=== PATIENT | male | born 1990 | race Two or more races ===

== ENCOUNTER 2021-09-28 12:27 | Inpatient (IN) | payer MEDICARE, SELFPAY ==
--- NOTE | 2021-09-28 | ECG_ITS ---
Test Reason : cp Blood Pressure : / mmHG Vent. Rate : 057 BPM Atrial Rate : 057 BPM P-R Int : 166 ms QRS Dur : 104 ms QT Int : 408 ms P-R-T Axes : 051 071 014 degrees QTc Int : 397 ms Sinus bradycardia Incomplete right bundle branch block Borderline ECG No previous ECGs available Referred By: Symone Barnes Electronically Signed By:SUMAYA MERCADO
--- NOTE | ~2021-09-28 | XR_ITS ---
EXAMINATION: XR TIBIA AND FIBULA, RIGHT CLINICAL INFORMATION: Pain with ambulation. History of trauma. COMPARISON: None TECHNIQUE: AP and lateral views of the right tibia and fibula were obtained. FINDINGS: The bones and soft tissues are normal. No fracture. No osseous lesions. XR/XR tibia fibula RT 2V IMPRESSION: Normal right tibia and fibula.
--- NOTE | ~2021-09-28 | XR_ITS ---
EXAMINATION: XR LUMBOSACRAL SPINE CLINICAL INFORMATION: Chronic low back pain COMPARISON: None TECHNIQUE: Three views of the lumbosacral spine. FINDINGS: Bone alignment is normal. No fracture or dislocation is seen. Disc spaces are normal. Paraspinal soft tissues are normal. XR/XR lumbar spine 2-3V IMPRESSION: Unremarkable examination.
--- NOTE | ~2021-09-28 | XR_ITS ---
EXAMINATION: XR HAND, RIGHT CLINICAL INFORMATION: Painful nodule; history of trauma. COMPARISON: None TECHNIQUE: PA, lateral, and oblique views of the right hand. FINDINGS: The bones and soft tissues are normal. No fracture. Alignment is anatomic. Joint spaces are maintained. No erosions or soft tissue calcifications. XR/XR hand RT min 3V IMPRESSION: Normal right hand.
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
--- NOTE | 2021-09-28 12:48 | MHC.CARE ---
CARE Team receives a call from [facility] crisis. Pt was assessed in the community and is a bedsearch.
[2021-09-28 13:39] LABS: COVID-19 Test Negative (Negative)
[2021-09-28 13:43] LABS: Amphetamine Screen Urine Not Detected (Not Detect); Barbiturates, Urine Not Detected (Not Detect); Benzodiazepines Screen Urine Not Detected (Not Detect); Cannabinoid Screen Urine POSITIVE (Not Detect); Cocaine Screen Urine Not Detected (Not Detect); Fentanyl, urine Not Detected (Not Detect); Opiate Screen Urine Not Detected (Not Detect); Phencyclidine Screen Urine Not Detected (Not Detect)
[2021-09-28 13:48] LABS: MANUAL DIFF FLAG NO
[2021-09-28 13:51] LABS: Basophils Percent Auto 0.3 % (0-2); Eosinophils Absolute Auto 0.1 X10*3/uL (0.0-0.4); Eosinophils Percent Auto 0.8 % (0-4); Hematocrit 39.7 % (42.0-52.0); Hemoglobin 13.2 g/dl (14.0-18.0); Imm Gran Abs Auto 0.02 X10*3/uL (0.00-0.03); Imm Gran Pct Auto 0.3 % (0.0-0.4); Lymphocytes Absolute Auto 1.7 X10*3/uL (1.2-4.9); Lymphocytes Percent Auto 26.4 % (20-40); Mean Corpuscular HGB Conc 33.2 g/dl (31.0-36.0); Mean Corpuscular Hemoglobin 29.7 pg (27.0-33.0); Mean Corpuscular Volume 89.2 fL (80.0-98.0); Mean Platelet Volume 10.2 fL (9.4-12.4); Monocytes Absolute Auto 0.6 X10*3/uL (0.1-1.2); Monocytes Percent Auto 9.4 % (2-11); Neutrophils Absolute Auto 4.1 x10*3/uL (2.0-8.3); Neutrophils Percent Auto 62.8 % (45-73); Platelet Count 195 X10*3/uL (160-400); Red Blood Count 4.45 X10*6/uL (4.60-5.80); Red Cell Distribution Width 12.4 % (11.0-16.0); White Blood Count 6.6 X10*3/uL (4.8-10.8)
[2021-09-28 13:59] LABS: Lithium < 0.04 mmol/L (0.60-1.20)
[2021-09-28 14:00] VITALS: BP 123/53; PULSE 83; RESP 18; TEMP 36.6; O2SAT 98; BMI 22.8
[2021-09-28 14:07] LABS: Alanine Aminotransferase 11 U/L (0-40); Albumin Level 4.2 g/dL (3.5-5.0); Alkaline Phosphatase 60 U/L (39-117); Anion Gap 14 (12-20); Aspartate Amino Transferase 23 U/L (5-37); Bilirubin Direct 0.2 mg/dL (0.0-0.5); Bilirubin Total 0.5 mg/dL (0.0-1.0); Blood Urea Nitrogen 12 mg/dL (9-16); Calcium 9.4 mg/dL (8.4-10.2); Carbon Dioxide 29 mmol/L (22-29); Chloride 103 mmol/L (96-108); Estimated Glomerular Filt Rate > 60; Ethanol < 10 mg/dL; Glucose Random 92 mg/dL (60-115); Potassium 3.7 mmol/L (3.3-5.1); Sodium 142 mmol/L (135-145); Total Protein 7.3 g/dL (6.5-8.0)
[2021-09-28] MEDS: OLANZapine 5 MG TABLET PO (16:41)
[2021-09-28 18:55] VITALS: BP 123/84; PULSE 53; RESP 16; TEMP 36.5; O2SAT 100
[2021-09-28 19:56] LABS: Valproate 12.1 mcg/mL (50.0-100.0)
[2021-09-28] MEDS: OLANZapine 10 MG TABLET 20 MG PO (20:53)
[2021-09-28] MEDS: Gabapentin 100 MG CAPSULE 200 MG PO (20:55)
[2021-09-28] MEDS: Divalproex Sodium ER 500 MG TAB.ER.24H 2500 MG PO (20:56)
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
[2021-09-29 07:00] VITALS: BMI 19.5
[2021-09-29 08:55] LABS: Estimated Average Glucose 91 mg/dL; Hemoglobin A1c % 4.8 %
[2021-09-29 08:56] LABS: Cholesterol 126 mg/dL; HDL Cholesterol 43 mg/dL; LDL Cholesterol Calculated 69 mg/dl; Magnesium 2.1 mg/dL (1.6-2.6); Triglycerides 74 mg/dL
[2021-09-29 09:18] LABS: Free T4 (Free Thyroxine) 0.98 ng/dL (0.71-1.85); Thyroid Stimulating Hormone 0.55 uIU/mL (0.32-4.0)
[2021-09-29] MEDS: Thiamine HCL 100 MG TABLET PO (09:29)
[2021-09-29] MEDS: Gabapentin 100 MG CAPSULE 200 MG PO ×3 (09:29→22:14)
[2021-09-29] MEDS: Sertraline HCL 50 MG TABLET PO (09:29)
[2021-09-29] MEDS: Acetaminophen 325 MG TABLET 650 MG PO (09:30)
[2021-09-29 09:52] LABS: Folate 16.1 ng/mL (> or = 4.0); Vitamin B12 1003 pg/mL (200-900)
[2021-09-29 10:16] VITALS: BP 131/98; PULSE 72; RESP 18; TEMP 36.4; O2SAT 98
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
[2021-09-29 20:15] VITALS: BP 117/63; PULSE 64; RESP 16; TEMP 36.6; O2SAT 98
[2021-09-29] MEDS: OLANZapine 10 MG TABLET 20 MG PO (22:14)
[2021-09-29] MEDS: Divalproex Sodium ER 500 MG TAB.ER.24H 2500 MG PO (22:14)
[2021-09-30 09:10] VITALS: BP 118/62; PULSE 97; RESP 18; TEMP 36.4; O2SAT 98
[2021-09-30] MEDS: Sertraline HCL 50 MG TABLET PO (10:14)
[2021-09-30] MEDS: Gabapentin 100 MG CAPSULE 200 MG PO ×3 (10:14→22:20)
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
[2021-09-30] MEDS: OLANZapine 10 MG TABLET 20 MG PO (22:21)
[2021-09-30] MEDS: Divalproex Sodium ER 500 MG TAB.ER.24H 2500 MG PO (22:21)
[2021-09-30 22:26] VITALS: BP 132/62; PULSE 88; TEMP 36.6; O2SAT 96
--- NOTE | 2021-10-01 09:19 | P.PNPSI_ITS ---
Subjective Subjective Date of Service: 10/01/21 Reason For Visit: Manic,agitated Subjective Notes: Conditional Voluntary Guardianship: Yes (Mother) Interim History: Patient was seen and discussed in rounds today. Records and plans were revi ewed. He is doing a little better and has been brighter and more relaxed. Eating and sleeping adequately. He is mostly isolative. He states that he wants to put a 3 day notice and. He has been reported to be paranoid and somewhat delusional. No complaints or side effects. No changes were made today Medication Compliance: Yes Side effects from medications: No Attending Groups: Intermittent Review of Systems Review of Systems Yes all other systems are reviewed and are negative Mental Status Exam Mental Status Exam Narrative: In today's visit he is alert, oriented and cooperative and pleasant. Soft- spoken speech. Minimal eye contact. Affect is constricted. He denies any auditory or visual hallucinations. Paranoid ideations and delusions present. No SI. Cognitively intact on gross observation. Judgment is marginal. Diagnostics Vital Signs (24Hr): Vital Signs - 24 hr 09/30/21 22:26 Temperature 97.8 F Pulse Rate 88 Blood Pressure 132/62 Pulse Oximetry 96 Oxygen Delivery Method Room Air BMI result Body Mass Index 19.5 Labs Results: 09/28/21 13:43 09/28/21 13:43 Labs: Laboratory Results - last 48 hr 09/29/21 08:23 Vitamin B12 1003 H Folate 16.1 Imaging Radiology Impressions: ITS Impressions Lumbar Spine X-Ray 09/29/21 16:11 IMPRESSION: Unremarkable examination. Tibia/Fibula X-Ray 09/29/21 16:11 IMPRESSION: Normal right tibia and fibula. Medications Medications Current Medications Acetaminophen (Acetaminophen 325 Mg Tablet) 650 mg PO Q6H PRN PRN Reason: Headache/Pain Mild Scale (1-3) Last Admin: 09/29/21 09:30 Dose: 650 mg Al Hydroxide/Mg Hydroxide (Magnesium Hydrox/Alum Hydrox 30 Ml Oral.Susp) 30 ml PO Q6H PRN PRN Reason: Heartburn/Nausea Albuterol Sulfate (Albuterol Sulfate 90 Mcg 8 Gm Inhaler) 1 puff INHALE QID PRN PRN Reason: wheezing Divalproex Sodium (Divalproex Sodium Er 500 Mg Tab.Er.24h) 2,500 mg PO BEDTIME [facility] Last Admin: 09/30/21 22:21 Dose: 2,500 mg Gabapentin (Gabapentin 100 Mg Capsule) 200 mg PO TID [facility] Last Admin: 09/30/21 22:20 Dose: 200 mg Hydroxyzine HCl (Hydroxyzine Hcl 25 Mg Tablet) 25 mg PO Q6H PRN PRN Reason: Anxiety Magnesium Hydroxide (Milk Of Magnesia 30 Ml Oral.Susp) 30 ml PO DAILY PRN PRN Reason: Constipation Nicotine Polacrilex (Nicotine Polacrilex 2 Mg Gum) 2 mg BUCCAL Q2H PRN PRN Reason: nicotine cravings Olanzapine (Olanzapine 10 Mg Tablet) 20 mg PO BEDTIME [facility] Last Admin: 09/30/21 22:21 Dose: 20 mg Sertraline HCl (Sertraline Hcl 50 Mg Tablet) 50 mg PO DAILY [facility] Last Admin: 09/30/21 10:14 Dose: 50 mg Thiamine HCl (Thiamine Hcl 100 Mg Tablet) 100 mg PO DAILY [facility] Last Admin: 09/30/21 10:15 Dose: Not Given Trazodone HCl (Trazodone Hcl 50 Mg Tablet) 50 mg PO BEDTIME PRN PRN Reason: Insomnia Allergies Allergies Allergy/AdvReac Type Severity Reaction Status Date / Time No Known Allergies Allergy Verified 09/28/21 12:49 Assessment & Plan Assessment & Plan (1) Schizoaffective disorder: Status: Acute Code(s): F25.9 - Schizoaffective disorder, unspecified Plan restart outpt meds. pt claims to be taking meds as prescribed, but Rxed 2500 mg VPA and his level at admission was only 12. observe for resolution of manic/psychotic Sx. 09/30 continue current medications. 10/01: Continue current regimen and plans I spent minutes with the patient and/or on the patient floor today, greater than?50% of which was spent counseling/coordinating care. Reason for contiued inpatient stay Substantial Risk for: med/psych decompensation
[2021-10-01 10:50] VITALS: BP 130/86; PULSE 77; RESP 18; TEMP 36.5; O2SAT 100
[2021-10-01] MEDS: Gabapentin 100 MG CAPSULE 200 MG PO ×3 (10:54→22:43)
[2021-10-01] MEDS: Sertraline HCL 50 MG TABLET PO (10:54)
[2021-10-01] MEDS: Thiamine HCL 100 MG TABLET PO (10:55)
[2021-10-01] MEDS: Milk of Magnesia 30 ML ORAL.SUSP PO (10:58)
--- NOTE | 2021-10-01 16:19 | PC.NURSE ---
Patient submitted 3 day notice.
[2021-10-01 21:00] VITALS: BP 130/74; PULSE 82; TEMP 36.8; O2SAT 96
[2021-10-01] MEDS: Divalproex Sodium ER 500 MG TAB.ER.24H 2500 MG PO (22:42)
[2021-10-01] MEDS: OLANZapine 10 MG TABLET 20 MG PO (22:42)
--- NOTE | 2021-10-02 08:51 | P.PNPSI_ITS ---
Subjective Subjective Date of Service: 10/02/21 Reason For Visit: Manic,agitated Subjective Notes: Conditional Voluntary and 3 Day Healthcare Proxy: No Guardianship: No Medical Problems Affecting Mental Status: No Interim History: Patient was seen and discussed in rounds today. Records and plans were reviewed. He is is doing better and has no anxiety or depression. He is continue to have some poor boundaries. He is pleasant and interactive. He put in a 3 day notice in yesterday but could not say why exactly. He had some questions about it which we discussed. He denies any side effects. No SI. Eating and sleeping adequately. No changes were made today Medication Compliance: Yes Side effects from medications: No Attending Groups: Intermittent Review of Systems Review of Systems Yes all other systems are reviewed and are negative Mental Status Exam Mental Status Exam Narrative: In today's visit he is alert, oriented and cooperative and pleasant. Soft- spoken speech. Minimal eye contact. Affect is constricted. He denies any auditory or visual hallucinations. Paranoid ideations and delusions present. No SI. Cognitively intact on gross observation. Judgment is marginal. Diagnostics Vital Signs (24Hr): Vital Signs - 24 hr 10/01/21 10:50 10/01/21 21:00 Temperature 97.7 F 98.2 F Pulse Rate 77 82 Respiratory Rate 18 Blood Pressure 130/86 130/74 Pulse Oximetry 100 96 Oxygen Delivery Method Room Air Room Air BMI result Body Mass Index 19.5 Labs Results: 09/28/21 13:43 09/28/21 13:43 Imaging Radiology Impressions: ITS Impressions Lumbar Spine X-Ray 09/29/21 16:11 IMPRESSION: Unremarkable examination. Tibia/Fibula X-Ray 09/29/21 16:11 IMPRESSION: Normal right tibia and fibula. Medications Medications Current Medications Acetaminophen (Acetaminophen 325 Mg Tablet) 650 mg PO Q6H PRN PRN Reason: Headache/Pain Mild Scale (1-3) Last Admin: 09/29/21 09:30 Dose: 650 mg Al Hydroxide/Mg Hydroxide (Magnesium Hydrox/Alum Hydrox 30 Ml Oral.Susp) 30 ml PO Q6H PRN PRN Reason: Heartburn/Nausea Albuterol Sulfate (Albuterol Sulfate 90 Mcg 8 Gm Inhaler) 1 puff INHALE QID PRN PRN Reason: wheezing Divalproex Sodium (Divalproex Sodium Er 500 Mg Tab.Er.24h) 2,500 mg PO BEDTIME [facility] Last Admin: 10/01/21 22:42 Dose: 2,500 mg Gabapentin (Gabapentin 100 Mg Capsule) 200 mg PO TID [facility] Last Admin: 10/01/21 22:43 Dose: 200 mg Hydroxyzine HCl (Hydroxyzine Hcl 25 Mg Tablet) 25 mg PO Q6H PRN PRN Reason: Anxiety Magnesium Hydroxide (Milk Of Magnesia 30 Ml Oral.Susp) 30 ml PO DAILY PRN PRN Reason: Constipation Last Admin: 10/01/21 10:58 Dose: 30 ml Nicotine Polacrilex (Nicotine Polacrilex 2 Mg Gum) 2 mg BUCCAL Q2H PRN PRN Reason: nicotine cravings Olanzapine (Olanzapine 10 Mg Tablet) 20 mg PO BEDTIME [facility] Last Admin: 10/01/21 22:42 Dose: 20 mg Sertraline HCl (Sertraline Hcl 50 Mg Tablet) 50 mg PO DAILY [facility] Last Admin: 10/01/21 10:54 Dose: 50 mg Thiamine HCl (Thiamine Hcl 100 Mg Tablet) 100 mg PO DAILY [facility] Last Admin: 10/01/21 10:55 Dose: 100 mg Trazodone HCl (Trazodone Hcl 50 Mg Tablet) 50 mg PO BEDTIME PRN PRN Reason: Insomnia Allergies Allergies Allergy/AdvReac Type Severity Reaction Status Date / Time No Known Allergies Allergy Verified 09/28/21 12:49 Assessment & Plan Assessment & Plan (1) Schizoaffective disorder: Status: Acute Code(s): F25.9 - Schizoaffective disorder, unspecified Plan restart outpt meds. pt claims to be taking meds as prescribed, but Rxed 2500 mg VPA and his level at admission was only 12. observe for resolution of manic/psychotic Sx. 09/30 continue current medications. 10/01: Continue current regimen and plans 10/02: Continue current plans and regimen. He has a 3 day notice in which will be up on 10/05 I spent minutes with the patient and/or on the patient floor today, greater than?50% of which was spent counseling/coordinating care. Reason for contiued inpatient stay Substantial Risk for: med/psych decompensation
[2021-10-02 09:00] VITALS: BP 156/83; PULSE 58; RESP 16; TEMP 36.3; O2SAT 100
[2021-10-02] MEDS: Acetaminophen 325 MG TABLET 650 MG PO (09:08)
[2021-10-02] MEDS: Thiamine HCL 100 MG TABLET PO (09:09)
[2021-10-02] MEDS: Sertraline HCL 50 MG TABLET PO (09:09)
[2021-10-02] MEDS: Gabapentin 100 MG CAPSULE 200 MG PO ×3 (09:09→20:36)
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
[2021-10-02 20:15] VITALS: BP 141/97; PULSE 77; RESP 18; TEMP 36.9; O2SAT 99
[2021-10-02] MEDS: Divalproex Sodium ER 500 MG TAB.ER.24H 2500 MG PO (20:36)
[2021-10-02] MEDS: OLANZapine 10 MG TABLET 20 MG PO (20:36)
--- NOTE | 2021-10-02 22:34 | PC.NURSE ---
During 2100 med pass, pt was observed opening his gabapentin capsules and snorting the powder. Pt made no attempts to hide this action, was verbally redirected by RN to stop which he did. Pt appeared to inhale nasally about 50% of the powder from 1 capsule, swallowed the rest once redirected. Pt stated that's what I do . Pt reminded he can not take the gabapentin this way in the hospital and it is not recommended at all, even at home. Pt made no further attempts to discuss the issue, no aggressive or inappropriate behavior noted. Plan to pass information along to tx team.
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
[2021-10-03 10:15] VITALS: BP 122/58; PULSE 80; RESP 18; TEMP 36.7; O2SAT 100
[2021-10-03] MEDS: Thiamine HCL 100 MG TABLET PO (10:42)
[2021-10-03] MEDS: OLANZapine ODT 10 MG TAB.RAPDIS TRANSLINGU (10:42)
[2021-10-03] MEDS: Gabapentin 100 MG CAPSULE 200 MG PO ×3 (10:42→21:38)
[2021-10-03] MEDS: QUEtiapine Fumarate 50 MG TABLET PO (15:26)
[2021-10-03] MEDS: Acetaminophen 325 MG TABLET 650 MG PO (15:27)
[2021-10-03 21:30] VITALS: BP 128/85; PULSE 74; RESP 16; TEMP 36.6; O2SAT 98
[2021-10-03] MEDS: Divalproex Sodium ER 500 MG TAB.ER.24H 2500 MG PO (21:38)
[2021-10-03] MEDS: OLANZapine ODT 10 MG TAB.RAPDIS 20 MG TRANSLINGU (21:38)
[2021-10-04] MEDS: OLANZapine ODT 10 MG TAB.RAPDIS TRANSLINGU (10:32)
[2021-10-04] MEDS: Thiamine HCL 100 MG TABLET PO (10:32)
[2021-10-04] MEDS: Acetaminophen 325 MG TABLET 650 MG PO (10:34)
[2021-10-04 10:48] VITALS: BP 153/93; PULSE 92; RESP 16; TEMP 36.3; O2SAT 98
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
--- NOTE | 2021-10-04 18:03 | PC.NURSE ---
Patient over heard on the phone stating I do not give a fuck if I am off the ankle bracelet. I will will fucking kill you. I will murder you . Patient proceeded to slam phone on wall. Walked down the [address] way threw waterbottle at wall and slammed door to room. Told staff to leave me the fuck alone when attempting to check in on the patient.
[2021-10-04 21:00] VITALS: BP 133/89; PULSE 70; RESP 18; TEMP 36.8; O2SAT 98
[2021-10-05 06:00] VITALS: BP 130/63; PULSE 72; RESP 16; TEMP 36.6; O2SAT 95
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
[2021-10-05] MEDS: Thiamine HCL 100 MG TABLET PO (09:53)
[2021-10-05] MEDS: OLANZapine ODT 10 MG TAB.RAPDIS 20 MG TRANSLINGU ×2 (09:53→19:52)
[2021-10-05] MEDS: QUEtiapine Fumarate 100 MG TABLET PO (10:30)
[2021-10-05] MEDS: Divalproex Sodium ER 500 MG TAB.ER.24H 2500 MG PO (19:51)
[2021-10-05 19:54] VITALS: BP 130/72; PULSE 88; TEMP 36.8; O2SAT 97
[2021-10-05] MEDS: Acetaminophen 325 MG TABLET 650 MG PO (23:41)
[2021-10-05] MEDS: traZODone HCL 50 MG TABLET PO (23:42)
[2021-10-06 07:00] VITALS: BMI 20.7
--- NOTE | 2021-10-06 09:41 | P.PNPSI_ITS ---
Subjective Subjective Date of Service: 10/06/21 Reason For Visit: Manic,agitated Subjective Notes: Section 7 Interim History: Pt calmer, today. He reports his food tampered, on and off. He reports he is trying to stay in room and out of trouble. He is taking medications as prescribed. He reports back pain s/s to severe scoliosis. He agrees to not snort gabapetin and acknowledge doing so. He denies SI. Suspicious towards peers, paranoia towards mother. Medication Compliance: Yes Side effects from medications: No Review of Systems Review of Systems Yes all other systems are reviewed and are negative Mental Status Exam Mental Status Exam Narrative: adequately dressed and groomed. face and neck tattoos. very suspicious, threatening to harm staff and peers as he thinks he is being posioned. no PMA/PMR. speech incr in rate, amount, loudness. decr latency. nml prosody. thoughts paranoid, delusional, restricted in content to paranoid delusions, larg corey. affect paranoid, guarded, agitated. mood anxious. denies SI/HI/AVH. Diagnostics Vital Signs (24Hr): Vital Signs - 24 hr 10/06/21 10:47 10/06/21 21:29 Temperature 97.8 F 97.8 F Pulse Rate 93 88 Blood Pressure 124/82 130/83 Pulse Oximetry 99 98 Oxygen Delivery Method Room Air Room Air BMI result Body Mass Index 20.7 Labs Results: 09/28/21 13:43 09/28/21 13:43 Imaging Radiology Impressions: ITS Impressions Lumbar Spine X-Ray 09/29/21 16:11 IMPRESSION: Unremarkable examination. Tibia/Fibula X-Ray 09/29/21 16:11 IMPRESSION: Normal right tibia and fibula. Medications Medications Current Medications Acetaminophen (Acetaminophen 325 Mg Tablet) 650 mg PO Q6H PRN PRN Reason: Headache/Pain Mild Scale (1-3) Last Admin: 10/06/21 21:17 Dose: 650 mg Al Hydroxide/Mg Hydroxide (Magnesium Hydrox/Alum Hydrox 30 Ml Oral.Susp) 30 ml PO Q6H PRN PRN Reason: Heartburn/Nausea Albuterol Sulfate (Albuterol Sulfate 90 Mcg 8 Gm Inhaler) 1 puff INHALE QID PRN PRN Reason: wheezing Divalproex Sodium (Divalproex Sodium Er 500 Mg Tab.Er.24h) 2,500 mg PO BEDTIME [facility] Last Admin: 10/06/21 21:12 Dose: 2,500 mg Hydroxyzine HCl (Hydroxyzine Hcl 25 Mg Tablet) 25 mg PO Q6H PRN PRN Reason: Anxiety Magnesium Hydroxide (Milk Of Magnesia 30 Ml Oral.Susp) 30 ml PO DAILY PRN PRN Reason: Constipation Last Admin: 10/01/21 10:58 Dose: 30 ml Nicotine Polacrilex (Nicotine Polacrilex 2 Mg Gum) 2 mg BUCCAL Q2H PRN PRN Reason: nicotine cravings Olanzapine (Olanzapine Odt 10 Mg Tab.Rapdis) 20 mg TRANSLINGU BID [facility] Last Admin: 10/06/21 21:12 Dose: 20 mg Quetiapine Fumarate (Quetiapine Fumarate 100 Mg Tablet) 100 mg PO Q6H PRN PRN Reason: Anxiety Last Admin: 10/05/21 10:30 Dose: 100 mg Thiamine HCl (Thiamine Hcl 100 Mg Tablet) 100 mg PO DAILY [facility] Last Admin: 10/06/21 10:46 Dose: 100 mg Trazodone HCl (Trazodone Hcl 50 Mg Tablet) 50 mg PO BEDTIME PRN PRN Reason: Insomnia Last Admin: 10/05/21 23:42 Dose: 50 mg Allergies Allergies Allergy/AdvReac Type Severity Reaction Status Date / Time No Known Allergies Allergy Verified 09/28/21 12:49 Assessment & Plan Assessment & Plan (1) Schizoaffective disorder: Status: Acute Code(s): F25.9 - Schizoaffective disorder, unspecified Plan restart outpt meds. pt claims to be taking meds as prescribed, but Rxed 2500 mg VPA and his level at admission was only 12. observe for resolution of manic/psychotic Sx. 09/30 continue current medications. 10/01: Continue current regimen and plans 10/02: Continue current plans and regimen. He has a 3 day notice in which will be up on 10/05 10/03 increase olanzapine 10mg po daily and 20mg po qhs. d/c gabapentin as pt trying to snort it. d/c sertraline as it may worsened psychosis. 10/04 increase olanzapine to 20mg po BID. 10/05 continue current medications. 10/06 continue current medications. I spent minutes with the patient and/or on the patient floor today, greater than?50% of which was spent counseling/coordinating care. Reason for contiued inpatient stay Substantial Risk for: harm to others and inability to function
[2021-10-06] MEDS: OLANZapine ODT 10 MG TAB.RAPDIS 20 MG TRANSLINGU ×2 (10:45→21:12)
[2021-10-06] MEDS: Thiamine HCL 100 MG TABLET PO (10:46)
[2021-10-06 10:47] VITALS: BP 124/82; PULSE 93; TEMP 36.6; O2SAT 99
[2021-10-06] MEDS: Divalproex Sodium ER 500 MG TAB.ER.24H 2500 MG PO (21:12)
[2021-10-06] MEDS: Acetaminophen 325 MG TABLET 650 MG PO (21:17)
[2021-10-06 21:29] VITALS: BP 130/83; PULSE 88; TEMP 36.6; O2SAT 98
--- NOTE | 2021-10-07 09:01 | HO.PSYCHPN ---
Subjective Subjective Date of Service: 10/07/21 Reason For Visit: Manic,agitated Subjective Notes: Section 7 Interim History: Pt with brighter less suspicious affect. Pt greets pt and shows all food he is eating, Look I'm so hungry! Pt appears less paranoia towards food. He reports sleeping and eating well. He denies SI/HI. He reports he is willing to work with OP providers to find better housing arrangements. No behavioral concerns in past 24 hrs. Not threatening peers or staff. Taking meds as prescribed. Medication Compliance: Yes Side effects from medications: No Attending Groups: Yes Review of Systems Review of Systems Yes all other systems are reviewed and are negative Mental Status Exam Mental Status Exam Narrative: adequately dressed and groomed. face and neck tattoos. very suspicious, threatening to harm staff and peers as he thinks he is being posioned. no PMA/PMR. speech incr in rate, amount, loudness. decr latency. nml prosody. thoughts paranoid, delusional, restricted in content to paranoid delusions, largely. affect paranoid, guarded, agitated. mood anxious. denies SI/HI/AVH. Diagnostics Vital Signs (24Hr): Vital Signs - 24 hr 10/07/21 10:00 Temperature 98.7 F Pulse Rate 80 Respiratory Rate 18 Blood Pressure 117/80 Pulse Oximetry 96 Oxygen Delivery Method Room Air BMI result Body Mass Index 20.7 Labs Results: 09/28/21 13:43 09/28/21 13:43 Imaging Radiology Impressions: ITS Impressions Lumbar Spine X-Ray 09/29/21 16:11 IMPRESSION: Unremarkable examination. Tibia/Fibula X-Ray 09/29/21 16:11 IMPRESSION: Normal right tibia and fibula. Medications Medications Current Medications Acetaminophen (Acetaminophen 325 Mg Tablet) 650 mg PO Q6H PRN PRN Reason: Headache/Pain Mild Scale (1-3) Last Admin: 10/07/21 22:56 Dose: 650 mg Al Hydroxide/Mg Hydroxide (Magnesium Hydrox/Alum Hydrox 30 Ml Oral.Susp) 30 ml PO Q6H PRN PRN Reason: Heartburn/Nausea Albuterol Sulfate (Albuterol Sulfate 90 Mcg 8 Gm Inhaler) 1 puff INHALE QID PRN PRN Reason: wheezing Last Admin: 10/07/21 10:04 Dose: 1 puff Divalproex Sodium (Divalproex Sodium Er 500 Mg Tab.Er.24h) 2,500 mg PO BEDTIME [facility] Last Admin: 10/07/21 22:56 Dose: 2,500 mg Hydroxyzine HCl (Hydroxyzine Hcl 25 Mg Tablet) 25 mg PO Q6H PRN PRN Reason: Anxiety Magnesium Hydroxide (Milk Of Magnesia 30 Ml Oral.Susp) 30 ml PO DAILY PRN PRN Reason: Constipation Last Admin: 10/01/21 10:58 Dose: 30 ml Nicotine Polacrilex (Nicotine Polacrilex 2 Mg Gum) 2 mg BUCCAL Q2H PRN PRN Reason: nicotine cravings Olanzapine (Olanzapine Odt 10 Mg Tab.Rapdis) 20 mg TRANSLINGU BID [facility] Last Admin: 10/07/21 22:56 Dose: 20 mg Quetiapine Fumarate (Quetiapine Fumarate 100 Mg Tablet) 100 mg PO Q6H PRN PRN Reason: Anxiety Last Admin: 10/07/21 22:56 Dose: 100 mg Thiamine HCl (Thiamine Hcl 100 Mg Tablet) 100 mg PO DAILY [facility] Last Admin: 10/07/21 10:04 Dose: 100 mg Trazodone HCl (Trazodone Hcl 50 Mg Tablet) 50 mg PO BEDTIME PRN PRN Reason: Insomnia Last Admin: 10/05/21 23:42 Dose: 50 mg Allergies Allergies Allergy/AdvReac Type Severity Reaction Status Date / Time No Known Allergies Allergy Verified 09/28/21 12:49 Assessment & Plan Assessment & Plan (1) Schizoaffective disorder: Status: Acute Code(s): F25.9 - Schizoaffective disorder, unspecified Plan restart outpt meds. pt claims to be taking meds as prescribed, but Rxed 2500 mg VPA and his level at admission was only 12. observe for resolution of manic/psychotic Sx. 09/30 continue current medications. 10/01: Continue current regimen and plans 10/02: Continue current plans and regimen. He has a 3 day notice in which will be up on 10/05 10/03 increase olanzapine 10mg po daily and 20mg po qhs. d/c gabapentin as pt trying to snort it. d/c sertraline as it may worsened psychosis. 10/04 increase olanzapine to 20mg po BID. 10/05 continue current medications. 10/06 continue current medications. 10/07 continue meds, agrees to take gabapentin without trying to snoring it- he takes it for back pain s/s to scoliosis. I spent minutes with the patient and/or on the patient floor today, greater than?50% of which was spent counseling/coordinating care. Reason for contiued inpatient stay Substantial Risk for: harm to others and inability to function
[2021-10-07 10:00] VITALS: BP 117/80; PULSE 80; RESP 18; TEMP 37.1; O2SAT 96
[2021-10-07] MEDS: Thiamine HCL 100 MG TABLET PO (10:04)
[2021-10-07] MEDS: Albuterol Sulfate 90 MCG 8 GM INHALER 1 PUFF INHALE (10:04)
[2021-10-07] MEDS: OLANZapine ODT 10 MG TAB.RAPDIS 20 MG TRANSLINGU ×2 (10:04→22:56)
[2021-10-07] MEDS: Divalproex Sodium ER 500 MG TAB.ER.24H 2500 MG PO (22:56)
[2021-10-07] MEDS: Acetaminophen 325 MG TABLET 650 MG PO (22:56)
[2021-10-07] MEDS: QUEtiapine Fumarate 100 MG TABLET PO (22:56)
--- NOTE | 2021-10-08 09:25 | P.PNPSI_ITS ---
Subjective Subjective Date of Service: 10/08/21 Reason For Visit: Manic,agitated Subjective Notes: [place] Warning and Section 7 Healthcare Proxy: No Guardianship: No Medical Problems Affecting Mental Status: No Interim History: I spoke with pt this morning and upon interview he reports I dont want to be here longer, I dont feel accepted or welcome here, I'd rather be released early. Says he is not concerned with housing instability, will stay at a hotel if I have to or go back to my mom's house. Denies SI/SIB/HI. Pt refers to being a violent person but pt makes these statements at baseline, may be characterological, no specific threats of harm towards any person, denies homicial or assaultive ideation, plan, or intent at this time. Says he does not want to eat hospital food as he has found hairs in his food. Says he has no patience and feels burnt out being at the hospital, prefers to be quiet and left alone, mind my own business, says he is a good dude but he does not feel safe at the hospital. He is mistrustful, but this appears his baseline rather than acutely paranoid. He is med adherent. Medication Compliance: Yes Side effects from medications: No Attending Groups: No Review of Systems Acute medical concerns: No Medical Review of Systems: unchanged Mental Status Exam Mental Status Exam Narrative: adequately dressed and groomed.? face and neck tattoos.? Pt is suspicious and mistrustful, makes vague passive threats of violence but when asked if he has plans or intent to harm anyone he denies this. no PMA/PMR.? speech wnl.? no latency.? nml prosody.? thoughts are paranoid, appears to be his baseline.? affect guarded, agitated.? mood anxious. ? denies SI/HI/AVH. Diagnostics Vital Signs (24Hr): Vital Signs - 24 hr 10/07/21 10:00 Temperature 98.7 F Pulse Rate 80 Respiratory Rate 18 Blood Pressure 117/80 Pulse Oximetry 96 Oxygen Delivery Method Room Air BMI result Body Mass Index 20.7 Labs Results: 09/28/21 13:43 09/28/21 13:43 Imaging Radiology Impressions: ITS Impressions Lumbar Spine X-Ray 09/29/21 16:11 IMPRESSION: Unremarkable examination. Tibia/Fibula X-Ray 09/29/21 16:11 IMPRESSION: Normal right tibia and fibula. Medications Medications Current Medications Acetaminophen (Acetaminophen 325 Mg Tablet) 650 mg PO Q6H PRN PRN Reason: Headache/Pain Mild Scale (1-3) Last Admin: 10/07/21 22:56 Dose: 650 mg Al Hydroxide/Mg Hydroxide (Magnesium Hydrox/Alum Hydrox 30 Ml Oral.Susp) 30 ml PO Q6H PRN PRN Reason: Heartburn/Nausea Albuterol Sulfate (Albuterol Sulfate 90 Mcg 8 Gm Inhaler) 1 puff INHALE QID PRN PRN Reason: wheezing Last Admin: 10/07/21 10:04 Dose: 1 puff Divalproex Sodium (Divalproex Sodium Er 500 Mg Tab.Er.24h) 2,500 mg PO BEDTIME [facility] Last Admin: 10/07/21 22:56 Dose: 2,500 mg Hydroxyzine HCl (Hydroxyzine Hcl 25 Mg Tablet) 25 mg PO Q6H PRN PRN Reason: Anxiety Magnesium Hydroxide (Milk Of Magnesia 30 Ml Oral.Susp) 30 ml PO DAILY PRN PRN Reason: Constipation Last Admin: 10/01/21 10:58 Dose: 30 ml Nicotine Polacrilex (Nicotine Polacrilex 2 Mg Gum) 2 mg BUCCAL Q2H PRN PRN Reason: nicotine cravings Olanzapine (Olanzapine Odt 10 Mg Tab.Rapdis) 20 mg TRANSLINGU BID [facility] Last Admin: 10/07/21 22:56 Dose: 20 mg Quetiapine Fumarate (Quetiapine Fumarate 100 Mg Tablet) 100 mg PO Q6H PRN PRN Reason: Anxiety Last Admin: 10/07/21 22:56 Dose: 100 mg Thiamine HCl (Thiamine Hcl 100 Mg Tablet) 100 mg PO DAILY [facility] Last Admin: 10/07/21 10:04 Dose: 100 mg Trazodone HCl (Trazodone Hcl 50 Mg Tablet) 50 mg PO BEDTIME PRN PRN Reason: Insomnia Last Admin: 10/05/21 23:42 Dose: 50 mg Allergies Allergies Allergy/AdvReac Type Severity Reaction Status Date / Time No Known Allergies Allergy Verified 09/28/21 12:49 Assessment & Plan Assessment & Plan (1) Schizoaffective disorder: Status: Acute Code(s): F25.9 - Schizoaffective disorder, unspecified Plan restart outpt meds. pt claims to be taking meds as prescribed, but Rxed 2500 mg VPA and his level at admission was only 12. observe for resolution of manic/psychotic Sx. 09/30 continue current medications. 10/01: Continue current regimen and plans 10/02: Continue current plans and regimen. He has a 3 day notice in which will be up on 10/05 10/03 increase olanzapine 10mg po daily and 20mg po qhs. d/c gabapentin as pt trying to snort it. d/c sertraline as it may worsened psychosis. 10/04 increase olanzapine to 20mg po BID. 10/05 continue current medications. 10/06 continue current medications. 10/07 continue meds, agrees to take gabapentin without trying to snort it- he takes it for back pain s/s to scoliosis. 10/08 no med changes, pt requests to take smaller tabs of depakote, will accommodate I spent minutes with the patient and/or on the patient floor today, greater than?50% of which was spent counseling/coordinating care. Patient educated on: medication risk/benefits and therapeutic strategies Reason for contiued inpatient stay Substantial Risk for: rapid decompensation and med/psych decompensation
[2021-10-08 10:30] VITALS: BP 125/92; PULSE 108; RESP 18; TEMP 36.8; O2SAT 98
[2021-10-08] MEDS: Thiamine HCL 100 MG TABLET PO (10:36)
[2021-10-08] MEDS: OLANZapine ODT 10 MG TAB.RAPDIS 20 MG TRANSLINGU ×2 (10:36→23:28)
[2021-10-08] MEDS: Nicotine Polacrilex 2 MG GUM BUCCAL (13:38)
--- NOTE | 2021-10-08 15:19 | HE.PHANOTE ---
MAGALI Gomez called to have Divalproex ER 500 mg tablets switch to 250 mg tablet. Patient having difficulty swalling the large tablets and would prefer to take 10 tablets instead. Marilu Camacho, JessicaD
--- NOTE | 2021-10-08 16:12 | PC.NURSE ---
At 3:30pm, after speaking with Patricia Mcmanus NP, pt presented as angry and agitated. He states he was not told earlier that he is on a section 7 or why. He denies having threatened to kill anyone over the phone earlier in the week. He requested to use his phone to get a number and was given his phone for this purpose. He then proceeded to text and responded to limit setting by making veiled threats about where the murderers are and crips. Patient gave back his phone and then began writing on the wall in marker. He has broken a wooden piece of art and a broken marker in his room at present and is in his room.
--- NOTE | 2021-10-08 16:49 | PC.NURSE ---
I approached patient, requested broken marker and broken wooden art piece back which he ignored. I offered prn medication which he refused stating, You are messing with the wrong mother kory. I informed Patricia Mcmanus CHIEF JUVENILE PROBATION OFFICER, Kierra Pacheco Nursing Pull Out Operator, [facility], and Yenifer Parker Clinical Coordinator. Per Yenifer Parker RN unless patient makes verbal or physical threats of harm to self or others he will be allowed to possess the broken marker and the broken wooden art piece and no intervention to retrieve said items is necessary at present.
[2021-10-08] MEDS: QUEtiapine Fumarate 100 MG TABLET PO (23:28)
[2021-10-08] MEDS: Divalproex Sodium ER 250 MG TAB.ER.24H 2500 MG PO (23:28)
--- NOTE | 2021-10-09 10:14 | PC.NURSE ---
After previous note Yenifer Parker Clincial Coordinator contacted this nurse and requested that we retrieve marker and broken wooden art item from patient. Wooden art item was located on the unit. On 10/08/21 at 7:15pm [facility] met with patient and attempted to retrieve broken items from him. Pt reported he had dropped the marker in the complaint box. Complaint box was opened and no marker inside. 7:30 pm room search was completed with assist of security. Marker was located wedged behind pt's bedside table. During room search pt was largely cooperative. I noted numerous missing bolts from the bed and bedside table. Security was informed and retrieved loose nuts from the bed. No other contraband was located in the room.
--- NOTE | 2021-10-09 10:56 | P.PNPSI_ITS ---
Subjective Subjective Date of Service: 10/09/21 Reason For Visit: Manic,agitated Subjective Notes: [place] Warning and Section 7 Interim History: I spoke with pt today. Says he is trying to stay positive. He is calmer today, had been disruptive yesterday due to being told he cannot discharge. Still wants to discharge. Denies SI/SIB/HI. Says he ate the food today. Acknowledges that when he saw hair in his food and a plastic utensil wrapper in his food he felt people were doing it intentionally and I felt like it was a threat towards me, however now says he is just going to check out my food more often and able to reality test. Has insight, says he has been treated wrong my whole life, I dont trust nothing, how can you live like that? Feels nervous going to sleep. Says when he feels triggered or threatened it can take hours to calm myself down, will lose his focus, and he has to put himself to sleep. Pt falls asleep late but then sleeps in, energy is good. Medication Compliance: Yes Side effects from medications: No Attending Groups: No Review of Systems Acute medical concerns: No Medical Review of Systems: unchanged Mental Status Exam Mental Status Exam Narrative: adequately dressed and groomed.? face and neck tattoos.? Pt is suspicious and mistrustful, makes vague passive threats of violence but when asked if he has plans or intent to harm anyone he denies this. no PMA/PMR.? speech wnl.? no latency.? nml prosody.? thoughts are paranoid, appears to be his baseline.? affect guarded, agitated.? mood better. ? denies SI/HI/AVH. Diagnostics Vital Signs (24Hr): BMI result Body Mass Index 20.7 Labs Results: 09/28/21 13:43 09/28/21 13:43 Imaging Radiology Impressions: ITS Impressions Lumbar Spine X-Ray 09/29/21 16:11 IMPRESSION: Unremarkable examination. Tibia/Fibula X-Ray 09/29/21 16:11 IMPRESSION: Normal right tibia and fibula. Medications Medications Current Medications Acetaminophen (Acetaminophen 325 Mg Tablet) 650 mg PO Q6H PRN PRN Reason: Headache/Pain Mild Scale (1-3) Last Admin: 10/07/21 22:56 Dose: 650 mg Al Hydroxide/Mg Hydroxide (Magnesium Hydrox/Alum Hydrox 30 Ml Oral.Susp) 30 ml PO Q6H PRN PRN Reason: Heartburn/Nausea Albuterol Sulfate (Albuterol Sulfate 90 Mcg 8 Gm Inhaler) 1 puff INHALE QID PRN PRN Reason: wheezing Last Admin: 10/07/21 10:04 Dose: 1 puff Divalproex Sodium (Divalproex Sodium Er 250 Mg Tab.Er.24h) 2,500 mg PO BEDTIME [facility] Last Admin: 10/08/21 23:28 Dose: 2,500 mg Hydroxyzine HCl (Hydroxyzine Hcl 25 Mg Tablet) 25 mg PO Q6H PRN PRN Reason: Anxiety Magnesium Hydroxide (Milk Of Magnesia 30 Ml Oral.Susp) 30 ml PO DAILY PRN PRN Reason: Constipation Last Admin: 10/01/21 10:58 Dose: 30 ml Nicotine Polacrilex (Nicotine Polacrilex 2 Mg Gum) 2 mg BUCCAL Q2H PRN PRN Reason: nicotine cravings Last Admin: 10/08/21 13:38 Dose: 2 mg Olanzapine (Olanzapine Odt 10 Mg Tab.Rapdis) 20 mg TRANSLINGU BID [facility] Last Admin: 10/08/21 23:28 Dose: 20 mg Quetiapine Fumarate (Quetiapine Fumarate 100 Mg Tablet) 100 mg PO Q6H PRN PRN Reason: Anxiety Last Admin: 10/08/21 23:28 Dose: 100 mg Thiamine HCl (Thiamine Hcl 100 Mg Tablet) 100 mg PO DAILY [facility] Last Admin: 10/08/21 10:36 Dose: 100 mg Trazodone HCl (Trazodone Hcl 50 Mg Tablet) 50 mg PO BEDTIME PRN PRN Reason: Insomnia Last Admin: 10/05/21 23:42 Dose: 50 mg Allergies Allergies Allergy/AdvReac Type Severity Reaction Status Date / Time No Known Allergies Allergy Verified 09/28/21 12:49 Assessment & Plan Assessment & Plan (1) Schizoaffective disorder: Status: Acute Code(s): F25.9 - Schizoaffective disorder, unspecified Plan restart outpt meds. pt claims to be taking meds as prescribed, but Rxed 2500 mg VPA and his level at admission was only 12. observe for resolution of manic/psychotic Sx. 09/30 continue current medications. 10/01: Continue current regimen and plans 10/02: Continue current plans and regimen. He has a 3 day notice in which will be up on 10/05 10/03 increase olanzapine 10mg po daily and 20mg po qhs. d/c gabapentin as pt trying to snort it. d/c sertraline as it may worsened psychosis. 10/04 increase olanzapine to 20mg po BID. 10/05 continue current medications. 10/06 continue current medications. 10/07 continue meds, agrees to take gabapentin without trying to snort it- he takes it for back pain s/s to scoliosis. 10/08 no med changes, pt requests to take smaller tabs of depakote, will accommodate 10/09 no med changes I spent minutes with the patient and/or on the patient floor today, greater than?50% of which was spent counseling/coordinating care. Patient educated on: medication risk/benefits and therapeutic strategies Reason for contiued inpatient stay Substantial Risk for: rapid decompensation and med/psych decompensation
[2021-10-09] MEDS: Thiamine HCL 100 MG TABLET PO (11:24)
[2021-10-09] MEDS: OLANZapine ODT 10 MG TAB.RAPDIS 20 MG TRANSLINGU ×2 (11:24→21:38)
[2021-10-09 11:25] VITALS: BP 132/94; PULSE 80; RESP 16; TEMP 36.1; O2SAT 99
[2021-10-09 16:56] LABS: Valproate 110.8 mcg/mL (50.0-100.0)
--- NOTE | 2021-10-09 17:02 | PC.NURSE ---
Critical Value VPA level 110.75 received from Sylvia in lab at 1653 and relayed to Patricia Mcmanus NP at 1654. Depakote on hold tonight per Patricia Mcmanus NP
[2021-10-09 20:00] VITALS: BP 138/84; PULSE 88; RESP 18; TEMP 36.7; O2SAT 100
[2021-10-09] MEDS: Acetaminophen 325 MG TABLET 650 MG PO (21:38)
[2021-10-10 10:40] VITALS: BP 126/78; PULSE 83; RESP 18; TEMP 36.6; O2SAT 100
[2021-10-10] MEDS: OLANZapine ODT 10 MG TAB.RAPDIS 20 MG TRANSLINGU ×2 (10:44→21:56)
[2021-10-10] MEDS: Thiamine HCL 100 MG TABLET PO (10:44)
[2021-10-10] MEDS: Albuterol Sulfate 90 MCG 8 GM INHALER 1 PUFF INHALE (10:44)
--- NOTE | 2021-10-10 12:08 | HO.PSYCHPN ---
Subjective Subjective Date of Service: 10/10/21 Reason For Visit: Manic,agitated Subjective Notes: [place] Warning and Section 7 Interim History: I spoke with pt, denies physical health concerns. Will resume depakote today at 2000 mg HS, VPA level 110 yesterday. says he is fine, making conversation about clothing brands, meditating, exercising. He is smiling during interview, has remained in behavioral control. Medication Compliance: Yes Side effects from medications: No Attending Groups: No Review of Systems Acute medical concerns: No Medical Review of Systems: unchanged Mental Status Exam Mental Status Exam Narrative: adequately dressed and groomed.? face and neck tattoos.? Pt is suspicious and mistrustful, makes vague passive threats of violence but when asked if he has plans or intent to harm anyone he denies this. no PMA/PMR.? speech wnl.? no latency.? nml prosody.? thoughts are paranoid, appears to be his baseline.? affect guarded, agitated.? mood better. ? denies SI/HI/AVH. Diagnostics Vital Signs (24Hr): Vital Signs - 24 hr 10/09/21 20:00 Temperature 98.1 F Pulse Rate 88 Respiratory Rate 18 Blood Pressure 138/84 Pulse Oximetry 100 Oxygen Delivery Method Room Air BMI result Body Mass Index 20.7 Labs Results: 09/28/21 13:43 09/28/21 13:43 Labs: Laboratory Results - last 48 hr 10/09/21 16:05 Valproic Acid 110.8 H* Imaging Radiology Impressions: ITS Impressions Lumbar Spine X-Ray 09/29/21 16:11 IMPRESSION: Unremarkable examination. Tibia/Fibula X-Ray 09/29/21 16:11 IMPRESSION: Normal right tibia and fibula. Medications Medications Current Medications Acetaminophen (Acetaminophen 325 Mg Tablet) 650 mg PO Q6H PRN PRN Reason: Headache/Pain Mild Scale (1-3) Last Admin: 10/09/21 21:38 Dose: 650 mg Al Hydroxide/Mg Hydroxide (Magnesium Hydrox/Alum Hydrox 30 Ml Oral.Susp) 30 ml PO Q6H PRN PRN Reason: Heartburn/Nausea Albuterol Sulfate (Albuterol Sulfate 90 Mcg 8 Gm Inhaler) 1 puff INHALE QID PRN PRN Reason: wheezing Last Admin: 10/10/21 10:44 Dose: 1 puff Divalproex Sodium (Divalproex Sodium Er 250 Mg Tab.Er.24h) 2,500 mg PO BEDTIME [facility] Last Admin: 10/08/21 23:28 Dose: 2,500 mg Hydroxyzine HCl (Hydroxyzine Hcl 25 Mg Tablet) 25 mg PO Q6H PRN PRN Reason: Anxiety Magnesium Hydroxide (Milk Of Magnesia 30 Ml Oral.Susp) 30 ml PO DAILY PRN PRN Reason: Constipation Last Admin: 10/01/21 10:58 Dose: 30 ml Nicotine Polacrilex (Nicotine Polacrilex 2 Mg Gum) 2 mg BUCCAL Q2H PRN PRN Reason: nicotine cravings Last Admin: 10/08/21 13:38 Dose: 2 mg Olanzapine (Olanzapine Odt 10 Mg Tab.Rapdis) 20 mg TRANSLINGU BID [facility] Last Admin: 10/10/21 10:44 Dose: 20 mg Quetiapine Fumarate (Quetiapine Fumarate 100 Mg Tablet) 100 mg PO Q6H PRN PRN Reason: Anxiety Last Admin: 10/08/21 23:28 Dose: 100 mg Thiamine HCl (Thiamine Hcl 100 Mg Tablet) 100 mg PO DAILY [facility] Last Admin: 10/10/21 10:44 Dose: 100 mg Trazodone HCl (Trazodone Hcl 50 Mg Tablet) 50 mg PO BEDTIME PRN PRN Reason: Insomnia Last Admin: 10/05/21 23:42 Dose: 50 mg Allergies Allergies Allergy/AdvReac Type Severity Reaction Status Date / Time No Known Allergies Allergy Verified 09/28/21 12:49 Assessment & Plan Assessment & Plan (1) Schizoaffective disorder: Status: Acute Code(s): F25.9 - Schizoaffective disorder, unspecified Plan restart outpt meds. pt claims to be taking meds as prescribed, but Rxed 2500 mg VPA and his level at admission was only 12. observe for resolution of manic/psychotic Sx. 09/30 continue current medications. 10/01: Continue current regimen and plans 10/02: Continue current plans and regimen. He has a 3 day notice in which will be up on 10/05 10/03 increase olanzapine 10mg po daily and 20mg po qhs. d/c gabapentin as pt trying to snort it. d/c sertraline as it may worsened psychosis. 10/04 increase olanzapine to 20mg po BID. 10/05 continue current medications. 10/06 continue current medications. 10/07 continue meds, agrees to take gabapentin without trying to snort it- he takes it for back pain s/s to scoliosis. 10/08 no med changes, pt requests to take smaller tabs of depakote, will accommodate 10/09 Pt's VPA level 110, will hold for night and resume at smaller dose 10/10 continue depakote at 2000 mg HS I spent minutes with the patient and/or on the patient floor today, greater than?50% of which was spent counseling/coordinating care. Patient educated on: medication risk/benefits and therapeutic strategies Reason for contiued inpatient stay Substantial Risk for: med/psych decompensation
[2021-10-10] MEDS: hydrOXYzine HCL 25 MG TABLET PO (16:13)
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
[2021-10-10] MEDS: LORazepam 1 MG TABLET 2 MG PO (17:06)
[2021-10-10] MEDS: Divalproex Sodium ER 250 MG TAB.ER.24H 2000 MG PO (21:56)
[2021-10-11] MEDS: OLANZapine ODT 10 MG TAB.RAPDIS 20 MG TRANSLINGU ×2 (08:26→20:00)
[2021-10-11] MEDS: Thiamine HCL 100 MG TABLET PO (08:26)
[2021-10-11 08:46] VITALS: BP 121/86; PULSE 90; RESP 16; TEMP 36.6; O2SAT 99
--- NOTE | 2021-10-11 11:28 | P.PNPSI_ITS ---
Subjective Subjective Date of Service: 10/11/21 Reason For Visit: Manic,agitated Subjective Notes: Section 7 Interim History: Pt states he was told over the weekend that he will be discharged today and that there was no need for court or anything. He is demanding to leave and also threatening to become more violent. This marketing copywriter reinforced plan of last week which was get him more stable and work with his OP providers to provide more support in the community. Pt was seen pacing, calling someone and threatening. Pt redirected to use appropriate language. Medication Compliance: Yes Side effects from medications: No Review of Systems Review of Systems Yes all other systems are reviewed and are negative Mental Status Exam Mental Status Exam Narrative: adequately dressed and groomed.? face and neck tattoos.? Pt is suspicious and mistrustful, makes vague passive threats of violence but when asked if he has plans or intent to harm anyone he denies this. no PMA/PMR.? speech wnl.? no latency.? nml prosody.? thoughts are paranoid, appears to be his baseline.? a ffect guarded, agitated.? mood better. ? denies SI/HI/AVH. Diagnostics Vital Signs (24Hr): Vital Signs - 24 hr 10/11/21 08:46 Temperature 97.9 F Pulse Rate 90 Respiratory Rate 16 Blood Pressure 121/86 Pulse Oximetry 99 Oxygen Delivery Method Room Air BMI result Body Mass Index 20.7 Labs Results: 09/28/21 13:43 09/28/21 13:43 Labs: Laboratory Results - last 48 hr 10/09/21 16:05 Valproic Acid 110.8 H* Imaging Radiology Impressions: ITS Impressions Lumbar Spine X-Ray 09/29/21 16:11 IMPRESSION: Unremarkable examination. Tibia/Fibula X-Ray 09/29/21 16:11 IMPRESSION: Normal right tibia and fibula. Medications Medications Current Medications Acetaminophen (Acetaminophen 325 Mg Tablet) 650 mg PO Q6H PRN PRN Reason: Headache/Pain Mild Scale (1-3) Last Admin: 10/09/21 21:38 Dose: 650 mg Al Hydroxide/Mg Hydroxide (Magnesium Hydrox/Alum Hydrox 30 Ml Oral.Susp) 30 ml PO Q6H PRN PRN Reason: Heartburn/Nausea Albuterol Sulfate (Albuterol Sulfate 90 Mcg 8 Gm Inhaler) 1 puff INHALE QID PRN PRN Reason: wheezing Last Admin: 10/10/21 10:44 Dose: 1 puff Divalproex Sodium (Divalproex Sodium Er 250 Mg Tab.Er.24h) 2,000 mg PO BEDTIME [facility] Last Admin: 10/10/21 21:56 Dose: 2,000 mg Hydroxyzine HCl (Hydroxyzine Hcl 25 Mg Tablet) 25 mg PO Q6H PRN PRN Reason: Anxiety Last Admin: 10/10/21 16:13 Dose: 25 mg Magnesium Hydroxide (Milk Of Magnesia 30 Ml Oral.Susp) 30 ml PO DAILY PRN PRN Reason: Constipation Last Admin: 10/01/21 10:58 Dose: 30 ml Nicotine Polacrilex (Nicotine Polacrilex 2 Mg Gum) 2 mg BUCCAL Q2H PRN PRN Reason: nicotine cravings Last Admin: 10/08/21 13:38 Dose: 2 mg Olanzapine (Olanzapine Odt 10 Mg Tab.Rapdis) 20 mg TRANSLINGU BID [facility] Last Admin: 10/11/21 08:26 Dose: 20 mg Quetiapine Fumarate (Quetiapine Fumarate 100 Mg Tablet) 100 mg PO Q6H PRN PRN Reason: Anxiety Last Admin: 10/08/21 23:28 Dose: 100 mg Thiamine HCl (Thiamine Hcl 100 Mg Tablet) 100 mg PO DAILY [facility] Last Admin: 10/11/21 08:26 Dose: 100 mg Trazodone HCl (Trazodone Hcl 50 Mg Tablet) 50 mg PO BEDTIME PRN PRN Reason: Insomnia Last Admin: 10/05/21 23:42 Dose: 50 mg Allergies Allergies Allergy/AdvReac Type Severity Reaction Status Date / Time No Known Allergies Allergy Verified 09/28/21 12:49 Assessment & Plan Assessment & Plan (1) Schizoaffective disorder: Status: Acute Code(s): F25.9 - Schizoaffective disorder, unspecified Plan restart outpt meds. pt claims to be taking meds as prescribed, but Rxed 2500 mg VPA and his level at admission was only 12. observe for resolution of manic/psychotic Sx. 09/30 continue current medications. 10/01: Continue current regimen and plans 10/02: Continue current plans and regimen. He has a 3 day notice in which will be up on 10/05 10/03 increase olanzapine 10mg po daily and 20mg po qhs. d/c gabapentin as pt trying to snort it. d/c sertraline as it may worsened psychosis. 10/04 increase olanzapine to 20mg po BID. 10/05 continue current medications. 10/06 continue current medications. 10/07 continue meds, agrees to take gabapentin without trying to snort it- he takes it for back pain s/s to scoliosis. 10/08 no med changes, pt requests to take smaller tabs of depakote, will accommodate 10/09 Pt's VPA level 110, will hold for night and resume at smaller dose 10/10 continue depakote at 2000 mg HS 10/11 continue current medications. I spent minutes with the patient and/or on the patient floor today, greater than?50% of which was spent counseling/coordinating care. Reason for contiued inpatient stay Substantial Risk for: harm to others and inability to function
[2021-10-11] MEDS: Divalproex Sodium ER 250 MG TAB.ER.24H 2000 MG PO (20:01)
[2021-10-11 20:09] VITALS: BP 123/78; PULSE 93; TEMP 36.7; O2SAT 98
[2021-10-11] MEDS: Ibuprofen 600 MG TABLET PO (20:48)
[2021-10-12] MEDS: Acetaminophen 325 MG TABLET 650 MG PO (00:31)
[2021-10-12] MEDS: traZODone HCL 50 MG TABLET PO (00:32)
[2021-10-12] MEDS: QUEtiapine Fumarate 100 MG TABLET PO (00:32)
[2021-10-12 06:00] VITALS: BP 127/78; PULSE 92; RESP 16; TEMP 36.7; O2SAT 99
[2021-10-12] MEDS: OLANZapine ODT 10 MG TAB.RAPDIS 20 MG TRANSLINGU (10:22)
[2021-10-12] MEDS: Thiamine HCL 100 MG TABLET PO (10:23)
[2021-10-12] MEDS: Ibuprofen 600 MG TABLET PO (13:22)
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
[2021-10-12 18:00] VITALS: RESP 14
[2021-10-13 09:00] VITALS: RESP 16
[2021-10-13] MEDS: OLANZapine ODT 10 MG TAB.RAPDIS 20 MG TRANSLINGU ×2 (14:27→21:47)
[2021-10-13] MEDS: QUEtiapine Fumarate 100 MG TABLET PO (14:27)
--- NOTE | 2021-10-13 14:27 | PC.NURSE ---
Patient increasingly disruptive, yelling on the telephone, slamming doors, throwing clothes on floor. Provider, security called, patient spoken to by provider and with mother on telephone. Patient accepted PO Olanzapine and Seroquel. Patient currently calmer, in room.
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
--- NOTE | 2021-10-13 16:40 | PC.NURSE ---
Patient currently in room, awake but appears calmer, spoke w/ social work as he had requested this morning.
[2021-10-13 20:40] VITALS: BP 135/88; PULSE 99; RESP 18; TEMP 36.6; O2SAT 99
[2021-10-13] MEDS: Divalproex Sodium ER 250 MG TAB.ER.24H 2000 MG PO (21:48)
[2021-10-13] MEDS: fluPHENAZine HCl 5 MG TABLET PO (21:48)
[2021-10-14 09:02] VITALS: BP 119/74; PULSE 70; RESP 16; TEMP 36.9; O2SAT 100
[2021-10-14] MEDS: OLANZapine ODT 10 MG TAB.RAPDIS 20 MG TRANSLINGU ×2 (09:15→23:08)
[2021-10-14] MEDS: Thiamine HCL 100 MG TABLET PO (09:15)
[2021-10-14] MEDS: fluPHENAZine HCl 5 MG TABLET PO ×2 (09:15→23:08)
--- NOTE | 2021-10-14 11:06 | P.PNPSI_ITS ---
Subjective Subjective Date of Service: 10/14/21 Reason For Visit: Manic,agitated Subjective Notes: Section 7 Interim History: Pt calmer this morning, continues with paranoia related to food being tampered. He continues to report he has no mental issues, I don't need to be here. He denies SI/HI. Later pt briefly agitated after lunch as he again thought his food is being tampered. He did agree to take PRN, and later met with his civil rights attorney. Medication Compliance: Intermittent Side effects from medications: No Attending Groups: No Review of Systems Review of Systems Yes all other systems are reviewed and are negative Mental Status Exam Mental Status Exam Narrative: adequately dressed and groomed.? face and neck tattoos.? Pt is suspicious and mistrustful, making threats of violence to staff and peers. no PMA/PMR.? speech wnl.? no latency.? nml prosody. Delusions: paranoid delusions towards peers, mother, wanting to leave because he doesn't feel safe as people are going after him. affect guarded, agitated.? mood not your problem. ? denies SI/HI/AVH. Diagnostics Vital Signs (24Hr): Vital Signs - 24 hr 10/14/21 09:02 Temperature 98.5 F Pulse Rate 70 Respiratory Rate 16 Blood Pressure 119/74 Pulse Oximetry 100 Oxygen Delivery Method Room Air BMI result Body Mass Index 20.7 Labs Results: 09/28/21 13:43 09/28/21 13:43 Imaging Radiology Impressions: ITS Impressions Lumbar Spine X-Ray 09/29/21 16:11 IMPRESSION: Unremarkable examination. Tibia/Fibula X-Ray 09/29/21 16:11 IMPRESSION: Normal right tibia and fibula. Medications Medications Current Medications Acetaminophen (Acetaminophen 325 Mg Tablet) 650 mg PO Q6H PRN PRN Reason: Headache/Pain Mild Scale (1-3) Last Admin: 10/12/21 00:31 Dose: 650 mg Al Hydroxide/Mg Hydroxide (Magnesium Hydrox/Alum Hydrox 30 Ml Oral.Susp) 30 ml PO Q6H PRN PRN Reason: Heartburn/Nausea Albuterol Sulfate (Albuterol Sulfate 90 Mcg 8 Gm Inhaler) 1 puff INHALE QID PRN PRN Reason: wheezing Last Admin: 10/10/21 10:44 Dose: 1 puff Divalproex Sodium (Divalproex Sodium Er 250 Mg Tab.Er.24h) 2,000 mg PO BEDTIME [facility] Last Admin: 10/13/21 21:48 Dose: 2,000 mg Fluphenazine HCl (Fluphenazine Hcl 5 Mg Tablet) 5 mg PO BID [facility] Last Admin: 10/14/21 09:15 Dose: 5 mg Hydroxyzine HCl (Hydroxyzine Hcl 25 Mg Tablet) 25 mg PO Q6H PRN PRN Reason: Anxiety Last Admin: 10/14/21 13:47 Dose: 25 mg Ibuprofen (Ibuprofen 600 Mg Tablet) 600 mg PO Q8H PRN PRN Reason: Pain, Mild (Pain Scale 1-3) Last Admin: 10/14/21 19:17 Dose: 600 mg Magnesium Hydroxide (Milk Of Magnesia 30 Ml Oral.Susp) 30 ml PO DAILY PRN PRN Reason: Constipation Last Admin: 10/01/21 10:58 Dose: 30 ml Nicotine Polacrilex (Nicotine Polacrilex 2 Mg Gum) 2 mg BUCCAL Q2H PRN PRN Reason: nicotine cravings Last Admin: 10/08/21 13:38 Dose: 2 mg Olanzapine (Olanzapine Odt 10 Mg Tab.Rapdis) 20 mg TRANSLINGU BID [facility] Last Admin: 10/14/21 09:15 Dose: 20 mg Quetiapine Fumarate (Quetiapine Fumarate 100 Mg Tablet) 100 mg PO Q6H PRN PRN Reason: Anxiety Last Admin: 10/14/21 13:47 Dose: 100 mg Thiamine HCl (Thiamine Hcl 100 Mg Tablet) 100 mg PO DAILY [facility] Last Admin: 10/14/21 09:15 Dose: 100 mg Trazodone HCl (Trazodone Hcl 50 Mg Tablet) 50 mg PO BEDTIME PRN PRN Reason: Insomnia Last Admin: 10/12/21 00:32 Dose: 50 mg Allergies Allergies Allergy/AdvReac Type Severity Reaction Status Date / Time No Known Allergies Allergy Verified 09/28/21 12:49 Assessment & Plan Assessment & Plan (1) Schizoaffective disorder: Status: Acute Code(s): F25.9 - Schizoaffective disorder, unspecified Plan restart outpt meds. pt claims to be taking meds as prescribed, but Rxed 2500 mg VPA and his level at admission was only 12. observe for resolution of manic/psychotic Sx. 09/30 continue current medications. 10/01: Continue current regimen and plans 10/02: Continue current plans and regimen. He has a 3 day notice in which will be up on 10/05 10/03 increase olanzapine 10mg po daily and 20mg po qhs. d/c gabapentin as pt trying to snort it. d/c sertraline as it may worsened psychosis. 10/04 increase olanzapine to 20mg po BID. 10/05 continue current medications. 10/06 continue current medications. 10/07 continue meds, agrees to take gabapentin without trying to snort it- he takes it for back pain s/s to scoliosis. 10/08 no med changes, pt requests to take smaller tabs of depakote, will accommodate 10/09 Pt's VPA level 110, will hold for night and resume at smaller dose 10/10 continue depakote at 2000 mg HS 10/11 continue current medications. 10/12 continue current medications. 10/13 cross titration: start prolixin 5mg po BID, continue Olanzapine 20mg po BID, continue depakote. 10/14 continue current medications. I spent minutes with the patient and/or on the patient floor today, greater than?50% of which was spent counseling/coordinating care. Reason for contiued inpatient stay Substantial Risk for: harm to others and inability to function
[2021-10-14] MEDS: hydrOXYzine HCL 25 MG TABLET PO (13:47)
[2021-10-14] MEDS: QUEtiapine Fumarate 100 MG TABLET PO (13:47)
[2021-10-14] MEDS: Ibuprofen 600 MG TABLET PO (19:17)
[2021-10-14 20:20] VITALS: BP 132/85; PULSE 118; RESP 18; TEMP 36.6; O2SAT 96
[2021-10-14] MEDS: Divalproex Sodium ER 250 MG TAB.ER.24H 2000 MG PO (23:09)
[2021-10-15 10:35] VITALS: BP 121/71; PULSE 86; RESP 18; TEMP 36.6; O2SAT 100
[2021-10-15] MEDS: fluPHENAZine HCl 5 MG TABLET PO ×2 (10:37→22:37)
[2021-10-15] MEDS: OLANZapine ODT 10 MG TAB.RAPDIS 20 MG TRANSLINGU ×2 (10:37→22:38)
[2021-10-15] MEDS: Thiamine HCL 100 MG TABLET PO (10:37)
[2021-10-15] MEDS: Divalproex Sodium ER 250 MG TAB.ER.24H 2000 MG PO (22:38)
--- NOTE | 2021-10-15 23:17 | HO.PSYCHPN ---
Subjective Subjective Date of Service: 10/15/21 Reason For Visit: Manic,agitated Subjective Notes: Section 7 Interim History: Patient seems calmer accepting medication remains floridly delusional paranoid talking about killing people and past killing people with other patients needs redirection limited insight Mental Status Exam Mental Status Exam Narrative: Patient casually dressed multiple tattoos periods of irritability and anger but was not physically combative. Feels that people are conspiring against him on the unit that he needs to protect himself Talking about being able to to put hits on people insight judgment impaired denies need for medication Diagnostics Vital Signs (24Hr): Vital Signs - 24 hr 10/15/21 10:35 Temperature 97.8 F Pulse Rate 86 Respiratory Rate 18 Blood Pressure 121/71 Pulse Oximetry 100 Oxygen Delivery Method Room Air BMI result Body Mass Index 20.7 Labs Results: 09/28/21 13:43 09/28/21 13:43 Imaging Radiology Impressions: ITS Impressions Lumbar Spine X-Ray 09/29/21 16:11 IMPRESSION: Unremarkable examination. Tibia/Fibula X-Ray 09/29/21 16:11 IMPRESSION: Normal right tibia and fibula. Medications Medications Current Medications Acetaminophen (Acetaminophen 325 Mg Tablet) 650 mg PO Q6H PRN PRN Reason: Headache/Pain Mild Scale (1-3) Last Admin: 10/12/21 00:31 Dose: 650 mg Al Hydroxide/Mg Hydroxide (Magnesium Hydrox/Alum Hydrox 30 Ml Oral.Susp) 30 ml PO Q6H PRN PRN Reason: Heartburn/Nausea Albuterol Sulfate (Albuterol Sulfate 90 Mcg 8 Gm Inhaler) 1 puff INHALE QID PRN PRN Reason: wheezing Last Admin: 10/10/21 10:44 Dose: 1 puff Divalproex Sodium (Divalproex Sodium Er 250 Mg Tab.Er.24h) 2,000 mg PO BEDTIME [facility] Last Admin: 10/15/21 22:38 Dose: 2,000 mg Fluphenazine HCl (Fluphenazine Hcl 5 Mg Tablet) 5 mg PO BID [facility] Last Admin: 10/15/21 22:37 Dose: 5 mg Hydroxyzine HCl (Hydroxyzine Hcl 25 Mg Tablet) 25 mg PO Q6H PRN PRN Reason: Anxiety Last Admin: 10/14/21 13:47 Dose: 25 mg Ibuprofen (Ibuprofen 600 Mg Tablet) 600 mg PO Q8H PRN PRN Reason: Pain, Mild (Pain Scale 1-3) Last Admin: 10/14/21 19:17 Dose: 600 mg Magnesium Hydroxide (Milk Of Magnesia 30 Ml Oral.Susp) 30 ml PO DAILY PRN PRN Reason: Constipation Last Admin: 10/01/21 10:58 Dose: 30 ml Nicotine Polacrilex (Nicotine Polacrilex 2 Mg Gum) 2 mg BUCCAL Q2H PRN PRN Reason: nicotine cravings Last Admin: 10/08/21 13:38 Dose: 2 mg Olanzapine (Olanzapine Odt 10 Mg Tab.Rapdis) 20 mg TRANSLINGU BID [facility] Last Admin: 10/15/21 22:38 Dose: 20 mg Quetiapine Fumarate (Quetiapine Fumarate 100 Mg Tablet) 100 mg PO Q6H PRN PRN Reason: Anxiety Last Admin: 10/14/21 13:47 Dose: 100 mg Thiamine HCl (Thiamine Hcl 100 Mg Tablet) 100 mg PO DAILY [facility] Last Admin: 10/15/21 10:37 Dose: 100 mg Trazodone HCl (Trazodone Hcl 50 Mg Tablet) 50 mg PO BEDTIME PRN PRN Reason: Insomnia Last Admin: 10/12/21 00:32 Dose: 50 mg Allergies Allergies Allergy/AdvReac Type Severity Reaction Status Date / Time No Known Allergies Allergy Verified 09/28/21 12:49 Assessment & Plan Assessment & Plan (1) Schizoaffective disorder: Status: Acute Code(s): F25.9 - Schizoaffective disorder, unspecified Plan restart outpt meds. pt claims to be taking meds as prescribed, but Rxed 2500 mg VPA and his level at admission was only 12. observe for resolution of manic/psychotic Sx. 09/30 continue current medications. 10/01: Continue current regimen and plans 10/02: Continue current plans and regimen. He has a 3 day notice in which will be up on 10/05 10/03 increase olanzapine 10mg po daily and 20mg po qhs. d/c gabapentin as pt trying to snort it. d/c sertraline as it may worsened psychosis. 10/04 increase olanzapine to 20mg po BID. 10/05 continue current medications. 10/06 continue current medications. 10/07 continue meds, agrees to take gabapentin without trying to snort it- he takes it for back pain s/s to scoliosis. 10/08 no med changes, pt requests to take smaller tabs of depakote, will accommodate 10/09 Pt's VPA level 110, will hold for night and resume at smaller dose 10/10 continue depakote at 2000 mg HS 10/11 continue current medications. 10/12 continue current medications. 10/13 cross titration: start prolixin 5mg po BID, continue Olanzapine 20mg po BID, continue depakote. 10/14 continue current medications. 10/15/2021 Continue current treatment plan monitor for safety of patient and others needs frequent redirection I spent minutes with the patient and/or on the patient floor today, greater than?50% of which was spent counseling/coordinating care. Reason for contiued inpatient stay Substantial Risk for: harm to others and rapid decompensation
[2021-10-16 09:45] VITALS: BP 135/81; PULSE 101; RESP 18; TEMP 36.7; O2SAT 100
[2021-10-16] MEDS: OLANZapine ODT 10 MG TAB.RAPDIS 20 MG TRANSLINGU ×2 (10:29→22:09)
[2021-10-16] MEDS: fluPHENAZine HCl 5 MG TABLET PO ×2 (10:29→22:08)
[2021-10-16] MEDS: Thiamine HCL 100 MG TABLET PO (10:29)
[2021-10-16 18:50] VITALS: BP 117/69; PULSE 94; RESP 16; TEMP 36.6; O2SAT 98
[2021-10-16] MEDS: Divalproex Sodium ER 250 MG TAB.ER.24H 2000 MG PO (22:09)
--- NOTE | 2021-10-16 22:18 | PC.NURSE ---
Pt A&O, INAD, appearing suspicious but cooperative with assessment. Sts he feels unsafe, Y'all should know that, and when asked what makes him feel unsafe, he responded I can't talk about that. Denies pain, SI/HI/AH/VH. Poor eye contact. Complained he did not get what was ordered for supper but ate from his tray and supplemented with food from the kitchenette, accepted being told the kitchen was closed and additional food and dessert could not be ordered. Pt observed in milieu interacting with peers, remained in the shower for more than an hour. Medication adherent.
--- NOTE | 2021-10-16 23:44 | P.PNPSI_ITS ---
Subjective Subjective Date of Service: 10/16/21 Reason For Visit: Manic,agitated Subjective Notes: [place] Warning and Section 7 Interim History: The patient is not grossly physically aggressive. Remains quite delusional E preoccupied feeling he constantly hears people talking about him conspiring against him. He is making statements in the milieu At times about harming others that can be 5 quite frightening. In general the patient is calmer more isolative preoccupied remains grossly paranoid delusional all quite upset when talking about this denies he has any kind of psychiatric illness Medication Compliance: Yes Mental Status Exam Mental Status Exam Narrative: angry looking multiple tattoos Patient Appearance: Appropriate Level of Consciousness: Awake Patient Behavior: Guarded and Suspicious Mood Description: Suspicious, Constricted and Angry Affect Description: Suspicious, Anxious and Apprehensive Delusions: Paranoid Ideation Thought Content: positive for Preoccupation, negative for Suicidal Ideation or positive for Homicidal Ideation Abnormal Motor Activity Signs and Symptoms: Aggression Judgement: Poor Diagnostics Vital Signs (24Hr): Vital Signs - 24 hr 10/16/21 09:45 10/16/21 18:50 Temperature 98.0 F 97.9 F Pulse Rate 101 H 94 Respiratory Rate 18 16 Blood Pressure 135/81 117/69 Pulse Oximetry 100 98 Oxygen Delivery Method Room Air Room Air BMI result Body Mass Index 20.7 Labs Results: 09/28/21 13:43 09/28/21 13:43 Imaging Radiology Impressions: ITS Impressions Lumbar Spine X-Ray 09/29/21 16:11 IMPRESSION: Unremarkable examination. Tibia/Fibula X-Ray 09/29/21 16:11 IMPRESSION: Normal right tibia and fibula. Medications Medications Current Medications Acetaminophen (Acetaminophen 325 Mg Tablet) 650 mg PO Q6H PRN PRN Reason: Headache/Pain Mild Scale (1-3) Last Admin: 10/12/21 00:31 Dose: 650 mg Al Hydroxide/Mg Hydroxide (Magnesium Hydrox/Alum Hydrox 30 Ml Oral.Susp) 30 ml PO Q6H PRN PRN Reason: Heartburn/Nausea Albuterol Sulfate (Albuterol Sulfate 90 Mcg 8 Gm Inhaler) 1 puff INHALE QID PRN PRN Reason: wheezing Last Admin: 10/10/21 10:44 Dose: 1 puff Divalproex Sodium (Divalproex Sodium Er 250 Mg Tab.Er.24h) 2,000 mg PO BEDTIME [facility] Last Admin: 10/16/21 22:09 Dose: 2,000 mg Fluphenazine HCl (Fluphenazine Hcl 5 Mg Tablet) 5 mg PO BID [facility] Last Admin: 10/16/21 22:08 Dose: 5 mg Hydroxyzine HCl (Hydroxyzine Hcl 25 Mg Tablet) 25 mg PO Q6H PRN PRN Reason: Anxiety Last Admin: 10/14/21 13:47 Dose: 25 mg Ibuprofen (Ibuprofen 600 Mg Tablet) 600 mg PO Q8H PRN PRN Reason: Pain, Mild (Pain Scale 1-3) Last Admin: 10/14/21 19:17 Dose: 600 mg Magnesium Hydroxide (Milk Of Magnesia 30 Ml Oral.Susp) 30 ml PO DAILY PRN PRN Reason: Constipation Last Admin: 10/01/21 10:58 Dose: 30 ml Nicotine Polacrilex (Nicotine Polacrilex 2 Mg Gum) 2 mg BUCCAL Q2H PRN PRN Reason: nicotine cravings Last Admin: 10/08/21 13:38 Dose: 2 mg Olanzapine (Olanzapine Odt 10 Mg Tab.Rapdis) 20 mg TRANSLINGU BID [facility] Last Admin: 10/16/21 22:09 Dose: 20 mg Quetiapine Fumarate (Quetiapine Fumarate 100 Mg Tablet) 100 mg PO Q6H PRN PRN Reason: Anxiety Last Admin: 10/14/21 13:47 Dose: 100 mg Thiamine HCl (Thiamine Hcl 100 Mg Tablet) 100 mg PO DAILY [facility] Last Admin: 10/16/21 10:29 Dose: 100 mg Trazodone HCl (Trazodone Hcl 50 Mg Tablet) 50 mg PO BEDTIME PRN PRN Reason: Insomnia Last Admin: 10/12/21 00:32 Dose: 50 mg Allergies Allergies Allergy/AdvReac Type Severity Reaction Status Date / Time No Known Allergies Allergy Verified 09/28/21 12:49 Assessment & Plan Assessment & Plan (1) Schizoaffective disorder: Status: Acute Code(s): F25.9 - Schizoaffective disorder, unspecified Plan restart outpt meds. pt claims to be taking meds as prescribed, but Rxed 2500 mg VPA and his level at admission was only 12. observe for resolution of manic/psychotic Sx. 09/30 continue current medications. 10/01: Continue current regimen and plans 10/02: Continue current plans and regimen. He has a 3 day notice in which will be up on 10/05 10/03 increase olanzapine 10mg po daily and 20mg po qhs. d/c gabapentin as pt trying to snort it. d/c sertraline as it may worsened psychosis. 10/04 increase olanzapine to 20mg po BID. 10/05 continue current medications. 10/06 continue current medications. 10/07 continue meds, agrees to take gabapentin without trying to snort it- he takes it for back pain s/s to scoliosis. 10/08 no med changes, pt requests to take smaller tabs of depakote, will accommodate 10/09 Pt's VPA level 110, will hold for night and resume at smaller dose 10/10 continue depakote at 2000 mg HS 10/11 continue current medications. 10/12 continue current medications. 10/13 cross titration: start prolixin 5mg po BID, continue Olanzapine 20mg po BID, continue depakote. 10/14 continue current medications. 10/15/2021 Continue current treatment plan monitor for safety of patient and others needs frequent redirection 10/16/2021 Who patient less grossly outwardly threatening and agitated somewhat more withdrawn remains quite preoccupied paranoid that people are doing things to him on the unit ?calling him a faggot? putting hair in his food and doing other things. Patient stated when he makes threats to harm others it is not a joke he has access to people and things. He was less manically agitated does not feel he needs medication. Pending court hearing I spent minutes with the patient and/or on the patient floor today, greater than?50% of which was spent counseling/coordinating care. Reason for contiued inpatient stay Substantial Risk for: harm to others and rapid decompensation
[2021-10-17] MEDS: fluPHENAZine HCl 5 MG TABLET PO ×2 (10:09→21:16)
[2021-10-17] MEDS: OLANZapine ODT 10 MG TAB.RAPDIS 20 MG TRANSLINGU ×2 (10:09→21:16)
[2021-10-17] MEDS: Thiamine HCL 100 MG TABLET PO (10:10)
--- NOTE | 2021-10-17 13:51 | HO.PSYCHPN ---
Subjective Subjective Date of Service: 10/17/21 Reason For Visit: Manic,agitated Subjective Notes: Section 7 Interim History: Pt appears calmer, but continues to report that he can't trust anyone here on the unit. He reports he has not noticed people messing with his food over the weekend. He reports he is trying to stay in his room to avoid problems. Pt reminded of court tomorrow to which pt states good, my privileges will be restored. He has been taking medications as prescribed. No significant behavioral concerns today. He reports sleeping well. Medication Compliance: Yes Side effects from medications: No Attending Groups: No Review of Systems Review of Systems Yes all other systems are reviewed and are negative Mental Status Exam Mental Status Exam Narrative: Appearance: adequately dressed and groomed.? face and neck tattoos.? Behavior: calmer, more cooperative Psychomotor: no overt agitation or retardation noted Speech: clear, normal rate/rhythm, volume, spontaneous. Thought process: more linear Thought content: suspicious food is being tamper, paranoid towards, wanting to be discharged soon Mood: frustrated, can't lie Affect:congruent, less labile, less hypervigilant and agitated AH/VH: none Delusions: paranoid Insight/judgment: poor x 2. denies SI/HI/AVH. Alert, oriented x 3. Diagnostics Vital Signs (24Hr): Vital Signs - 24 hr 10/16/21 18:50 Temperature 97.9 F Pulse Rate 94 Respiratory Rate 16 Blood Pressure 117/69 Pulse Oximetry 98 Oxygen Delivery Method Room Air BMI result Body Mass Index 20.7 Labs Results: 09/28/21 13:43 09/28/21 13:43 Imaging Radiology Impressions: ITS Impressions Lumbar Spine X-Ray 09/29/21 16:11 IMPRESSION: Unremarkable examination. Tibia/Fibula X-Ray 09/29/21 16:11 IMPRESSION: Normal right tibia and fibula. Medications Medications Current Medications Acetaminophen (Acetaminophen 325 Mg Tablet) 650 mg PO Q6H PRN PRN Reason: Headache/Pain Mild Scale (1-3) Last Admin: 10/12/21 00:31 Dose: 650 mg Al Hydroxide/Mg Hydroxide (Magnesium Hydrox/Alum Hydrox 30 Ml Oral.Susp) 30 ml PO Q6H PRN PRN Reason: Heartburn/Nausea Albuterol Sulfate (Albuterol Sulfate 90 Mcg 8 Gm Inhaler) 1 puff INHALE QID PRN PRN Reason: wheezing Last Admin: 10/10/21 10:44 Dose: 1 puff Divalproex Sodium (Divalproex Sodium Er 250 Mg Tab.Er.24h) 2,000 mg PO BEDTIME [facility] Last Admin: 10/16/21 22:09 Dose: 2,000 mg Fluphenazine HCl (Fluphenazine Hcl 5 Mg Tablet) 5 mg PO BID [facility] Last Admin: 10/17/21 10:09 Dose: 5 mg Hydroxyzine HCl (Hydroxyzine Hcl 25 Mg Tablet) 25 mg PO Q6H PRN PRN Reason: Anxiety Last Admin: 10/14/21 13:47 Dose: 25 mg Ibuprofen (Ibuprofen 600 Mg Tablet) 600 mg PO Q8H PRN PRN Reason: Pain, Mild (Pain Scale 1-3) Last Admin: 10/14/21 19:17 Dose: 600 mg Magnesium Hydroxide (Milk Of Magnesia 30 Ml Oral.Susp) 30 ml PO DAILY PRN PRN Reason: Constipation Last Admin: 10/01/21 10:58 Dose: 30 ml Nicotine Polacrilex (Nicotine Polacrilex 2 Mg Gum) 2 mg BUCCAL Q2H PRN PRN Reason: nicotine cravings Last Admin: 10/08/21 13:38 Dose: 2 mg Olanzapine (Olanzapine Odt 10 Mg Tab.Rapdis) 20 mg TRANSLINGU BID [facility] Last Admin: 10/17/21 10:09 Dose: 20 mg Quetiapine Fumarate (Quetiapine Fumarate 100 Mg Tablet) 100 mg PO Q6H PRN PRN Reason: Anxiety Last Admin: 10/14/21 13:47 Dose: 100 mg Thiamine HCl (Thiamine Hcl 100 Mg Tablet) 100 mg PO DAILY [facility] Last Admin: 10/17/21 10:10 Dose: 100 mg Trazodone HCl (Trazodone Hcl 50 Mg Tablet) 50 mg PO BEDTIME PRN PRN Reason: Insomnia Last Admin: 10/12/21 00:32 Dose: 50 mg Allergies Allergies Allergy/AdvReac Type Severity Reaction Status Date / Time No Known Allergies Allergy Verified 09/28/21 12:49 Assessment & Plan Assessment & Plan (1) Schizoaffective disorder: Status: Acute Code(s): F25.9 - Schizoaffective disorder, unspecified Plan restart outpt meds. pt claims to be taking meds as prescribed, but Rxed 2500 mg VPA and his level at admission was only 12. observe for resolution of manic/psychotic Sx. 09/30 continue current medications. 10/01: Continue current regimen and plans 10/02: Continue current plans and regimen. He has a 3 day notice in which will be up on 10/05 10/03 increase olanzapine 10mg po daily and 20mg po qhs. d/c gabapentin as pt trying to snort it. d/c sertraline as it may worsened psychosis. 10/04 increase olanzapine to 20mg po BID. 10/05 continue current medications. 10/06 continue current medications. 10/07 continue meds, agrees to take gabapentin without trying to snort it- he takes it for back pain s/s to scoliosis. 10/08 no med changes, pt requests to take smaller tabs of depakote, will accommodate 10/09 Pt's VPA level 110, will hold for night and resume at smaller dose 10/10 continue depakote at 2000 mg HS 10/11 continue current medications. 10/12 continue current medications. 10/13 cross titration: start prolixin 5mg po BID, continue Olanzapine 20mg po BID, continue depakote. 10/14 continue current medications. 10/15/2021 Continue current treatment plan monitor for safety of patient and others needs frequent redirection 10/16/2021 Who patient less grossly outwardly threatening and agitated somewhat more withdrawn remains quite preoccupied paranoid that people are doing things to him on the unit ?calling him a faggot? putting hair in his food and doing other things. Patient stated when he makes threats to harm others it is not a joke he has access to people and things. He was less manically agitated does not feel he needs medication. Pending court hearing 10/17 continue current medications. I spent minutes with the patient and/or on the patient floor today, greater than?50% of which was spent counseling/coordinating care. Reason for contiued inpatient stay Substantial Risk for: harm to others and inability to function
[2021-10-17] MEDS: Divalproex Sodium ER 250 MG TAB.ER.24H 2000 MG PO (21:16)
[2021-10-17 21:19] VITALS: BP 144/88; PULSE 94; RESP 18; TEMP 36.1; O2SAT 98
[2021-10-18 06:00] VITALS: BP 131/86; PULSE 84; RESP 17; TEMP 36.2; O2SAT 99
[2021-10-18] MEDS: fluPHENAZine HCl 5 MG TABLET PO ×2 (09:33→21:15)
[2021-10-18] MEDS: OLANZapine ODT 10 MG TAB.RAPDIS 20 MG TRANSLINGU (09:33)
[2021-10-18] MEDS: Thiamine HCL 100 MG TABLET PO (09:33)
--- NOTE | 2021-10-18 16:22 | P.PNPSI_ITS ---
Subjective Subjective Date of Service: 10/18/21 Reason For Visit: Manic,agitated Subjective Notes: Section 8 Interim History: Pt appears calmer, still asking to be discharged today. Court hearing held today- petition granted. Pt continues to present with less paranoid but states can't trust anyone here on the unit. He is sleeping and eating well. He has agreed to take medications. He denies SI/HI. Medication Compliance: Yes Side effects from medications: No Review of Systems Review of Systems Yes all other systems are reviewed and are negative Mental Status Exam Mental Status Exam Narrative: Appearance: adequately dressed and groomed.? face and neck tattoos.? Behavior: calmer, more cooperative Psychomotor: no overt agitation or retardation noted Speech: clear, normal rate/rhythm, volume, spontaneous. Thought process: more linear Thought content: suspicious food is being tamper, paranoid towards, wanting to be discharged soon Mood: frustrated, can't lie Affect:congruent, less labile, less hypervigilant and agitated AH/VH: none Delusions: paranoid Insight/judgment: poor x 2. denies SI/HI/AVH. Alert, oriented x 3. Diagnostics Vital Signs (24Hr): Vital Signs - 24 hr 10/17/21 21:19 10/18/21 06:00 Temperature 97.0 F 97.2 F Pulse Rate 94 84 Respiratory Rate 18 17 Blood Pressure 144/88 H 131/86 Pulse Oximetry 98 99 Oxygen Delivery Method Room Air Room Air BMI result Body Mass Index 20.7 Labs Results: 09/28/21 13:43 09/28/21 13:43 Imaging Radiology Impressions: ITS Impressions Lumbar Spine X-Ray 09/29/21 16:11 IMPRESSION: Unremarkable examination. Tibia/Fibula X-Ray 09/29/21 16:11 IMPRESSION: Normal right tibia and fibula. Medications Medications Current Medications Acetaminophen (Acetaminophen 325 Mg Tablet) 650 mg PO Q6H PRN PRN Reason: Headache/Pain Mild Scale (1-3) Last Admin: 10/12/21 00:31 Dose: 650 mg Al Hydroxide/Mg Hydroxide (Magnesium Hydrox/Alum Hydrox 30 Ml Oral.Susp) 30 ml PO Q6H PRN PRN Reason: Heartburn/Nausea Albuterol Sulfate (Albuterol Sulfate 90 Mcg 8 Gm Inhaler) 1 puff INHALE QID PRN PRN Reason: wheezing Last Admin: 10/10/21 10:44 Dose: 1 puff Divalproex Sodium (Divalproex Sodium Er 250 Mg Tab.Er.24h) 2,000 mg PO BEDTIME [facility] Last Admin: 10/17/21 21:16 Dose: 2,000 mg Fluphenazine HCl (Fluphenazine Hcl 5 Mg Tablet) 5 mg PO BID [facility] Last Admin: 10/18/21 09:33 Dose: 5 mg Hydroxyzine HCl (Hydroxyzine Hcl 25 Mg Tablet) 25 mg PO Q6H PRN PRN Reason: Anxiety Last Admin: 10/14/21 13:47 Dose: 25 mg Ibuprofen (Ibuprofen 600 Mg Tablet) 600 mg PO Q8H PRN PRN Reason: Pain, Mild (Pain Scale 1-3) Last Admin: 10/14/21 19:17 Dose: 600 mg Magnesium Hydroxide (Milk Of Magnesia 30 Ml Oral.Susp) 30 ml PO DAILY PRN PRN Reason: Constipation Last Admin: 10/01/21 10:58 Dose: 30 ml Nicotine Polacrilex (Nicotine Polacrilex 2 Mg Gum) 2 mg BUCCAL Q2H PRN PRN Reason: nicotine cravings Last Admin: 10/08/21 13:38 Dose: 2 mg Olanzapine (Olanzapine Odt 10 Mg Tab.Rapdis) 10 mg TRANSLINGU BID [facility] Olanzapine (Olanzapine Odt 10 Mg Tab.Rapdis) 10 mg TRANSLINGU Q6H PRN PRN Reason: agitation Thiamine HCl (Thiamine Hcl 100 Mg Tablet) 100 mg PO DAILY [facility] Last Admin: 10/18/21 09:33 Dose: 100 mg Trazodone HCl (Trazodone Hcl 50 Mg Tablet) 50 mg PO BEDTIME PRN PRN Reason: Insomnia Last Admin: 10/12/21 00:32 Dose: 50 mg Allergies Allergies Allergy/AdvReac Type Severity Reaction Status Date / Time No Known Allergies Allergy Verified 09/28/21 12:49 Assessment & Plan Assessment & Plan (1) Schizoaffective disorder: Status: Acute Code(s): F25.9 - Schizoaffective disorder, unspecified Plan restart outpt meds. pt claims to be taking meds as prescribed, but Rxed 2500 mg VPA and his level at admission was only 12. observe for resolution of manic/psychotic Sx. 09/30 continue current medications. 10/01: Continue current regimen and plans 10/02: Continue current plans and regimen. He has a 3 day notice in which will be up on 10/05 10/03 increase olanzapine 10mg po daily and 20mg po qhs. d/c gabapentin as pt trying to snort it. d/c sertraline as it may worsened psychosis. 10/04 increase olanzapine to 20mg po BID. 10/05 continue current medications. 10/06 continue current medications. 10/07 continue meds, agrees to take gabapentin without trying to snort it- he takes it for back pain s/s to scoliosis. 10/08 no med changes, pt requests to take smaller tabs of depakote, will accommodate 10/09 Pt's VPA level 110, will hold for night and resume at smaller dose 10/10 continue depakote at 2000 mg HS 10/11 continue current medications. 10/12 continue current medications. 10/13 cross titration: start prolixin 5mg po BID, continue Olanzapine 20mg po BID, continue depakote. 10/14 continue current medications. 10/15/2021 Continue current treatment plan monitor for safety of patient and others needs frequent redirection 10/16/2021 Who patient less grossly outwardly threatening and agitated somewhat more withdrawn remains quite preoccupied paranoid that people are doing things to him on the unit ?calling him a faggot? putting hair in his food and doing other things. Patient stated when he makes threats to harm others it is not a joke he has access to people and things. He was less manically agitated does not feel he needs medication. Pending court hearing 10/17 continue current medications. 10/18 decrease olanzapine to 10mg po BID, continue prolin 5mg po BID. plan to initiate ABERNATHY once established he can tolerate prolixin without side effect and is effective. I spent minutes with the patient and/or on the patient floor today, greater than?50% of which was spent counseling/coordinating care. Reason for contiued inpatient stay Substantial Risk for: harm to others and inability to function
[2021-10-18 21:10] VITALS: BP 122/78; PULSE 96; RESP 18; TEMP 36.6; O2SAT 98
[2021-10-18] MEDS: Divalproex Sodium ER 250 MG TAB.ER.24H 2000 MG PO (21:11)
[2021-10-18] MEDS: Ibuprofen 600 MG TABLET PO (21:13)
[2021-10-18] MEDS: OLANZapine ODT 10 MG TAB.RAPDIS TRANSLINGU (21:15)
[2021-10-18] MEDS: traZODone HCL 50 MG TABLET PO (21:16)
[2021-10-18] MEDS: QUEtiapine Fumarate 100 MG TABLET PO (21:16)
[2021-10-19 09:15] VITALS: BP 122/78; PULSE 84; RESP 16; TEMP 36.7; O2SAT 98
[2021-10-19] MEDS: OLANZapine ODT 10 MG TAB.RAPDIS TRANSLINGU ×2 (09:27→19:49)
[2021-10-19] MEDS: fluPHENAZine HCl 5 MG TABLET PO ×2 (09:27→19:49)
[2021-10-19] MEDS: Thiamine HCL 100 MG TABLET PO (09:27)
--- NOTE | 2021-10-19 12:30 | P.PNPSI_ITS ---
Subjective Subjective Date of Service: 10/19/21 Reason For Visit: Manic,agitated Subjective Notes: Section 8 Interim History: Pt calmer, after court hearing. He appears less paranoid, still no insight into why mother and others were concern about increase agitation treats and need for hospitalization. Pt states my family just don't care about me! Pt denies SI/HI. He has been mostly in his room. No behavioral concerns. taking meds per court. no side effect. plan to do ABERNATHY. Medication Compliance: Yes Review of Systems Review of Systems Yes all other systems are reviewed and are negative Mental Status Exam Mental Status Exam Narrative: Appearance: adequately dressed and groomed.? face and neck tattoos.? Behavior: calmer, more cooperative Psychomotor: no overt agitation or retardation noted Speech: clear, normal rate/rhythm, volume, spontaneous. Thought process: more linear Thought content: suspicious food is being tamper, paranoid towards, wanting to be discharged soon Mood: frustrated, can't lie Affect:congruent, less labile, less hypervigilant and agitated AH/VH: none Delusions: paranoid Insight/judgment: poor x 2. denies SI/HI/AVH. Alert, oriented x 3. Diagnostics Vital Signs (24Hr): Vital Signs - 24 hr 10/18/21 21:10 10/19/21 09:15 Temperature 97.8 F 98.1 F Pulse Rate 96 84 Respiratory Rate 18 16 Blood Pressure 122/78 122/78 Pulse Oximetry 98 98 Oxygen Delivery Method Room Air Room Air BMI result Body Mass Index 20.7 Labs Results: 09/28/21 13:43 09/28/21 13:43 Imaging Radiology Impressions: ITS Impressions Lumbar Spine X-Ray 09/29/21 16:11 IMPRESSION: Unremarkable examination. Tibia/Fibula X-Ray 09/29/21 16:11 IMPRESSION: Normal right tibia and fibula. Medications Medications Current Medications Acetaminophen (Acetaminophen 325 Mg Tablet) 650 mg PO Q6H PRN PRN Reason: Headache/Pain Mild Scale (1-3) Last Admin: 10/12/21 00:31 Dose: 650 mg Al Hydroxide/Mg Hydroxide (Magnesium Hydrox/Alum Hydrox 30 Ml Oral.Susp) 30 ml PO Q6H PRN PRN Reason: Heartburn/Nausea Albuterol Sulfate (Albuterol Sulfate 90 Mcg 8 Gm Inhaler) 1 puff INHALE QID PRN PRN Reason: wheezing Last Admin: 10/10/21 10:44 Dose: 1 puff Divalproex Sodium (Divalproex Sodium Er 250 Mg Tab.Er.24h) 2,000 mg PO BEDTIME [facility] Last Admin: 10/18/21 21:11 Dose: 2,000 mg Fluphenazine HCl (Fluphenazine Hcl 5 Mg Tablet) 5 mg PO BID [facility] Last Admin: 10/19/21 09:27 Dose: 5 mg Hydroxyzine HCl (Hydroxyzine Hcl 25 Mg Tablet) 25 mg PO Q6H PRN PRN Reason: Anxiety Last Admin: 10/14/21 13:47 Dose: 25 mg Ibuprofen (Ibuprofen 600 Mg Tablet) 600 mg PO Q8H PRN PRN Reason: Pain, Mild (Pain Scale 1-3) Last Admin: 10/18/21 21:13 Dose: 600 mg Magnesium Hydroxide (Milk Of Magnesia 30 Ml Oral.Susp) 30 ml PO DAILY PRN PRN Reason: Constipation Last Admin: 10/01/21 10:58 Dose: 30 ml Nicotine Polacrilex (Nicotine Polacrilex 2 Mg Gum) 2 mg BUCCAL Q2H PRN PRN Reason: nicotine cravings Last Admin: 10/08/21 13:38 Dose: 2 mg Olanzapine (Olanzapine Odt 10 Mg Tab.Rapdis) 10 mg TRANSLINGU Q6H PRN PRN Reason: agitation Olanzapine (Olanzapine 10 Mg Vial) 10 mg IM BID PRN PRN Reason: if declines oral antipsychotic Thiamine HCl (Thiamine Hcl 100 Mg Tablet) 100 mg PO DAILY [facility] Last Admin: 10/19/21 09:27 Dose: 100 mg Trazodone HCl (Trazodone Hcl 50 Mg Tablet) 50 mg PO BEDTIME PRN PRN Reason: Insomnia Last Admin: 10/18/21 21:16 Dose: 50 mg Allergies Allergies Allergy/AdvReac Type Severity Reaction Status Date / Time No Known Allergies Allergy Verified 09/28/21 12:49 Assessment & Plan Assessment & Plan (1) Schizoaffective disorder: Status: Acute Code(s): F25.9 - Schizoaffective disorder, unspecified Plan restart outpt meds. pt claims to be taking meds as prescribed, but Rxed 2500 mg VPA and his level at admission was only 12. observe for resolution of manic/psychotic Sx. 09/30 continue current medications. 10/01: Continue current regimen and plans 10/02: Continue current plans and regimen. He has a 3 day notice in which will be up on 10/05 10/03 increase olanzapine 10mg po daily and 20mg po qhs. d/c gabapentin as pt trying to snort it. d/c sertraline as it may worsened psychosis. 10/04 increase olanzapine to 20mg po BID. 10/05 continue current medications. 10/06 continue current medications. 10/07 continue meds, agrees to take gabapentin without trying to snort it- he takes it for back pain s/s to scoliosis. 10/08 no med changes, pt requests to take smaller tabs of depakote, will accommoda te 10/09 Pt's VPA level 110, will hold for night and resume at smaller dose 10/10 continue depakote at 2000 mg HS 10/11 continue current medications. 10/12 continue current medications. 10/13 cross titration: start prolixin 5mg po BID, continue Olanzapine 20mg po BID, continue depakote. 10/14 continue current medications. 10/15/2021 Continue current treatment plan monitor for safety of patient and others needs frequent redirection 10/16/2021 Who patient less grossly outwardly threatening and agitated somewhat more withdrawn remains quite preoccupied paranoid that people are doing things to him on the unit ?calling him a faggot? putting hair in his food and doing other things. Patient stated when he makes threats to harm others it is not a joke he has access to people and things. He was less manically agitated does not feel he needs medication. Pending court hearing 10/17 continue current medications. 10/18 decrease olanzapine to 10mg po BID, continue prolin 5mg po BID. plan to initiate ABERNATHY once established he can tolerate prolixin without side effect and is effective. 10/19 decrease olanzapine to 10mg po qhs. continue prolixin, plan to start ABERNATHY I spent minutes with the patient and/or on the patient floor today, greater than?50% of which was spent counseling/coordinating care. Reason for contiued inpatient stay Substantial Risk for: harm to others and inability to function
[2021-10-19] MEDS: Divalproex Sodium ER 250 MG TAB.ER.24H 2000 MG PO (19:49)
[2021-10-19 19:51] VITALS: BP 138/83; PULSE 97; TEMP 36.4; O2SAT 99
[2021-10-20 07:00] VITALS: BMI 21.6
[2021-10-20 08:16] VITALS: BP 135/73; PULSE 83; RESP 16; TEMP 36.7; O2SAT 96
[2021-10-20] MEDS: fluPHENAZine HCl 5 MG TABLET PO ×2 (08:42→21:44)
[2021-10-20] MEDS: Thiamine HCL 100 MG TABLET PO (08:42)
--- NOTE | 2021-10-20 10:00 | HO.PSYCHPN ---
Subjective Subjective Date of Service: 10/20/21 Reason For Visit: Manic,agitated Subjective Notes: Section 8 Interim History: Pt much less paranoid, calmer and polite. Pt reports he is doing well. He states meds helping but not able to describe in what way as he continues to report he was doing fine before coming here. He denies SI/HI. Much more receptive to work with OP providers. Pt denies SI/HI. He has been mostly in his room. No behavioral concerns. taking meds per court. no side effect. plan to do ABERNATHY. Review of Systems Review of Systems Yes all other systems are reviewed and are negative Mental Status Exam Mental Status Exam Narrative: Appearance: adequately dressed and groomed.? face and neck tattoos.? Behavior: calmer, more cooperative Psychomotor: no overt agitation or retardation noted Speech: clear, normal rate/rhythm, volume, spontaneous. Thought process: more linear Thought content: suspicious food is being tamper, paranoid towards, wanting to be discharged soon Mood: frustrated, can't lie Affect:congruent, less labile, less hypervigilant and agitated AH/VH: none Delusions: paranoid Insight/judgment: poor x 2. denies SI/HI/AVH. Alert, oriented x 3. Diagnostics Vital Signs (24Hr): Vital Signs - 24 hr 10/20/21 21:41 10/21/21 08:52 Temperature 98.1 F 97.8 F Pulse Rate 96 81 Respiratory Rate 16 Blood Pressure 140/94 H 129/74 Pulse Oximetry 98 100 Oxygen Delivery Method Room Air Room Air BMI result Body Mass Index 21.6 Labs Results: 09/28/21 13:43 09/28/21 13:43 Imaging Radiology Impressions: ITS Impressions Lumbar Spine X-Ray 09/29/21 16:11 IMPRESSION: Unremarkable examination. Tibia/Fibula X-Ray 09/29/21 16:11 IMPRESSION: Normal right tibia and fibula. Medications Medications Current Medications Acetaminophen (Acetaminophen 325 Mg Tablet) 650 mg PO Q6H PRN PRN Reason: Headache/Pain Mild Scale (1-3) Last Admin: 10/12/21 00:31 Dose: 650 mg Al Hydroxide/Mg Hydroxide (Magnesium Hydrox/Alum Hydrox 30 Ml Oral.Susp) 30 ml PO Q6H PRN PRN Reason: Heartburn/Nausea Albuterol Sulfate (Albuterol Sulfate 90 Mcg 8 Gm Inhaler) 1 puff INHALE QID PRN PRN Reason: wheezing Last Admin: 10/10/21 10:44 Dose: 1 puff Divalproex Sodium (Divalproex Sodium Er 250 Mg Tab.Er.24h) 2,000 mg PO BEDTIME [facility] Last Admin: 10/20/21 21:44 Dose: 2,000 mg Fluphenazine HCl (Fluphenazine Hcl 5 Mg Tablet) 5 mg PO BID [facility] Last Admin: 10/21/21 08:38 Dose: 5 mg Hydroxyzine HCl (Hydroxyzine Hcl 25 Mg Tablet) 25 mg PO Q6H PRN PRN Reason: Anxiety Last Admin: 10/14/21 13:47 Dose: 25 mg Ibuprofen (Ibuprofen 600 Mg Tablet) 600 mg PO Q8H PRN PRN Reason: Pain, Mild (Pain Scale 1-3) Last Admin: 10/18/21 21:13 Dose: 600 mg Magnesium Hydroxide (Milk Of Magnesia 30 Ml Oral.Susp) 30 ml PO DAILY PRN PRN Reason: Constipation Last Admin: 10/01/21 10:58 Dose: 30 ml Nicotine Polacrilex (Nicotine Polacrilex 2 Mg Gum) 2 mg BUCCAL Q2H PRN PRN Reason: nicotine cravings Last Admin: 10/08/21 13:38 Dose: 2 mg Olanzapine (Olanzapine Odt 10 Mg Tab.Rapdis) 10 mg TRANSLINGU Q6H PRN PRN Reason: agitation Olanzapine (Olanzapine 10 Mg Vial) 10 mg IM BID PRN PRN Reason: if declines oral antipsychotic Olanzapine (Olanzapine Odt 10 Mg Tab.Rapdis) 10 mg TRANSLINGU BEDTIME [facility] Last Admin: 10/20/21 21:44 Dose: 10 mg Thiamine HCl (Thiamine Hcl 100 Mg Tablet) 100 mg PO DAILY [facility] Last Admin: 10/21/21 08:38 Dose: 100 mg Trazodone HCl (Trazodone Hcl 50 Mg Tablet) 50 mg PO BEDTIME PRN PRN Reason: Insomnia Last Admin: 10/18/21 21:16 Dose: 50 mg Allergies Allergies Allergy/AdvReac Type Severity Reaction Status Date / Time No Known Allergies Allergy Verified 09/28/21 12:49 Assessment & Plan Assessment & Plan (1) Schizoaffective disorder: Status: Acute Code(s): F25.9 - Schizoaffective disorder, unspecified Plan restart outpt meds. pt claims to be taking meds as prescribed, but Rxed 2500 mg VPA and his level at admission was only 12. observe for resolution of manic/psychotic Sx. 09/30 continue current medications. 10/01: Continue current regimen and plans 10/02: Continue current plans and regimen. He has a 3 day notice in which will be up on 10/05 10/03 increase olanzapine 10mg po daily and 20mg po qhs. d/c gabapentin as pt trying to snort it. d/c sertraline as it may worsened psychosis. 10/04 increase olanzapine to 20mg po BID. 10/05 continue current medications. 10/06 continue current medications. 10/07 continue meds, agrees to take gabapentin without trying to snort it- he takes it for back pain s/s to scoliosis. 10/08 no med changes, pt requests to take smaller tabs of depakote, will accommodate 10/09 Pt's VPA level 110, will hold for night and resume at smaller dose 10/10 continue depakote at 2000 mg HS 10/11 continue current medications. 10/12 continue current medications. 10/13 cross titration: start prolixin 5mg po BID, continue Olanzapine 20mg po BID, continue depakote. 10/14 continue current medications. 10/15/2021 Continue current treatment plan monitor for safety of patient and others needs frequent redirection 10/16/2021 Who patient less grossly outwardly threatening and agitated somewhat more withdrawn remains quite preoccupied paranoid that people are doing things to him on the unit ?calling him a faggot? putting hair in his food and doing other things. Patient stated when he makes threats to harm others it is not a joke he has access to people and things. He was less manically agitated does not feel he needs medication. Pending court hearing 10/17 continue current medications. 10/18 decrease olanzapine to 10mg po BID, continue prolin 5mg po BID. plan to initiate ABERNATHY once established he can tolerate prolixin without side effect and is effective. 10/19 decrease olanzapine to 10mg po qhs. continue prolixin, plan to start ABERNATHY 10/20 continue medications. no side effects with proloxin, will do ABERNATHY tomorrow. I spent minutes with the patient and/or on the patient floor today, greater than?50% of which was spent counseling/coordinating care. Reason for contiued inpatient stay Substantial Risk for: harm to others and inability to function
[2021-10-20 21:41] VITALS: BP 140/94; PULSE 96; TEMP 36.7; O2SAT 98
[2021-10-20] MEDS: Divalproex Sodium ER 250 MG TAB.ER.24H 2000 MG PO (21:44)
[2021-10-20] MEDS: OLANZapine ODT 10 MG TAB.RAPDIS TRANSLINGU (21:44)
[2021-10-21] MEDS: fluPHENAZine HCl 5 MG TABLET PO ×2 (08:38→22:54)
[2021-10-21] MEDS: Thiamine HCL 100 MG TABLET PO (08:38)
[2021-10-21 08:52] VITALS: BP 129/74; PULSE 81; RESP 16; TEMP 36.6; O2SAT 100
--- NOTE | 2021-10-21 09:08 | HO.PSYCHPN ---
Subjective Subjective Date of Service: 10/21/21 Reason For Visit: Manic,agitated Subjective Notes: Conditional Voluntary Interim History: Pt with brighter, less suspicious affect. He denies SI/HI. He has been sleeping well. He has been eating better, less paranoid about food and others. Discussed starting ABERNATHY, he insists he will take meds after d/c but hx does not support this as he quickly stops them after discharge. He did get ABERNAHTY today. No behavioral concerns. Medication Compliance: Yes Side effects from medications: No Attending Groups: Yes Review of Systems Review of Systems Yes all other systems are reviewed and are negative Mental Status Exam Mental Status Exam Narrative: Appearance: adequately dressed and groomed.? face and neck tattoos.? Behavior: calmer, more cooperative Psychomotor: no overt agitation or retardation noted Speech: clear, normal rate/rhythm, volume, spontaneous. Thought process: more linear Thought content: suspicious food is being tamper, paranoid towards, wanting to be discharged soon Mood: frustrated, can't lie Affect:congruent, less labile, less hypervigilant and agitated AH/VH: none Delusions: paranoid Insight/judgment: poor x 2. denies SI/HI/AVH. Alert, oriented x 3. Diagnostics Vital Signs (24Hr): BMI result Body Mass Index 21.6 Labs Results: 09/28/21 13:43 09/28/21 13:43 Imaging Radiology Impressions: ITS Impressions Lumbar Spine X-Ray 09/29/21 16:11 IMPRESSION: Unremarkable examination. Tibia/Fibula X-Ray 09/29/21 16:11 IMPRESSION: Normal right tibia and fibula. Medications Medications Current Medications Acetaminophen (Acetaminophen 325 Mg Tablet) 650 mg PO Q6H PRN PRN Reason: Headache/Pain Mild Scale (1-3) Last Admin: 10/12/21 00:31 Dose: 650 mg Al Hydroxide/Mg Hydroxide (Magnesium Hydrox/Alum Hydrox 30 Ml Oral.Susp) 30 ml PO Q6H PRN PRN Reason: Heartburn/Nausea Albuterol Sulfate (Albuterol Sulfate 90 Mcg 8 Gm Inhaler) 1 puff INHALE QID PRN PRN Reason: wheezing Last Admin: 10/10/21 10:44 Dose: 1 puff Divalproex Sodium (Divalproex Sodium Er 250 Mg Tab.Er.24h) 2,000 mg PO BEDTIME [facility] Last Admin: 10/21/21 22:54 Dose: 2,000 mg Fluphenazine Decanoate (Fluphenazine Decanoate 25 Mg/Ml 5 Ml Vial) 25 mg IM Q14D@0900 [facility] Last Admin: 10/21/21 14:42 Dose: 25 mg Fluphenazine HCl (Fluphenazine Hcl 5 Mg Tablet) 5 mg PO BID [facility] Last Admin: 10/21/21 22:54 Dose: 5 mg Hydroxyzine HCl (Hydroxyzine Hcl 25 Mg Tablet) 25 mg PO Q6H PRN PRN Reason: Anxiety Last Admin: 10/14/21 13:47 Dose: 25 mg Ibuprofen (Ibuprofen 600 Mg Tablet) 600 mg PO Q8H PRN PRN Reason: Pain, Mild (Pain Scale 1-3) Last Admin: 10/18/21 21:13 Dose: 600 mg Magnesium Hydroxide (Milk Of Magnesia 30 Ml Oral.Susp) 30 ml PO DAILY PRN PRN Reason: Constipation Last Admin: 10/01/21 10:58 Dose: 30 ml Nicotine Polacrilex (Nicotine Polacrilex 2 Mg Gum) 2 mg BUCCAL Q2H PRN PRN Reason: nicotine cravings Last Admin: 10/08/21 13:38 Dose: 2 mg Olanzapine (Olanzapine Odt 10 Mg Tab.Rapdis) 10 mg TRANSLINGU Q6H PRN PRN Reason: agitation Olanzapine (Olanzapine 10 Mg Vial) 10 mg IM BID PRN PRN Reason: if declines oral antipsychotic Olanzapine (Olanzapine Odt 10 Mg Tab.Rapdis) 10 mg TRANSLINGU BEDTIME [facility] Last Admin: 10/21/21 22:54 Dose: 10 mg Thiamine HCl (Thiamine Hcl 100 Mg Tablet) 100 mg PO DAILY [facility] Last Admin: 10/21/21 08:38 Dose: 100 mg Trazodone HCl (Trazodone Hcl 50 Mg Tablet) 50 mg PO BEDTIME PRN PRN Reason: Insomnia Last Admin: 10/18/21 21:16 Dose: 50 mg Allergies Allergies Allergy/AdvReac Type Severity Reaction Status Date / Time No Known Allergies Allergy Verified 09/28/21 12:49 Assessment & Plan Assessment & Plan (1) Schizoaffective disorder: Status: Acute Code(s): F25.9 - Schizoaffective disorder, unspecified Plan restart outpt meds. pt claims to be taking meds as prescribed, but Rxed 2500 mg VPA and his level at admission was only 12. observe for resolution of manic/psychotic Sx. 09/30 continue current medications. 10/01: Continue current regimen and plans 10/02: Continue current plans and regimen. He has a 3 day notice in which will be up on 10/05 10/03 increase olanzapine 10mg po daily and 20mg po qhs. d/c gabapentin as pt trying to snort it. d/c sertraline as it may worsened psychosis. 10/04 increase olanzapine to 20mg po BID. 10/05 continue current medications. 10/06 continue current medications. 10/07 continue meds, agrees to take gabapentin without trying to snort it- he takes it for back pain s/s to scoliosis. 10/08 no med changes, pt requests to take smaller tabs of depakote, will accommodate 10/09 Pt's VPA level 110, will hold for night and resume at smaller dose 10/10 continue depakote at 2000 mg HS 10/11 continue current medications. 10/12 continue current medications. 10/13 cross titration: start prolixin 5mg po BID, continue Olanzapine 20mg po BID, continue depakote. 10/14 continue current medications. 10/15/2021 Continue current treatment plan monitor for safety of patient and others needs frequent redirection 10/16/2021 Who patient less grossly outwardly threatening and agitated somewhat more withdrawn remains quite preoccupied paranoid that people are doing things to him on the unit ?calling him a faggot? putting hair in his food and doing other things. Patient stated when he makes threats to harm others it is not a joke he has access to people and things. He was less manically agitated does not feel he needs medication. Pending court hearing 10/17 continue current medications. 10/18 decrease olanzapine to 10mg po BID, continue prolin 5mg po BID. plan to initiate ABERNATHY once established he can tolerate prolixin without side effect and is effective. 10/19 decrease olanzapine to 10mg po qhs. continue prolixin, plan to start ABERNATHY 10/20 continue medications. no side effects with prolixin, will do ABERNATHY tomorrow. 10/21 continue current meds. I spent minutes with the patient and/or on the patient floor today, greater than?50% of which was spent counseling/coordinating care. Reason for contiued inpatient stay Substantial Risk for: harm to others and inability to function
[2021-10-21] MEDS: fluPHENAZine decanoate 25 MG/ML 5 ML VIAL IM (14:42)
[2021-10-21] MEDS: Divalproex Sodium ER 250 MG TAB.ER.24H 2000 MG PO (22:54)
[2021-10-21] MEDS: OLANZapine ODT 10 MG TAB.RAPDIS TRANSLINGU (22:54)
--- NOTE | 2021-10-22 09:11 | P.PNPSI_ITS ---
Subjective Subjective Date of Service: 10/22/21 Reason For Visit: Manic,agitated Subjective Notes: Section 8 Interim History: Pt reports sleeping through the night. He is upset about ABERNATHY, does not like needles, but calmer. Some paranoia towards peers and heard over the phone last night but with less intensity. No SI/HI. No behavioral concerns. Medication Compliance: Yes Side effects from medications: No Review of Systems Review of Systems Yes all other systems are reviewed and are negative Mental Status Exam Mental Status Exam Narrative: Appearance: adequately dressed and groomed.? face and neck tattoos.? Behavior: calmer, more cooperative Psychomotor: no overt agitation or retardation noted Speech: clear, normal rate/rhythm, volume, spontaneous. Thought process: more linear Thought content: suspicious food is being tamper, paranoid towards, wanting to be discharged soon Mood: frustrated, can't lie Affect:congruent, less labile, less hypervigilant and agitated AH/VH: none Delusions: paranoid Insight/judgment: poor x 2. denies SI/HI/AVH. Alert, oriented x 3. Diagnostics Vital Signs (24Hr): BMI result Body Mass Index 21.6 Labs Results: 09/28/21 13:43 09/28/21 13:43 Imaging Radiology Impressions: ITS Impressions Lumbar Spine X-Ray 09/29/21 16:11 IMPRESSION: Unremarkable examination. Tibia/Fibula X-Ray 09/29/21 16:11 IMPRESSION: Normal right tibia and fibula. Medications Medications Current Medications Acetaminophen (Acetaminophen 325 Mg Tablet) 650 mg PO Q6H PRN PRN Reason: Headache/Pain Mild Scale (1-3) Last Admin: 10/12/21 00:31 Dose: 650 mg Al Hydroxide/Mg Hydroxide (Magnesium Hydrox/Alum Hydrox 30 Ml Oral.Susp) 30 ml PO Q6H PRN PRN Reason: Heartburn/Nausea Albuterol Sulfate (Albuterol Sulfate 90 Mcg 8 Gm Inhaler) 1 puff INHALE QID PRN PRN Reason: wheezing Last Admin: 10/10/21 10:44 Dose: 1 puff Divalproex Sodium (Divalproex Sodium Er 250 Mg Tab.Er.24h) 2,000 mg PO BEDTIME [facility] Last Admin: 10/21/21 22:54 Dose: 2,000 mg Fluphenazine Decanoate (Fluphenazine Decanoate 25 Mg/Ml 5 Ml Vial) 25 mg IM Q14D@0900 [facility] Last Admin: 10/21/21 14:42 Dose: 25 mg Fluphenazine HCl (Fluphenazine Hcl 5 Mg Tablet) 5 mg PO BID [facility] Last Admin: 10/21/21 22:54 Dose: 5 mg Hydroxyzine HCl (Hydroxyzine Hcl 25 Mg Tablet) 25 mg PO Q6H PRN PRN Reason: Anxiety Last Admin: 10/14/21 13:47 Dose: 25 mg Ibuprofen (Ibuprofen 600 Mg Tablet) 600 mg PO Q8H PRN PRN Reason: Pain, Mild (Pain Scale 1-3) Last Admin: 10/18/21 21:13 Dose: 600 mg Magnesium Hydroxide (Milk Of Magnesia 30 Ml Oral.Susp) 30 ml PO DAILY PRN PRN Reason: Constipation Last Admin: 10/01/21 10:58 Dose: 30 ml Nicotine Polacrilex (Nicotine Polacrilex 2 Mg Gum) 2 mg BUCCAL Q2H PRN PRN Reason: nicotine cravings Last Admin: 10/08/21 13:38 Dose: 2 mg Olanzapine (Olanzapine Odt 10 Mg Tab.Rapdis) 10 mg TRANSLINGU Q6H PRN PRN Reason: agitation Olanzapine (Olanzapine 10 Mg Vial) 10 mg IM BID PRN PRN Reason: if declines oral antipsychotic Olanzapine (Olanzapine Odt 10 Mg Tab.Rapdis) 10 mg TRANSLINGU BEDTIME [facility] Last Admin: 10/21/21 22:54 Dose: 10 mg Thiamine HCl (Thiamine Hcl 100 Mg Tablet) 100 mg PO DAILY [facility] Last Admin: 10/21/21 08:38 Dose: 100 mg Trazodone HCl (Trazodone Hcl 50 Mg Tablet) 50 mg PO BEDTIME PRN PRN Reason: Insomnia Last Admin: 10/18/21 21:16 Dose: 50 mg Allergies Allergies Allergy/AdvReac Type Severity Reaction Status Date / Time No Known Allergies Allergy Verified 09/28/21 12:49 Assessment & Plan Assessment & Plan (1) Schizoaffective disorder: Status: Acute Code(s): F25.9 - Schizoaffective disorder, unspecified Plan restart outpt meds. pt claims to be taking meds as prescribed, but Rxed 2500 mg VPA and his level at admission was only 12. observe for resolution of manic/psychotic Sx. 09/30 continue current medications. 10/01: Continue current regimen and plans 10/02: Continue current plans and regimen. He has a 3 day notice in which will be up on 10/05 10/03 increase olanzapine 10mg po daily and 20mg po qhs. d/c gabapentin as pt trying to snort it. d/c sertraline as it may worsened psychosis. 10/04 increase olanzapine to 20mg po BID. 10/05 continue current medications. 10/06 continue current medications. 10/07 continue meds, agrees to take gabapentin without trying to snort it- he takes it for back pain s/s to scoliosis. 10/08 no med changes, pt requests to take smaller tabs of depakote, will accommodate 10/09 Pt's VPA level 110, will hold for night and resume at smaller dose 10/10 continue depakote at 2000 mg HS 10/11 continue current medications. 10/12 continue current medications. 10/13 cross titration: start prolixin 5mg po BID, continue Olanzapine 20mg po BID, continue depakote. 10/14 continue current medications. 10/15/2021 Continue current treatment plan monitor for safety of patient and others needs frequent redirection 10/16/2021 Who patient less grossly outwardly threatening and agitated somewhat more withdrawn remains quite preoccupied paranoid that people are doing things to him on the unit ?calling him a faggot? putting hair in his food and doing other things. Patient stated when he makes threats to harm others it is not a joke he has access to people and things. He was less manically agitated does not feel he needs medication. Pending court hearing 10/17 continue current medications. 10/18 decrease olanzapine to 10mg po BID, continue prolin 5mg po BID. plan to initiate ABERNATHY once established he can tolerate prolixin without side effect and is effective. 10/19 decrease olanzapine to 10mg po qhs. continue prolixin, plan to start ABERNATHY 10/20 continue medications. no side effects with prolixin, will do ABERNATHY tomorrow. 10/21 continue current meds. 10/22 continue current tx. NEXT Prolixin 25mg IM on 11/03 continue oral until then. I spent minutes with the patient and/or on the patient floor today, greater than?50% of which was spent counseling/coordinating care. Reason for contiued inpatient stay Substantial Risk for: harm to others and inability to function
[2021-10-22 10:52] VITALS: BP 132/92; PULSE 99; RESP 16; TEMP 36.7; O2SAT 98
[2021-10-22] MEDS: Thiamine HCL 100 MG TABLET PO (11:03)
[2021-10-22] MEDS: fluPHENAZine HCl 5 MG TABLET PO (11:03)
[2021-10-22] MEDS: OLANZapine ODT 10 MG TAB.RAPDIS TRANSLINGU ×2 (11:58→21:37)
[2021-10-22] MEDS: Divalproex Sodium ER 250 MG TAB.ER.24H 2000 MG PO (21:37)
[2021-10-22] MEDS: fluPHENAZine HCl 5 MG TABLET 10 MG PO (21:37)
[2021-10-22 21:40] VITALS: BP 127/90; PULSE 92; RESP 18; TEMP 36.1; O2SAT 99
[2021-10-22] MEDS: Nicotine Polacrilex 2 MG GUM 4 MG BUCCAL (22:02)
[2021-10-23 09:45] VITALS: BP 131/87; PULSE 78; RESP 18; TEMP 36.6; O2SAT 99
[2021-10-23] MEDS: fluPHENAZine HCl 5 MG TABLET 10 MG PO ×2 (09:51→21:03)
[2021-10-23] MEDS: Thiamine HCL 100 MG TABLET PO (09:51)
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
[2021-10-23] MEDS: OLANZapine ODT 10 MG TAB.RAPDIS TRANSLINGU (21:03)
[2021-10-23] MEDS: Divalproex Sodium ER 250 MG TAB.ER.24H 2000 MG PO (21:03)
[2021-10-23] MEDS: Magnesium Hydrox/Alum Hydrox 30 ML ORAL.SUSP PO (21:07)
[2021-10-24 06:00] VITALS: BP 138/78; PULSE 82; RESP 16; TEMP 36.7; O2SAT 99
[2021-10-24] MEDS: Thiamine HCL 100 MG TABLET PO (09:58)
[2021-10-24] MEDS: fluPHENAZine HCl 5 MG TABLET 10 MG PO ×2 (09:58→22:37)
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
[2021-10-24 18:00] VITALS: BP 123/70; PULSE 76; RESP 16; TEMP 36.6; O2SAT 99
[2021-10-24] MEDS: Divalproex Sodium ER 250 MG TAB.ER.24H 2000 MG PO (22:37)
[2021-10-24] MEDS: OLANZapine ODT 10 MG TAB.RAPDIS TRANSLINGU (22:37)
[2021-10-24] MEDS: Acetaminophen 325 MG TABLET 650 MG PO (23:01)
[2021-10-25 10:13] VITALS: BP 127/74; PULSE 84; RESP 16; TEMP 36.5; O2SAT 99
[2021-10-25] MEDS: Acetaminophen 325 MG TABLET 650 MG PO ×2 (10:16→22:47)
[2021-10-25] MEDS: fluPHENAZine HCl 5 MG TABLET 10 MG PO ×2 (10:16→22:46)
[2021-10-25] MEDS: Thiamine HCL 100 MG TABLET PO (10:17)
--- NOTE | 2021-10-25 15:42 | P.PNPSI_ITS ---
Subjective Subjective Date of Service: 10/25/21 Reason For Visit: Manic,agitated Interim History: calm, cooperative. very different presentation from yesterday, where he was demanding discharge and perseverative about people poisoning his food. no mention of either topic today. discussion around orthopedic complaints. painful hand nodule, xrays ordered. expressing gratitude and positive in interpersonal interaction. per staff, yesterday focused on poisoned food claims, feeling unsafe. somewhat sexually provocative, asking female peer to sit on his lap. painful nodule on hand. Mental Status Exam Mental Status Exam Narrative: Appearance: adequately dressed and groomed.? face and neck tattoos.? Behavior: calmer, more cooperative Psychomotor: no overt agitation or retardation noted Speech: clear, normal rate/rhythm, volume, spontaneous. Thought process: more linear Thought content: re orthopedic complaints Mood: not assessed Affect:congruent, less labile, less hypervigilant and agitated AH/VH: none Delusions: none evident Insight/judgment: poor x 2. denies SI/HI/AVH. Alert, oriented x 3. Diagnostics Vital Signs (24Hr): Vital Signs - 24 hr 10/24/21 18:00 10/25/21 10:13 Temperature 97.8 F 97.7 F Pulse Rate 76 84 Respiratory Rate 16 16 Blood Pressure 123/70 127/74 Pulse Oximetry 99 99 Oxygen Delivery Method Room Air Room Air BMI result Body Mass Index 21.6 Labs Results: 09/28/21 13:43 09/28/21 13:43 Imaging Radiology Impressions: ITS Impressions Lumbar Spine X-Ray 09/29/21 16:11 IMPRESSION: Unremarkable examination. Tibia/Fibula X-Ray 09/29/21 16:11 IMPRESSION: Normal right tibia and fibula. Medications Medications Current Medications Acetaminophen (Acetaminophen 325 Mg Tablet) 650 mg PO Q6H PRN PRN Reason: Headache/Pain Mild Scale (1-3) Last Admin: 10/25/21 10:16 Dose: 650 mg Al Hydroxide/Mg Hydroxide (Magnesium Hydrox/Alum Hydrox 30 Ml Oral.Susp) 30 ml PO Q6H PRN PRN Reason: Heartburn/Nausea Last Admin: 10/23/21 21:07 Dose: 30 ml Albuterol Sulfate (Albuterol Sulfate 90 Mcg 8 Gm Inhaler) 1 puff INHALE QID PRN PRN Reason: wheezing Last Admin: 10/10/21 10:44 Dose: 1 puff Divalproex Sodium (Divalproex Sodium Er 250 Mg Tab.Er.24h) 2,000 mg PO BEDTIME [facility] Last Admin: 10/24/21 22:37 Dose: 2,000 mg Fluphenazine Decanoate (Fluphenazine Decanoate 25 Mg/Ml 5 Ml Vial) 25 mg IM Q14D@0900 [facility] Last Admin: 10/21/21 14:42 Dose: 25 mg Fluphenazine HCl (Fluphenazine Hcl 5 Mg Tablet) 10 mg PO BID [facility] Last Admin: 10/25/21 10:16 Dose: 10 mg Hydroxyzine HCl (Hydroxyzine Hcl 25 Mg Tablet) 25 mg PO Q6H PRN PRN Reason: Anxiety Last Admin: 10/14/21 13:47 Dose: 25 mg Ibuprofen (Ibuprofen 600 Mg Tablet) 600 mg PO Q8H PRN PRN Reason: Pain, Mild (Pain Scale 1-3) Last Admin: 10/18/21 21:13 Dose: 600 mg Magnesium Hydroxide (Milk Of Magnesia 30 Ml Oral.Susp) 30 ml PO DAILY PRN PRN Reason: Constipation Last Admin: 10/01/21 10:58 Dose: 30 ml Nicotine Polacrilex (Nicotine Polacrilex 2 Mg Gum) 4 mg BUCCAL Q2H PRN PRN Reason: Nicotine Cravings Last Admin: 10/22/21 22:02 Dose: 4 mg Olanzapine (Olanzapine Odt 10 Mg Tab.Rapdis) 10 mg TRANSLINGU Q6H PRN PRN Reason: agitation Last Admin: 10/22/21 11:58 Dose: 10 mg Olanzapine (Olanzapine 10 Mg Vial) 10 mg IM BID PRN PRN Reason: if declines oral antipsychotic Olanzapine (Olanzapine Odt 10 Mg Tab.Rapdis) 10 mg TRANSLINGU BEDTIME [facility] Last Admin: 10/24/21 22:37 Dose: 10 mg Thiamine HCl (Thiamine Hcl 100 Mg Tablet) 100 mg PO DAILY [facility] Last Admin: 10/25/21 10:17 Dose: 100 mg Trazodone HCl (Trazodone Hcl 50 Mg Tablet) 50 mg PO BEDTIME PRN PRN Reason: Insomnia Last Admin: 10/18/21 21:16 Dose: 50 mg Allergies Allergies Allergy/AdvReac Type Severity Reaction Status Date / Time No Known Allergies Allergy Verified 08/24/22 12:49 Assessment & Plan Assessment & Plan (1) Schizoaffective disorder: Status: Acute Code(s): F25.9 - Schizoaffective disorder, unspecified Plan restart outpt meds. pt claims to be taking meds as prescribed, but Rxed 2500 mg VPA and his level at admission was only 12. observe for resolution of manic/psychotic Sx. 09/30 continue current medications. 10/01: Continue current regimen and plans 10/02: Continue current plans and regimen. He has a 3 day notice in which will be up on 10/05 10/03 increase olanzapine 10mg po daily and 20mg po qhs. d/c gabapentin as pt trying to snort it. d/c sertraline as it may worsened psychosis. 10/04 increase olanzapine to 20mg po BID. 10/05 continue current medications. 10/06 continue current medications. 10/07 continue meds, agrees to take gabapentin without trying to snort it- he takes it for back pain s/s to scoliosis. 10/08 no med changes, pt requests to take smaller tabs of depakote, will accommodate 10/09 Pt's VPA level 110, will hold for night and resume at smaller dose 10/10 continue depakote at 2000 mg HS 10/11 continue current medications. 10/12 continue current medications. 10/13 cross titration: start prolixin 5mg po BID, continue Olanzapine 20mg po BID, continue depakote. 10/14 continue current medications. 10/15/2021 Continue current treatment plan monitor for safety of patient and others needs frequent redirection 10/16/2021 Who patient less grossly outwardly threatening and agitated somewhat more withdrawn remains quite preoccupied paranoid that people are doing things to him on the unit ?calling him a faggot? putting hair in his food and doing other things. Patient stated when he makes threats to harm others it is not a joke he has access to people and things. He was less manically agitated does not feel he needs medication. Pending court hearing 10/17 continue current medications. 10/18 decrease olanzapine to 10mg po BID, continue prolin 5mg po BID. plan to initiate ABERNATHY once established he can tolerate prolixin without side effect and is effective. 10/19 decrease olanzapine to 10mg po qhs. continue prolixin, plan to start ABERNATHY 10/20 continue medications. no side effects with prolixin, will do ABERNATHY tomorrow. 10/21 continue current meds. 10/22 continue current tx. NEXT Prolixin 25mg IM on 11/03 continue oral until then. 10/23 continue current tx. 10/24: continue current mgmt. somewhat angry and perseverative today. still with paranoid delusions of food being tampered with. 10/25: continue current mgmt. pleasant today, no mention of paranoid delusions or demands to discharge. I spent ___20___ minutes with the patient and/or on the patient floor today, greater than?50% of which was spent counseling/coordinating care. Reason for contiued inpatient stay Substantial Risk for: inability to function and rapid decompensation
[2021-10-25 18:00] VITALS: BP 136/91; PULSE 80; RESP 18; TEMP 36.6; O2SAT 97
[2021-10-25 22:46] VITALS: BP 125/78; PULSE 108; RESP 19; TEMP 36.7; O2SAT 98
[2021-10-25] MEDS: OLANZapine ODT 10 MG TAB.RAPDIS TRANSLINGU (22:46)
[2021-10-25] MEDS: Divalproex Sodium ER 250 MG TAB.ER.24H 2000 MG PO (22:46)
[2021-10-25] MEDS: Ibuprofen 600 MG TABLET PO (22:54)
[2021-10-25] MEDS: traZODone HCL 50 MG TABLET PO (22:54)
[2021-10-26 10:15] VITALS: BP 124/88; PULSE 81; RESP 18; TEMP 36.4; O2SAT 98
[2021-10-26] MEDS: Thiamine HCL 100 MG TABLET PO (10:35)
[2021-10-26] MEDS: Acetaminophen 325 MG TABLET 650 MG PO ×2 (10:35→19:55)
[2021-10-26] MEDS: fluPHENAZine HCl 5 MG TABLET 10 MG PO ×2 (10:35→19:56)
[2021-10-26] MEDS: Albuterol Sulfate 90 MCG 8 GM INHALER 1 PUFF INHALE (10:35)
--- NOTE | 2021-10-26 13:15 | HO.PSYCHPN ---
Subjective Subjective Date of Service: 10/26/21 Reason For Visit: Manic,agitated Subjective Notes: Section 8 Interim History: Pt calmer, today. he reports he is doing well. he reports sleeping well. No SI/HI. Less ideas of food being poisoned. He has not shown aggression towards self or others. hopes to be discharged soon. No behavioral concerns. Review of Systems Review of Systems Yes all other systems are reviewed and are negative Mental Status Exam Mental Status Exam Narrative: Appearance: adequately dressed and groomed.? face and neck tattoos.? Behavior: calmer, more cooperative Psychomotor: no overt agitation or retardation noted Speech: clear, normal rate/rhythm, volume, spontaneous. Thought process: more linear Thought content: re orthopedic complaints Mood: not assessed Affect:congruent, less labile, less hypervigilant and agitated AH/VH: none Delusions: none evident Insight/judgment: poor x 2. denies SI/HI/AVH. Alert, oriented x 3. Diagnostics Vital Signs (24Hr): Vital Signs - 24 hr 10/26/21 19:10 10/27/21 08:20 Temperature 97.9 F 98.1 F Pulse Rate 92 66 Respiratory Rate 16 18 Blood Pressure 122/79 124/67 Pulse Oximetry 99 100 Oxygen Delivery Method Room Air Room Air BMI result Body Mass Index 22.0 Labs Results: 09/28/21 13:43 09/28/21 13:43 Imaging Radiology Impressions: ITS Impressions Lumbar Spine X-Ray 09/29/21 16:11 IMPRESSION: Unremarkable examination. Tibia/Fibula X-Ray 09/29/21 16:11 IMPRESSION: Normal right tibia and fibula. Hand X-Ray 10/25/21 14:30 IMPRESSION: Normal right hand. Medications Medications Current Medications Acetaminophen (Acetaminophen 325 Mg Tablet) 650 mg PO Q6H PRN PRN Reason: Headache/Pain Mild Scale (1-3) Last Admin: 10/26/21 19:55 Dose: 650 mg Al Hydroxide/Mg Hydroxide (Magnesium Hydrox/Alum Hydrox 30 Ml Oral.Susp) 30 ml PO Q6H PRN PRN Reason: Heartburn/Nausea Last Admin: 10/23/21 21:07 Dose: 30 ml Albuterol Sulfate (Albuterol Sulfate 90 Mcg 8 Gm Inhaler) 1 puff INHALE QID PRN PRN Reason: wheezing Last Admin: 10/26/21 10:35 Dose: 1 puff Capsaicin (Capsaicin 0.025% Cream 60 Gm Tube) 1 appl TOPICAL TID PRN; Protocol PRN Reason: hand pain Last Admin: 10/27/21 13:37 Dose: 1 appl Divalproex Sodium (Divalproex Sodium Er 250 Mg Tab.Er.24h) 2,000 mg PO BEDTIME [facility] Last Admin: 10/26/21 19:56 Dose: 2,000 mg Fluphenazine Decanoate (Fluphenazine Decanoate 25 Mg/Ml 5 Ml Vial) 25 mg IM Q14D@0900 [facility] Last Admin: 10/21/21 14:42 Dose: 25 mg Fluphenazine HCl (Fluphenazine Hcl 5 Mg Tablet) 10 mg PO BID [facility] Last Admin: 10/27/21 09:41 Dose: 10 mg Hydroxyzine HCl (Hydroxyzine Hcl 25 Mg Tablet) 25 mg PO Q6H PRN PRN Reason: Anxiety Last Admin: 10/14/21 13:47 Dose: 25 mg Ibuprofen (Ibuprofen 600 Mg Tablet) 600 mg PO Q8H PRN PRN Reason: Pain, Mild (Pain Scale 1-3) Last Admin: 10/27/21 16:05 Dose: 600 mg Magnesium Hydroxide (Milk Of Magnesia 30 Ml Oral.Susp) 30 ml PO DAILY PRN PRN Reason: Constipation Last Admin: 10/01/21 10:58 Dose: 30 ml Nicotine Polacrilex (Nicotine Polacrilex 2 Mg Gum) 4 mg BUCCAL Q2H PRN PRN Reason: Nicotine Cravings Last Admin: 10/22/21 22:02 Dose: 4 mg Olanzapine (Olanzapine Odt 10 Mg Tab.Rapdis) 10 mg TRANSLINGU Q6H PRN PRN Reason: agitation Last Admin: 10/22/21 11:58 Dose: 10 mg Olanzapine (Olanzapine 10 Mg Vial) 10 mg IM BID PRN PRN Reason: if declines oral antipsychotic Olanzapine (Olanzapine Odt 10 Mg Tab.Rapdis) 10 mg TRANSLINGU BEDTIME [facility] Last Admin: 10/26/21 19:55 Dose: 10 mg Thiamine HCl (Thiamine Hcl 100 Mg Tablet) 100 mg PO DAILY [facility] Last Admin: 10/27/21 09:41 Dose: 100 mg Trazodone HCl (Trazodone Hcl 50 Mg Tablet) 50 mg PO BEDTIME PRN PRN Reason: Insomnia Last Admin: 10/25/21 22:54 Dose: 50 mg Allergies Allergies Allergy/AdvReac Type Severity Reaction Status Date / Time No Known Allergies Allergy Verified 09/28/21 12:49 Assessment & Plan Assessment & Plan (1) Schizoaffective disorder: Status: Acute Code(s): F25.9 - Schizoaffective disorder, unspecified Plan restart outpt meds. pt claims to be taking meds as prescribed, but Rxed 2500 mg VPA and his level at admission was only 12. observe for resolution of manic/psychotic Sx. 09/30 continue current medications. 10/01: Continue current regimen and plans 10/02: Continue current plans and regimen. He has a 3 day notice in which will be up on 10/05 10/03 increase olanzapine 10mg po daily and 20mg po qhs. d/c gabapentin as pt trying to snort it. d/c sertraline as it may worsened psychosis. 10/04 increase olanzapine to 20mg po BID. 10/05 continue current medications. 10/06 continue current medications. 10/07 continue meds, agrees to take gabapentin without trying to snort it- he takes it for back pain s/s to scoliosis. 10/08 no med changes, pt requests to take smaller tabs of depakote, will accommodate 10/09 Pt's VPA level 110, will hold for night and resume at smaller dose 10/10 continue depakote at 2000 mg HS 10/11 continue current medications. 10/12 continue current medications. 10/13 cross titration: start prolixin 5mg po BID, continue Olanzapine 20mg po BID, continue depakote. 10/14 continue current medications. 10/15/2021 Continue current treatment plan monitor for safety of patient and others needs frequent redirection 10/16/2021 Who patient less grossly outwardly threatening and agitated somewhat more withdrawn remains quite preoccupied paranoid that people are doing things to him on the unit ?calling him a faggot? putting hair in his food and doing other things. Patient stated when he makes threats to harm others it is not a joke he has access to people and things. He was less manically agitated does not feel he needs medication. Pending court hearing 10/17 continue current medications. 10/18 decrease olanzapine to 10mg po BID, continue prolin 5mg po BID. plan to initiate ABERNATHY once established he can tolerate prolixin without side effect and is effective. 10/19 decrease olanzapine to 10mg po qhs. continue prolixin, plan to start ABERNATHY 10/20 continue medications. no side effects with prolixin, will do ABERNATHY tomorrow. 10/21 continue current meds. 10/22 continue current tx. NEXT Prolixin 25mg IM on 11/03 continue oral until then. 10/23 continue current tx. 10/24: continue current mgmt. somewhat angry and perseverative today. still with paranoid delusions of food being tampered with. 10/25: continue current mgmt. pleasant today, no mention of paranoid delusions or demands to discharge. 10/26 continue current medications. I spent minutes with the patient and/or on the patient floor today, greater than?50% of which was spent counseling/coordinating care. Reason for contiued inpatient stay Substantial Risk for: inability to function
[2021-10-26 19:10] VITALS: BP 122/79; PULSE 92; RESP 16; TEMP 36.6; O2SAT 99
[2021-10-26] MEDS: OLANZapine ODT 10 MG TAB.RAPDIS TRANSLINGU (19:55)
[2021-10-26] MEDS: Divalproex Sodium ER 250 MG TAB.ER.24H 2000 MG PO (19:56)
--- NOTE | 2021-10-26 20:03 | PC.NURSE ---
Pt perseverates over old injuries to hands. Xray report for recent rt hand xray shows no visible damage. Although pt was read the report, he sts They must be lying to me. Pt was given an ice pack and encouraged to rest his hand to allow it to heal, and not to continue doing pushups, which he sts he has been doing even with the pain. He was not receptive to attempts to guide his self-care.
[2021-10-27 07:00] VITALS: BMI 22.0
[2021-10-27 08:20] VITALS: BP 124/67; PULSE 66; RESP 18; TEMP 36.7; O2SAT 100
[2021-10-27] MEDS: Thiamine HCL 100 MG TABLET PO (09:41)
[2021-10-27] MEDS: fluPHENAZine HCl 5 MG TABLET 10 MG PO ×2 (09:41→20:27)
--- NOTE | 2021-10-27 12:16 | HO.PSYCHPN ---
Subjective Subjective Date of Service: 10/27/21 Reason For Visit: Manic,agitated Interim History: Pt presents as pleasant, well groomed. He reports he is sleeping and eating well. He denies SI/HI. No overt parnaoid towards staff or peers or his food. He hopes to be discharged soon but worried about housing- no place identify for him to step down after inpt by [facility]. taking medications as prescribed. Review of Systems Review of Systems Yes all other systems are reviewed and are negative Mental Status Exam Mental Status Exam Narrative: Appearance: adequately dressed and groomed.? face and neck tattoos.? Behavior: calmer, more cooperative Psychomotor: no overt agitation or retardation noted Speech: clear, normal rate/rhythm, volume, spontaneous. Thought process: more linear Thought content: re orthopedic complaints Mood: not assessed Affect:congruent, less labile, less hypervigilant and agitated AH/VH: none Delusions: none evident Insight/judgment: poor x 2. denies SI/HI/AVH. Alert, oriented x 3. Diagnostics Vital Signs (24Hr): Vital Signs - 24 hr 10/26/21 19:10 10/27/21 08:20 Temperature 97.9 F 98.1 F Pulse Rate 92 66 Respiratory Rate 16 18 Blood Pressure 122/79 124/67 Pulse Oximetry 99 100 Oxygen Delivery Method Room Air Room Air BMI result Body Mass Index 22.0 Labs Results: 09/28/21 13:43 09/28/21 13:43 Imaging Radiology Impressions: ITS Impressions Lumbar Spine X-Ray 09/29/21 16:11 IMPRESSION: Unremarkable examination. Tibia/Fibula X-Ray 09/29/21 16:11 IMPRESSION: Normal right tibia and fibula. Hand X-Ray 10/25/21 14:30 IMPRESSION: Normal right hand. Medications Medications Current Medications Acetaminophen (Acetaminophen 325 Mg Tablet) 650 mg PO Q6H PRN PRN Reason: Headache/Pain Mild Scale (1-3) Last Admin: 10/26/21 19:55 Dose: 650 mg Al Hydroxide/Mg Hydroxide (Magnesium Hydrox/Alum Hydrox 30 Ml Oral.Susp) 30 ml PO Q6H PRN PRN Reason: Heartburn/Nausea Last Admin: 10/23/21 21:07 Dose: 30 ml Albuterol Sulfate (Albuterol Sulfate 90 Mcg 8 Gm Inhaler) 1 puff INHALE QID PRN PRN Reason: wheezing Last Admin: 10/26/21 10:35 Dose: 1 puff Capsaicin (Capsaicin 0.025% Cream 60 Gm Tube) 1 appl TOPICAL TID PRN; Protocol PRN Reason: hand pain Last Admin: 10/27/21 13:37 Dose: 1 appl Divalproex Sodium (Divalproex Sodium Er 250 Mg Tab.Er.24h) 2,000 mg PO BEDTIME [facility] Last Admin: 10/26/21 19:56 Dose: 2,000 mg Fluphenazine Decanoate (Fluphenazine Decanoate 25 Mg/Ml 5 Ml Vial) 25 mg IM Q14D@0900 [facility] Last Admin: 10/21/21 14:42 Dose: 25 mg Fluphenazine HCl (Fluphenazine Hcl 5 Mg Tablet) 10 mg PO BID [facility] Last Admin: 10/27/21 09:41 Dose: 10 mg Hydroxyzine HCl (Hydroxyzine Hcl 25 Mg Tablet) 25 mg PO Q6H PRN PRN Reason: Anxiety Last Admin: 10/14/21 13:47 Dose: 25 mg Ibuprofen (Ibuprofen 600 Mg Tablet) 600 mg PO Q8H PRN PRN Reason: Pain, Mild (Pain Scale 1-3) Last Admin: 10/27/21 16:05 Dose: 600 mg Magnesium Hydroxide (Milk Of Magnesia 30 Ml Oral.Susp) 30 ml PO DAILY PRN PRN Reason: Constipation Last Admin: 10/01/21 10:58 Dose: 30 ml Nicotine Polacrilex (Nicotine Polacrilex 2 Mg Gum) 4 mg BUCCAL Q2H PRN PRN Reason: Nicotine Cravings Last Admin: 10/22/21 22:02 Dose: 4 mg Olanzapine (Olanzapine Odt 10 Mg Tab.Rapdis) 10 mg TRANSLINGU Q6H PRN PRN Reason: agitation Last Admin: 10/22/21 11:58 Dose: 10 mg Olanzapine (Olanzapine 10 Mg Vial) 10 mg IM BID PRN PRN Reason: if declines oral antipsychotic Olanzapine (Olanzapine Odt 10 Mg Tab.Rapdis) 10 mg TRANSLINGU BEDTIME [facility] Last Admin: 10/26/21 19:55 Dose: 10 mg Thiamine HCl (Thiamine Hcl 100 Mg Tablet) 100 mg PO DAILY [facility] Last Admin: 10/27/21 09:41 Dose: 100 mg Trazodone HCl (Trazodone Hcl 50 Mg Tablet) 50 mg PO BEDTIME PRN PRN Reason: Insomnia Last Admin: 10/25/21 22:54 Dose: 50 mg Allergies Allergies Allergy/AdvReac Type Severity Reaction Status Date / Time No Known Allergies Allergy Verified 09/28/21 12:49 Assessment & Plan Assessment & Plan (1) Schizoaffective disorder: Status: Acute Code(s): F25.9 - Schizoaffective disorder, unspecified Plan restart outpt meds. pt claims to be taking meds as prescribed, but Rxed 2500 mg VPA and his level at admission was only 12. observe for resolution of manic/psychotic Sx. 09/30 continue current medications. 10/01: Continue current regimen and plans 10/02: Continue current plans and regimen. He has a 3 day notice in which will be up on 10/05 10/03 increase olanzapine 10mg po daily and 20mg po qhs. d/c gabapentin as pt trying to snort it. d/c sertraline as it may worsened psychosis. 10/04 increase olanzapine to 20mg po BID. 10/05 continue current medications. 10/06 continue current medications. 10/07 continue meds, agrees to take gabapentin without trying to snort it- he takes it for back pain s/s to scoliosis. 10/08 no med changes, pt requests to take smaller tabs of depakote, will accommodate 10/09 Pt's VPA level 110, will hold for night and resume at smaller dose 10/10 continue depakote at 2000 mg HS 10/11 continue current medications. 10/12 continue current medications. 10/13 cross titration: start prolixin 5mg po BID, continue Olanzapine 20mg po BID, continue depakote. 10/14 continue current medications. 10/15/2021 Continue current treatment plan monitor for safety of patient and others needs frequent redirection 10/16/2021 Who patient less grossly outwardly threatening and agitated somewhat more withdrawn remains quite preoccupied paranoid that people are doing things to him on the unit ?calling him a faggot? putting hair in his food and doing other things. Patient stated when he makes threats to harm others it is not a joke he has access to people and things. He was less manically agitated does not feel he needs medication. Pending court hearing 10/17 continue current medications. 10/18 decrease olanzapine to 10mg po BID, continue prolin 5mg po BID. plan to initiate ABERNATHY once established he can tolerate prolixin without side effect and is effective. 10/19 decrease olanzapine to 10mg po qhs. continue prolixin, plan to start ABERNATHY 10/20 continue medications. no side effects with prolixin, will do ABERNATHY tomorrow. 10/21 continue current meds. 10/22 continue current tx. NEXT Prolixin 25mg IM on 11/03 continue oral until then. 10/23 continue current tx. 10/24: continue current mgmt. somewhat angry and perseverative today. still with paranoid delusions of food being tampered with. 10/25: continue current mgmt. pleasant today, no mention of paranoid delusions or demands to discharge. 10/26 continue current medications. 10/27 continue current medications. I spent minutes with the patient and/or on the patient floor today, greater than?50% of which was spent counseling/coordinating care. Reason for contiued inpatient stay Substantial Risk for: inability to function
[2021-10-27] MEDS: Capsaicin 0.025% Cream 60 GM TUBE 1 APPL TOPICAL (13:37)
[2021-10-27] MEDS: Ibuprofen 600 MG TABLET PO (16:05)
[2021-10-27 19:10] VITALS: BP 129/71; PULSE 98; RESP 16; TEMP 36.6; O2SAT 99
[2021-10-27] MEDS: Divalproex Sodium ER 250 MG TAB.ER.24H 2000 MG PO (20:27)
[2021-10-27] MEDS: OLANZapine ODT 10 MG TAB.RAPDIS TRANSLINGU (20:27)
[2021-10-28] MEDS: Ibuprofen 600 MG TABLET PO (00:07)
[2021-10-28 08:15] VITALS: BP 118/75; PULSE 75; RESP 18; TEMP 36.2; O2SAT 100
[2021-10-28] MEDS: Thiamine HCL 100 MG TABLET PO (08:19)
[2021-10-28] MEDS: fluPHENAZine HCl 5 MG TABLET 10 MG PO ×2 (08:19→21:09)
--- NOTE | 2021-10-28 13:25 | HO.PSYCHPN ---
Subjective Subjective Date of Service: 10/28/21 Reason For Visit: Manic,agitated Subjective Notes: Section 8 Interim History: Pt presents as pleasant, well groomed. He reports sleeping well. He reports less pain on right hand. No swelling noted. Less paranoia towards staff or peers. At times continues to report food being tampered with. No SI.HI. No aggression. Medication Compliance: Yes Side effects from medications: No Review of Systems Review of Systems Yes all other systems are reviewed and are negative Mental Status Exam Mental Status Exam Narrative: Appearance: adequately dressed and groomed.? face and neck tattoos.? Behavior: calmer, more cooperative Psychomotor: no overt agitation or retardation noted Speech: clear, normal rate/rhythm, volume, spontaneous. Thought process: more linear Thought content: re orthopedic complaints Mood: not assessed Affect:congruent, less labile, less hypervigilant and agitated AH/VH: none Delusions: none evident Insight/judgment: poor x 2. denies SI/HI/AVH. Alert, oriented x 3. Diagnostics Vital Signs (24Hr): Vital Signs - 24 hr 10/27/21 19:10 10/28/21 08:15 Temperature 97.9 F 97.2 F Pulse Rate 98 75 Respiratory Rate 16 18 Blood Pressure 129/71 118/75 Pulse Oximetry 99 100 Oxygen Delivery Method Room Air Room Air BMI result Body Mass Index 22.0 Labs Results: 09/28/21 13:43 09/28/21 13:43 Imaging Radiology Impressions: ITS Impressions Lumbar Spine X-Ray 09/29/21 16:11 IMPRESSION: Unremarkable examination. Tibia/Fibula X-Ray 09/29/21 16:11 IMPRESSION: Normal right tibia and fibula. Hand X-Ray 10/25/21 14:30 IMPRESSION: Normal right hand. Medications Medications Current Medications Acetaminophen (Acetaminophen 325 Mg Tablet) 650 mg PO Q6H PRN PRN Reason: Headache/Pain Mild Scale (1-3) Last Admin: 10/26/21 19:55 Dose: 650 mg Al Hydroxide/Mg Hydroxide (Magnesium Hydrox/Alum Hydrox 30 Ml Oral.Susp) 30 ml PO Q6H PRN PRN Reason: Heartburn/Nausea Last Admin: 10/23/21 21:07 Dose: 30 ml Albuterol Sulfate (Albuterol Sulfate 90 Mcg 8 Gm Inhaler) 1 puff INHALE QID PRN PRN Reason: wheezing Last Admin: 10/26/21 10:35 Dose: 1 puff Capsaicin (Capsaicin 0.025% Cream 60 Gm Tube) 1 appl TOPICAL TID PRN; Protocol PRN Reason: hand pain Last Admin: 10/27/21 13:37 Dose: 1 appl Divalproex Sodium (Divalproex Sodium Er 250 Mg Tab.Er.24h) 2,000 mg PO BEDTIME [facility] Last Admin: 10/27/21 20:27 Dose: 2,000 mg Fluphenazine Decanoate (Fluphenazine Decanoate 25 Mg/Ml 5 Ml Vial) 25 mg IM Q14D@0900 [facility] Last Admin: 10/21/21 14:42 Dose: 25 mg Fluphenazine HCl (Fluphenazine Hcl 5 Mg Tablet) 10 mg PO BID [facility] Last Admin: 10/28/21 08:19 Dose: 10 mg Hydroxyzine HCl (Hydroxyzine Hcl 25 Mg Tablet) 25 mg PO Q6H PRN PRN Reason: Anxiety Last Admin: 10/14/21 13:47 Dose: 25 mg Ibuprofen (Ibuprofen 600 Mg Tablet) 600 mg PO Q8H PRN PRN Reason: Pain, Mild (Pain Scale 1-3) Last Admin: 10/28/21 00:07 Dose: 600 mg Magnesium Hydroxide (Milk Of Magnesia 30 Ml Oral.Susp) 30 ml PO DAILY PRN PRN Reason: Constipation Last Admin: 10/01/21 10:58 Dose: 30 ml Nicotine Polacrilex (Nicotine Polacrilex 2 Mg Gum) 4 mg BUCCAL Q2H PRN PRN Reason: Nicotine Cravings Last Admin: 10/22/21 22:02 Dose: 4 mg Olanzapine (Olanzapine Odt 10 Mg Tab.Rapdis) 10 mg TRANSLINGU Q6H PRN PRN Reason: agitation Last Admin: 10/22/21 11:58 Dose: 10 mg Olanzapine (Olanzapine 10 Mg Vial) 10 mg IM BID PRN PRN Reason: if declines oral antipsychotic Olanzapine (Olanzapine Odt 10 Mg Tab.Rapdis) 10 mg TRANSLINGU BEDTIME [facility] Last Admin: 10/27/21 20:27 Dose: 10 mg Thiamine HCl (Thiamine Hcl 100 Mg Tablet) 100 mg PO DAILY [facility] Last Admin: 10/28/21 08:19 Dose: 100 mg Trazodone HCl (Trazodone Hcl 50 Mg Tablet) 50 mg PO BEDTIME PRN PRN Reason: Insomnia Last Admin: 10/25/21 22:54 Dose: 50 mg Allergies Allergies Allergy/AdvReac Type Severity Reaction Status Date / Time No Known Allergies Allergy Verified 09/28/21 12:49 Assessment & Plan Assessment & Plan (1) Schizoaffective disorder: Status: Acute Code(s): F25.9 - Schizoaffective disorder, unspecified Plan restart outpt meds. pt claims to be taking meds as prescribed, but Rxed 2500 mg VPA and his level at admission was only 12. observe for resolution of manic/psychotic Sx. 09/30 continue current medications. 10/01: Continue current regimen and plans 10/02: Continue current plans and regimen. He has a 3 day notice in which will be up on 10/05 10/03 increase olanzapine 10mg po daily and 20mg po qhs. d/c gabapentin as pt trying to snort it. d/c sertraline as it may worsened psychosis. 10/04 increase olanzapine to 20mg po BID. 10/05 continue current medications. 10/06 continue current medications. 10/07 continue meds, agrees to take gabapentin without trying to snort it- he takes it for back pain s/s to scoliosis. 10/08 no med changes, pt requests to take smaller tabs of depakote, will accommodate 10/09 Pt's VPA level 110, will hold for night and resume at smaller dose 10/10 continue depakote at 2000 mg HS 10/11 continue current medications. 10/12 continue current medications. 10/13 cross titration: start prolixin 5mg po BID, continue Olanzapine 20mg po BID, continue depakote. 10/14 continue current medications. 10/15/2021 Continue current treatment plan monitor for safety of patient and others needs frequent redirection 10/16/2021 Who patient less grossly outwardly threatening and agitated somewhat more withdrawn remains quite preoccupied paranoid that people are doing things to him on the unit ?calling him a faggot? putting hair in his food and doing other things. Patient stated when he makes threats to harm others it is not a joke he has access to people and things. He was less manically agitated does not feel he needs medication. Pending court hearing 10/17 continue current medications. 10/18 decrease olanzapine to 10mg po BID, continue prolin 5mg po BID. plan to initiate ABERNATHY once established he can tolerate prolixin without side effect and is effective. 10/19 decrease olanzapine to 10mg po qhs. continue prolixin, plan to start ABERNATHY 10/20 continue medications. no side effects with prolixin, will do ABERNATHY tomorrow. 10/21 continue current meds. 10/22 continue current tx. NEXT Prolixin 25mg IM on 11/03 continue oral until then. 10/23 continue current tx. 10/24: continue current mgmt. somewhat angry and perseverative today. still with paranoid delusions of food being tampered with. 10/25: continue current mgmt. pleasant today, no mention of paranoid delusions or demands to discharge. 10/26 continue current medications. 10/27 continue current medications. 10/28 continue tx. I spent minutes with the patient and/or on the patient floor today, greater than?50% of which was spent counseling/coordinating care. Reason for contiued inpatient stay Substantial Risk for: harm to others and inability to function
[2021-10-28 18:00] VITALS: BP 124/72; PULSE 86; TEMP 36.6; O2SAT 99
[2021-10-28] MEDS: Divalproex Sodium ER 250 MG TAB.ER.24H 2000 MG PO (21:08)
[2021-10-28] MEDS: OLANZapine ODT 10 MG TAB.RAPDIS TRANSLINGU (21:09)
--- NOTE | 2021-10-29 07:52 | P.PNPSI_ITS ---
Subjective Subjective Date of Service: 10/29/21 Reason For Visit: Manic,agitated Subjective Notes: Section 8 Healthcare Proxy: No Guardianship: No Medical Problems Affecting Mental Status: No Interim History: Patient was seen and discussed in rounds today. Records and plans were reviewed. He has been doing well with the change of his medication to Prolixin which is being done slowly. Some daytime drowsiness. Eating and sleeping adequately. He has been med compliant. He stated that they were planning to discharge him on 11/03 but he wants to see whether he can leave earlier. He wi ll discuss this with his treatment team on 10/31. No complaints or side effects. No changes were made today Review of Systems Review of Systems Yes all other systems are reviewed and are negative Mental Status Exam Mental Status Exam Patient Appearance: Appropriate Patient Orientation: Person, Place and Time Level of Consciousness: Awake and Drowsy Patient Behavior: Appropriate Mood Description: Calm and Constricted Affect Description: Appropriate Patient Cognition Impaired: No Ability to Follow Directions: Good Speech Pattern: Clear Hallucinations: None Delusions: Paranoid Ideation Thought Content: positive for Intact Judgement: Fair Diagnostics Vital Signs (24Hr): Vital Signs - 24 hr 10/28/21 08:15 10/28/21 18:00 Temperature 97.2 F 97.8 F Pulse Rate 75 86 Respiratory Rate 18 Blood Pressure 118/75 124/72 Pulse Oximetry 100 99 Oxygen Delivery Method Room Air Room Air BMI result Body Mass Index 22.0 Labs Results: 09/28/21 13:43 09/28/21 13:43 Imaging Radiology Impressions: ITS Impressions Lumbar Spine X-Ray 09/29/21 16:11 IMPRESSION: Unremarkable examination. Tibia/Fibula X-Ray 09/29/21 16:11 IMPRESSION: Normal right tibia and fibula. Hand X-Ray 10/25/21 14:30 IMPRESSION: Normal right hand. Medications Medications Current Medications Acetaminophen (Acetaminophen 325 Mg Tablet) 650 mg PO Q6H PRN PRN Reason: Headache/Pain Mild Scale (1-3) Last Admin: 10/26/21 19:55 Dose: 650 mg Al Hydroxide/Mg Hydroxide (Magnesium Hydrox/Alum Hydrox 30 Ml Oral.Susp) 30 ml PO Q6H PRN PRN Reason: Heartburn/Nausea Last Admin: 10/23/21 21:07 Dose: 30 ml Albuterol Sulfate (Albuterol Sulfate 90 Mcg 8 Gm Inhaler) 1 puff INHALE QID PRN PRN Reason: wheezing Last Admin: 10/26/21 10:35 Dose: 1 puff Capsaicin (Capsaicin 0.025% Cream 60 Gm Tube) 1 appl TOPICAL TID PRN; Protocol PRN Reason: hand pain Last Admin: 10/27/21 13:37 Dose: 1 appl Divalproex Sodium (Divalproex Sodium Er 250 Mg Tab.Er.24h) 2,000 mg PO BEDTIME [facility] Last Admin: 10/28/21 21:08 Dose: 2,000 mg Fluphenazine Decanoate (Fluphenazine Decanoate 25 Mg/Ml 5 Ml Vial) 25 mg IM Q14D@0900 [facility] Last Admin: 10/21/21 14:42 Dose: 25 mg Fluphenazine HCl (Fluphenazine Hcl 5 Mg Tablet) 10 mg PO BID [facility] Last Admin: 10/28/21 21:09 Dose: 10 mg Hydroxyzine HCl (Hydroxyzine Hcl 25 Mg Tablet) 25 mg PO Q6H PRN PRN Reason: Anxiety Last Admin: 10/14/21 13:47 Dose: 25 mg Ibuprofen (Ibuprofen 600 Mg Tablet) 600 mg PO Q8H PRN PRN Reason: Pain, Mild (Pain Scale 1-3) Last Admin: 10/28/21 00:07 Dose: 600 mg Magnesium Hydroxide (Milk Of Magnesia 30 Ml Oral.Susp) 30 ml PO DAILY PRN PRN Reason: Constipation Last Admin: 10/01/21 10:58 Dose: 30 ml Nicotine Polacrilex (Nicotine Polacrilex 2 Mg Gum) 4 mg BUCCAL Q2H PRN PRN Reason: Nicotine Cravings Last Admin: 10/22/21 22:02 Dose: 4 mg Olanzapine (Olanzapine Odt 10 Mg Tab.Rapdis) 10 mg TRANSLINGU Q6H PRN PRN Reason: agitation Last Admin: 10/22/21 11:58 Dose: 10 mg Olanzapine (Olanzapine 10 Mg Vial) 10 mg IM BID PRN PRN Reason: if declines oral antipsychotic Olanzapine (Olanzapine Odt 10 Mg Tab.Rapdis) 10 mg TRANSLINGU BEDTIME [facility] Last Admin: 10/28/21 21:09 Dose: 10 mg Thiamine HCl (Thiamine Hcl 100 Mg Tablet) 100 mg PO DAILY [facility] Last Admin: 10/28/21 08:19 Dose: 100 mg Trazodone HCl (Trazodone Hcl 50 Mg Tablet) 50 mg PO BEDTIME PRN PRN Reason: Insomnia Last Admin: 10/25/21 22:54 Dose: 50 mg Allergies Allergies Allergy/AdvReac Type Severity Reaction Status Date / Time No Known Allergies Allergy Verified 09/28/21 12:49 Assessment & Plan Assessment & Plan (1) Schizoaffective disorder: Status: Acute Code(s): F25.9 - Schizoaffective disorder, unspecified Plan restart outpt meds. pt claims to be taking meds as prescribed, but Rxed 2500 mg VPA and his level at admission was only 12. observe for resolution of manic/psychotic Sx. 09/30 continue current medications. 10/01: Continue current regimen and plans 10/02: Continue current plans and regimen. He has a 3 day notice in which will be up on 10/05 10/03 increase olanzapine 10mg po daily and 20mg po qhs. d/c gabapentin as pt trying to snort it. d/c sertraline as it may worsened psychosis. 10/04 increase olanzapine to 20mg po BID. 10/05 continue current medications. 10/06 continue current medications. 10/07 continue meds, agrees to take gabapentin without trying to snort it- he takes it for back pain s/s to scoliosis. 10/08 no med changes, pt requests to take smaller tabs of depakote, will accommodate 10/09 Pt's VPA level 110, will hold for night and resume at smaller dose 10/10 continue depakote at 2000 mg HS 10/11 continue current medications. 10/12 continue current medications. 10/13 cross titration: start prolixin 5mg po BID, continue Olanzapine 20mg po BID, continue depakote. 10/14 continue current medications. 10/15/2021 Continue current treatment plan monitor for safety of patient and others needs frequent redirection 10/16/2021 Who patient less grossly outwardly threatening and agitated somewhat more withdrawn remains quite preoccupied paranoid that people are doing things to him on the unit ?calling him a faggot? putting hair in his food and doing other things. Patient stated when he makes threats to harm others it is not a joke he has access to people and things. He was less manically agitated does not feel he needs medication. Pending court hearing 10/17 continue current medications. 10/18 decrease olanzapine to 10mg po BID, continue prolin 5mg po BID. plan to initiate ABERNATHY once established he can tolerate prolixin without side effect and is effective. 10/19 decrease olanzapine to 10mg po qhs. continue prolixin, plan to start ABERNATHY 10/20 continue medications. no side effects with prolixin, will do ABERNATHY tomorrow. 10/21 continue current meds. 10/22 continue current tx. NEXT Prolixin 25mg IM on 11/03 continue oral until then. 10/23 continue current tx. 10/24: continue current mgmt. somewhat angry and perseverative today. still with paranoid delusions of food being tampered with. 10/25: continue current mgmt. pleasant today, no mention of paranoid delusions or demands to discharge. 10/26 continue current medications. 10/27 continue current medications. 10/28 continue tx. 10/29: Continue current regimen and plans. Continue cross taper to Prolixin. I spent minutes with the patient and/or on the patient floor today, greater than?50% of which was spent counseling/coordinating care. Reason for contiued inpatient stay Substantial Risk for: med/psych decompensation
[2021-10-29 10:10] VITALS: BP 121/77; PULSE 88; RESP 16; TEMP 36.6; O2SAT 99
[2021-10-29] MEDS: fluPHENAZine HCl 5 MG TABLET 10 MG PO ×2 (10:15→21:44)
[2021-10-29] MEDS: Thiamine HCL 100 MG TABLET PO (10:16)
[2021-10-29 20:20] VITALS: BP 125/83; PULSE 79; RESP 16; TEMP 36.6; O2SAT 99
[2021-10-29] MEDS: OLANZapine ODT 10 MG TAB.RAPDIS TRANSLINGU (21:44)
[2021-10-29] MEDS: Divalproex Sodium ER 250 MG TAB.ER.24H 2000 MG PO (21:44)
--- NOTE | 2021-10-30 01:03 | PC.NURSE ---
Pt A&O, INAD, cooperative, avoids eye contact, denies SI/AH/VH. Regarding HI, states The thoughts are there. You [meaning people in general] can't do anything about it, though when feeling that way. Pt observed pt in sensory room with head down in hands. He reported feeling unsafe regarding uncertainty about discharge plans, feeling isolated and lacking support from individuals outside. Mood depressed, dysphoric. Pt was medication adherent, declined PRN medication for anxiety, showered and was observed in the sensory room and in the milieu with limited interaction with peers.
--- NOTE | 2021-10-30 09:22 | P.PNPSI_ITS ---
Subjective Subjective Date of Service: 10/30/21 Reason For Visit: Manic,agitated Subjective Notes: Conditional Voluntary Healthcare Proxy: No Guardianship: No Medical Problems Affecting Mental Status: No Interim History: Patient was seen and discussed in rounds today. Records and plans were reviewed. He has been stable and is doing fairly well and see some improvement with the medication changes. He has been withdrawn and in somewhat angry with his mother. He still has no place to go which is worsened when. Some paranoia persisting. No SI. Some passive suicidal ideations reported at times. He is med compliant. Eating and sleeping adequately. No changes were implemented today Review of Systems Review of Systems Yes all other systems are reviewed and are negative Diagnostics Vital Signs (24Hr): Vital Signs - 24 hr 10/29/21 10:10 10/29/21 20:20 Temperature 97.9 F 97.9 F Pulse Rate 88 79 Respiratory Rate 16 16 Blood Pressure 121/77 125/83 Pulse Oximetry 99 99 Oxygen Delivery Method Room Air Room Air BMI result Body Mass Index 22.0 Labs Results: 09/28/21 13:43 09/28/21 13:43 Imaging Radiology Impressions: ITS Impressions Lumbar Spine X-Ray 09/29/21 16:11 IMPRESSION: Unremarkable examination. Tibia/Fibula X-Ray 09/29/21 16:11 IMPRESSION: Normal right tibia and fibula. Hand X-Ray 10/25/21 14:30 IMPRESSION: Normal right hand. Medications Medications Current Medications Acetaminophen (Acetaminophen 325 Mg Tablet) 650 mg PO Q6H PRN PRN Reason: Headache/Pain Mild Scale (1-3) Last Admin: 10/26/21 19:55 Dose: 650 mg Al Hydroxide/Mg Hydroxide (Magnesium Hydrox/Alum Hydrox 30 Ml Oral.Susp) 30 ml PO Q6H PRN PRN Reason: Heartburn/Nausea Last Admin: 10/23/21 21:07 Dose: 30 ml Albuterol Sulfate (Albuterol Sulfate 90 Mcg 8 Gm Inhaler) 1 puff INHALE QID PRN PRN Reason: wheezing Last Admin: 10/26/21 10:35 Dose: 1 puff Capsaicin (Capsaicin 0.025% Cream 60 Gm Tube) 1 appl TOPICAL TID PRN; Protocol PRN Reason: hand pain Last Admin: 10/27/21 13:37 Dose: 1 appl Divalproex Sodium (Divalproex Sodium Er 250 Mg Tab.Er.24h) 2,000 mg PO BEDTIME [facility] Last Admin: 10/29/21 21:44 Dose: 2,000 mg Fluphenazine Decanoate (Fluphenazine Decanoate 25 Mg/Ml 5 Ml Vial) 25 mg IM Q14D@0900 [facility] Last Admin: 10/21/21 14:42 Dose: 25 mg Fluphenazine HCl (Fluphenazine Hcl 5 Mg Tablet) 10 mg PO BID [facility] Last Admin: 10/29/21 21:44 Dose: 10 mg Hydroxyzine HCl (Hydroxyzine Hcl 25 Mg Tablet) 25 mg PO Q6H PRN PRN Reason: Anxiety Last Admin: 10/14/21 13:47 Dose: 25 mg Ibuprofen (Ibuprofen 600 Mg Tablet) 600 mg PO Q8H PRN PRN Reason: Pain, Mild (Pain Scale 1-3) Last Admin: 10/28/21 00:07 Dose: 600 mg Magnesium Hydroxide (Milk Of Magnesia 30 Ml Oral.Susp) 30 ml PO DAILY PRN PRN Reason: Constipation Last Admin: 10/01/21 10:58 Dose: 30 ml Nicotine Polacrilex (Nicotine Polacrilex 2 Mg Gum) 4 mg BUCCAL Q2H PRN PRN Reason: Nicotine Cravings Last Admin: 10/22/21 22:02 Dose: 4 mg Olanzapine (Olanzapine Odt 10 Mg Tab.Rapdis) 10 mg TRANSLINGU Q6H PRN PRN Reason: agitation Last Admin: 10/22/21 11:58 Dose: 10 mg Olanzapine (Olanzapine 10 Mg Vial) 10 mg IM BID PRN PRN Reason: if declines oral antipsychotic Olanzapine (Olanzapine Odt 10 Mg Tab.Rapdis) 10 mg TRANSLINGU BEDTIME [facility] Last Admin: 10/29/21 21:44 Dose: 10 mg Thiamine HCl (Thiamine Hcl 100 Mg Tablet) 100 mg PO DAILY [facility] Last Admin: 10/29/21 10:16 Dose: 100 mg Trazodone HCl (Trazodone Hcl 50 Mg Tablet) 50 mg PO BEDTIME PRN PRN Reason: Insomnia Last Admin: 10/25/21 22:54 Dose: 50 mg Allergies Allergies Allergy/AdvReac Type Severity Reaction Status Date / Time No Known Allergies Allergy Verified 09/28/21 12:49 Assessment & Plan Assessment & Plan (1) Schizoaffective disorder: Status: Acute Code(s): F25.9 - Schizoaffective disorder, unspecified Plan restart outpt meds. pt claims to be taking meds as prescribed, but Rxed 2500 mg VPA and his level at admission was only 12. observe for resolution of manic/psychotic Sx. 09/30 continue current medications. 10/01: Continue current regimen and plans 10/02: Continue current plans and regimen. He has a 3 day notice in which will be up on 10/05 10/03 increase olanzapine 10mg po daily and 20mg po qhs. d/c gabapentin as pt trying to snort it. d/c sertraline as it may worsened psychosis. 10/04 increase olanzapine to 20mg po BID. 10/05 continue current medications. 10/06 continue current medications. 10/07 continue meds, agrees to take gabapentin without trying to snort it- he takes it for back pain s/s to scoliosis. 10/08 no med changes, pt requests to take smaller tabs of depakote, will accommodate 10/09 Pt's VPA level 110, will hold for night and resume at smaller dose 10/10 continue depakote at 2000 mg HS 10/11 continue current medications. 10/12 continue current medications. 10/13 cross titration: start prolixin 5mg po BID, continue Olanzapine 20mg po BID, continue depakote. 10/14 continue current medications. 10/15/2021 Continue current treatment plan monitor for safety of patient and others needs frequent redirection 10/16/2021 Who patient less grossly outwardly threatening and agitated somewhat more withdrawn remains quite preoccupied paranoid that people are doing things to him on the unit ?calling him a faggot? putting hair in his food and doing other things. Patient stated when he makes threats to harm others it is not a joke he has access to people and things. He was less manically agitated does not feel he needs medication. Pending court hearing 10/17 continue current medications. 10/18 decrease olanzapine to 10mg po BID, continue prolin 5mg po BID. plan to initiate ABERNATHY once established he can tolerate prolixin without side effect and is effective. 10/19 decrease olanzapine to 10mg po qhs. continue prolixin, plan to start ABERNATHY 10/20 continue medications. no side effects with prolixin, will do ABERNATHY tomorrow. 10/21 continue current meds. 10/22 continue current tx. NEXT Prolixin 25mg IM on 11/03 continue oral until then. 10/23 continue current tx. 10/24: continue current mgmt. somewhat angry and perseverative today. still with paranoid delusions of food being tampered with. 10/25: continue current mgmt. pleasant today, no mention of paranoid delusions or demands to discharge. 10/26 continue current medications. 10/27 continue current medications. 10/28 continue tx. 10/29: Continue current regimen and plans. Continue cross taper to Prolixin. 10/30: Continue current plans and regimen. No changes today I spent minutes with the patient and/or on the patient floor today, greater than?50% of which was spent counseling/coordinating care. Reason for contiued inpatient stay Substantial Risk for: med/psych decompensation
[2021-10-30] MEDS: Thiamine HCL 100 MG TABLET PO (09:33)
[2021-10-30] MEDS: fluPHENAZine HCl 5 MG TABLET 10 MG PO ×2 (09:33→22:10)
[2021-10-30] MEDS: Acetaminophen 325 MG TABLET 650 MG PO (09:39)
[2021-10-30 10:02] VITALS: BP 112/69; PULSE 73; RESP 18; TEMP 36.2; O2SAT 100
[2021-10-30] MEDS: Ibuprofen 600 MG TABLET PO (20:06)
[2021-10-30] MEDS: OLANZapine ODT 10 MG TAB.RAPDIS TRANSLINGU (22:10)
[2021-10-30] MEDS: Divalproex Sodium ER 250 MG TAB.ER.24H 2000 MG PO (22:10)
[2021-10-30] MEDS: Nicotine Polacrilex 2 MG GUM 4 MG BUCCAL (22:10)
[2021-10-31] MEDS: Thiamine HCL 100 MG TABLET PO (09:33)
[2021-10-31] MEDS: fluPHENAZine HCl 5 MG TABLET 10 MG PO ×2 (09:33→23:24)
[2021-10-31 09:35] VITALS: BP 128/83; PULSE 76; RESP 14; TEMP 36.7; O2SAT 99
--- NOTE | 2021-10-31 12:32 | P.PNPSI_ITS ---
Subjective Subjective Date of Service: 10/31/21 Reason For Visit: Manic,agitated Subjective Notes: Section 8 Interim History: Pt overall calmer. He reports less incidents of food being tampered. No behavioral concerns. He denies SI/HI. He reports last night he woke up at night and difficulty falling asleep after thinks because he is bored here and wants to leave soon. Taking meds, no behavioral concerns. Medication Compliance: Yes Side effects from medications: No Attending Groups: Yes Review of Systems Review of Systems Yes all other systems are reviewed and are negative Mental Status Exam Mental Status Exam Narrative: Appearance: adequately dressed and groomed.? face and neck tattoos.? Behavior: calmer, more cooperative Psychomotor: no overt agitation or retardation noted Speech: clear, normal rate/rhythm, volume, spontaneous. Thought process: more linear Thought content: no overt paranoia, hoping to be dc soon as planned. Mood: good Affect:congruent, less labile, less hypervigilant and agitated AH/VH: none Delusions: none evident Insight/judgment: poor x 2. denies SI/HI/AVH. Alert, oriented x 3. Diagnostics Vital Signs (24Hr): Vital Signs - 24 hr 10/31/21 09:35 Temperature 98.0 F Pulse Rate 76 Respiratory Rate 14 Blood Pressure 128/83 Pulse Oximetry 99 Oxygen Delivery Method Room Air BMI result Body Mass Index 22.0 Labs Results: 09/28/21 13:43 09/28/21 13:43 Imaging Radiology Impressions: ITS Impressions Lumbar Spine X-Ray 09/29/21 16:11 IMPRESSION: Unremarkable examination. Tibia/Fibula X-Ray 09/29/21 16:11 IMPRESSION: Normal right tibia and fibula. Hand X-Ray 10/25/21 14:30 IMPRESSION: Normal right hand. Medications Medications Current Medications Acetaminophen (Acetaminophen 325 Mg Tablet) 650 mg PO Q6H PRN PRN Reason: Headache/Pain Mild Scale (1-3) Last Admin: 10/30/21 09:39 Dose: 650 mg Al Hydroxide/Mg Hydroxide (Magnesium Hydrox/Alum Hydrox 30 Ml Oral.Susp) 30 ml PO Q6H PRN PRN Reason: Heartburn/Nausea Last Admin: 10/23/21 21:07 Dose: 30 ml Albuterol Sulfate (Albuterol Sulfate 90 Mcg 8 Gm Inhaler) 1 puff INHALE QID PRN PRN Reason: wheezing Last Admin: 10/26/21 10:35 Dose: 1 puff Capsaicin (Capsaicin 0.025% Cream 60 Gm Tube) 1 appl TOPICAL TID PRN; Protocol PRN Reason: hand pain Last Admin: 10/27/21 13:37 Dose: 1 appl Divalproex Sodium (Divalproex Sodium Er 250 Mg Tab.Er.24h) 2,000 mg PO BEDTIME MARLENA Last Admin: 10/30/21 22:10 Dose: 2,000 mg Fluphenazine Decanoate (Fluphenazine Decanoate 25 Mg/Ml 5 Ml Vial) 25 mg IM Q14D@0900 MARLENA Last Admin: 10/21/21 14:42 Dose: 25 mg Fluphenazine HCl (Fluphenazine Hcl 5 Mg Tablet) 10 mg PO BID MARLENA Last Admin: 10/31/21 09:33 Dose: 10 mg Hydroxyzine HCl (Hydroxyzine Hcl 25 Mg Tablet) 25 mg PO Q6H PRN PRN Reason: Anxiety Last Admin: 10/14/21 13:47 Dose: 25 mg Ibuprofen (Ibuprofen 600 Mg Tablet) 600 mg PO Q8H PRN PRN Reason: Pain, Mild (Pain Scale 1-3) Last Admin: 10/30/21 20:06 Dose: 600 mg Magnesium Hydroxide (Milk Of Magnesia 30 Ml Oral.Susp) 30 ml PO DAILY PRN PRN Reason: Constipation Last Admin: 10/01/21 10:58 Dose: 30 ml Nicotine Polacrilex (Nicotine Polacrilex 2 Mg Gum) 4 mg BUCCAL Q2H PRN PRN Reason: Nicotine Cravings Last Admin: 10/30/21 22:10 Dose: 4 mg Olanzapine (Olanzapine Odt 10 Mg Tab.Rapdis) 10 mg TRANSLINGU Q6H PRN PRN Reason: agitation Last Admin: 10/22/21 11:58 Dose: 10 mg Olanzapine (Olanzapine 10 Mg Vial) 10 mg IM BID PRN PRN Reason: if declines oral antipsychotic Olanzapine (Olanzapine Odt 10 Mg Tab.Rapdis) 10 mg TRANSLINGU BEDTIME MARLENA Last Admin: 10/30/21 22:10 Dose: 10 mg Thiamine HCl (Thiamine Hcl 100 Mg Tablet) 100 mg PO DAILY MARLENA Last Admin: 10/31/21 09:33 Dose: 100 mg Trazodone HCl (Trazodone Hcl 50 Mg Tablet) 50 mg PO BEDTIME PRN PRN Reason: Insomnia Last Admin: 10/25/21 22:54 Dose: 50 mg Allergies Allergies Allergy/AdvReac Type Severity Reaction Status Date / Time No Known Allergies Allergy Verified 09/28/21 12:49 Assessment & Plan Assessment & Plan (1) Schizoaffective disorder: Status: Acute Code(s): F25.9 - Schizoaffective disorder, unspecified Plan restart outpt meds. pt claims to be taking meds as prescribed, but Rxed 2500 mg VPA and his level at admission was only 12. observe for resolution of manic/psychotic Sx. 09/30 continue current medications. 10/01: Continue current regimen and plans 10/02: Continue current plans and regimen. He has a 3 day notice in which will be up on 10/05 10/03 increase olanzapine 10mg po daily and 20mg po qhs. d/c gabapentin as pt tr keisha to snort it. d/c sertraline as it may worsened psychosis. 10/04 increase olanzapine to 20mg po BID. 10/05 continue current medications. 10/06 continue current medications. 10/07 continue meds, agrees to take gabapentin without trying to snort it- he takes it for back pain s/s to scoliosis. 10/08 no med changes, pt requests to take smaller tabs of depakote, will accommodate 10/09 Pt's VPA level 110, will hold for night and resume at smaller dose 10/10 continue depakote at 2000 mg HS 10/11 continue current medications. 10/12 continue current medications. 10/13 cross titration: start prolixin 5mg po BID, continue Olanzapine 20mg po BID, continue depakote. 10/14 continue current medications. 10/15/2021 Continue current treatment plan monitor for safety of patient and others needs frequent redirection 10/16/2021 Who patient less grossly outwardly threatening and agitated somewhat more withdrawn remains quite preoccupied paranoid that people are doing things to him on the unit ?calling him a faggot? putting hair in his food and doing other things. Patient stated when he makes threats to harm others it is not a joke he has access to people and things. He was less manically agitated does not feel he needs medication. Pending court hearing 10/17 continue current medications. 10/18 decrease olanzapine to 10mg po BID, continue prolin 5mg po BID. plan to initiate ABERNATHY once established he can tolerate prolixin without side effect and is effective. 10/19 decrease olanzapine to 10mg po qhs. continue prolixin, plan to start ABERNATHY 10/20 continue medications. no side effects with prolixin, will do ABERNATHY tomorrow. 10/21 continue current meds. 10/22 continue current tx. NEXT Prolixin 25mg IM on 11/03 continue oral until then. 10/23 continue current tx. 10/24: continue current mgmt. somewhat angry and perseverative today. still with paranoid delusions of food being tampered with. 10/25: continue current mgmt. pleasant today, no mention of paranoid delusions or demands to discharge. 10/26 continue current medications. 10/27 continue current medications. 10/28 continue tx. 10/29: Continue current regimen and plans. Continue cross taper to Prolixin. 10/30: Continue current plans and regimen. No changes today 10/31 continue current meds. NEXT prolixin 25mg IM on 11/03. I spent minutes with the patient and/or on the patient floor today, greater than?50% of which was spent counseling/coordinating care. Reason for contiued inpatient stay Substantial Risk for: harm to others and inability to function
[2021-10-31 23:20] VITALS: BP 118/71; PULSE 76; RESP 16; TEMP 36.4; O2SAT 100
[2021-10-31] MEDS: Divalproex Sodium ER 250 MG TAB.ER.24H 2000 MG PO (23:23)
[2021-10-31] MEDS: OLANZapine ODT 10 MG TAB.RAPDIS TRANSLINGU (23:24)
[2021-11-01] MEDS: fluPHENAZine HCl 5 MG TABLET 10 MG PO ×2 (11:13→20:54)
[2021-11-01] MEDS: Thiamine HCL 100 MG TABLET PO (11:13)
[2021-11-01 12:05] VITALS: BP 116/64; PULSE 74; RESP 14; TEMP 36.9; O2SAT 97
--- NOTE | 2021-11-01 15:46 | P.PNPSI_ITS ---
Subjective Subjective Date of Service: 11/01/21 Reason For Visit: Manic,agitated Subjective Notes: Section 8 Interim History: Pt continues to present as calmer. Pt reports sleeping and eating well. He reports feeling tired in morning. He did sleep better last night. He is looking forward to be discharged soon. No SI/HI. Some residual paranoia but no aggression. Medication Compliance: Yes Side effects from medications: No Attending Groups: Yes Review of Systems Review of Systems Yes all other systems are reviewed and are negative Mental Status Exam Mental Status Exam Narrative: Appearance: adequately dressed and groomed.? face and neck tattoos.? Behavior: calmer, more cooperative Psychomotor: no overt agitation or retardation noted Speech: clear, normal rate/rhythm, volume, spontaneous. Thought process: more linear Thought content: no overt paranoia, hoping to be dc soon as planned. Mood: good Affect:congruent, less labile, less hypervigilant and agitated AH/VH: none Delusions: none evident Insight/judgment: poor x 2. denies SI/HI/AVH. Alert, oriented x 3. Patient Appearance: Appropriate Patient Orientation: Person, Place and Time Level of Consciousness: Awake and Drowsy Patient Behavior: Appropriate Mood Description: Calm and Constricted Affect Description: Appropriate Patient Cognition Impaired: No Ability to Follow Directions: Good Speech Pattern: Clear Diagnostics Vital Signs (24Hr): Vital Signs - 24 hr 10/31/21 23:20 11/01/21 12:05 Temperature 97.6 F 98.4 F Pulse Rate 76 74 Respiratory Rate 16 14 Blood Pressure 118/71 116/64 Pulse Oximetry 100 97 Oxygen Delivery Method Room Air Room Air BMI result Body Mass Index 22.0 Labs Results: 09/28/21 13:43 09/28/21 13:43 Imaging Radiology Impressions: ITS Impressions Lumbar Spine X-Ray 09/29/21 16:11 IMPRESSION: Unremarkable examination. Tibia/Fibula X-Ray 09/29/21 16:11 IMPRESSION: Normal right tibia and fibula. Hand X-Ray 10/25/21 14:30 IMPRESSION: Normal right hand. Medications Medications Current Medications Acetaminophen (Acetaminophen 325 Mg Tablet) 650 mg PO Q6H PRN PRN Reason: Headache/Pain Mild Scale (1-3) Last Admin: 10/30/21 09:39 Dose: 650 mg Al Hydroxide/Mg Hydroxide (Magnesium Hydrox/Alum Hydrox 30 Ml Oral.Susp) 30 ml PO Q6H PRN PRN Reason: Heartburn/Nausea Last Admin: 10/23/21 21:07 Dose: 30 ml Albuterol Sulfate (Albuterol Sulfate 90 Mcg 8 Gm Inhaler) 1 puff INHALE QID PRN PRN Reason: wheezing Last Admin: 10/26/21 10:35 Dose: 1 puff Capsaicin (Capsaicin 0.025% Cream 60 Gm Tube) 1 appl TOPICAL TID PRN; Protocol PRN Reason: hand pain Last Admin: 10/27/21 13:37 Dose: 1 appl Divalproex Sodium (Divalproex Sodium Er 250 Mg Tab.Er.24h) 2,000 mg PO BEDTIME MARLENA Last Admin: 10/31/21 23:23 Dose: 2,000 mg Fluphenazine Decanoate (Fluphenazine Decanoate 25 Mg/Ml 5 Ml Vial) 25 mg IM Q14D@0900 MARLENA Last Admin: 10/21/21 14:42 Dose: 25 mg Fluphenazine Decanoate (Fluphenazine Decanoate 25 Mg/Ml 5 Ml Vial) 50 mg IM Q14D@0900 MARLENA Fluphenazine HCl (Fluphenazine Hcl 5 Mg Tablet) 10 mg PO BID MARLENA Last Admin: 11/01/21 11:13 Dose: 10 mg Hydroxyzine HCl (Hydroxyzine Hcl 25 Mg Tablet) 25 mg PO Q6H PRN PRN Reason: Anxiety Last Admin: 10/14/21 13:47 Dose: 25 mg Ibuprofen (Ibuprofen 600 Mg Tablet) 600 mg PO Q8H PRN PRN Reason: Pain, Mild (Pain Scale 1-3) Last Admin: 10/30/21 20:06 Dose: 600 mg Magnesium Hydroxide (Milk Of Magnesia 30 Ml Oral.Susp) 30 ml PO DAILY PRN PRN Reason: Constipation Last Admin: 10/01/21 10:58 Dose: 30 ml Nicotine Polacrilex (Nicotine Polacrilex 2 Mg Gum) 4 mg BUCCAL Q2H PRN PRN Reason: Nicotine Cravings Last Admin: 10/30/21 22:10 Dose: 4 mg Olanzapine (Olanzapine Odt 10 Mg Tab.Rapdis) 10 mg TRANSLINGU Q6H PRN PRN Reason: agitation Last Admin: 10/22/21 11:58 Dose: 10 mg Olanzapine (Olanzapine 10 Mg Vial) 10 mg IM BID PRN PRN Reason: if declines oral antipsychotic Olanzapine (Olanzapine Odt 10 Mg Tab.Rapdis) 10 mg TRANSLINGU BEDTIME MARLENA Last Admin: 10/31/21 23:24 Dose: 10 mg Thiamine HCl (Thiamine Hcl 100 Mg Tablet) 100 mg PO DAILY MARLENA Last Admin: 11/01/21 11:13 Dose: 100 mg Trazodone HCl (Trazodone Hcl 50 Mg Tablet) 50 mg PO BEDTIME PRN PRN Reason: Insomnia Last Admin: 10/25/21 22:54 Dose: 50 mg Allergies Allergies Allergy/AdvReac Type Severity Reaction Status Date / Time No Known Allergies Allergy Verified 09/28/21 12:49 Assessment & Plan Assessment & Plan (1) Schizoaffective disorder: Status: Acute Code(s): F25.9 - Schizoaffective disorder, unspecified Plan restart outpt meds. pt claims to be taking meds as prescribed, but Rxed 2500 mg VPA and his level at admission was only 12. observe for resolution of manic/psychotic Sx. 09/30 continue current medications. 10/01: Continue current regimen and plans 10/02: Continue current plans and regimen. He has a 3 day notice in which will be up on 10/05 10/03 increase olanzapine 10mg po daily and 20mg po qhs. d/c gabapentin as pt trying to snort it. d/c sertraline as it may worsened psychosis. 10/04 increase olanzapine to 20mg po BID. 10/05 continue current medications. 10/06 continue current medications. 10/07 continue meds, agrees to take gabapentin without trying to snort it- he takes it for back pain s/s to scoliosis. 10/08 no med changes, pt requests to take smaller tabs of depakote, will accommoda te 10/09 Pt's VPA level 110, will hold for night and resume at smaller dose 10/10 continue depakote at 2000 mg HS 10/11 continue current medications. 10/12 continue current medications. 10/13 cross titration: start prolixin 5mg po BID, continue Olanzapine 20mg po BID, continue depakote. 10/14 continue current medications. 10/15/2021 Continue current treatment plan monitor for safety of patient and others needs frequent redirection 10/16/2021 Who patient less grossly outwardly threatening and agitated somewhat more withdrawn remains quite preoccupied paranoid that people are doing things to him on the unit ?calling him a faggot? putting hair in his food and doing other things. Patient stated when he makes threats to harm others it is not a joke he has access to people and things. He was less manically agitated does not feel he needs medication. Pending court hearing 10/17 continue current medications. 10/18 decrease olanzapine to 10mg po BID, continue prolin 5mg po BID. plan to initiate ABERNATHY once established he can tolerate prolixin without side effect and is effective. 10/19 decrease olanzapine to 10mg po qhs. continue prolixin, plan to start ABERNATHY 10/20 continue medications. no side effects with prolixin, will do ABERNATHY tomorrow. 10/21 continue current meds. 10/22 continue current tx. NEXT Prolixin 25mg IM on 11/03 continue oral until then. 10/23 continue current tx. 10/24: continue current mgmt. somewhat angry and perseverative today. still with paranoid delusions of food being tampered with. 10/25: continue current mgmt. pleasant today, no mention of paranoid delusions or demands to discharge. 10/26 continue current medications. 10/27 continue current medications. 10/28 continue tx. 10/29: Continue current regimen and plans. Continue cross taper to Prolixin. 10/30: Continue current plans and regimen. No changes today 10/31 continue current meds. NEXT prolixin 25mg IM on 11/03. 11/01 continue current tx. I spent minutes with the patient and/or on the patient floor today, greater than?50% of which was spent counseling/coordinating care. Reason for contiued inpatient stay Substantial Risk for: inability to function
[2021-11-01] MEDS: Nicotine Polacrilex 2 MG GUM 4 MG BUCCAL ×2 (20:26→22:11)
[2021-11-01 20:44] VITALS: BP 101/77; PULSE 81
[2021-11-01] MEDS: OLANZapine ODT 10 MG TAB.RAPDIS TRANSLINGU (20:54)
[2021-11-01] MEDS: Divalproex Sodium ER 250 MG TAB.ER.24H 2000 MG PO (20:54)
[2021-11-02 12:47] VITALS: BP 152/76; PULSE 91; TEMP 36.6; O2SAT 99
[2021-11-02] MEDS: Thiamine HCL 100 MG TABLET PO (13:38)
[2021-11-02] MEDS: fluPHENAZine HCl 5 MG TABLET 10 MG PO ×2 (13:38→21:12)
--- NOTE | 2021-11-02 13:57 | HO.PSYCHPN ---
Subjective Subjective Date of Service: 11/02/21 Reason For Visit: Manic,agitated Subjective Notes: Section 8 Interim History: No change from yesterday. Pt continues to present as calmer. Pt reports sleeping and eating well, although sleeping most of the day and up at night late. He is looking forward to be discharged soon. No SI/HI. Some residual paranoia but no aggression. Medication Compliance: Yes Side effects from medications: No Attending Groups: Intermittent Review of Systems Review of Systems Yes all other systems are reviewed and are negative Mental Status Exam Mental Status Exam Narrative: Appearance: adequately dressed and groomed.? face and neck tattoos.? Behavior: calmer, more cooperative Psychomotor: no overt agitation or retardation noted Speech: clear, normal rate/rhythm, volume, spontaneous. Thought process: more linear Thought content: no overt paranoia, hoping to be dc soon as planned. Mood: good Affect:congruent, less labile, less hypervigilant and agitated AH/VH: none Delusions: none evident Insight/judgment: poor x 2. denies SI/HI/AVH. Alert, oriented x 3. Diagnostics Vital Signs (24Hr): Vital Signs - 24 hr 11/01/21 20:44 11/02/21 12:47 Temperature 97.8 F Pulse Rate 81 91 Blood Pressure 101/77 152/76 H Pulse Oximetry 99 Oxygen Delivery Method Room Air BMI result Body Mass Index 22.0 Labs Results: 09/28/21 13:43 09/28/21 13:43 Imaging Radiology Impressions: ITS Impressions Lumbar Spine X-Ray 09/29/21 16:11 IMPRESSION: Unremarkable examination. Tibia/Fibula X-Ray 09/29/21 16:11 IMPRESSION: Normal right tibia and fibula. Hand X-Ray 10/25/21 14:30 IMPRESSION: Normal right hand. Medications Medications Current Medications Acetaminophen (Acetaminophen 325 Mg Tablet) 650 mg PO Q6H PRN PRN Reason: Headache/Pain Mild Scale (1-3) Last Admin: 10/30/21 09:39 Dose: 650 mg Al Hydroxide/Mg Hydroxide (Magnesium Hydrox/Alum Hydrox 30 Ml Oral.Susp) 30 ml PO Q6H PRN PRN Reason: Heartburn/Nausea Last Admin: 10/23/21 21:07 Dose: 30 ml Albuterol Sulfate (Albuterol Sulfate 90 Mcg 8 Gm Inhaler) 1 puff INHALE QID PRN PRN Reason: wheezing Last Admin: 10/26/21 10:35 Dose: 1 puff Capsaicin (Capsaicin 0.025% Cream 60 Gm Tube) 1 appl TOPICAL TID PRN; Protocol PRN Reason: hand pain Last Admin: 10/27/21 13:37 Dose: 1 appl Divalproex Sodium (Divalproex Sodium Er 250 Mg Tab.Er.24h) 2,000 mg PO BEDTIME MARLENA Last Admin: 11/01/21 20:54 Dose: 2,000 mg Fluphenazine Decanoate (Fluphenazine Decanoate 25 Mg/Ml 5 Ml Vial) 25 mg IM Q14D@0900 MARLENA Last Admin: 10/21/21 14:42 Dose: 25 mg Fluphenazine Decanoate (Fluphenazine Decanoate 25 Mg/Ml 5 Ml Vial) 50 mg IM Q14D@0900 MARLENA Fluphenazine HCl (Fluphenazine Hcl 5 Mg Tablet) 10 mg PO BID MARLENA Last Admin: 11/02/21 13:38 Dose: 10 mg Hydroxyzine HCl (Hydroxyzine Hcl 25 Mg Tablet) 25 mg PO Q6H PRN PRN Reason: Anxiety Last Admin: 10/14/21 13:47 Dose: 25 mg Ibuprofen (Ibuprofen 600 Mg Tablet) 600 mg PO Q8H PRN PRN Reason: Pain, Mild (Pain Scale 1-3) Last Admin: 10/30/21 20:06 Dose: 600 mg Magnesium Hydroxide (Milk Of Magnesia 30 Ml Oral.Susp) 30 ml PO DAILY PRN PRN Reason: Constipation Last Admin: 10/01/21 10:58 Dose: 30 ml Nicotine Polacrilex (Nicotine Polacrilex 2 Mg Gum) 4 mg BUCCAL Q2H PRN PRN Reason: Nicotine Cravings Last Admin: 11/01/21 22:11 Dose: 4 mg Olanzapine (Olanzapine Odt 10 Mg Tab.Rapdis) 10 mg TRANSLINGU Q6H PRN PRN Reason: agitation Last Admin: 10/22/21 11:58 Dose: 10 mg Olanzapine (Olanzapine 10 Mg Vial) 10 mg IM BID PRN PRN Reason: if declines oral antipsychotic Olanzapine (Olanzapine Odt 10 Mg Tab.Rapdis) 10 mg TRANSLINGU BEDTIME MARLENA Last Admin: 11/01/21 20:54 Dose: 10 mg Thiamine HCl (Thiamine Hcl 100 Mg Tablet) 100 mg PO DAILY MARLENA Last Admin: 11/02/21 13:38 Dose: 100 mg Trazodone HCl (Trazodone Hcl 50 Mg Tablet) 50 mg PO BEDTIME PRN PRN Reason: Insomnia Last Admin: 10/25/21 22:54 Dose: 50 mg Allergies Allergies Allergy/AdvReac Type Severity Reaction Status Date / Time No Known Allergies Allergy Verified 09/28/21 12:49 Assessment & Plan Assessment & Plan (1) Schizoaffective disorder: Status: Acute Code(s): F25.9 - Schizoaffective disorder, unspecified Plan restart outpt meds. pt claims to be taking meds as prescribed, but Rxed 2500 mg VPA and his level at admission was only 12. observe for resolution of manic/psychotic Sx. 09/30 continue current medications. 10/01: Continue current regimen and plans 10/02: Continue current plans and regimen. He has a 3 day notice in which will be up on 10/05 10/03 increase olanzapine 10mg po daily and 20mg po qhs. d/c gabapentin as pt trying to snort it. d/c sertraline as it may worsened psychosis. 10/04 increase olanzapine to 20mg po BID. 10/05 continue current medications. 10/06 continue current medications. 10/07 continue meds, agrees to take gabapentin without trying to snort it- he takes it for back pain s/s to scoliosis. 10/08 no med changes, pt requests to take smaller tabs of depakote, will accommodate 10/09 Pt's VPA level 110, will hold for night and resume at smaller dose 10/10 continue depakote at 2000 mg HS 10/11 continue current medications. 10/12 continue current medications. 10/13 cross titration: start prolixin 5mg po BID, continue Olanzapine 20mg po BID, continue depakote. 10/14 continue current medications. 10/15/2021 Continue current treatment plan monitor for safety of patient and others needs frequent redirection 10/16/2021 Who patient less grossly outwardly threatening and agitated somewhat more withdrawn remains quite preoccupied paranoid that people are doing things to him on the unit ?calling him a faggot? putting hair in his food and doing other things. Patient stated when he makes threats to harm others it is not a joke he has access to people and things. He was less manically agitated does not feel he needs medication. Pending court hearing 10/17 continue current medications. 10/18 decrease olanzapine to 10mg po BID, continue prolin 5mg po BID. plan to initiate ABERNATHY once established he can tolerate prolixin without side effect and is effective. 10/19 decrease olanzapine to 10mg po qhs. continue prolixin, plan to start ABERNATHY 10/20 continue medications. no side effects with prolixin, will do ABERNATHY tomorrow. 10/21 continue current meds. 10/22 continue current tx. NEXT Prolixin 25mg IM on 11/03 continue oral until then. 10/23 continue current tx. 10/24: continue current mgmt. somewhat angry and perseverative today. still with paranoid delusions of food being tampered with. 10/25: continue current mgmt. pleasant today, no mention of paranoid delusions or demands to discharge. 10/26 continue current medications. 10/27 continue current medications. 10/28 continue tx. 10/29: Continue current regimen and plans. Continue cross taper to Prolixin. 10/30: Continue current plans and regimen. No changes today 10/31 continue current meds. NEXT prolixin 25mg IM on 11/03. 11/01 continue current tx. 11/02 continue current tx. d/c tomorrow. Give prolixin 50mg IM prior to d/c. I spent minutes with the patient and/or on the patient floor today, greater than?50% of which was spent counseling/coordinating care. Reason for contiued inpatient stay Substantial Risk for: stable for discharge
[2021-11-02] MEDS: OLANZapine ODT 10 MG TAB.RAPDIS TRANSLINGU (21:11)
[2021-11-02] MEDS: Divalproex Sodium ER 250 MG TAB.ER.24H 2000 MG PO (21:11)
[2021-11-02 21:15] VITALS: BP 125/58; PULSE 70; O2SAT 98
[2021-11-02] MEDS: Ibuprofen 600 MG TABLET PO (23:12)
[2021-11-03 06:00] VITALS: BP 124/80; PULSE 86; RESP 16; TEMP 36.3; O2SAT 99
[2021-11-03] MEDS: fluPHENAZine HCl 5 MG TABLET 10 MG PO (09:16)
[2021-11-03] MEDS: Thiamine HCL 100 MG TABLET PO (09:16)
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
[2021-11-03] MEDS: fluPHENAZine decanoate 25 MG/ML 5 ML VIAL 50 MG IM (10:16)
--- NOTE | 2021-11-03 10:42 | PC.NURSE ---
Vidal is alert, fully oriented, pleasant and cooperative with discharge plan. He reports he is interested in continuing his po meds outside the hospital after discharge but not the long acting injectable. Daiana Seth [employer] informed. He denies ideation, plan or intent to harm self or others. He denies current physical complaint.
== END 2021-11-03 11:15 | disposition home health service (06) | DRG 885 ==
LOC: HO.ED 14:47 → HO.PADLT16 17:39
PROVIDERS: Registered Nurse; Admitting Provider Psychiatry & Neurology Psychiatry; Emergency Provider Emergency Medicine; Visit Provider Social Worker
DX: F25.9 Schizoaffective disorder, unspecified (principal); F17.210 Nicotine dependence, cigarettes, uncomplicated; Z71.6 Tobacco abuse counseling; J45.909 Unspecified asthma, uncomplicated; Z20.822 Contact with and (suspected) exposure to COVID-19; Z79.899 Other long term (current) drug therapy
CPT/HCPCS: 36415; 72100; 73130; 73590; 80048; 80061; 80076; 80164; 80178; 80307; 82077; 82607; 82746; 83036; 83735; 84439; 84443; 85025; 87635; 93005; 99285; J2680

== ENCOUNTER → 2022-10-16 10:49 | Outpatient (REF) | payer MEDICARE, SELFPAY ==
--- NOTE | 2022-10-16 10:59 | ECG_ITS ---
Test Reason : 251.81 Blood Pressure : / mmHG Vent. Rate : 073 BPM Atrial Rate : 073 BPM P-R Int : 172 ms QRS Dur : 100 ms QT Int : 376 ms P-R-T Axes : 061 068 036 degrees QTc Int : 414 ms Normal sinus rhythm Normal ECG When compared with ECG of 28-SEP-2021 16:57, Incomplete right bundle branch block is no longer Present Referred By: BOSTON BELTRE Electronically Signed By:SUMAYA MERCADO
== END ==
LOC: HO.CARD 10:49
PROVIDERS: Visit Provider Nurse Practitioner Psychiatric/Mental Health
DX: Z79.899 Other long term (current) drug therapy (principal)
CPT/HCPCS: 93005

== ENCOUNTER 2023-02-28 14:45 | Inpatient (IN) | payer MEDICARE, SELFPAY ==
--- NOTE | 2023-02-28 14:57 | MHC.CARE ---
Pt on section 12 from [facility] co-response, clinician reports patient has been presenting with increased paranoia and delusional thoughts about gangs over the past six days. Pt has services through [facility] program currently and has been staying at the [facility] in [place], [place]. Pt appears to medication NON-compliant and is decompensating in the community, however patient is voluntary for ACCS placement. Pt was only placed on section 12 to board in ED overnight and [facility] to possibly pre-accept to [facility] for tomorrow most likely.
[2023-02-28 15:10] VITALS: BP 120/84; PULSE 93; RESP 18; TEMP 36.4; O2SAT 98; BMI 22.9
[2023-02-28 15:36] LABS: MANUAL DIFF FLAG NO
[2023-02-28 15:39] LABS: Basophils Percent Auto 0.3 % (0-2); Eosinophils Absolute Auto 0.1 X10*3/uL (0.0-0.4); Eosinophils Percent Auto 1.5 % (0-4); Hematocrit 43.7 % (42.0-52.0); Hemoglobin 15.3 g/dl (14.0-18.0); Imm Gran Abs Auto 0.02 X10*3/uL (0.00-0.03); Imm Gran Pct Auto 0.2 % (0.0-0.4); Lymphocytes Absolute Auto 4.4 X10*3/uL (1.2-4.9); Lymphocytes Percent Auto 46.7 % (20-40); Mean Corpuscular Hemoglobin 30.3 pg (27.0-33.0); Mean Corpuscular Volume 86.5 fL (80.0-98.0); Mean Platelet Volume 10.6 fL (9.4-12.4); Monocytes Absolute Auto 1.1 X10*3/uL (0.1-1.2); Neutrophils Absolute Auto 3.7 x10*3/uL (2.0-8.3); Neutrophils Percent Auto 39.3 % (45-73); Platelet Count 212 X10*3/uL (160-400); Red Blood Count 5.05 X10*6/uL (4.60-5.80); Red Cell Distribution Width 12.3 % (11.0-16.0); White Blood Count 9.3 X10*3/uL (4.8-10.8)
--- NOTE | 2023-02-28 15:52 | ED_ITS ---
HPI - Psych General Chief Complaint: Psychiatric Symptoms Stated Complaint: SEC 12,SI/HI STATEMENTS,NON MED COMPL PER EMS Time Seen by Provider: 02/28/23 15:43 Source: patient, EMS and other ([facility]) Mode of arrival: EMS Limitations: no limitations History of Present Illness HPI Narrative: A 32-year-old male with history of schizoaffective disorder brought in by EMS under section 12, patient was evaluated by [facility] in the community and felt that the patient is not compliant with his medication patient is paranoid, [facility] is searching for respite bed patient just need a medical clearance. Patient declined using any drugs or alcohol, no headache, no CP, no SOB, no abdominal pain, no nausea, no vomiting, no fever, no chills. Related Data Previous Rx's Medication Instructions Recorded albuterol sulfate 90 mcg/actuation 1 puff inhalation QID PRN wheezing 11/03/21 aerosol inhaler (Ventolin HFA) #6.7 grams divalproex 500 mg tablet,extended 2,000 mg (4 x 500 mg) PO DAILY 11/03/21 release 24 hr (Depakote ER) #120 tabs fluphenazine decanoate 25 mg/mL 50 mg (2 mL) IM Q14D@0900 #5 mL 11/03/21 injection solution ibuprofen 600 mg tablet 600 mg PO Q8H PRN Pain, Mild (Pain 11/03/21 Scale 1-3) #30 tabs nicotine (polacrilex) 2 mg gum 4 mg buccal Q2H PRN Nicotine 11/03/21 Cravings #30 ea trazodone 50 mg tablet 100 mg (2 x 50 mg) PO BEDTIME PRN 11/03/21 Insomnia #60 tabs Allergies Allergy/AdvReac Type Severity Reaction Status Date / Time No Known Allergies Allergy Verified 09/28/21 12:49 Review of Systems 2 Review of Systems: All other systems are reviewed and are negative Constitutional: Reports as per HPI and Reports no additional constitutional complaints Eyes: Reports as per HPI and Reports no additional eye complaints Reports system reviewed and no additional complaints, except as documented Cardiovascular: Reports as per HPI and Reports no additional cardiovascular complaints Respiratory: Reports as per HPI and Reports no additional respiratory complaints Gastrointestinal: Reports as per HPI and Reports no additional gastrointestinal complaints Genitourinary: Reports no additional female genitourinary complaints Musculoskeletal: Reports no additional musculoskeletal complaints Skin/Breast: Reports system reviewed and no additional complaints, except as docu Psychiatric: Reports no additional psychiatric complaints Endocrine: Reports no additional endocrine complaints Hematologic/Lymphatic: Reports no additional hematologic/lymphatic complaints Allergic/Immunologic: Reports no additional allergic/immunologic complaints Reports system reviewed and no additional complaints, except as documented and Reports Abnormal speech present [facility] Past Medical History Medical History Asthma Bipolar 1 disorder Social History Social History Household Members: Family Household Members Other:: Mom only Housing: Apartment Do you presently have visiting nurse or other home services: Yes (Help setting up meds) Comment: Staff aware of fall risk. Patient Tobacco Use Status: Current someday Tobacco user Tobacco use type: Cigarette Years Smoked: 15 Second Hand Smoke Exposure: No Substance Use Type: Marijuana service: No Sexual orientation: Did not discuss. Physical Exam 2 Vital Signs: Vital Signs: Last Vital Signs Temp 97.5 F 02/28/23 15:10 Pulse 93 02/28/23 15:10 Resp 18 02/28/23 15:10 BP 120/84 02/28/23 15:10 Pulse Ox 98 02/28/23 15:10 O2 Del Method Room Air 02/28/23 15:10 BMI result Body Mass Index 22.9 Vital signs have been reviewed and appear to be correct. Blood pressure elevated. Heart rate normal. Respiratory rate normal. Temperature normal. Oxygen saturation normal. Appearance: Alert. Oriented X3. No acute distress. Head: Normal external exam. Normocephalic. Atraumatic. No Luo signs noted. No raccoon eyes noted Eyes: PERRLA. EOMI. Conjunctiva and sclera normal. Eyelids normal. ENT: TM's Normal. Pharynx normal. Uvula midline. Moist mucous membranes. No trismus noted. No drooling noted. No muffled voice noted. Neck: Normal inspection. Neck supple. FROM. No adenopathy. Thyroid Normal. No meningeal signs. No neck mass noted. CVS: Normal heart rate and rhythm. Heart sound normal. No murmurs noted. Pulses normal throughout. Respiratory: No respiratory distress. Painless inspiration. Breath sounds normal. No wheezes/rales/rhonchi noted. Chest nontender. No accessory muscle usage noted or decreased air movement noted. Abdomen: Soft and nontender. Bowel sounds normal in all 4 quadrants. No distention noted. No organomegaly noted. No visible injury noted. Back: No CVA tenderness. Full range of motion noted. Skin: Skin warm and dry. Normal skin color. Normal skin turgor. No rashes/lesions/lacerations noted. Extremities: No lower extremity edema. Extremities exhibit normal range of motion. Extremities nontender. Neuro: Oriented X 3. Cranial nerve exam: II-XII are grossly intact No motor deficit. No sensory deficit. Reflexes normal. Patient Orientation: Person, Place, Time and Situation, okay hygiene and grooming. Fair eye contact, attentive, no tics or tremors. Level of Consciousness: Awake, Appropriate and Alert Patient Behavior: Appropriate, Guarded, Cooperative and Anxious Mood Description: Constricted, Blunted and Apprehensive Affect Description: Constricted, Blunted and Apprehensive Patient Cognition Impaired: No Ability to Follow Directions: Excellent Speech Pattern: Clear, Appropriate and Spontaneous Speech, nonpressured, spontaneous with regular rate and rhythm, normal volume and prosody. No dysarthria. Memory Description: Intact, Immediate Intact and Short Term Intact Hallucinations: None Delusions: Not Present Thought Process: Intact Thought Content: positive for Intact, positive for Logical, denies Suicidal Ideation and denies Homicidal Ideation. Depressive Symptoms: Not present. Judgement and Insight: Limited but adequate. Course Reevaluation(s) Reevaluation #1: 32-year-old male was history of psych illness and previous mental health hospitalization, patient is not compliant with his medication has been evaluated in the community by [facility]'s social sciences professor patient is under a section 12 in the process of respite bed search continue with physician observation. Time: 16:30 Medical Decision Making Differential Diagnosis Differential Diagnoses: The differential diagnosis associated with the presentation includes (Acute psychosis, SI, HI, medical clearance, substance abuse.) Admission/Observation Consideration of admission/observation: Escalation of care including admission/observation considered Lab Data [facility] Lab Attestation statement: I reviewed the patient's lab results. 02/28/23 15:26 02/28/23 15:30 Labs: Lab Results 02/28/23 Range/Units 15:26 WBC 9.3 (4.8-10.8) X10*3/uL RBC 5.05 (4.60-5.80) X10*6/uL Hgb 15.3 (14.0-18.0) g/dl Hct 43.7 (42.0-52.0) % MCV 86.5 (80.0-98.0) fL MCH 30.3 (27.0-33.0) pg MCHC 35.0 (31.0-36.0) g/dl RDW 12.3 (11.0-16.0) % Plt Count 212 (160-400) X10*3/uL MPV 10.6 (9.4-12.4) fL Immature Gran % (Auto) 0.2 (0.0-0.4) % Neut % (Auto) 39.3 L (45-73) % Lymph % (Auto) 46.7 H (20-40) % Emery % (Auto) 12.0 H (2-11) % Eos % (Auto) 1.5 (0-4) % Baso % (Auto) 0.3 (0-2) % Lymph # (Auto) 4.4 (1.2-4.9) X10*3/uL Emery # (Auto) 1.1 (0.1-1.2) X10*3/uL Eos # (Auto) 0.1 (0.0-0.4) X10*3/uL Baso # (Auto) 0.0 (0.0-0.2) X10*3/uL Abs Immat Gran (auto) 0.02 (0.00-0.03) X10*3/uL Absolute Neuts (auto) 3.7 (2.0-8.3) x10*3/uL Absolute Nucleated RBC 0.000 (0.0-0.012) X10*3/uL Nucleated RBC % (auto) 0.0 (0.0-0.2) /100WBC Discharge Plan Discharge Clinical Impression: Schizoaffective disorder Patient Disposition: Still a Patient Prescriptions: No Action nicotine (polacrilex) 2 mg Gum 4 mg buccal Q2H PRN (Reason: Nicotine Cravings) Qty: 30 0RF albuterol sulfate [Ventolin HFA] 90 mcg/actuation Hfa Aerosol Inhaler 1 puff inhalation QID PRN (Reason: wheezing) Qty: 6.7 0RF trazodone 50 mg Tablet 100 mg PO BEDTIME PRN (Reason: Insomnia) Qty: 60 0RF fluphenazine decanoate 25 mg/mL Solution 50 mg IM Q14D@0900 Qty: 5 2RF ibuprofen 600 mg Tablet 600 mg PO Q8H PRN (Reason: Pain, Mild (Pain Scale 1-3)) Qty: 30 0RF divalproex [Depakote ER] 500 mg tablet extended release 24 hr 2,000 mg PO DAILY Qty: 120 1RF
[2023-02-28 15:58] LABS: Acetaminophen LAB < 3 mcg/mL (<30); Salicylate < 5.0 mg/dL (15-30)
[2023-02-28 15:59] LABS: COVID-19 Test Negative (Negative); IDNOW Serial# 152EDE1D
[2023-02-28 16:01] LABS: Alanine Aminotransferase 13 U/L (0-40); Albumin Level 4.6 g/dL (3.5-5.0); Alkaline Phosphatase 72 U/L (39-117); Anion Gap 15 (12-20); Aspartate Amino Transferase 20 U/L (5-37); Bilirubin Total 0.5 mg/dL (0.0-1.0); Blood Urea Nitrogen 14 mg/dL (9-16); Calcium 9.6 mg/dL (8.4-10.2); Carbon Dioxide 26 mmol/L (22-29); Chloride 103 mmol/L (96-108); Creatinine Clr Calc Pharmacy 95.8; Estimated Glomerular Filt Rate > 60; Ethanol < 10 mg/dL; Glucose Random 104 mg/dL (60-115); Potassium 3.5 mmol/L (3.3-5.1); Sodium 140 mmol/L (135-145); Total Protein 8.3 g/dL (6.5-8.0)
[2023-02-28 16:09] VITALS: RESP 18
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
--- NOTE | 2023-02-28 18:52 | PHA.MEDREC ---
Pharmacy Consult ? Medication Reconciliation Pharmacy has reviewed the medication reconciliation completed by Rylee. Marilu Camacho, JessicaD
[2023-03-01 08:30] LABS: Appearance Urine Clear; Color Urine Dark Yellow; Glucose Urine UA Negative (Negative); Leukocyte Esterase Urine Negative (Negative); Nitrite Urine Negative (Negative); Specific Gravity - Urine >= 1.030 (1.005-1.025); UMIC TRIGGER UACC YES; Urine Blood Negative (Negative); Urine Ketones Trace mg/dL (Negative); Urine Protein 30 (1+) mg/dL (Neg-Trace)
[2023-03-01] MEDS: Divalproex Sodium 500 MG TABLET.DR 1000 MG PO (08:32)
[2023-03-01] MEDS: OLANZapine 10 MG TABLET 30 MG PO (08:32)
[2023-03-01] MEDS: fluPHENAZine HCl 5 MG TABLET 10 MG PO (08:32)
[2023-03-01 08:37] LABS: Amphetamine Screen Urine Not Detected (Not Detect); Barbiturates, Urine Not Detected (Not Detect); Benzodiazepines Screen Urine Not Detected (Not Detect); Cannabinoid Screen Urine POSITIVE (Not Detect); Cocaine Screen Urine Not Detected (Not Detect); Fentanyl, urine Not Detected (Not Detect); Opiate Screen Urine Not Detected (Not Detect); Phencyclidine Screen Urine Not Detected (Not Detect)
[2023-03-01 08:40] LABS: Bacteria Urine None Seen (None Seen); Granular Casts Urine Present; RBC Urine 0-2 /HPF (0-2); Squamous Epithelial Cell Urine 0-2 /HPF (0-2); WBC Urine 0-5 /HPF (0-5)
--- NOTE | 2023-03-01 11:37 | PC.NURSE ---
Pt ambulatory around unit with a steady gait, able to make needs known. Pt took am medications without incident, ate breakfast. Currently resting comfortably on bed.
--- NOTE | 2023-03-01 11:59 | MHC.CARE ---
patient seen by CARE team, dispo is for inpatient LOC
[2023-03-01 17:57] VITALS: RESP 18
--- NOTE | 2023-03-01 18:04 | PC.NURSE ---
Vidal in his room resting for most of the shift. He remains in good behavioral control. Pierrerishi currently refusing to sign a CV. Medication adherent this shift. No c/o pain or discomfort. Appetite fair.
--- NOTE | 2023-03-01 19:26 | PC.NURSE ---
patient appears to be resting presently, appears in no distress, nurse to nurse given for inpatient unit, awaiting transfer.
[2023-03-02] MEDS: Divalproex Sodium 500 MG TABLET.DR 1000 MG PO ×3 (00:19→21:51)
[2023-03-02] MEDS: Melatonin 3 MG TABLET 6 MG PO ×2 (00:20→21:51)
[2023-03-02] MEDS: fluPHENAZine HCl 5 MG TABLET 10 MG PO ×3 (00:20→21:51)
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
[2023-03-02 03:21] VITALS: BMI 19.9
[2023-03-02 09:00] VITALS: BP 99/56; PULSE 67; RESP 18; TEMP 36.6; O2SAT 99
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
[2023-03-02 11:34] LABS: Estimated Average Glucose 97 mg/dL; Hemoglobin A1C 117.4159 umol/L
[2023-03-02 11:36] LABS: Ammonia 31 umol/L (13-55)
[2023-03-02 11:43] LABS: Valproate 53.5 mcg/mL (50.0-100.0)
[2023-03-02 12:11] LABS: Alanine Aminotransferase 10 U/L (0-40); Albumin Level 4.4 g/dL (3.5-5.0); Alkaline Phosphatase 71 U/L (39-117); Anion Gap 12 (12-20); Aspartate Amino Transferase 16 U/L (5-37); Bilirubin Direct 0.3 mg/dL (0.0-0.5); Bilirubin Total 0.6 mg/dL (0.0-1.0); Blood Urea Nitrogen 11 mg/dL (9-16); Calcium 9.9 mg/dL (8.4-10.2); Carbon Dioxide 32 mmol/L (22-29); Chloride 102 mmol/L (96-108); Cholesterol 121 mg/dL (<200); Creatinine Clr Calc Pharmacy 95.3; Estimated Glomerular Filt Rate > 60; Glucose Fasting 65 mg/dL (60-99); HDL Cholesterol 40 mg/dL (>40); LDL Cholesterol Calculated 69 mg/dL (<100); Potassium 3.9 mmol/L (3.3-5.1); Sodium 142 mmol/L (135-145); Total Protein 7.8 g/dL (6.5-8.0); Triglycerides 60 mg/dL (<150)
[2023-03-02 12:12] LABS: Vitamin B12 1074 pg/mL (200-900)
[2023-03-02 21:30] VITALS: BP 109/66; PULSE 62; RESP 14; TEMP 36.2; O2SAT 100
[2023-03-02] MEDS: OLANZapine 10 MG TABLET 30 MG PO (21:51)
[2023-03-03] MEDS: fluPHENAZine HCl 5 MG TABLET 10 MG PO ×2 (08:33→21:06)
[2023-03-03] MEDS: Divalproex Sodium 500 MG TABLET.DR 1000 MG PO ×2 (08:33→21:07)
[2023-03-03 08:35] VITALS: BP 114/76; PULSE 80; TEMP 37.4; O2SAT 99
--- NOTE | 2023-03-03 17:47 | HO.PSYCHPN ---
Subjective Subjective Date of Service: 03/03/23 Reason For Visit: psychosis Subjective Notes: Section 12B Interim History: Patient is guarded and isolates in his room. He reports he was feeling well. He reiterates that he believes people are going into his place and stealing things from him. He denies SI. Denies hallucinations. Review of Systems Review of Systems All other systems are reviewed and are negative Constitutional: Reports as per HPI and Reports no additional constitutional complaints Eyes: Reports as per HPI and Reports no additional eye complaints Reports system reviewed and no additional complaints, except as documented Cardiovascular: Reports as per HPI and Reports no additional cardiovascular complaints Respiratory: Reports as per HPI and Reports no additional respiratory complaints Gastrointestinal: Reports as per HPI and Reports no additional gastrointestinal complaints Genitourinary: Reports no additional female genitourinary complaints Musculoskeletal: Reports no additional musculoskeletal complaints Skin/Breast: Reports system reviewed and no additional complaints, except as docu Psychiatric: Reports no additional psychiatric complaints Endocrine: Reports no additional endocrine complaints Hematologic/Lymphatic: Reports no additional hematologic/lymphatic complaints Allergic/Immunologic: Reports no additional allergic/immunologic complaints Reports system reviewed and no additional complaints, except as documented and Reports Abnormal speech present Mental Status Exam Mental Status Exam Narrative: adequately dressed and groomed, generally calm and cooperative but some periods of mild agitation when discussing delusional beliefs of persecution. speech variable, voluble fast and loud when discussing delusions of persecution, otherwise WNL. thoughts linear, illogical, delusional. affect constricted, hyper-intense, somewhat labile. mood calm, collected. denies SI/SIBI/HI/AVH. Diagnostics Vital Signs (24Hr): Vital Signs - 24 hr 03/02/23 21:30 03/03/23 08:35 Temperature 97.2 F 99.3 F Pulse Rate 62 80 Respiratory Rate 14 Blood Pressure 109/66 114/76 Pulse Oximetry 100 99 Oxygen Delivery Method Room Air Room Air BMI result Body Mass Index 19.9 Labs 02/28/23 15:26 03/02/23 11:16 Labs: Laboratory Results - last 48 hr 03/02/23 03/02/23 11:16 11:16 Sodium 142 Potassium 3.9 Chloride 102 Carbon Dioxide 32 H Anion Gap 12 BUN 11 Creatinine 0.97 Estim Creat Clear Calc 95.3 Estimated GFR > 60 Fasting Glucose 65 Estimat Average Glucose 97 Hemoglobin A1c % 5.0 Calcium 9.9 Total Bilirubin 0.6 Direct Bilirubin 0.3 AST 16 ALT 10 Alkaline Phosphatase 71 Ammonia 31 Total Protein 7.8 Albumin 4.4 Triglycerides 60 Cholesterol 121 LDL Cholesterol, Calc 69 HDL Cholesterol 40 L Vitamin B12 1074 H TSH 0.20 L Valproic Acid Cancelled 53.5 Medications Medications Current Medications Acetaminophen (Acetaminophen 325 Mg Tablet) 650 mg PO Q6H PRN PRN Reason: Headache/Pain Mild Scale (1-3) Al Hydroxide/Mg Hydroxide (Magnesium Hydrox/Alum Hydrox 30 Ml Oral.Susp) 30 ml PO Q6H PRN PRN Reason: Heartburn/Nausea Divalproex Sodium (Divalproex Sodium 500 Mg Tablet.Dr) 1,000 mg PO BID [facility] Last Admin: 03/03/23 08:33 Dose: 1,000 mg Fluphenazine HCl (Fluphenazine Hcl 5 Mg Tablet) 10 mg PO BID [facility] Last Admin: 03/03/23 08:33 Dose: 10 mg Hydroxyzine HCl (Hydroxyzine Hcl 25 Mg Tablet) 25 mg PO Q6H PRN PRN Reason: Anxiety Magnesium Hydroxide (Milk Of Magnesia 30 Ml Oral.Susp) 30 ml PO DAILY PRN PRN Reason: Constipation Melatonin (Melatonin 3 Mg Tablet) 6 mg PO BEDTIME [facility] Last Admin: 03/02/23 21:51 Dose: 6 mg Olanzapine (Olanzapine 10 Mg Tablet) 30 mg PO BEDTIME [facility] Last Admin: 03/02/23 21:51 Dose: 30 mg Trazodone HCl (Trazodone Hcl 50 Mg Tablet) 50 mg PO BEDTIME MRX1 PRN PRN Reason: Insomnia Allergies Allergies Allergy/AdvReac Type Severity Reaction Status Date / Time No Known Allergies Allergy Verified 09/28/21 12:49 Assessment & Plan Assessment & Plan (1) Schizoaffective disorder: Status: Acute Code(s): F25.9 - Schizoaffective disorder, unspecified Plan continue/restart home medications regimen. pt has not signed in. currently too paranoid, will revisit CV option sunday. otherwise 12b matures sunday. 03/03: Continue current treatment plan. Reason for continued inpatient stay Substantial Risk for: inability to function and rapid decompensation Time Spent With Patient Time: Total time managing care of this patient today ____ minutes.
[2023-03-03 20:05] VITALS: BP 109/74; PULSE 56; RESP 14; TEMP 36.1; O2SAT 100
[2023-03-03] MEDS: OLANZapine 10 MG TABLET 30 MG PO (21:06)
[2023-03-03] MEDS: Melatonin 3 MG TABLET 6 MG PO (21:06)
[2023-03-04] MEDS: fluPHENAZine HCl 5 MG TABLET 10 MG PO ×2 (08:03→22:20)
[2023-03-04] MEDS: Divalproex Sodium 500 MG TABLET.DR 1000 MG PO ×2 (08:04→22:20)
[2023-03-04 08:10] VITALS: BP 109/69; PULSE 72; RESP 14; TEMP 36.6; O2SAT 100
[2023-03-04] MEDS: Acetaminophen 325 MG TABLET 650 MG PO (08:18)
--- NOTE | 2023-03-04 16:52 | HO.PSYCHPN ---
Subjective Subjective Date of Service: 03/04/23 Reason For Visit: psychosis Interim History: Patient is guarded. Isolates in his room. He doesn't attend groups. Says he is feeling better. He is compliant with medications. He reports he is feeling well. He denies SI. Denies hallucinations. Overall cooperative with care. Review of Systems Review of Systems All other systems are reviewed and are negative Constitutional: Reports as per HPI and Reports no additional constitutional complaints Eyes: Reports as per HPI and Reports no additional eye complaints Reports system reviewed and no additional complaints, except as documented Cardiovascular: Reports as per HPI and Reports no additional cardiovascular complaints Respiratory: Reports as per HPI and Reports no additional respiratory complaints Gastrointestinal: Reports as per HPI and Reports no additional gastrointestinal complaints Genitourinary: Reports no additional female genitourinary complaints Musculoskeletal: Reports no additional musculoskeletal complaints Skin/Breast: Reports system reviewed and no additional complaints, except as docu Psychiatric: Reports no additional psychiatric complaints Endocrine: Reports no additional endocrine complaints Hematologic/Lymphatic: Reports no additional hematologic/lymphatic complaints Allergic/Immunologic: Reports no additional allergic/immunologic complaints Reports system reviewed and no additional complaints, except as documented and Reports Abnormal speech present Mental Status Exam Mental Status Exam Narrative: adequately dressed and groomed, generally calm and cooperative but some periods of mild agitation when discussing delusional beliefs of persecution. speech variable, voluble fast and loud when discussing delusions of persecution, otherwise WNL. thoughts linear, illogical, delusional. affect constricted, hyper-intense, somewhat labile. mood calm, collected. denies SI/SIBI/HI/AVH. Diagnostics Vital Signs (24Hr): Vital Signs - 24 hr 03/03/23 20:05 03/04/23 08:10 Temperature 97.0 F 97.8 F Pulse Rate 56 72 Respiratory Rate 14 14 Blood Pressure 109/74 109/69 Pulse Oximetry 100 100 Oxygen Delivery Method Room Air Room Air BMI result Body Mass Index 19.9 Labs 02/28/23 15:26 03/02/23 11:16 Medications Medications Current Medications Acetaminophen (Acetaminophen 325 Mg Tablet) 650 mg PO Q6H PRN PRN Reason: Headache/Pain Mild Scale (1-3) Last Admin: 03/04/23 08:18 Dose: 650 mg Al Hydroxide/Mg Hydroxide (Magnesium Hydrox/Alum Hydrox 30 Ml Oral.Susp) 30 ml PO Q6H PRN PRN Reason: Heartburn/Nausea Divalproex Sodium (Divalproex Sodium 500 Mg Tablet.Dr) 1,000 mg PO BID [facility] Last Admin: 03/04/23 08:04 Dose: 1,000 mg Fluphenazine HCl (Fluphenazine Hcl 5 Mg Tablet) 10 mg PO BID [facility] Last Admin: 03/04/23 08:03 Dose: 10 mg Hydroxyzine HCl (Hydroxyzine Hcl 25 Mg Tablet) 25 mg PO Q6H PRN PRN Reason: Anxiety Magnesium Hydroxide (Milk Of Magnesia 30 Ml Oral.Susp) 30 ml PO DAILY PRN PRN Reason: Constipation Melatonin (Melatonin 3 Mg Tablet) 6 mg PO BEDTIME [facility] Last Admin: 03/03/23 21:06 Dose: 6 mg Olanzapine (Olanzapine 10 Mg Tablet) 30 mg PO BEDTIME [facility] Last Admin: 03/03/23 21:06 Dose: 30 mg Trazodone HCl (Trazodone Hcl 50 Mg Tablet) 50 mg PO BEDTIME MRX1 PRN PRN Reason: Insomnia Allergies Allergies Allergy/AdvReac Type Severity Reaction Status Date / Time No Known Allergies Allergy Verified 09/28/21 12:49 Assessment & Plan Assessment & Plan (1) Schizoaffective disorder: Status: Acute Code(s): F25.9 - Schizoaffective disorder, unspecified Plan continue/restart home medications regimen. pt has not signed in. currently too paranoid, will revisit CV option sunday. otherwise 12b matures sunday. 03/03: Continue current treatment plan. 03/04: Continue current management and treatment plan. Reason for continued inpatient stay Substantial Risk for: inability to function and rapid decompensation Time Spent With Patient Time: Total time managing care of this patient today ____ minutes.
[2023-03-04 20:20] VITALS: BP 117/77; PULSE 65; RESP 14; TEMP 35.6; O2SAT 99
[2023-03-04] MEDS: Melatonin 3 MG TABLET 6 MG PO (22:20)
[2023-03-04] MEDS: OLANZapine 10 MG TABLET 30 MG PO (22:21)
--- NOTE | 2023-03-05 08:58 | HO.PSYCHPN ---
Subjective Subjective Reason For Visit: psychosis Diagnostics Vital Signs (24Hr): Vital Signs - 24 hr 03/04/23 20:20 Temperature 96.1 F L Pulse Rate 65 Respiratory Rate 14 Blood Pressure 117/77 Pulse Oximetry 99 Oxygen Delivery Method Room Air BMI result Body Mass Index 19.9 Labs 02/28/23 15:26 03/02/23 11:16 Medications Medications Current Medications Acetaminophen (Acetaminophen 325 Mg Tablet) 650 mg PO Q6H PRN PRN Reason: Headache/Pain Mild Scale (1-3) Last Admin: 03/04/23 08:18 Dose: 650 mg Al Hydroxide/Mg Hydroxide (Magnesium Hydrox/Alum Hydrox 30 Ml Oral.Susp) 30 ml PO Q6H PRN PRN Reason: Heartburn/Nausea Divalproex Sodium (Divalproex Sodium 500 Mg Tablet.Dr) 1,000 mg PO BID [facility] Last Admin: 03/04/23 22:20 Dose: 1,000 mg Fluphenazine HCl (Fluphenazine Hcl 5 Mg Tablet) 10 mg PO BID [facility] Last Admin: 03/04/23 22:20 Dose: 10 mg Hydroxyzine HCl (Hydroxyzine Hcl 25 Mg Tablet) 25 mg PO Q6H PRN PRN Reason: Anxiety Magnesium Hydroxide (Milk Of Magnesia 30 Ml Oral.Susp) 30 ml PO DAILY PRN PRN Reason: Constipation Melatonin (Melatonin 3 Mg Tablet) 6 mg PO BEDTIME [facility] Last Admin: 03/04/23 22:20 Dose: 6 mg Olanzapine (Olanzapine 10 Mg Tablet) 30 mg PO BEDTIME [facility] Last Admin: 03/04/23 22:21 Dose: 30 mg Trazodone HCl (Trazodone Hcl 50 Mg Tablet) 50 mg PO BEDTIME MRX1 PRN PRN Reason: Insomnia Allergies Allergies Allergy/AdvReac Type Severity Reaction Status Date / Time No Known Allergies Allergy Verified 09/28/21 12:49 Assessment & Plan Assessment & Plan (1) Schizoaffective disorder: Status: Acute Code(s): F25.9 - Schizoaffective disorder, unspecified Plan continue/restart home medications regimen. pt has not signed in. currently too paranoid, will revisit CV option sunday. otherwise 12b matures sunday. 03/03: Continue current treatment plan. 03/04: Continue current management and treatment plan. Time Spent With Patient Time: Total time managing care of this patient today ____ minutes.
[2023-03-05 09:55] VITALS: BP 112/69; PULSE 74; RESP 18; TEMP 36.7; O2SAT 99
[2023-03-05] MEDS: fluPHENAZine HCl 5 MG TABLET 10 MG PO ×2 (09:59→22:50)
[2023-03-05] MEDS: Divalproex Sodium 500 MG TABLET.DR 1000 MG PO ×2 (09:59→22:49)
--- NOTE | 2023-03-05 13:29 | P.PNPSI_ITS ---
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 He reports he was upset because he thinks people were entering his motel room and stealing from him. He denies thinking that food here is poisoned. He denies SI/HI. He is taking medications as prescribed. He reports he wants to keep to himself and not bother anyone. No behavioral concerns. He has been sleeping well. He is eating well. No paranoid ideas towards mother. Medication Compliance: Yes Review of Systems Review of Systems All other systems are reviewed and are negative Constitutional: Reports as per HPI and Reports no additional constitutional complaints Eyes: Reports as per HPI and Reports no additional eye complaints Reports system reviewed and no additional complaints, except as documented Cardiovascular: Reports as per HPI and Reports no additional cardiovascular complaints Respiratory: Reports as per HPI and Reports no additional respiratory complaints Gastrointestinal: Reports as per HPI and Reports no additional gastrointestinal complaints Genitourinary: Reports no additional female genitourinary complaints Musculoskeletal: Reports no additional musculoskeletal complaints Skin/Breast: Reports system reviewed and no additional complaints, except as docu Psychiatric: Reports no additional psychiatric complaints Endocrine: Reports no additional endocrine complaints Hematologic/Lymphatic: Reports no additional hematologic/lymphatic complaints Allergic/Immunologic: Reports no additional allergic/immunologic complaints Reports system reviewed and no additional complaints, except as documented and Reports Abnormal speech present Diagnostics Vital Signs (24Hr): Vital Signs - 24 hr 03/04/23 20:20 03/05/23 09:55 Temperature 96.1 F L 98.1 F Pulse Rate 65 74 Respiratory Rate 14 18 Blood Pressure 117/77 112/69 Pulse Oximetry 99 99 Oxygen Delivery Method Room Air Room Air BMI result Body Mass Index 19.9 Labs 02/28/23 15:26 03/02/23 11:16 Medications Medications Current Medications Acetaminophen (Acetaminophen 325 Mg Tablet) 650 mg PO Q6H PRN PRN Reason: Headache/Pain Mild Scale (1-3) Last Admin: 03/04/23 08:18 Dose: 650 mg Al Hydroxide/Mg Hydroxide (Magnesium Hydrox/Alum Hydrox 30 Ml Oral.Susp) 30 ml PO Q6H PRN PRN Reason: Heartburn/Nausea Divalproex Sodium (Divalproex Sodium 500 Mg Tablet.) 1,000 mg PO BID [facility] Last Admin: 03/05/23 09:59 Dose: 1,000 mg Fluphenazine HCl (Fluphenazine Hcl 5 Mg Tablet) 10 mg PO BID [facility] Last Admin: 03/05/23 09:59 Dose: 10 mg Hydroxyzine HCl (Hydroxyzine Hcl 25 Mg Tablet) 25 mg PO Q6H PRN PRN Reason: Anxiety Magnesium Hydroxide (Milk Of Magnesia 30 Ml Oral.Susp) 30 ml PO DAILY PRN PRN Reason: Constipation Melatonin (Melatonin 3 Mg Tablet) 6 mg PO BEDTIME [facility] Last Admin: 03/04/23 22:20 Dose: 6 mg Olanzapine (Olanzapine 10 Mg Tablet) 30 mg PO BEDTIME [facility] Last Admin: 03/04/23 22:21 Dose: 30 mg Trazodone HCl (Trazodone Hcl 50 Mg Tablet) 50 mg PO BEDTIME MRX1 PRN PRN Reason: Insomnia Allergies Allergies Allergy/AdvReac Type Severity Reaction Status Date / Time No Known Allergies Allergy Verified 09/28/21 12:49 Assessment & Plan Assessment & Plan (1) Schizoaffective disorder: Status: Acute Code(s): F25.9 - Schizoaffective disorder, unspecified Plan -03/05 continue tx. 3day up tomorrow. pt appears much less paranoid and psychotic. No behavioral concerns. No signs of aggression towards self or others. Reason for continued inpatient stay Substantial Risk for: inability to function Time Spent With Patient Time: Total time managing care of this patient today ____ minutes.
[2023-03-05 20:34] VITALS: RESP 16
[2023-03-05] MEDS: Melatonin 3 MG TABLET 6 MG PO (22:49)
[2023-03-05] MEDS: OLANZapine 10 MG TABLET 30 MG PO (22:49)
[2023-03-06 07:40] VITALS: BP 132/83; PULSE 69; TEMP 36.6; O2SAT 99
[2023-03-06] MEDS: Divalproex Sodium 500 MG TABLET.DR 1000 MG PO (08:28)
[2023-03-06] MEDS: fluPHENAZine HCl 5 MG TABLET 10 MG PO (08:28)
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
== END 2023-03-06 11:40 | disposition home or self-care (01) | DRG 885 ==
LOC: HO.ED 03-01 13:46 → HO.PADLT16 03-01 19:28
PROVIDERS: Emergency Medicine; Psychiatry & Neurology Psychiatry; Social Worker; Admitting Provider Psychiatry & Neurology Psychiatry; Emergency Provider Emergency Medicine; Visit Provider Psychiatry & Neurology Psychiatry
DX: F25.9 Schizoaffective disorder, unspecified (principal); Z59.01 Sheltered homelessness; Z20.822 Contact with and (suspected) exposure to COVID-19; Z87.891 Personal history of nicotine dependence; Z79.899 Other long term (current) drug therapy
CPT/HCPCS: 36415; 80053; 80061; 80143; 80164; 80179; 80307; 81001; 82140; 82248; 82607; 83036; 84443; 85025; 87635; 99285; S9485

== ENCOUNTER → 2023-03-01 19:21 | Outpatient (BNV) | payer MEDICARE, SELFPAY | PROVIDERS: Admitting Provider Psychiatry & Neurology Psychiatry; Emergency Provider Emergency Medicine; Visit Provider Psychiatry & Neurology Psychiatry | DX: F25.0 Schizoaffective disorder, bipolar type (principal) | CPT/HCPCS: 90792; 99231; 99239 ==

== ENCOUNTER 2023-04-03 12:44 | Inpatient (IN) | payer MEDICARE, SELFPAY ==
[2023-04-03] VITALS (7 sets, daily range): BP systolic 113–114; BP diastolic 71–74; PULSE 81–98; RESP 16–20; TEMP 36.7; O2SAT 96–99; BMI 24.3
--- NOTE | 2023-04-03 12:49 | ED_ITS ---
HPI - General Adult General Chief complaint: Psychiatric Symptoms Stated complaint: S12,SI/HI,NON MED COMP,IN PD CUSTODY PER EMS Time Seen by Provider: 04/03/23 12:45 Source: EMS Mode of arrival: EMS Limitations: other (Not cooperate) History of Present Illness HPI narrative: 32-year-old male history of schizoaffective disorder presents with EMS and police from [facility] where he stated he was suicidal and homicidal, he became combative and comes in in handcuffs. When I asked him why he is here he says stop asking me questions . When I ask him if anything is hurting he says yeah bitch life . Refusing to answer ROS questions. Related Data Previous Rx's Medication Instructions Recorded divalproex 500 mg tablet,delayed 1,000 mg (2 x 500 mg) PO BID #120 03/06/23 release tabs fluphenazine HCl 10 mg tablet 10 mg PO BID #60 tabs 03/06/23 melatonin 3 mg tablet 6 mg (2 x 3 mg) PO BEDTIME #60 tabs 03/06/23 olanzapine 15 mg tablet 30 mg (2 x 15 mg) PO BEDTIME #60 03/06/23 tabs Allergies Allergy/AdvReac Type Severity Reaction Status Date / Time No Known Allergies Allergy Verified 09/28/21 12:49 Review of Systems 2 Review of Systems: Yes Unobtainable due to mental status PMFSH Past Medical History Attestation statement: The following information was validated with the patient. Source: old records reviewed and nursing notes reviewed Medical History Asthma Bipolar 1 disorder Social History Social History Household Members: None Household Members Other:: Mom only Housing: Other Do you presently have visiting nurse or other home services: No Comment: Staff aware of fall risk. Patient Tobacco Use Status: Former Tobacco user Tobacco use type: Cigarette Years Smoked: 15 Second Hand Smoke Exposure: No Substance Use Type: Marijuana Advance Directives: No service: No Sexual orientation: Straight/Heterosexual Physical Exam ED Vital Signs: Vital Signs - 24 hr 04/03/23 12:55 04/03/23 13:10 04/03/23 13:25 Temperature 98.1 F Pulse Rate 98 94 90 Respiratory Rate 20 18 18 Blood Pressure 114/71 Pulse Oximetry 96 Oxygen Delivery Method Room Air 04/03/23 13:40 04/03/23 13:55 04/03/23 14:16 Temperature Pulse Rate 87 81 81 Respiratory Rate 16 16 16 Blood Pressure 113/72 114/74 Pulse Oximetry 98 98 98 Oxygen Delivery Method Room Air Room Air Room Air BMI result Body Mass Index 24.3 vss Appearance: Alert.? Oriented X3.? No acute distress.? Flat affect Head: Normocephalic, atraumatic, no step-offs or deformities Eyes: Pupils equal, round and reactive to light.? ENT: Pharynx normal.? Neck: Normal inspection.? Neck supple.? CVS: Normal heart rate and rhythm.? Pulses normal.? Respiratory: No respiratory distress.? Breath sounds normal.? Abdomen: Soft and nontender.? Skin: Skin warm and dry.? Normal skin color.? Normal skin turgor.? Extremities: No lower extremity edema.? No calf ttp. 5/5 strength to bilateral upper and lower extremities Neuro: Oriented X 3.? No motor deficit.? No sensory deficit. CN 2-12 intact Course Reevaluation(s) Reevaluation #1: CBC no acute findings. Chemistry unremarkable. Salicylates acetaminophen and ethanol negative. Covid -. Urine tox pending Patient calm & cooperative. At this time physician observation will be initiated to allow more time to be evaluated by care team. At time observation was started patient common cooperative no acute distress will continue to monitor Time: 15:20 Medications Administered Discontinued Medications Generic Name Dose Route Start Last Admin Trade Name Freq PRN Reason Stop Dose Admin Diphenhydramine HCl 50 mg 04/03/23 12:54 04/03/23 12:55 Diphenhydramine Hcl 50 Mg/Ml Vial IM 04/03/23 12:55 50 mg ONCE ONE Administration Haloperidol Lactate 5 mg 04/03/23 12:54 04/03/23 12:55 Haloperidol Lactate 5 Mg/Ml Vial IM 04/03/23 12:55 5 mg STAT STA Administration Lorazepam 2 mg 04/03/23 12:54 04/03/23 12:55 Lorazepam 2 Mg/Ml Vial IM 04/03/23 12:55 2 mg STAT STA Administration Medical Decision Making Medical Decision Making MDM Narrative: 32-year-old male presents with suicidal and homicidal ideation, noncooperative restrained by police, on a [place] [address] Physical exam flat affect. Concerns for schizoaffective disorder with acute henry/psychosis. Unlikely metabolic derangements. Plan medical clearance evaluation by behavioral health team. Differential Diagnosis Differential Diagnoses: The differential diagnosis associated with the presentation includes Concerns for schizoaffective disorder with acute henry/psychosis. Unlikely metabolic derangements. Admission/Observation Consideration of admission/observation: Escalation of care including admission/observation considered Lab Data MDM Lab Attestation statement: I reviewed the patient's lab results. 04/03/23 13:44 04/03/23 13:44 Labs: Lab Results 04/03/23 Range/Units 13:44 WBC 4.9 (4.8-10.8) X10*3/uL RBC 4.92 (4.60-5.80) X10*6/uL Hgb 14.7 (14.0-18.0) g/dl Hct 41.3 L (42.0-52.0) % MCV 83.9 (80.0-98.0) fL MCH 29.9 (27.0-33.0) pg MCHC 35.6 (31.0-36.0) g/dl RDW 12.3 (11.0-16.0) % Plt Count 146 L D (160-400) X10*3/uL MPV 10.5 (9.4-12.4) fL Immature Gran % (Auto) 0.4 (0.0-0.4) % Neut % (Auto) 62.5 (45-73) % Lymph % (Auto) 28.0 (20-40) % [place] % (Auto) 8.3 (2-11) % Eos % (Auto) 0.4 (0-4) % Baso % (Auto) 0.4 (0-2) % Lymph # (Auto) 1.4 (1.2-4.9) X10*3/uL [place] # (Auto) 0.4 (0.1-1.2) X10*3/uL Eos # (Auto) 0.0 (0.0-0.4) X10*3/uL Baso # (Auto) 0.0 (0.0-0.2) X10*3/uL Abs Immat Gran (auto) 0.02 (0.00-0.03) X10*3/uL Absolute Neuts (auto) 3.1 (2.0-8.3) x10*3/uL Absolute Nucleated RBC 0.000 (0.0-0.012) X10*3/uL Nucleated RBC % (auto) 0.0 (0.0-0.2) /100WBC Sodium 135 (135-145) mmol/L Potassium 4.2 (3.3-5.1) mmol/L Chloride 102 (96-108) mmol/L Carbon Dioxide 24 (22-29) mmol/L Anion Gap 13 (12-20) BUN 8 L (9-16) mg/dL Creatinine 0.87 (0.5-1.4) mg/dL Estim Creat Clear Calc 119.0 Estimated GFR > 60 Random Glucose 103 (60-115) mg/dL Calcium 9.6 (8.4-10.2) mg/dL Magnesium 1.9 (1.6-2.6) mg/dL Total Bilirubin 0.6 (0.0-1.0) mg/dL AST 25 (5-37) U/L ALT 11 (0-40) U/L Alkaline Phosphatase 63 (39-117) U/L Total Protein 7.8 (6.5-8.0) g/dL Albumin 4.4 (3.5-5.0) g/dL Salicylates < 5.0 L (15-30) mg/dL Acetaminophen < 3 (<30) mcg/mL Ethyl Alcohol < 10 mg/dL COVID-19 ([facility]) Negative (Negative) COVID-19 Clin Com See Note Chronic Conditions Patient?s care impacted by: Other (Schizoaffective disorder) Social Determinants Patient?s care significantly limited by Social Determinants of Health including: Inadequate housing, Low income, Alcoholism and drug addiction in family, Problems related to primary support group, Unemployment, Problems related to employment and Other Social Determinant of Health Critical Care Time Critical Care Time Critical Care Time: Yes Total Critical Care Time: 35 Attestation: I attest to this time spent taking care of the patient, obtaining history, physical, reviewing labs, medical restraints Discharge Plan Discharge Clinical Impression: Schizoaffective disorder Patient Disposition: Still a Patient Prescriptions: No Action divalproex 500 mg Tablet,Delayed Release (Dr/Ec) 1,000 mg PO BID Qty: 120 0RF fluphenazine HCl 10 mg tablet 10 mg PO BID Qty: 60 0RF olanzapine 15 mg tablet 30 mg PO BEDTIME Qty: 60 0RF melatonin 3 mg Tablet 6 mg PO BEDTIME Qty: 60 0RF Interventions: [place]-Suicide Risk Severity Scale Last Done: 04/03/23 14:18
[2023-04-03] MEDS: LORazepam 2 MG/ML VIAL IM (12:55)
[2023-04-03] MEDS: diphenhydrAMINE HCL 50 MG/ML VIAL IM (12:55)
[2023-04-03] MEDS: Haloperidol Lactate 5 MG/ML VIAL IM (12:55)
[2023-04-03 13:49] LABS: MANUAL DIFF FLAG NO
[2023-04-03 14:02] LABS: Basophils Percent Auto 0.4 % (0-2); Eosinophils Percent Auto 0.4 % (0-4); Hematocrit 41.3 % (42.0-52.0); Hemoglobin 14.7 g/dl (14.0-18.0); Imm Gran Abs Auto 0.02 X10*3/uL (0.00-0.03); Imm Gran Pct Auto 0.4 % (0.0-0.4); Lymphocytes Absolute Auto 1.4 X10*3/uL (1.2-4.9); Mean Corpuscular HGB Conc 35.6 g/dl (31.0-36.0); Mean Corpuscular Hemoglobin 29.9 pg (27.0-33.0); Mean Corpuscular Volume 83.9 fL (80.0-98.0); Mean Platelet Volume 10.5 fL (9.4-12.4); Monocytes Absolute Auto 0.4 X10*3/uL (0.1-1.2); Monocytes Percent Auto 8.3 % (2-11); Neutrophils Absolute Auto 3.1 x10*3/uL (2.0-8.3); Neutrophils Percent Auto 62.5 % (45-73); Platelet Count 146 X10*3/uL (160-400); Red Blood Count 4.92 X10*6/uL (4.60-5.80); Red Cell Distribution Width 12.3 % (11.0-16.0); White Blood Count 4.9 X10*3/uL (4.8-10.8)
[2023-04-03 14:04] LABS: COVID-19 Test Negative (Negative); IDNOW Serial# 152EDE1D
[2023-04-03 14:09] LABS: Acetaminophen LAB < 3 mcg/mL (<30); Alanine Aminotransferase 11 U/L (0-40); Albumin Level 4.4 g/dL (3.5-5.0); Alkaline Phosphatase 63 U/L (39-117); Anion Gap 13 (12-20); Aspartate Amino Transferase 25 U/L (5-37); Bilirubin Total 0.6 mg/dL (0.0-1.0); Blood Urea Nitrogen 8 mg/dL (9-16); Calcium 9.6 mg/dL (8.4-10.2); Carbon Dioxide 24 mmol/L (22-29); Chloride 102 mmol/L (96-108); Estimated Glomerular Filt Rate > 60; Ethanol < 10 mg/dL; Glucose Random 103 mg/dL (60-115); Magnesium 1.9 mg/dL (1.6-2.6); Potassium 4.2 mmol/L (3.3-5.1); Salicylate < 5.0 mg/dL (15-30); Sodium 135 mmol/L (135-145); Total Protein 7.8 g/dL (6.5-8.0)
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
--- NOTE | 2023-04-03 17:25 | PC.NURSE ---
Patient resting comfortably at this time, sleeping. Respirations even/unlabored. Care and monitoring ongoing by this RN.
[2023-04-04 06:26] VITALS: RESP 17
--- NOTE | 2023-04-04 06:38 | PC.NURSE ---
Patient slept through the night, no distress observed/reported, med rec completed/pending provider's approval, pending TOX screen, patient unable to provide urine, care consult ordered/pending evaluation, no behavior issues, VSS, will continue to monitor
[2023-04-04 07:44] VITALS: RESP 17
--- NOTE | 2023-04-04 07:45 | PC.NURSE ---
PT IS SLEEPING RESP EVEN/UNLABORED. WILL CONTINUE TO MONITOR.
--- NOTE | 2023-04-04 08:04 | PC.NURSE ---
PT IS AWAKE. AMB (I) GAIT STEADY TO FOOD CART. PT IS CALM/CO-OP. WILL CONTINUE TO MONITOR.
--- NOTE | 2023-04-04 08:25 | PHA.MEDREC ---
Pharmacy Consult ? Medication Reconciliation Pharmacy has reviewed the medication reconciliation done by nurse.
[2023-04-04] MEDS: LORazepam 1 MG TABLET 2 MG PO (08:37)
[2023-04-04] MEDS: fluPHENAZine HCl 5 MG TABLET 10 MG PO ×2 (08:37→23:08)
[2023-04-04] MEDS: Divalproex Sodium 500 MG TABLET.DR 1000 MG PO ×2 (08:38→23:07)
[2023-04-04] MEDS: hydrOXYzine HCL 25 MG TABLET PO ×3 (08:38→23:08)
--- NOTE | 2023-04-04 08:44 | PC.NURSE ---
PT WAS ON THE PHONE AND WAS VERY UPSET WITH WHOM EVER HE SPOKE WITH. PT MED X 1 WITH ATIVAN 2MG PO. PT IS IN THE ROOM AND THE TIME. WILL CONTINUE TO MONITOR.
--- NOTE | 2023-04-04 08:46 | PC.NURSE ---
PT IS PACING IN HIS ROOM AT THIS TIME.
--- NOTE | 2023-04-04 12:36 | PC.NURSE ---
PT IS RESTING IN HIS ROOM. RESP EVEN AND UNLABORED.
[2023-04-04 13:56] VITALS: RESP 18
[2023-04-04 14:30] VITALS: BP 132/83; PULSE 97; RESP 16; TEMP 36.3; O2SAT 98; BMI 19.9
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
[2023-04-04 21:05] VITALS: RESP 16
[2023-04-04] MEDS: OLANZapine 10 MG TABLET 30 MG PO (23:08)
[2023-04-04] MEDS: Melatonin 3 MG TABLET 6 MG PO (23:08)
[2023-04-05 06:00] VITALS: RESP 18
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
[2023-04-05] MEDS: Divalproex Sodium 500 MG TABLET.DR 1000 MG PO ×2 (08:59→21:51)
[2023-04-05] MEDS: fluPHENAZine HCl 5 MG TABLET 10 MG PO ×2 (09:00→21:50)
[2023-04-05] MEDS: hydrOXYzine HCL 25 MG TABLET PO ×3 (09:00→21:51)
[2023-04-05 21:00] VITALS: BP 128/68; PULSE 88; RESP 16; TEMP 36.4; O2SAT 96
[2023-04-05] MEDS: OLANZapine 10 MG TABLET 30 MG PO (21:51)
[2023-04-05] MEDS: Melatonin 3 MG TABLET 6 MG PO (21:51)
--- NOTE | 2023-04-06 08:59 | HO.PSYCHPN ---
Subjective Subjective Date of Service: 04/06/23 Reason For Visit: crisis Subjective Notes: Conditional Voluntary Interim History: Reviewed with Dr. Edgar. Patient presents similar to yesterday. irritable edge. keeping to self. not attending groups. medication compliant. refused labs. pt stated, I shouldn't be in here. You guys are just racist. I was minding my own business. I didn't tell anyone anything. Those are just lies . mop worker, Obdulia, reports she spoke to outpatient team who reported patient was not medication compliant and made threats of harming them prior to admission. Medication Compliance: Yes Side effects from medications: No Attending Groups: Yes Review of Systems Constitutional: Reports as per HPI Eyes: Reports as per HPI Reports as per HPI Cardiovascular: Reports as per HPI Respiratory: Reports as per HPI Gastrointestinal: Reports as per HPI Genitourinary: Reports as per HPI Musculoskeletal: Reports as per HPI Skin/Breast: Reports as per HPI Reports as per HPI Psychiatric: Reports as per HPI Endocrine: Reports as per HPI Hematologic/Lymphatic: Reports as per HPI Allergic/Immunologic: Reports as per HPI Mental Status Exam Mental Status Exam Narrative: Pt is alert and oriented; behavior is guarded; dressed in casual attire; mood is described as angry ; eye contact appropriate; Speech is normal rate, volume and prosody and not pressured; thought process is organized; Thought content is on discharge; denies SI/HI/VH/AH. Diagnostics Vital Signs (24Hr): Vital Signs - 24 hr 04/05/23 21:00 Temperature 97.6 F Pulse Rate 88 Respiratory Rate 16 Blood Pressure 128/68 Pulse Oximetry 96 Oxygen Delivery Method Room Air BMI result Body Mass Index 19.9 Labs 04/03/23 13:44 04/03/23 13:44 Medications Medications Current Medications Acetaminophen (Acetaminophen 325 Mg Tablet) 650 mg PO Q6H PRN PRN Reason: Headache/Pain Mild Scale (1-3) Al Hydroxide/Mg Hydroxide (Magnesium Hydrox/Alum Hydrox 30 Ml Oral.Susp) 30 ml PO Q6H PRN PRN Reason: Heartburn/Nausea Divalproex Sodium (Divalproex Sodium 500 Mg Tablet.) 1,000 mg PO BID [facility] Last Admin: 04/05/23 21:51 Dose: 1,000 mg Fluphenazine HCl (Fluphenazine Hcl 5 Mg Tablet) 10 mg PO BID [facility] Last Admin: 04/05/23 21:50 Dose: 10 mg Hydroxyzine HCl (Hydroxyzine Hcl 25 Mg Tablet) 25 mg PO TID [facility] Last Admin: 04/05/23 21:51 Dose: 25 mg Magnesium Hydroxide (Milk Of Magnesia 30 Ml Oral.Susp) 30 ml PO DAILY PRN PRN Reason: Constipation Melatonin (Melatonin 3 Mg Tablet) 6 mg PO BEDTIME [facility] Last Admin: 04/05/23 21:51 Dose: 6 mg Nicotine (Nicotine 21 Mg Patch.Td24) 21 mg TRANSDERMA DAILY [facility] Last Admin: 04/05/23 09:00 Dose: Not Given Nicotine Polacrilex (Nicotine Polacrilex 2 Mg Gum) 4 mg BUCCAL Q2H PRN PRN Reason: Nicotine Cravings Olanzapine (Olanzapine 10 Mg Tablet) 30 mg PO BEDTIME [facility] Last Admin: 04/05/23 21:51 Dose: 30 mg Trazodone HCl (Trazodone Hcl 50 Mg Tablet) 50 mg PO BEDTIME MRX1 PRN PRN Reason: Insomnia Allergies Allergies Allergy/AdvReac Type Severity Reaction Status Date / Time No Known Allergies Allergy Verified 09/28/21 12:49 Assessment & Plan Assessment & Plan (1) Schizoaffective disorder: Status: Acute Code(s): F25.9 - Schizoaffective disorder, unspecified Plan Patient is a 32 year old male with hx of schizoaffective d/o who presented to ER via police secondary to making suicidal and homicidal statements at the motel he was staying. Plan: CV 3 day notice 5 minute safety checks continue home medications obtain collateral discharge planning 04/05: Patient presents similar to yesterday. irritable edge. keeping to self. not attending groups. medication compliant. refused labs. pt stated, I shouldn't be in here. You guys are just racist. I was minding my own business. I didn't tell anyone anything. Those are just lies . mop worker, Obdulia, reports she spoke to outpatient team who reported patient was not medication compliant and made threats of harming them prior to admission. continue current treatment plan. possibly file section 7 on Sunday if pt does not retract 3 day notice. Patient educated on: diagnosis and medication risk/benefits Informed Consent: understands Reason for continued inpatient stay Substantial Risk for: med/psych decompensation Time Spent With Patient Time: Total time managing care of this patient today _20___ minutes.
[2023-04-06 09:46] VITALS: BP 102/55; PULSE 60; RESP 15; TEMP 36.3; O2SAT 98
[2023-04-06] MEDS: Divalproex Sodium 500 MG TABLET.DR 1000 MG PO (09:48)
[2023-04-06] MEDS: fluPHENAZine HCl 5 MG TABLET 10 MG PO (09:48)
[2023-04-06] MEDS: hydrOXYzine HCL 25 MG TABLET PO ×2 (09:48→17:20)
[2023-04-06] MEDS: Nicotine 21 MG PATCH.TD24 TRANSDERMA (09:48)
[2023-04-06 18:00] VITALS: BP 102/60; PULSE 69; RESP 16; TEMP 35.8; O2SAT 97
[2023-04-07] MEDS: Nicotine 21 MG PATCH.TD24 TRANSDERMA (10:07)
[2023-04-07] MEDS: fluPHENAZine HCl 5 MG TABLET 10 MG PO (10:08)
[2023-04-07] MEDS: Divalproex Sodium 500 MG TABLET.DR 1000 MG PO (10:09)
[2023-04-07] MEDS: hydrOXYzine HCL 25 MG TABLET PO ×2 (10:09→16:01)
[2023-04-07 10:10] VITALS: BP 130/83; PULSE 90; RESP 18; TEMP 35.7; O2SAT 98
--- NOTE | 2023-04-07 18:13 | HO.PSYCHPN ---
Subjective Subjective Date of Service: 04/07/23 Reason For Visit: crisis Interim History: calm, cooperative. irritated to have to be in the hospital, denies mental illness, yet says he has been and will continue to take medications. just waiting to be discharged. per staff, no dep/anx. guarded, isolative. taking meds. not eating. accusing white staff of prejudice. irritable with white staff. slept 7 hours. Mental Status Exam Mental Status Exam Narrative: Pt is alert and oriented; behavior is guarded; dressed in casual attire; mood is described as angry ; eye contact appropriate; Speech is normal rate, volume and prosody and not pressured; thought process is organized; Thought content is on discharge; denies SI/HI/VH/AH. Diagnostics Vital Signs (24Hr): Vital Signs - 24 hr 04/07/23 10:10 Temperature 96.3 F L Pulse Rate 90 Respiratory Rate 18 Blood Pressure 130/83 Pulse Oximetry 98 Oxygen Delivery Method Room Air BMI result Body Mass Index 19.9 Labs 04/03/23 13:44 04/03/23 13:44 Medications Medications Current Medications Acetaminophen (Acetaminophen 325 Mg Tablet) 650 mg PO Q6H PRN PRN Reason: Headache/Pain Mild Scale (1-3) Al Hydroxide/Mg Hydroxide (Magnesium Hydrox/Alum Hydrox 30 Ml Oral.Susp) 30 ml PO Q6H PRN PRN Reason: Heartburn/Nausea Divalproex Sodium (Divalproex Sodium 500 Mg Tablet.) 1,000 mg PO BID [facility] Last Admin: 04/07/23 10:09 Dose: 1,000 mg Fluphenazine HCl (Fluphenazine Hcl 5 Mg Tablet) 10 mg PO BID [facility] Last Admin: 04/07/23 10:08 Dose: 10 mg Hydroxyzine HCl (Hydroxyzine Hcl 25 Mg Tablet) 25 mg PO TID [facility] Last Admin: 04/07/23 16:01 Dose: 25 mg Magnesium Hydroxide (Milk Of Magnesia 30 Ml Oral.Susp) 30 ml PO DAILY PRN PRN Reason: Constipation Melatonin (Melatonin 3 Mg Tablet) 6 mg PO BEDTIME [facility] Last Admin: 04/06/23 22:12 Dose: Not Given Nicotine (Nicotine 21 Mg Patch.Td24) 21 mg TRANSDERMA DAILY [facility] Last Admin: 04/07/23 10:07 Dose: 21 mg Nicotine Polacrilex (Nicotine Polacrilex 2 Mg Gum) 4 mg BUCCAL Q2H PRN PRN Reason: Nicotine Cravings Olanzapine (Olanzapine 10 Mg Tablet) 30 mg PO BEDTIME [facility] Last Admin: 04/06/23 22:12 Dose: Not Given Trazodone HCl (Trazodone Hcl 50 Mg Tablet) 50 mg PO BEDTIME MRX1 PRN PRN Reason: Insomnia Allergies Allergies Allergy/AdvReac Type Severity Reaction Status Date / Time No Known Allergies Allergy Verified 09/28/21 12:49 Assessment & Plan Assessment & Plan (1) Schizoaffective disorder: Status: Acute Code(s): F25.9 - Schizoaffective disorder, unspecified Plan Patient is a 32 year old male with hx of schizoaffective d/o who presented to ER via police secondary to making suicidal and homicidal statements at the motel he was staying. Plan: CV 3 day notice 5 minute safety checks continue home medications obtain collateral discharge planning 04/05: Patient presents similar to yesterday. irritable edge. keeping to self. not attending groups. medication compliant. refused labs. pt stated, I shouldn't be in here. You guys are just racist. I was minding my own business. I didn't tell anyone anything. Those are just lies . wind turbine sheet metal worker, Obdulia, reports she spoke to outpatient team who reported patient was not medication compliant and made threats of harming them prior to admission. continue current treatment plan. possibly file section 7 on Sunday if pt does not retract 3 day notice. 3/2: angry to be in the hospital. denies mental illness. says he has/had been and will continue to take meds. continue current mgmt. Reason for continued inpatient stay Substantial Risk for: harm to others, inability to function and rapid decompensation Time Spent With Patient Time: Total time managing care of this patient today ____ minutes.
[2023-04-07 20:00] VITALS: BP 110/67; PULSE 67; RESP 18; TEMP 36.7; O2SAT 97
--- NOTE | 2023-04-08 03:50 | PC.NURSE ---
Vidal spent the entire evening in his room he would not acknowledge this sign writer hand or accept HS medications.
[2023-04-08 08:22] VITALS: BP 123/87; PULSE 92; RESP 16; TEMP 35.9; O2SAT 98
[2023-04-08] MEDS: Divalproex Sodium 500 MG TABLET.DR 1000 MG PO ×2 (08:24→22:25)
[2023-04-08] MEDS: hydrOXYzine HCL 25 MG TABLET PO ×3 (08:24→22:26)
[2023-04-08] MEDS: fluPHENAZine HCl 5 MG TABLET 10 MG PO ×2 (08:24→22:26)
[2023-04-08] MEDS: Nicotine 21 MG PATCH.TD24 TRANSDERMA (08:25)
[2023-04-08] MEDS: Nicotine Polacrilex 2 MG GUM 4 MG BUCCAL ×3 (08:27→12:58)
[2023-04-08] MEDS: Acetaminophen 325 MG TABLET 650 MG PO (15:30)
--- NOTE | 2023-04-08 16:50 | HO.PSYCHPN ---
Subjective Subjective Date of Service: 04/08/23 Reason For Visit: crisis Interim History: calm, cooperative. reports he is feeling well, states he did not refuse meds last night, he was just asleep when they came to give them. states he will need a letter of hospitalization for his GED class. planning to discharge tomorrow on expiry of 3-day notice. per staff, brighter, more visible. showered. refused HS meds. took meds this morning. slept oK. 3-day up sunday. Mental Status Exam Mental Status Exam Narrative: Pt is alert and oriented; behavior is more superficially friendly; dressed in casual attire; mood is described as good ; eye contact appropriate; Speech is normal rate, volume and prosody and not pressured; thought process is organized; Thought content is on discharge; denies SI/HI/VH/AH. Diagnostics Vital Signs (24Hr): Vital Signs - 24 hr 04/07/23 20:00 04/08/23 08:22 Temperature 98.1 F 96.6 F L Pulse Rate 67 92 Respiratory Rate 18 16 Blood Pressure 110/67 123/87 Pulse Oximetry 97 98 Oxygen Delivery Method Room Air Room Air BMI result Body Mass Index 19.9 Labs 04/03/23 13:44 04/03/23 13:44 Medications Medications Current Medications Acetaminophen (Acetaminophen 325 Mg Tablet) 650 mg PO Q6H PRN PRN Reason: Headache/Pain Mild Scale (1-3) Last Admin: 04/08/23 15:30 Dose: 650 mg Al Hydroxide/Mg Hydroxide (Magnesium Hydrox/Alum Hydrox 30 Ml Oral.Susp) 30 ml PO Q6H PRN PRN Reason: Heartburn/Nausea Divalproex Sodium (Divalproex Sodium 500 Mg Tablet.Dr) 1,000 mg PO BID [facility] Last Admin: 04/08/23 08:24 Dose: 1,000 mg Fluphenazine HCl (Fluphenazine Hcl 5 Mg Tablet) 10 mg PO BID [facility] Last Admin: 04/08/23 08:24 Dose: 10 mg Hydroxyzine HCl (Hydroxyzine Hcl 25 Mg Tablet) 25 mg PO TID [facility] Last Admin: 04/08/23 15:28 Dose: 25 mg Magnesium Hydroxide (Milk Of Magnesia 30 Ml Oral.Susp) 30 ml PO DAILY PRN PRN Reason: Constipation Melatonin (Melatonin 3 Mg Tablet) 6 mg PO BEDTIME [facility] Last Admin: 04/07/23 21:36 Dose: Not Given Nicotine (Nicotine 21 Mg Patch.Td24) 21 mg TRANSDERMA DAILY [facility] Last Admin: 04/08/23 08:25 Dose: 21 mg Nicotine Polacrilex (Nicotine Polacrilex 2 Mg Gum) 4 mg BUCCAL Q2H PRN PRN Reason: Nicotine Cravings Last Admin: 04/08/23 12:58 Dose: 4 mg Olanzapine (Olanzapine 10 Mg Tablet) 30 mg PO BEDTIME [facility] Last Admin: 04/07/23 21:36 Dose: Not Given Trazodone HCl (Trazodone Hcl 50 Mg Tablet) 50 mg PO BEDTIME MRX1 PRN PRN Reason: Insomnia Allergies Allergies Allergy/AdvReac Type Severity Reaction Status Date / Time No Known Allergies Allergy Verified 09/28/21 12:49 Assessment & Plan Assessment & Plan (1) Schizoaffective disorder: Status: Acute Code(s): F25.9 - Schizoaffective disorder, unspecified Plan Patient is a 32 year old male with hx of schizoaffective d/o who presented to ER via police secondary to making suicidal and homicidal statements at the motel he was staying. Plan: CV 3 day notice 5 minute safety checks continue home medications obtain collateral discharge planning 04/05: Patient presents similar to yesterday. irritable edge. keeping to self. not attending groups. medication compliant. refused labs. pt stated, I shouldn't be in here. You guys are just racist. I was minding my own business. I didn't tell anyone anything. Those are just lies . order worker, Obdulia, reports she spoke to outpatient team who reported patient was not medication compliant and made threats of harming them prior to admission. continue current treatment plan. possibly file section 7 on Sunday if pt does not retract 3 day notice. 3: angry to be in the hospital. denies mental illness. says he has/had been and will continue to take meds. continue current mgmt. 3: feeling happy today. planning to discharge tomorrow. missed meds last night but took them this morning. no concerning behaviors. Reason for continued inpatient stay Substantial Risk for: inability to function and rapid decompensation Time Spent With Patient Time: Total time managing care of this patient today ____ minutes.
[2023-04-08] MEDS: OLANZapine 10 MG TABLET 30 MG PO (22:26)
[2023-04-09 07:50] VITALS: BP 118/80; PULSE 113; RESP 16; TEMP 36.1; O2SAT 100
--- NOTE | 2023-04-09 09:00 | P.PNPSI_ITS ---
Subjective Subjective Date of Service: 04/09/23 Reason For Visit: crisis Subjective Notes: [place] Warning and Conditional Voluntary Interim History: Reviewed with Dr. Edgar. Met with T/W and steel layout worker, Obdulia. Pt presents irritable and frustrated. Pt stated, I want to leave; you guys are being racist. I never said any of the things the PACT team is saying. I didn't barricade the door. I was taking my meds. I didn't say I would kill anyone. They are lying. I'm poor and you guys are rich,so you think you can treat me this way . When asked if he would ever hurt anyone on the PACT team, pt stated, I don't know what I'm capable of doing . Pt retracted 3 day notice. T/W to get in contact with patient's mother, Caroline Campbell, for collateral. Medication Compliance: Intermittent Side effects from medications: No Attending Groups: No Review of Systems Constitutional: Reports as per HPI Eyes: Reports as per HPI Reports as per HPI Cardiovascular: Reports as per HPI Respiratory: Reports as per HPI Gastrointestinal: Reports as per HPI Genitourinary: Reports as per HPI Musculoskeletal: Reports as per HPI Skin/Breast: Reports as per HPI Reports as per HPI Psychiatric: Reports as per HPI Endocrine: Reports as per HPI Hematologic/Lymphatic: Reports as per HPI Allergic/Immunologic: Reports as per HPI Mental Status Exam Mental Status Exam Narrative: Pt is alert and oriented; behavior is irritable, frustrated; dressed in casual attire; mood is described as irritated ; eye contact appropriate; Speech is normal rate, loud volume at times ; focused on discharge. denies SI/VH/AH. When asked if he would hurt anyone on the PACT team, pt stated, I don't know what I'm capable of . Diagnostics Vital Signs (24Hr): Vital Signs - 24 hr 04/09/23 07:50 Temperature 96.9 F Pulse Rate 113 H Respiratory Rate 16 Blood Pressure 118/80 Pulse Oximetry 100 Oxygen Delivery Method Room Air BMI result Body Mass Index 19.9 Labs 04/03/23 13:44 04/03/23 13:44 Medications Medications Current Medications Acetaminophen (Acetaminophen 325 Mg Tablet) 650 mg PO Q6H PRN PRN Reason: Headache/Pain Mild Scale (1-3) Last Admin: 04/08/23 15:30 Dose: 650 mg Al Hydroxide/Mg Hydroxide (Magnesium Hydrox/Alum Hydrox 30 Ml Oral.Susp) 30 ml PO Q6H PRN PRN Reason: Heartburn/Nausea Divalproex Sodium (Divalproex Sodium 500 Mg Tablet.Dr) 1,000 mg PO BID [facility] Last Admin: 04/08/23 22:25 Dose: 1,000 mg Fluphenazine HCl (Fluphenazine Hcl 5 Mg Tablet) 10 mg PO BID [facility] Last Admin: 04/08/23 22:26 Dose: 10 mg Hydroxyzine HCl (Hydroxyzine Hcl 25 Mg Tablet) 25 mg PO TID [facility] Last Admin: 04/08/23 22:26 Dose: 25 mg Ibuprofen (Ibuprofen 600 Mg Tablet) 600 mg PO Q6H PRN PRN Reason: moderate pain Magnesium Hydroxide (Milk Of Magnesia 30 Ml Oral.Susp) 30 ml PO DAILY PRN PRN Reason: Constipation Melatonin (Melatonin 3 Mg Tablet) 6 mg PO BEDTIME [facility] Last Admin: 04/08/23 22:30 Dose: Not Given Nicotine (Nicotine 21 Mg Patch.Td24) 21 mg TRANSDERMA DAILY [facility] Last Admin: 04/08/23 08:25 Dose: 21 mg Nicotine Polacrilex (Nicotine Polacrilex 2 Mg Gum) 4 mg BUCCAL Q2H PRN PRN Reason: Nicotine Cravings Last Admin: 04/08/23 12:58 Dose: 4 mg Olanzapine (Olanzapine 10 Mg Tablet) 30 mg PO BEDTIME [facility] Last Admin: 04/08/23 22:26 Dose: 30 mg Trazodone HCl (Trazodone Hcl 50 Mg Tablet) 50 mg PO BEDTIME MRX1 PRN PRN Reason: Insomnia Allergies Allergies Allergy/AdvReac Type Severity Reaction Status Date / Time No Known Allergies Allergy Verified 09/28/21 12:49 Assessment & Plan Assessment & Plan (1) Schizoaffective disorder: Status: Acute Code(s): F25.9 - Schizoaffective disorder, unspecified Plan Patient is a 32 year old male with hx of schizoaffective d/o who presented to ER via police secondary to making suicidal and homicidal statements at the motel he was staying. Plan: CV 3 day notice 5 minute safety checks continue home medications obtain collateral discharge planning 04/05: Patient presents similar to yesterday. irritable edge. keeping to self. not attending groups. medication compliant. refused labs. pt stated, I shouldn't be in here. You guys are just racist. I was minding my own business. I didn't tell anyone anything. Those are just lies . steel layout worker, Obdulia, reports she spoke to outpatient team who reported patient was not medication compliant and made threats of harming them prior to admission. continue current treatment plan. possibly file section 7 on Sunday if pt does not retract 3 day notice. 04/06: angry to be in the hospital. denies mental illness. says he has/had been and will continue to take meds. continue current mgmt. 04/07: feeling happy today. planning to discharge tomorrow. missed meds last night but took them this morning. no concerning behaviors. 04/08: Met with T/W and steel layout workerObdulia. Pt presents irritable and frustrated. Pt stated, I want to leave; you guys are being racist. I never said any of the things the PACT team is saying. I didn't barricade the door. I was taking my meds. I didn't say I would kill anyone. They are lying. I'm poor and you guys are rich,so you think you can treat me this way . When asked if he would ever hurt anyone on the PACT team, pt stated, I don't know what I'm capable of doing . Pt retracted 3 day notice. T/W to get in contact with patient's mother, Caroline Campbell, for collateral. Patient educated on: diagnosis and medication risk/benefits Informed Consent: understands Reason for continued inpatient stay Substantial Risk for: med/psych decompensation Time Spent With Patient Time: Total time managing care of this patient today _30___ minutes.
[2023-04-09] MEDS: hydrOXYzine HCL 25 MG TABLET PO ×3 (09:07→20:45)
[2023-04-09] MEDS: fluPHENAZine HCl 5 MG TABLET 10 MG PO ×2 (09:07→20:44)
[2023-04-09] MEDS: Divalproex Sodium 500 MG TABLET.DR 1000 MG PO ×2 (09:07→20:44)
[2023-04-09] MEDS: Nicotine Polacrilex 2 MG GUM 4 MG BUCCAL (09:11)
[2023-04-09] MEDS: OLANZapine 10 MG TABLET 30 MG PO (20:45)
--- NOTE | 2023-04-10 08:41 | P.PNPSI_ITS ---
Subjective Subjective Date of Service: 04/10/23 Reason For Visit: crisis Subjective Notes: Conditional Voluntary Interim History: Reviewed with Dr. Edgar. Pt presents irritable and guarded. Pt stated, I'm fine. I slept fine. I don't feel like going to groups . When discussing the events prior to admission, pt stated, I don't have time for that game. They put words in my mouth. They're a joke. I'm going through racism . T/W spoke with patient's mother, Caroline Campbell, via phone. Caroline reports she has tried contact [facility] multiple times for more intense services for D[facility]e because he was considered a high risk patient in [place] . Caroline stated she is willing to testify in court if needed since she believes D[facility]e needs help . Medication Compliance: Yes Side effects from medications: No Attending Groups: No Review of Systems Constitutional: Reports as per HPI Eyes: Reports as per HPI Reports as per HPI Cardiovascular: Reports as per HPI Respiratory: Reports as per HPI Gastrointestinal: Reports as per HPI Genitourinary: Reports as per HPI Musculoskeletal: Reports as per HPI Skin/Breast: Reports as per HPI Reports as per HPI Psychiatric: Reports as per HPI Endocrine: Reports as per HPI Hematologic/Lymphatic: Reports as per HPI Allergic/Immunologic: Reports as per HPI Mental Status Exam Mental Status Exam Narrative: Pt is alert and oriented; behavior is irritable, frustrated, guarded; dressed in casual attire; mood is described as irritated ; eye contact appropriate; Speech is normal rate, volume; focused on discharge. denies SI/VH/AH. When asked if he would hurt anyone on the PACT team, pt stated, I don't know what I'm capable of . Diagnostics Vital Signs (24Hr): BMI result Body Mass Index 19.9 Labs 04/03/23 13:44 04/03/23 13:44 Medications Medications Current Medications Acetaminophen (Acetaminophen 325 Mg Tablet) 650 mg PO Q6H PRN PRN Reason: Headache/Pain Mild Scale (1-3) Last Admin: 04/08/23 15:30 Dose: 650 mg Al Hydroxide/Mg Hydroxide (Magnesium Hydrox/Alum Hydrox 30 Ml Oral.Susp) 30 ml PO Q6H PRN PRN Reason: Heartburn/Nausea Divalproex Sodium (Divalproex Sodium 500 Mg Tablet.) 1,000 mg PO BID [facility] Last Admin: 04/09/23 20:44 Dose: 1,000 mg Fluphenazine HCl (Fluphenazine Hcl 5 Mg Tablet) 10 mg PO BID [facility] Last Admin: 04/09/23 20:44 Dose: 10 mg Hydroxyzine HCl (Hydroxyzine Hcl 25 Mg Tablet) 25 mg PO TID [facility] Last Admin: 04/09/23 20:45 Dose: 25 mg Ibuprofen (Ibuprofen 600 Mg Tablet) 600 mg PO Q6H PRN PRN Reason: moderate pain Magnesium Hydroxide (Milk Of Magnesia 30 Ml Oral.Susp) 30 ml PO DAILY PRN PRN Reason: Constipation Nicotine (Nicotine 21 Mg Patch.Td24) 21 mg TRANSDERMA DAILY [facility] Last Admin: 04/09/23 09:19 Dose: Not Given Nicotine Polacrilex (Nicotine Polacrilex 2 Mg Gum) 4 mg BUCCAL Q2H PRN PRN Reason: Nicotine Cravings Last Admin: 04/09/23 09:11 Dose: 4 mg Olanzapine (Olanzapine 10 Mg Tablet) 30 mg PO BEDTIME [facility] Last Admin: 04/09/23 20:45 Dose: 30 mg Trazodone HCl (Trazodone Hcl 50 Mg Tablet) 50 mg PO BEDTIME MRX1 PRN PRN Reason: Insomnia Allergies Allergies Allergy/AdvReac Type Severity Reaction Status Date / Time No Known Allergies Allergy Verified 09/28/21 12:49 Assessment & Plan Assessment & Plan (1) Schizoaffective disorder: Status: Acute Code(s): F25.9 - Schizoaffective disorder, unspecified Plan Patient is a 32 year old male with hx of schizoaffective d/o who presented to ER via police secondary to making suicidal and homicidal statements at the motel he was staying. Plan: CV 3 day notice 5 minute safety checks continue home medications obtain collateral discharge planning 04/05: Patient presents similar to yesterday. irritable edge. keeping to self. not attending groups. medication compliant. refused labs. pt stated, I shouldn't be in here. You guys are just racist. I was minding my own business. I didn't tell anyone anything. Those are just lies . break up worker, Obdulia, reports she spoke to outpatient team who reported patient was not medication compliant and made threats of harming them prior to admission. continue current treatment plan. possibly file section 7 on Sunday if pt does not retract 3 day notice. 04/06: angry to be in the hospital. denies mental illness. says he has/had been and will continue to take meds. continue current mgmt. 04/07: feeling happy today. planning to discharge tomorrow. missed meds last night but took them this morning. no concerning behaviors. 04/08: Met with T/W and break up worker, Obdulia. Pt presents irritable and frustrated. Pt stated, I want to leave; you guys are being racist. I never said any of the things the PACT team is saying. I didn't barricade the door. I was taking my meds. I didn't say I would kill anyone. They are lying. I'm poor and you guys are rich,so you think you can treat me this way . When asked if he would ever hurt anyone on the PACT team, pt stated, I don't know what I'm capable of doing . Pt retracted 3 day notice. T/W to get in contact with patient's mother, Caroline Campbell, for collateral. 04/09: Pt presents irritable and guarded. Pt stated, I'm fine. I slept fine. I don't feel like going to groups . When discussing the events prior to admission, pt stated, I don't have time for that game. They put words in my mouth. They're a joke. I'm going through racism . T/W spoke with patient's mother, Caroline Campbell, via phone. Caroline reports she has tried contact [facility] multiple times for more intense services for D[facility]e because he was considered a high risk patient in [place] . Caroline stated she is willing to testify in court if needed since she believes Dvante needs help . Patient educated on: diagnosis and medication risk/benefits Informed Consent: understands Reason for continued inpatient stay Substantial Risk for: harm to others and med/psych decompensation Time Spent With Patient Time: Total time managing care of this patient today _30___ minutes.
[2023-04-10] MEDS: hydrOXYzine HCL 25 MG TABLET PO ×3 (09:09→20:29)
[2023-04-10] MEDS: Divalproex Sodium 500 MG TABLET.DR 1000 MG PO ×2 (09:09→20:29)
[2023-04-10] MEDS: fluPHENAZine HCl 5 MG TABLET 10 MG PO ×2 (09:09→20:29)
[2023-04-10] MEDS: Nicotine Polacrilex 2 MG GUM 4 MG BUCCAL (09:40)
[2023-04-10] MEDS: Acetaminophen 325 MG TABLET 650 MG PO (09:40)
[2023-04-10] MEDS: Ibuprofen 600 MG TABLET PO (10:56)
[2023-04-10] MEDS: fluPHENAZine HCl 5 MG TABLET PO (11:23)
[2023-04-10 20:12] VITALS: RESP 16
[2023-04-10] MEDS: OLANZapine 10 MG TABLET 30 MG PO (20:29)
[2023-04-11 07:42] VITALS: BP 107/68; PULSE 59; RESP 14; TEMP 36.7; O2SAT 98
[2023-04-11] MEDS: fluPHENAZine HCl 5 MG TABLET 10 MG PO ×2 (08:54→21:28)
[2023-04-11] MEDS: Divalproex Sodium 500 MG TABLET.DR 1000 MG PO ×2 (08:54→21:28)
[2023-04-11] MEDS: hydrOXYzine HCL 25 MG TABLET PO ×3 (08:54→21:28)
[2023-04-11] MEDS: Nicotine Polacrilex 2 MG GUM 4 MG BUCCAL ×2 (09:02→14:17)
[2023-04-11] MEDS: Ibuprofen 600 MG TABLET PO (09:02)
--- NOTE | 2023-04-11 09:09 | P.PNPSI_ITS ---
Subjective Subjective Date of Service: 04/11/23 Reason For Visit: crisis Subjective Notes: Conditional Voluntary Interim History: Reviewed with Dr. Edgar. Pt presents irritable and guarded. Pt stated, I'm doing good. I don't have a mental illness; I don't see things or hear things. I have anger problems. I'll go to a anger management program. I never said I was going to hurt anyone or shoot anyone. I would only hurt someone if they put their hands on me first. What's the point of hurting someone first? I didn't threaten anyone. I mind my business . Pt reports he plans on taking his medications when discharged. T/W discussed possible ABERNATHY; pt reports he doesn't want an injection because I don't like needles . pt denies SI/HI/VH/AH. Medication Compliance: Yes Side effects from medications: No Attending Groups: No Review of Systems Constitutional: Reports as per HPI Eyes: Reports as per HPI Reports as per HPI Cardiovascular: Reports as per HPI Respiratory: Reports as per HPI Gastrointestinal: Reports as per HPI Genitourinary: Reports as per HPI Musculoskeletal: Reports as per HPI Skin/Breast: Reports as per HPI Reports as per HPI Psychiatric: Reports as per HPI Endocrine: Reports as per HPI Hematologic/Lymphatic: Reports as per HPI Allergic/Immunologic: Reports as per HPI Mental Status Exam Mental Status Exam Narrative: Pt is alert and oriented; behavior is irritable, guarded; dressed in casual attire; mood is described as good ; eye contact appropriate; Speech is normal rate, volume; focused on discharge. denies SI/HI/VH/AH. Diagnostics Vital Signs (24Hr): Vital Signs - 24 hr 04/10/23 20:12 04/11/23 07:42 Temperature 98.0 F Pulse Rate 59 Respiratory Rate 16 14 Blood Pressure 107/68 Pulse Oximetry 98 Oxygen Delivery Method Room Air BMI result Body Mass Index 19.9 Labs 04/03/23 13:44 04/03/23 13:44 Medications Medications Current Medications Acetaminophen (Acetaminophen 325 Mg Tablet) 650 mg PO Q6H PRN PRN Reason: Headache/Pain Mild Scale (1-3) Last Admin: 04/10/23 09:40 Dose: 650 mg Al Hydroxide/Mg Hydroxide (Magnesium Hydrox/Alum Hydrox 30 Ml Oral.Susp) 30 ml PO Q6H PRN PRN Reason: Heartburn/Nausea Divalproex Sodium (Divalproex Sodium 500 Mg Tablet.Dr) 1,000 mg PO BID [facility] Last Admin: 04/11/23 08:54 Dose: 1,000 mg Fluphenazine HCl (Fluphenazine Hcl 5 Mg Tablet) 10 mg PO BID [facility] Last Admin: 04/11/23 08:54 Dose: 10 mg Fluphenazine HCl (Fluphenazine Hcl 5 Mg Tablet) 5 mg PO BID PRN PRN Reason: Psychosis Last Admin: 04/10/23 11:23 Dose: 5 mg Hydroxyzine HCl (Hydroxyzine Hcl 25 Mg Tablet) 25 mg PO TID [facility] Last Admin: 04/11/23 08:54 Dose: 25 mg Ibuprofen (Ibuprofen 600 Mg Tablet) 600 mg PO Q6H PRN PRN Reason: moderate pain Last Admin: 04/11/23 09:02 Dose: 600 mg Lidocaine (Lidocaine 4 % Patch Adh..Patch) 1 patch TRANSDERMA DAILY [facility]; Protocol Last Admin: 04/11/23 08:55 Dose: Not Given Lorazepam (Lorazepam 0.5 Mg Tablet) 0.5 mg PO BID PRN PRN Reason: Anxiety Magnesium Hydroxide (Milk Of Magnesia 30 Ml Oral.Susp) 30 ml PO DAILY PRN PRN Reason: Constipation Nicotine (Nicotine 21 Mg Patch.Td24) 21 mg TRANSDERMA DAILY [facility] Last Admin: 04/11/23 08:56 Dose: Not Given Nicotine Polacrilex (Nicotine Polacrilex 2 Mg Gum) 4 mg BUCCAL Q2H PRN PRN Reason: Nicotine Cravings Last Admin: 04/11/23 09:02 Dose: 4 mg Olanzapine (Olanzapine 10 Mg Tablet) 30 mg PO BEDTIME [facility] Last Admin: 04/10/23 20:29 Dose: 30 mg Trazodone HCl (Trazodone Hcl 50 Mg Tablet) 50 mg PO BEDTIME MRX1 PRN PRN Reason: Insomnia Allergies Allergies Allergy/AdvReac Type Severity Reaction Status Date / Time No Known Allergies Allergy Verified 09/28/21 12:49 Assessment & Plan Assessment & Plan (1) Schizoaffective disorder: Status: Acute Code(s): F25.9 - Schizoaffective disorder, unspecified Plan Patient is a 32 year old male with hx of schizoaffective d/o who presented to ER via police secondary [facility] Plan: CV 3 day notice 5 minute safety checks continue home medications obtain collateral discharge planning 04/05: Patient presents similar to yesterday. irritable edge. keeping to self. not attending groups. medication compliant. refused labs. pt stated, I shouldn't be in here. You guys are just racist. I was minding my own business. I didn't tell anyone anything. Those are just lies . child day care center worker, Obdulia, reports she spoke to outpatient team who reported patient was not medication compliant and made threats of harming them prior to admission. continue current treatment plan. possibly file section 7 on Sunday if pt does not retract 3 day notice. 04/06: angry to be in the hospital. denies mental illness. says he has/had been and will continue to take meds. continue current mgmt. 04/07: feeling happy today. planning to discharge tomorrow. missed meds last night but took them this morning. no concerning behaviors. 04/08: Met with T/W and child day care center worker, Obdulia. Pt presents irritable and frustrated. Pt stated, I want to leave; you guys are being racist. I never said any of the things the PACT team is saying. I didn't barricade the door. I was taking my meds. I didn't say I would kill anyone. They are lying. I'm poor and you guys are rich,so you think you can treat me this way . When asked if he would ever hurt anyone on the PACT team, pt stated, I don't know what I'm capable of doing . Pt retracted 3 day notice. T/W to get in contact with patient's mother, Caroline Campbell, for collateral. 04/09: Pt presents irritable and guarded. Pt stated, I'm fine. I slept fine. I don't feel like going to groups . When discussing the events prior to admission, pt stated, I don't have time for that game. They put words in my mouth. They're a joke. I'm going through racism . T/W spoke with patient's mother, Caroline Campbell, via phone. Caroline reports she has tried contact [facility] multiple times for more intense services for [place] because he was considered a high risk patient in [place] . Caroline stated she is willing to testify in court if needed since she believes [facility] needs help . 04/10: Pt presents irritable and guarded. Pt stated, I'm doing good. I don't have a mental illness; I don't see things or hear things. I have anger problems. I'll go to a anger management program. I never said I was going to hurt anyone or shoot anyone. I would only hurt someone if they put their hands on me first. What's the point of hurting someone first? I didn't threaten anyone. I mind my business . Pt reports he plans on taking his medications when discharged. T/W discussed possible ABERNATHY; pt reports he doesn't want an injection because I don't like needles . pt denies SI/HI/VH/AH. Patient educated on: diagnosis, medication risk/benefits and therapeutic strategies Informed Consent: understands Reason for continued inpatient stay Substantial Risk for: med/psych decompensation Time Spent With Patient Time: Total time managing care of this patient today _30___ minutes.
[2023-04-11] MEDS: Ondansetron ODT 4 MG TAB.RAPDIS TRANSLINGU (16:01)
[2023-04-11] MEDS: LORazepam 0.5 MG TABLET PO (16:51)
[2023-04-11 20:25] VITALS: RESP 16
[2023-04-11] MEDS: OLANZapine 10 MG TABLET 30 MG PO (21:27)
[2023-04-12 07:00] VITALS: BMI 21.2
[2023-04-12] MEDS: hydrOXYzine HCL 25 MG TABLET PO ×2 (08:17→14:41)
[2023-04-12] MEDS: fluPHENAZine HCl 5 MG TABLET 10 MG PO (08:17)
[2023-04-12] MEDS: Divalproex Sodium 500 MG TABLET.DR 1000 MG PO (08:17)
[2023-04-12 08:41] VITALS: BP 112/63; PULSE 75; RESP 16; TEMP 36.2; O2SAT 99
--- NOTE | 2023-04-12 09:18 | P.PNPSI_ITS ---
Subjective Subjective Date of Service: 04/12/23 Reason For Visit: crisis Subjective Notes: Conditional Voluntary Interim History: Reviewed with Dr. Edgar. Pt reports feeling nervous about the meeting today with the PACT team because I just want to go back to the hotel . Pt stated, I have no desire to hurt anyone. I don't want to go to fpc . pt denies SI/HI/VH/AH. T/W and social sciences lecturer, Obdulia, present for provider meeting with patient's outpatient therapist, psychiatric provider, mother and PACT team. Pt's mother reports patient has a hx of making empty threats which is all talk and no follow through . Plan from outpatient team is to obtain [place] [facility] [place] and place patient on [facility]. PACT team plans to look into anger management courses. Plan to be picked up by PACT security team lead on Sunday and brought back to his hotel room with continued outpatient support. Medication Compliance: Yes Side effects from medications: No Attending Groups: No Review of Systems Constitutional: Reports as per HPI Eyes: Reports as per HPI Reports as per HPI Cardiovascular: Reports as per HPI Respiratory: Reports as per HPI Gastrointestinal: Reports as per HPI Genitourinary: Reports as per HPI Musculoskeletal: Reports as per HPI Skin/Breast: Reports as per HPI Reports as per HPI Psychiatric: Reports as per HPI Endocrine: Reports as per HPI Hematologic/Lymphatic: Reports as per HPI Allergic/Immunologic: Reports as per HPI Mental Status Exam Mental Status Exam Narrative: Pt is alert and oriented; behavior is irritable, guarded; dressed in casual attire; mood is described as good ; eye contact appropriate; Speech is normal rate, volume; focused on discharge. denies SI/HI/VH/AH. Diagnostics Vital Signs (24Hr): Vital Signs - 24 hr 04/11/23 20:25 04/12/23 08:41 Temperature 97.2 F Pulse Rate 75 Respiratory Rate 16 16 Blood Pressure 112/63 Pulse Oximetry 99 Oxygen Delivery Method Room Air BMI result Body Mass Index 19.9 Labs 04/03/23 13:44 04/03/23 13:44 Medications Medications Current Medications Acetaminophen (Acetaminophen 325 Mg Tablet) 650 mg PO Q6H PRN PRN Reason: Headache/Pain Mild Scale (1-3) Last Admin: 04/10/23 09:40 Dose: 650 mg Al Hydroxide/Mg Hydroxide (Magnesium Hydrox/Alum Hydrox 30 Ml Oral.Susp) 30 ml PO Q6H PRN PRN Reason: Heartburn/Nausea Divalproex Sodium (Divalproex Sodium 500 Mg Tablet.Dr) 1,000 mg PO BID [facility] Last Admin: 04/12/23 08:17 Dose: 1,000 mg Fluphenazine HCl (Fluphenazine Hcl 5 Mg Tablet) 10 mg PO BID [facility] Last Admin: 04/12/23 08:17 Dose: 10 mg Fluphenazine HCl (Fluphenazine Hcl 5 Mg Tablet) 5 mg PO BID PRN PRN Reason: Psychosis Last Admin: 04/10/23 11:23 Dose: 5 mg Hydroxyzine HCl (Hydroxyzine Hcl 25 Mg Tablet) 25 mg PO TID [facility] Last Admin: 04/12/23 08:17 Dose: 25 mg Ibuprofen (Ibuprofen 600 Mg Tablet) 600 mg PO Q6H PRN PRN Reason: moderate pain Last Admin: 04/11/23 09:02 Dose: 600 mg Lidocaine (Lidocaine 4 % Patch Adh..Patch) 1 patch TRANSDERMA DAILY [facility]; Protocol Last Admin: 04/12/23 08:18 Dose: Not Given Lorazepam (Lorazepam 0.5 Mg Tablet) 0.5 mg PO BID PRN PRN Reason: Anxiety Last Admin: 04/11/23 16:51 Dose: 0.5 mg Magnesium Hydroxide (Milk Of Magnesia 30 Ml Oral.Susp) 30 ml PO DAILY PRN PRN Reason: Constipation Nicotine (Nicotine 21 Mg Patch.Td24) 21 mg TRANSDERMA DAILY [facility] Last Admin: 04/12/23 08:18 Dose: Not Given Nicotine Polacrilex (Nicotine Polacrilex 2 Mg Gum) 4 mg BUCCAL Q2H PRN PRN Reason: Nicotine Cravings Last Admin: 04/11/23 14:17 Dose: 4 mg Olanzapine (Olanzapine 10 Mg Tablet) 30 mg PO BEDTIME [facility] Last Admin: 04/11/23 21:27 Dose: 30 mg Ondansetron HCl (Ondansetron Odt 4 Mg Tab.Rapdis) 4 mg TRANSLINGU Q6H PRN PRN Reason: Vomiting Last Admin: 04/11/23 16:01 Dose: 4 mg Trazodone HCl (Trazodone Hcl 50 Mg Tablet) 50 mg PO BEDTIME MRX1 PRN PRN Reason: Insomnia Allergies Allergies Allergy/AdvReac Type Severity Reaction Status Date / Time No Known Allergies Allergy Verified 09/28/21 12:49 Assessment & Plan Assessment & Plan (1) Schizoaffective disorder: Status: Acute Code(s): F25.9 - Schizoaffective disorder, unspecified Plan Patient is a 32 year old male with hx of schizoaffective d/o who presented to ER via police secondary to making suicidal and homicidal statements at the motel he was staying. Plan: CV 3 day notice 5 minute safety checks continue home medications obtain collateral discharge planning 04/05: Patient presents similar to yesterday. irritable edge. keeping to self. not attending groups. medication compliant. refused labs. pt stated, I shouldn't be in here. You guys are just racist. I was minding my own business. I didn't tell anyone anything. Those are just lies . cafe worker, Obdulia, reports she spoke to outpatient team who reported patient was not medication compliant and made threats of harming them prior to admission. continue current treatment plan. possibly file section 7 on Sunday if pt does not retract 3 day notice. 04/06: angry to be in the hospital. denies mental illness. says he has/had been and will continue to take meds. continue current mgmt. 04/07: feeling happy today. planning to discharge tomorrow. missed meds last night but took them this morning. no concerning behaviors. 04/08: Met with T/W and cafe workerObdulia. Pt presents irritable and frustrated. Pt stated, I want to leave; you guys are being racist. I never said any of the things the PACT team is saying. I didn't barricade the door. I was taking my meds. I didn't say I would kill anyone. They are lying. I'm poor and you guys are rich,so you think you can treat me this way . When asked if he would ever hurt anyone on the PACT team, pt stated, I don't know what I'm capable of doing . Pt retracted 3 day notice. T/W to get in contact with patient's mother, Caroline Campbell, for collateral. 04/09: Pt presents irritable and guarded. Pt stated, I'm fine. I slept fine. I don't feel like going to groups . When discussing the events prior to admission, pt stated, I don't have time for that game. They put words in my mouth. They're a joke. I'm going through racism . T/W spoke with patient's mother, Caroline Campbell, via phone. Caroline reports she has tried contact [facility] multiple times for more intense services for [facility] because he was considered a high risk patient in [place] . Caroline stated she is willing to testify in court if needed since she believes [facility] needs help . 04/10: Pt presents irritable and guarded. Pt stated, I'm doing good. I don't have a mental illness; I don't see things or hear things. I have anger problems. I'll go to a anger management program. I never said I was going to hurt anyone or shoot anyone. I would only hurt someone if they put their hands on me first. What's the point of hurting someone first? I didn't threaten anyone. I mind my business . Pt reports he plans on taking his medications when discharged. T/W discussed possible ABERNATHY; pt reports he doesn't want an injection because I don't like needles . pt denies SI/HI/VH/AH. 04/11: Pt reports feeling nervous about the meeting today with the PACT team because I just want to go back to the hotel . Pt stated, I have no desire to hurt anyone. I don't want to go to fpc . pt denies SI/HI/VH/AH. T/W and social sciences lecturer, Obdulia, present for provider meeting with patient's outpatient therapist, psychiatric provider, mother and PACT team. Pt's mother reports patient has a hx of making empty threats which is all talk and no follow through . Plan from outpatient team is to obtain a [facility] [place] and place patient on AB[facility]. PACT team plans to look into anger management courses. Plan to be picked up by PACT security team lead on Sunday and brought back to his hotel room with continued outpatient support. Patient educated on: diagnosis, medication risk/benefits and therapeutic strategies Informed Consent: understands Reason for continued inpatient stay Substantial Risk for: med/psych decompensation Time Spent With Patient Time: Total time managing care of this patient today _30___ minutes.
[2023-04-12] MEDS: Ibuprofen 600 MG TABLET PO (09:33)
[2023-04-12] MEDS: Nicotine Polacrilex 2 MG GUM 4 MG BUCCAL ×2 (09:33→15:48)
[2023-04-12] MEDS: Ondansetron ODT 4 MG TAB.RAPDIS TRANSLINGU (11:20)
[2023-04-12 22:00] VITALS: RESP 18
[2023-04-13 00:45] VITALS: BP 129/86; PULSE 68; RESP 18; TEMP 36.2; O2SAT 100
[2023-04-13] MEDS: OLANZapine 10 MG TABLET 30 MG PO ×2 (00:57→20:32)
[2023-04-13] MEDS: Divalproex Sodium 500 MG TABLET.DR 1000 MG PO ×3 (00:57→20:33)
[2023-04-13] MEDS: LORazepam 0.5 MG TABLET PO (00:58)
[2023-04-13] MEDS: Ibuprofen 600 MG TABLET PO (00:59)
[2023-04-13] MEDS: fluPHENAZine HCl 5 MG TABLET 10 MG PO ×3 (01:00→20:33)
[2023-04-13 06:00] VITALS: BP 110/68; PULSE 64; RESP 16; TEMP 36.2; O2SAT 96
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
[2023-04-13] MEDS: hydrOXYzine HCL 25 MG TABLET PO ×3 (09:13→20:33)
[2023-04-13] MEDS: Nicotine Polacrilex 2 MG GUM 4 MG BUCCAL ×2 (13:00→21:19)
[2023-04-13 19:30] VITALS: BP 122/80; PULSE 75; RESP 16; TEMP 36.3; O2SAT 99
[2023-04-14] MEDS: Divalproex Sodium 500 MG TABLET.DR 1000 MG PO ×2 (08:51→20:07)
[2023-04-14] MEDS: fluPHENAZine HCl 5 MG TABLET 10 MG PO ×2 (08:51→20:07)
[2023-04-14] MEDS: hydrOXYzine HCL 25 MG TABLET PO ×3 (08:52→20:07)
[2023-04-14] MEDS: Nicotine Polacrilex 2 MG GUM 4 MG BUCCAL (09:22)
--- NOTE | 2023-04-14 11:12 | HO.PSYCHPN ---
Subjective Subjective Date of Service: 04/14/23 Reason For Visit: crisis Subjective Notes: Conditional Voluntary Interim History: Met with patient. Discussed with Nursing. No management issues. Isolative. Patient reports looking forward to discharge after the weekend. Hopeful for an apartment in the future with pact team support. Adamantly denies psychosis, SI or HI. Denies medication concerns Medication Compliance: Yes Side effects from medications: No Attending Groups: No Review of Systems Acute medical concerns: No Review of Systems Review of Systems unremarkable Mental Status Exam Mental Status Exam Narrative: Pt is alert and oriented; behavior is guarded; dressed in casual attire; mood is described as good ; eye contact appropriate; Speech is normal rate, volume; focused on discharge. denies SI/HI/VH/AH. Diagnostics Vital Signs (24Hr): Vital Signs - 24 hr 04/13/23 19:30 Temperature 97.3 F Pulse Rate 75 Respiratory Rate 16 Blood Pressure 122/80 Pulse Oximetry 99 Oxygen Delivery Method Room Air BMI result Body Mass Index 21.2 Labs 04/03/23 13:44 04/03/23 13:44 Medications Medications Current Medications Acetaminophen (Acetaminophen 325 Mg Tablet) 650 mg PO Q6H PRN PRN Reason: Headache/Pain Mild Scale (1-3) Last Admin: 04/10/23 09:40 Dose: 650 mg Al Hydroxide/Mg Hydroxide (Magnesium Hydrox/Alum Hydrox 30 Ml Oral.Susp) 30 ml PO Q6H PRN PRN Reason: Heartburn/Nausea Divalproex Sodium (Divalproex Sodium 500 Mg Tablet.Dr) 1,000 mg PO BID [facility] Last Admin: 04/14/23 08:51 Dose: 1,000 mg Fluphenazine HCl (Fluphenazine Hcl 5 Mg Tablet) 10 mg PO BID [facility] Last Admin: 04/14/23 08:51 Dose: 10 mg Fluphenazine HCl (Fluphenazine Hcl 5 Mg Tablet) 5 mg PO BID PRN PRN Reason: Psychosis Last Admin: 04/10/23 11:23 Dose: 5 mg Hydroxyzine HCl (Hydroxyzine Hcl 25 Mg Tablet) 25 mg PO TID [facility] Last Admin: 04/14/23 08:52 Dose: 25 mg Ibuprofen (Ibuprofen 600 Mg Tablet) 600 mg PO Q6H PRN PRN Reason: moderate pain Last Admin: 04/13/23 00:59 Dose: 600 mg Lidocaine (Lidocaine 4 % Patch Adh..Patch) 1 patch TRANSDERMA DAILY [facility]; Protocol Last Admin: 04/14/23 08:53 Dose: Not Given Lorazepam (Lorazepam 0.5 Mg Tablet) 0.5 mg PO BID PRN PRN Reason: Anxiety Last Admin: 04/13/23 00:58 Dose: 0.5 mg Magnesium Hydroxide (Milk Of Magnesia 30 Ml Oral.Susp) 30 ml PO DAILY PRN PRN Reason: Constipation Nicotine (Nicotine 21 Mg Patch.Td24) 21 mg TRANSDERMA DAILY [facility] Last Admin: 04/14/23 08:53 Dose: Not Given Nicotine Polacrilex (Nicotine Polacrilex 2 Mg Gum) 4 mg BUCCAL Q2H PRN PRN Reason: Nicotine Cravings Last Admin: 04/14/23 09:22 Dose: 4 mg Olanzapine (Olanzapine 10 Mg Tablet) 30 mg PO BEDTIME [facility] Last Admin: 04/13/23 20:32 Dose: 30 mg Ondansetron HCl (Ondansetron Odt 4 Mg Tab.Rapdis) 4 mg TRANSLINGU Q6H PRN PRN Reason: Vomiting Last Admin: 04/12/23 11:20 Dose: 4 mg Trazodone HCl (Trazodone Hcl 50 Mg Tablet) 50 mg PO BEDTIME MRX1 PRN PRN Reason: Insomnia Allergies Allergies Allergy/AdvReac Type Severity Reaction Status Date / Time No Known Allergies Allergy Verified 09/28/21 12:49 Assessment & Plan Assessment & Plan (1) Schizoaffective disorder: Status: Acute Code(s): F25.9 - Schizoaffective disorder, unspecified Plan Patient is a 32 year old male with hx of schizoaffective d/o who presented to ER via police secondary to making suicidal and homicidal statements at the motel he was staying. Plan: CV 3 day notice 5 minute safety checks continue home medications obtain collateral discharge planning 04/05: Patient presents similar to yesterday. irritable edge. keeping to self. not attending groups. medication compliant. refused labs. pt stated, I shouldn't be in here. You guys are just racist. I was minding my own business. I didn't tell anyone anything. Those are just lies . film processing utility worker, Obdulia, reports she spoke to outpatient team who reported patient was not medication compliant and made threats of harming them prior to admission. continue current treatment plan. possibly file section 7 on Sunday if pt does not retract 3 day notice. 04/06: angry to be in the hospital. denies mental illness. says he has/had been and will continue to take meds. continue current mgmt. 04/07: feeling happy today. planning to discharge tomorrow. missed meds last night but took them this morning. no concerning behaviors. 04/08: Met with T/W and film processing utility worker, Obdulia. Pt presents irritable and frustrated. Pt stated, I want to leave; you guys are being racist. I never said any of the things the PACT team is saying. I didn't barricade the door. I was taking my meds. I didn't say I would kill anyone. They are lying. I'm poor and you guys are rich,so you think you can treat me this way . When asked if he would ever hurt anyone on the PACT team, pt stated, I don't know what I'm capable of doing . Pt retracted 3 day notice. T/W to get in contact with patient's mother, Caroline Campbell, for collateral. 04/09: Pt presents irritable and guarded. Pt stated, I'm fine. I slept fine. I don't feel like going to groups . When discussing the events prior to admission, pt stated, I don't have time for that game. They put words in my mouth. They're a joke. I'm going through racism . T/W spoke with patient's mother, Caroline Campbell, via phone. Caroline reports she has tried contact [facility] multiple times for more intense services for [facility] because he was considered a high risk patient in [place] . Caroline stated she is willing to testify in court if needed since she believes [facility] needs help . 04/10: Pt presents irritable and guarded. Pt stated, I'm doing good. I don't have a mental illness; I don't see things or hear things. I have anger problems. I'll go to a anger management program. I never said I was going to hurt anyone or shoot anyone. I would only hurt someone if they put their hands on me first. What's the point of hurting someone first? I didn't threaten anyone. I mind my business . Pt reports he plans on taking his medications when discharged. T/W discussed possible ABERNATHY; pt reports he doesn't want an injection because I don't like needles . pt denies SI/HI/VH/AH. 04/11: Pt reports feeling nervous about the meeting today with the PACT team because I just want to go back to the hotel . Pt stated, I have no desire to hurt anyone. I don't want to go to detention . pt denies SI/HI/VH/AH. T/W and manager social responsibility, Obdulia, present for provider meeting with patient's outpatient therapist, psychiatric provider, mother and PACT team. Pt's mother reports patient has a hx of making empty threats which is all talk and no follow through . Plan from outpatient team is to obtain a [facility] order and place patient on ABERNATHY. PACT team plans to look into anger management courses. Plan to be picked up by PACT steam meter reader on Sunday and brought back to his hotel room with continued outpatient support. 04/12: Pt reports feeling okay today; pt stated, I'm just waiting to get discharged . Patient did attend a group last evening. continues to deny SI/HI/VH/AH. continue current tx plan. 04/14/2023: No changes Reason for continued inpatient stay Substantial Risk for: rapid decompensation Time Spent With Patient Time: Total time managing care of this patient today ____ minutes.
[2023-04-14] MEDS: OLANZapine 10 MG TABLET 30 MG PO (20:08)
[2023-04-14 20:10] VITALS: BP 135/82; PULSE 72; RESP 16; TEMP 36.1; O2SAT 99
[2023-04-15] MEDS: hydrOXYzine HCL 25 MG TABLET PO ×3 (09:26→20:17)
[2023-04-15] MEDS: Divalproex Sodium 500 MG TABLET.DR 1000 MG PO ×2 (09:26→20:17)
[2023-04-15] MEDS: fluPHENAZine HCl 5 MG TABLET 10 MG PO ×2 (09:26→20:17)
[2023-04-15] MEDS: Nicotine Polacrilex 2 MG GUM 4 MG BUCCAL ×3 (13:55→20:17)
--- NOTE | 2023-04-15 14:13 | HO.PSYCHPN ---
Subjective Subjective Date of Service: 04/15/23 Reason For Visit: crisis Subjective Notes: Conditional Voluntary Interim History: Met with patient. Discussed with Nursing. No management issues. Still looking forward to discharge tomorrow. Adamantly denies psychosis, SI or HI. Denies medication concerns Medication Compliance: Yes Side effects from medications: No Attending Groups: Intermittent Review of Systems Acute medical concerns: No Review of Systems Review of Systems unremarkable Mental Status Exam Mental Status Exam Narrative: Pt is alert and oriented; behavior is guarded; dressed in casual attire; mood is described as good ; eye contact appropriate; Speech is normal rate, volume; looking forward to discharge. denies SI/HI/VH/AH. Diagnostics Vital Signs (24Hr): Vital Signs - 24 hr 04/14/23 20:10 Temperature 97 F Pulse Rate 72 Respiratory Rate 16 Blood Pressure 135/82 Pulse Oximetry 99 Oxygen Delivery Method Room Air BMI result Body Mass Index 21.2 Labs 04/03/23 13:44 04/03/23 13:44 Medications Medications Current Medications Acetaminophen (Acetaminophen 325 Mg Tablet) 650 mg PO Q6H PRN PRN Reason: Headache/Pain Mild Scale (1-3) Last Admin: 04/10/23 09:40 Dose: 650 mg Al Hydroxide/Mg Hydroxide (Magnesium Hydrox/Alum Hydrox 30 Ml Oral.Susp) 30 ml PO Q6H PRN PRN Reason: Heartburn/Nausea Divalproex Sodium (Divalproex Sodium 500 Mg Tablet.Dr) 1,000 mg PO BID [facility] Last Admin: 04/15/23 09:26 Dose: 1,000 mg Fluphenazine HCl (Fluphenazine Hcl 5 Mg Tablet) 10 mg PO BID [facility] Last Admin: 04/15/23 09:26 Dose: 10 mg Fluphenazine HCl (Fluphenazine Hcl 5 Mg Tablet) 5 mg PO BID PRN PRN Reason: Psychosis Last Admin: 04/10/23 11:23 Dose: 5 mg Hydroxyzine HCl (Hydroxyzine Hcl 25 Mg Tablet) 25 mg PO TID [facility] Last Admin: 04/15/23 09:26 Dose: 25 mg Ibuprofen (Ibuprofen 600 Mg Tablet) 600 mg PO Q6H PRN PRN Reason: moderate pain Last Admin: 04/13/23 00:59 Dose: 600 mg Lidocaine (Lidocaine 4 % Patch Adh..Patch) 1 patch TRANSDERMA DAILY [facility]; Protocol Last Admin: 04/15/23 09:28 Dose: Not Given Lorazepam (Lorazepam 0.5 Mg Tablet) 0.5 mg PO BID PRN PRN Reason: Anxiety Last Admin: 04/13/23 00:58 Dose: 0.5 mg Magnesium Hydroxide (Milk Of Magnesia 30 Ml Oral.Susp) 30 ml PO DAILY PRN PRN Reason: Constipation Nicotine (Nicotine 21 Mg Patch.Td24) 21 mg TRANSDERMA DAILY [facility] Last Admin: 04/15/23 09:28 Dose: Not Given Nicotine Polacrilex (Nicotine Polacrilex 2 Mg Gum) 4 mg BUCCAL Q2H PRN PRN Reason: Nicotine Cravings Last Admin: 04/15/23 13:55 Dose: 4 mg Olanzapine (Olanzapine 10 Mg Tablet) 30 mg PO BEDTIME [facility] Last Admin: 04/14/23 20:08 Dose: 30 mg Ondansetron HCl (Ondansetron Odt 4 Mg Tab.Rapdis) 4 mg TRANSLINGU Q6H PRN PRN Reason: Vomiting Last Admin: 04/12/23 11:20 Dose: 4 mg Trazodone HCl (Trazodone Hcl 50 Mg Tablet) 50 mg PO BEDTIME MRX1 PRN PRN Reason: Insomnia Allergies Allergies Allergy/AdvReac Type Severity Reaction Status Date / Time No Known Allergies Allergy Verified 09/28/21 12:49 Assessment & Plan Assessment & Plan (1) Schizoaffective disorder: Status: Acute Code(s): F25.9 - Schizoaffective disorder, unspecified Plan Patient is a 32 year old male with hx of schizoaffective d/o who presented to ER via police secondary to making suicidal and homicidal statements at the motel he was staying. Plan: CV 3 day notice 5 minute safety checks continue home medications obtain collateral discharge planning 04/05: Patient presents similar to yesterday. irritable edge. keeping to self. not attending groups. medication compliant. refused labs. pt stated, I shouldn't be in here. You guys are just racist. I was minding my own business. I didn't tell anyone anything. Those are just lies . cupola worker, Obdulia, reports she spoke to outpatient team who reported patient was not medication compliant and made threats of harming them prior to admission. continue current treatment plan. possibly file section 7 on Sunday if pt does not retract 3 day notice. 04/06: angry to be in the hospital. denies mental illness. says he has/had been and will continue to take meds. continue current mgmt. 04/07: feeling happy today. planning to discharge tomorrow. missed meds last night but took them this morning. no concerning behaviors. 04/08: Met with T/W and cupola worker, Obdulia. Pt presents irritable and frustrated. Pt stated, I want to leave; you guys are being racist. I never said any of the things the PACT team is saying. I didn't barricade the door. I was taking my meds. I didn't say I would kill anyone. They are lying. I'm poor and you guys are rich,so you think you can treat me this way . When asked if he would ever hurt anyone on the PACT team, pt stated, I don't know what I'm capable of doing . Pt retracted 3 day notice. T/W to get in contact with patient's mother, Caroline Campbell, for collateral. 04/09: Pt presents irritable and guarded. Pt stated, I'm fine. I slept fine. I don't feel like going to groups . When discussing the events prior to admission, pt stated, I don't have time for that game. They put words in my mouth. They're a joke. I'm going through racism . T/W spoke with patient's mother, Caroline Campbell, via phone. Caroline reports she has tried contact [facility] multiple times for more intense services for [place] because he was considered a high risk patient in [place] . Caroline stated she is willing to testify in court if needed since she believes D[facility]e needs help . 04/10: Pt presents irritable and guarded. Pt stated, I'm doing good. I don't have a mental illness; I don't see things or hear things. I have anger problems. I'll go to a anger management program. I never said I was going to hurt anyone or shoot anyone. I would only hurt someone if they put their hands on me first. What's the point of hurting someone first? I didn't threaten anyone. I mind my business . Pt reports he plans on taking his medications when discharged. T/W discussed possible ABERNATHY; pt reports he doesn't want an injection because I don't like needles . pt denies SI/HI/VH/AH. 04/11: Pt reports feeling nervous about the meeting today with the PACT team because I just want to go back to the hotel . Pt stated, I have no desire to hurt anyone. I don't want to go to [facility] . pt denies SI/HI/VH/AH. T/W and nursing home social worker, Obdulia, present for provider meeting with patient's outpatient therapist, psychiatric provider, mother and PACT team. Pt's mother reports patient has a hx of making empty threats which is all talk and no follow through . Plan from outpatient team is to obtain a [facility] order and place patient on ABERNATHY. PACT team plans to look into anger management courses. Plan to be picked up by PACT steam plant records clerk on Sunday and brought back to his hotel room with continued outpatient support. 04/12: Pt reports feeling okay today; pt stated, I'm just waiting to get discharged . Patient did attend a group last evening. continues to deny SI/HI/VH/AH. continue current tx plan. 04/15/2023: No changes Reason for continued inpatient stay Substantial Risk for: rapid decompensation Time Spent With Patient Time: Total time managing care of this patient today ____ minutes.
[2023-04-15 19:45] VITALS: BP 126/94; PULSE 87; RESP 16; TEMP 36.7; O2SAT 99
[2023-04-15] MEDS: OLANZapine 10 MG TABLET 30 MG PO (20:17)
--- NOTE | 2023-04-16 08:45 | P.DS_ITS ---
DS: Providers Provider Date of Service: 04/16/23 Date of admission: 04/04/23 13:13 Date of discharge: 04/16/23 Primary care physician: Ofe Physician Admitting clinician: Becki Pettit Attending physician on admission: Vj Edgar Attending physician on discharge: Vj Edgar Discharging clinician: Becki Pettit DS: Diagnosis Discharge Diagnosis (1) Schizoaffective disorder: Status: Acute DS: Medications Discharge Medications Home Medications: Home Medications Medication Instructions Recorded Confirmed fluphenazine HCl 10 mg tablet 10 mg PO BID 04/03/23 04/03/23 hydroxyzine pamoate 25 mg capsule 25 mg PO TID 04/03/23 04/03/23 olanzapine 15 mg disintegrating 30 mg PO BEDTIME 04/03/23 04/04/23 tablet divalproex 500 mg tablet,delayed 1,000 mg PO BID 04/04/23 04/04/23 release melatonin 3 mg tablet 6 mg PO BEDTIME 04/04/23 04/04/23 Mental Status Exam Mental Status Exam Narrative: Pt is alert and oriented; behavior is cooperative and calm; dressed in casual attire; mood is described as good ; eye contact appropriate; Speech is normal rate, volume and prosody and not pressured; thought process is organized and goal directed; Thought content is on tx; denies SI/HI/VH/AH. DS: Summary Hospital Course Hospital Course: Patient is a 32 year old male with hx of schizoaffective d/o who presented to ER via police secondary to making suicidal and homicidal statements at the motel he was staying. Per crisis report, pt became combative with police and came in handcuffs to the hospital. On arrival, pt was combative, threatening staff and was placed in restraints and medicated while in the ER Pod. pt has a hx of non compliance of medication and decompensating. During admission assessment, pt presents guarded and irritable. Pt stated, I'm here for no reason. Someone called the medical technologist prn on me. Mary Esther of racist people. I don't know how to act around white people; cause if I say the wrong thing I'll go to [facility]. I take my medication every day. I sleep fine. I wasn't making any suicidal or homicidal statements. That's a lie . pt denies AH/VH. He reports being upset with the mental health agency because they take my money and give it to this motel . Pt stated, I only have a 7th grade level education so I can't get a good job and this motel is just taking my money and I'm poor . Pt refused to answer questions regarding substance use; pt stated, that's my personal business. I'm not withdrawing from anything . pt signed 3 day notice which is up on Sunday04/08/13. During hospital course, CV 3 day notice 15 minute safety checks continue home medications obtain collateral discharge planning Patient presents similar to yesterday. irritable edge. keeping to self. not attending groups. medication compliant. refused labs. pt stated, I shouldn't be in here. You guys are just racist. I was minding my own business. I didn't tell anyone anything. Those are just lies . rehabilitation worker, Obdulia, reports she spoke to outpatient team who reported patient was not medication compliant and made threats of harming them prior to admission. continue current treatment plan. possibly file section 7 on Sunday if pt does not retract 3 day notice. angry to be in the hospital. denies mental illness. says he has/had been and will continue to take meds. continue current mgmt. feeling happy today. missed meds last night but took them this morning. no concerning behaviors. Met with T/W and rehabilitation workerObdulia. Pt presents irritable and frustrated. Pt stated, I want to leave; you guys are being racist. I never said any of the things the PACT team is saying. I didn't barricade the door. I was taking my meds. I didn't say I would kill anyone. They are lying. I'm poor and you guys are rich,so you think you can treat me this way . When asked if he would ever hurt anyone on the PACT team, pt stated, I don't know what I'm capable of doing . Pt retracted 3 day notice. T/W to get in contact with patient's mother, Caroline Campbell, for collateral. Pt presents irritable and guarded. Pt stated, I'm fine. I slept fine. I don't feel like going to groups . When discussing the events prior to admission, pt stated, I don't have time for that game. They put words in my mouth. They're a joke. I'm going through racism . T/W spoke with patient's mother, Caroline Campbell, via phone. Caroline reports she has tried contact [facility] multiple times for more intense services for D[place]e because he was considered a high risk patient in [place] . Caroline stated she is willing to testify in court if needed since she believes Dvante needs help . Pt presents irritable and guarded. Pt stated, I'm doing good. I don't have a mental illness; I don't see things or hear things. I have anger problems. I'll go to a anger management program. I never said I was going to hurt anyone or shoot anyone. I would only hurt someone if they put their hands on me first. What's the point of hurting someone first? I didn't threaten anyone. I mind my business . Pt reports he plans on taking his medications when discharged. T/W discussed possible ABERNATHY; pt reports he doesn't want an injection because I don't like needles . pt denies SI/HI/VH/AH. Pt reports feeling nervous about the meeting today with the PACT team because I just want to go back to the hotel . Pt stated, I have no desire to hurt anyone. I don't want to go to long term . pt denies SI/HI/VH/AH. T/W and transition social worker, Obdulia, present for provider meeting with patient's outpatient therapist, psychiatric provider, mother and PACT team. Pt's mother reports patient has a hx of making empty threats which is all talk and no follow through . Plan from outpatient team is to obtain a [facility] order and place patient on ABERNATHY. PACT team plans to look into anger management courses. Plan to be picked up by PACT molybdenum steamer operator on Sunday and brought back to his hotel room with continued outpatient support. Pt reports feeling okay today; pt stated, I'm just waiting to get discharged . Patient did attend a group last evening. continues to deny SI/HI/VH/AH. Pt presents social with peers and staff. Laughing and talkative. Pt reports feeling ready to leave ' pt stated, I hate being at the [facility] because they all do drugs and I don't. I have a kind and considerate heart for people. I'm going to take my medication in front of the PACT team so they can't say that I'm not taking them . pt denies SI/HI/VH/AH. PACT molybdenum steamer operator to picker operator patient. Time spent discussing smoking cessation with patient: 3 to 10 minutes Status at Discharge Cognitive/behavioral status at discharge: Patient was interviewed prior to discharge and found to be fully oriented and without any SI or HI. Patient has insight and demonstrates good judgment in terms of wanting to pursue treatment. Patient has a safety plan that includes presenting to the closest ER or calling 911 if feeling unsafe. Functional status at discharge: independent ambulation Overall status at discharge: patient is back to baseline Time Spent with Patient Time attestation: Total time managing care of this patient today _30___ minutes. Time spent: Less than 30 minutes Discharge Plan Discharge Anticipated Discharge Date/Time: 04/16/23 10:00 Patient Disposition: Home, Self-Care Discharge Diagnosis: Schizoaffective d/o Referrals: [facility] [Other] - 1 Week (Follow up with your PACT team for any needs or concerns; PACT will let you know when your next appointment with your prescriber, elvin Monique) [facility] [Provider Group] - 1 Week (Please call the number listed if you need a PCP. ) Discharge Medications: Continued fluphenazine HCl 10 mg tablet 10 mg PO BID olanzapine 15 mg tablet,disintegrating 30 mg PO BEDTIME hydroxyzine pamoate 25 mg capsule 25 mg PO TID melatonin 3 mg tablet 6 mg PO BEDTIME divalproex 500 mg tablet,delayed release (DR/EC) 1,000 mg PO BID Discharge Orders: Discharge Order (Routine); Ordered 04/16/23 Ordered By: Becki Pettit Diet: Regular diet Activity on Discharge: As tolerated Stand Alone Forms: Patient Portal Discharge page, Community Support Care Plan Goals: Maintain mood and safe behaviors Take medications as prescribed Practice coping skills Continue with outpatient providers and reach out to them as needed Health Concerns: Mood stability and behaviors Plan of Treatment: Follow up with your PCP, psychiatric provider and other outpatient providers regarding above concerns Take medications as prescribed Assessment: Patient was interviewed prior to discharge and found to be fully oriented and without any SI or HI. Patient has insight and demonstrates good judgment in terms of wanting to pursue treatment. Patient has a safety plan that includes presenting to the closest ER or calling 911 if feeling unsafe. Discharge Date/Time: 04/16/23 09:55
[2023-04-16] MEDS: Divalproex Sodium 500 MG TABLET.DR 1000 MG PO (09:28)
[2023-04-16] MEDS: fluPHENAZine HCl 5 MG TABLET 10 MG PO (09:28)
[2023-04-16] MEDS: hydrOXYzine HCL 25 MG TABLET PO (09:28)
[2023-04-16] MEDS: Nicotine Polacrilex 2 MG GUM 4 MG BUCCAL (09:29)
== END 2023-04-16 09:55 | disposition home or self-care (01) | DRG 885 ==
LOC: HO.ED 15:21 → HO.PADLT16 04-04 14:18
PROVIDERS: Physician Assistant; Admitting Provider Registered Nurse; Emergency Provider Emergency Medicine; Responsible Provider Registered Nurse; Visit Provider Psychiatry & Neurology Psychiatry
DX: F25.9 Schizoaffective disorder, unspecified (principal); Z59.01 Sheltered homelessness; Z20.822 Contact with and (suspected) exposure to COVID-19; Z87.891 Personal history of nicotine dependence; Z79.899 Other long term (current) drug therapy
CPT/HCPCS: 36415; 80053; 80143; 80179; 80307; 83735; 85025; 87635; 99285; J1200; J1630; J2060; S9485

== ENCOUNTER → 2023-04-04 13:13 | Outpatient (BNV) | payer MEDICARE, SELFPAY | PROVIDERS: Admitting Provider Registered Nurse; Emergency Provider Emergency Medicine; Responsible Provider Registered Nurse; Visit Provider Psychiatry & Neurology Psychiatry | DX: F25.0 Schizoaffective disorder, bipolar type (principal) | CPT/HCPCS: 90792; 99231; 99232; 99238 ==

== ENCOUNTER 2023-08-13 13:25 | Inpatient (IN) | payer MEDICARE, SELFPAY ==
[2023-08-13 13:42] VITALS: BP 139/79; PULSE 79; RESP 16; TEMP 36.6; O2SAT 98; BMI 23.7
--- NOTE | 2023-08-13 14:02 | ED_ITS ---
HPI - Psych General Chief Complaint: Behavioral Concerns Stated Complaint: CRISIS EVAL PER EMS Time Seen by Provider: 08/13/23 13:56 Mode of arrival: EMS History of Present Illness HPI Narrative: This is a 33 years old male with history of schizoaffective disorder multiple prior psychiatric hospitalization brought in by ambulance because disorganized thought. He denies SI HI. Friends called an ambulance on him, he denies SI and HI MD complaint: anxiety Onset (ago): hour(s) (1) Duration: constant History of same: Yes Relieving factors: none Exacerbating factors: none Associated psychiatric symptoms: delusions Associated symptoms: denies other symptoms Related Data Home Medications ?Medication ?Instructions ?Recorded ?Confirmed fluphenazine HCl 10 mg tablet 10 mg PO BID 04/03/23 04/03/23 hydroxyzine pamoate 25 mg capsule 25 mg PO TID 04/03/23 04/03/23 olanzapine 15 mg disintegrating 30 mg PO BEDTIME 04/03/23 04/04/23 tablet divalproex 500 mg tablet,delayed 1,000 mg PO BID 04/04/23 04/04/23 release melatonin 3 mg tablet 6 mg PO BEDTIME 04/04/23 04/04/23 Allergies Allergy/AdvReac Type Severity Reaction Status Date / Time No Known Allergies Allergy Verified 08/13/23 13:47 Review of Systems 2 Review of Systems: Yes Unobtainable due to mental condition PMFSH Past Medical History Medical History Asthma Bipolar 1 disorder Social History Social History Household Members: None Household Members Other:: Mom only Housing: Homeless Do you presently have visiting nurse or other home services: No Comment: Staff aware of fall risk. Patient Tobacco Use Status: Former Tobacco user Tobacco use type: Cigarette Years Smoked: 15 Second Hand Smoke Exposure: No Substance Use Type: Marijuana Advance Directives: No Advance Directives Information Provided: Yes service: No Sexual orientation: Straight/Heterosexual Physical Exam 2 Vital Signs: Vital Signs: Last Vital Signs Temp 97.9 F 08/13/23 14:46 Pulse 58 08/13/23 14:46 Resp 18 08/13/23 14:46 BP 106/70 08/13/23 14:46 Pulse Ox 100 08/13/23 14:46 O2 Del Method Room Air 08/13/23 14:46 BMI result Body Mass Index 23.7 Const: General: no acute distress Nutritional Appearance: well nourished Limitations: no limitations HEENT: Head: Yes normal to inspection General nose exam: Normal external nose present Face and sinus: Yes normal facial exam Eyes: General: appearance normal, both eyes and all related structures Neck: Neck: Yes normal visual inspection and Yes full ROM Chest: Chest palpation & inspection: normal inspection of the chest Resp: Effort & Inspection: normal respiratory effort Auscultation: clear to auscultation bilaterally Cardio: Jugular venous distension: no JVD Rate: regular rate Rhythm: r egular rhythm GI: Inspection: Yes normal to inspection Palpation (GI): Soft to palpation, not firm and nontender Auscultation: normal bowel sounds Skin: General skin exam: no rashes or lesions noted and elasticity normal L esions: no lesions Rashes: no rashes Course Reevaluation(s) Reevaluation #1: off shift now pt signed out to Dr Guzman Time: 16:11 Medical Decision Making Medical Decision Making [facility] Narrative: Patient presented here with the disorganized thought history of schizoaffective disorder we get a psychiatric evaluation check drug screen Differential Diagnosis Differential Diagnoses: The differential diagnosis associated with the presentation includes Psychosis/drug abuse Lab Data 08/13/23 15:37 08/13/23 15:37 Labs: Lab Results 08/13/23 Range/Units 15:37 WBC 7.2 (4.8-10.8) X10*3/uL RBC 4.98 (4.60-5.80) X10*6/uL Hgb 14.9 (14.0-18.0) g/dl Hct 44.9 (42.0-52.0) % MCV 90.2 (80.0-98.0) fL MCH 29.9 (27.0-33.0) pg MCHC 33.2 (31.0-36.0) g/dl RDW 12.6 (11.0-16.0) % Plt Count 238 D (160-400) X10*3/uL MPV 10.0 (9.4-12.4) fL Immature Gran % (Auto) 0.3 (0.0-0.4) % Neut % (Auto) 56.8 (45-73) % Lymph % (Auto) 34.0 (20-40) % Bremer % (Auto) 7.8 (2-11) % Eos % (Auto) 1.0 (0-4) % Baso % (Auto) 0.1 (0-2) % Lymph # (Auto) 2.4 (1.2-4.9) X10*3/uL Bremer # (Auto) 0.6 (0.1-1.2) X10*3/uL Eos # (Auto) 0.1 (0.0-0.4) X10*3/uL Baso # (Auto) 0.0 (0.0-0.2) X10*3/uL Abs Immat Gran (auto) 0.02 (0.00-0.03) X10*3/uL Absolute Neuts (auto) 4.1 (2.0-8.3) x10*3/uL Absolute Nucleated RBC 0.000 (0.0-0.012) X10*3/uL Nucleated RBC % (auto) 0.0 (0.0-0.2) /100WBC Sodium 143 (135-145) mmol/L Potassium 3.3 D (3.3-5.1) mmol/L Chloride 106 (96-108) mmol/L Carbon Dioxide 26 (22-29) mmol/L Anion Gap 14 (12-20) BUN 7 L (9-16) mg/dL Creatinine 0.89 (0.5-1.4) mg/dL Estim Creat Clear Calc 126.9 Estimated GFR > 60 Random Glucose 81 (60-115) mg/dL Calcium 10.2 D (8.4-10.2) mg/dL Total Bilirubin 0.7 (0.0-1.0) mg/dL AST 16 (5-37) U/L ALT 9 (0-40) U/L Alkaline Phosphatase 67 (39-117) U/L Total Protein 8.1 H (6.5-8.0) g/dL Albumin 5.0 (3.5-5.0) g/dL Discharge Plan Discharge Clinical Impression: Schizoaffective disorder Prescriptions: No Action fluphenazine HCl 10 mg tablet 10 mg PO BID olanzapine 15 mg tablet,disintegrating 30 mg PO BEDTIME hydroxyzine pamoate 25 mg capsule 25 mg PO TID melatonin 3 mg tablet 6 mg PO BEDTIME divalproex 500 mg tablet,delayed release (DR/EC) 1,000 mg PO BID Print Language: Solomon Islander
[2023-08-13 14:46] VITALS: BP 106/70; PULSE 58; RESP 18; TEMP 36.6; O2SAT 100
[2023-08-13 15:40] LABS: MANUAL DIFF FLAG NO
[2023-08-13 15:42] LABS: Basophils Percent Auto 0.1 % (0-2); Eosinophils Absolute Auto 0.1 X10*3/uL (0.0-0.4); Hematocrit 44.9 % (42.0-52.0); Hemoglobin 14.9 g/dl (14.0-18.0); Imm Gran Abs Auto 0.02 X10*3/uL (0.00-0.03); Imm Gran Pct Auto 0.3 % (0.0-0.4); Lymphocytes Absolute Auto 2.4 X10*3/uL (1.2-4.9); Mean Corpuscular HGB Conc 33.2 g/dl (31.0-36.0); Mean Corpuscular Hemoglobin 29.9 pg (27.0-33.0); Mean Corpuscular Volume 90.2 fL (80.0-98.0); Monocytes Absolute Auto 0.6 X10*3/uL (0.1-1.2); Monocytes Percent Auto 7.8 % (2-11); Neutrophils Absolute Auto 4.1 x10*3/uL (2.0-8.3); Neutrophils Percent Auto 56.8 % (45-73); Platelet Count 238 X10*3/uL (160-400); Red Blood Count 4.98 X10*6/uL (4.60-5.80); Red Cell Distribution Width 12.6 % (11.0-16.0); White Blood Count 7.2 X10*3/uL (4.8-10.8)
[2023-08-13 15:57] LABS: Alanine Aminotransferase 9 U/L (0-40); Alkaline Phosphatase 67 U/L (39-117); Anion Gap 14 (12-20); Aspartate Amino Transferase 16 U/L (5-37); Bilirubin Total 0.7 mg/dL (0.0-1.0); Blood Urea Nitrogen 7 mg/dL (9-16); Calcium 10.2 mg/dL (8.4-10.2); Carbon Dioxide 26 mmol/L (22-29); Chloride 106 mmol/L (96-108); Creatinine Clr Calc Pharmacy 126.9; Estimated Glomerular Filt Rate > 60; Glucose Random 81 mg/dL (60-115); Potassium 3.3 mmol/L (3.3-5.1); Sodium 143 mmol/L (135-145); Total Protein 8.1 g/dL (6.5-8.0)
--- NOTE | 2023-08-13 16:36 | PC.NURSE ---
Security called for patient policy change clerk.
[2023-08-13 16:42] LABS: Acetaminophen LAB < 3 mcg/mL (<30); Salicylate < 5.0 mg/dL (15-30)
--- NOTE | 2023-08-13 16:51 | PC.NURSE ---
Called Ceci in the pod, gave phone report, security to walk to pod once patient is changed over.
--- NOTE | 2023-08-13 17:12 | PC.NURSE ---
Patient successfully changed over to hospital attire with security assistance, walked over to pod. belongings list completed, belongings secured in LOCKER 3.
--- NOTE | 2023-08-13 17:30 | PC.NURSE ---
Pt. refusing to give urine sample. Urine cup left at pt.'s bedside- pt. aware that it's there.
--- NOTE | 2023-08-13 21:32 | PC.NURSE ---
Pt refusing to answer any questions. Plan of care ongoing.
[2023-08-13 22:36] VITALS: BP 126/81; PULSE 74; RESP 16; TEMP 36.6; O2SAT 95
[2023-08-13 22:39] VITALS: BMI 16.8
[2023-08-13] MEDS: OLANZapine 10 MG TABLET PO (23:01)
[2023-08-13] MEDS: Divalproex Sodium ER 500 MG TAB.ER.24H PO (23:01)
--- NOTE | 2023-08-13 23:11 | MHC.CARE ---
This fha underwriter contacted [facility] to obtain authorization for IPLOC and information is as followed: Sandy from [facility] approved 4 days starting today, 08/13/2023, with the last cover day occurring on 08/16/2023. Concurrent review is with Claudia Mercedes and the phone number is as followed: [phone] ext [phone] Authorization number is as followed: [id number]
--- NOTE | 2023-08-14 03:15 | PC.ADMIT ---
Vidal is a 33yo Sami speaking male, admitted on 12b from ED, [facility] for treatment of psychosis/ disorganized behavior . Pt has history of schizoaffective disorder with multiple prior psychiatric hospitalization. He presented with disorganized thought. Pt reports that he stopped his meds b/c it made him shaken and it seems that he is going to lose his manhood. On admission, Pt was calm and pleasant but later became irritable b/c he was tired and want to sleep. He denies SI/HI/AV/VH. He refused to sign release of information forms, and did not fill my contacts form. He states I will do it tomorrow, I want to go and sleep. Skin check done, v/s stable and weight checked. Hospitalist contacted for consultation, treatment plan and safety tools initiated but yet to be signed. Pt placed on 15 minutes safety check .
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
[2023-08-14] MEDS: fluPHENAZine HCl 5 MG TABLET 10 MG PO ×2 (15:15→20:54)
[2023-08-14 19:09] LABS: Ammonia 48 umol/L (13-55)
[2023-08-14 19:17] LABS: Alanine Aminotransferase 10 U/L (0-40); Albumin Level 4.8 g/dL (3.5-5.0); Alkaline Phosphatase 72 U/L (39-117); Aspartate Amino Transferase 16 U/L (5-37); Bilirubin Direct 0.2 mg/dL (0.0-0.5); Bilirubin Total 0.6 mg/dL (0.0-1.0); Cholesterol 146 mg/dL (<200); HDL Cholesterol 53 mg/dL (>40); LDL Cholesterol Calculated 87 mg/dL (<100); Total Protein 8.2 g/dL (6.5-8.0); Triglycerides 32 mg/dL (<150)
[2023-08-14] MEDS: Divalproex Sodium ER 500 MG TAB.ER.24H PO (20:55)
[2023-08-14] MEDS: Melatonin 3 MG TABLET PO (20:55)
[2023-08-14] MEDS: OLANZapine ODT 10 MG TAB.RAPDIS 15 MG TRANSLINGU (20:56)
[2023-08-15 07:23] LABS: Estimated Average Glucose 97 mg/dL
[2023-08-15] MEDS: fluPHENAZine HCl 5 MG TABLET 10 MG PO ×2 (08:37→21:32)
--- NOTE | 2023-08-15 08:51 | HO.PSYCHPN ---
Subjective Subjective Date of Service: 08/15/23 Reason For Visit: Psychosis/Threatning Subjective Notes: 3 Day Interim History: Reviewed with Dr. Edgar. Keeping to self. guarded. pt reports feeling good today; pt stated, I take my medications everyday. They come to my place. I go outside, take the meds in front of them and I go back inside. I'm sick of having to come to the hospital . Valproic acid level 44.0 on 08/14/23. Patient denies SI/HI/VH/AH. 3 day notice up on 08/17/23. Medication Compliance: Yes Side effects from medications: No Attending Groups: No Review of Systems Constitutional: Reports as per HPI Eyes: Reports as per HPI Reports as per HPI Cardiovascular: Reports as per HPI Respiratory: Reports as per HPI Gastrointestinal: Reports as per HPI Genitourinary: Reports as per HPI Musculoskeletal: Reports as per HPI Skin/Breast: Reports as per HPI Reports as per HPI Psychiatric: Reports as per HPI Endocrine: Reports as per HPI Hematologic/Lymphatic: Reports as per HPI Allergic/Immunologic: Reports as per HPI Mental Status Exam Mental Status Exam Narrative: Pt is alert and oriented; behavior is cooperative, calm, irritable edge, guarded; dressed in casual attire; mood is described as good ; eye contact appropriate; Speech is normal rate, volume and not pressured; thought process is organized; focused on discharge; denies SI/HI/VH/AH. Diagnostics Vital Signs (24Hr): BMI result Body Mass Index 16.8 Labs 08/13/23 15:37 08/13/23 15:37 Labs: Laboratory Results - last 48 hr 08/13/23 08/14/23 15:37 18:47 WBC 7.2 RBC 4.98 Hgb 14.9 Hct 44.9 MCV 90.2 MCH 29.9 MCHC 33.2 RDW 12.6 Plt Count 238 D MPV 10.0 Immature Gran % (Auto) 0.3 Neut % (Auto) 56.8 Lymph % (Auto) 34.0 [place] % (Auto) 7.8 Eos % (Auto) 1.0 Baso % (Auto) 0.1 Lymph # (Auto) 2.4 [place] # (Auto) 0.6 Eos # (Auto) 0.1 Baso # (Auto) 0.0 Abs Immat Gran (auto) 0.02 Absolute Neuts (auto) 4.1 Absolute Nucleated RBC 0.000 Nucleated RBC % (auto) 0.0 Sodium 143 Potassium 3.3 D Chloride 106 Carbon Dioxide 26 Anion Gap 14 BUN 7 L Creatinine 0.89 Estim Creat Clear Calc 126.9 Estimated GFR > 60 Random Glucose 81 Estimat Average Glucose 97 Hemoglobin A1c % 5.0 Calcium 10.2 D Total Bilirubin 0.7 0.6 Direct Bilirubin 0.2 AST 16 16 ALT 9 10 Alkaline Phosphatase 67 72 Ammonia 48 Total Protein 8.1 H 8.2 H Albumin 5.0 4.8 Triglycerides 32 Cholesterol 146 LDL Cholesterol, Calc 87 HDL Cholesterol 53 Salicylates < 5.0 L Acetaminophen < 3 Valproic Acid 44.0 L Medications Medications Current Medications Acetaminophen (Acetaminophen 325 Mg Tablet) 650 mg PO Q6H PRN PRN Reason: Headache/Pain Mild Scale (1-3) Al Hydroxide/Mg Hydroxide (Magnesium Hydrox/Alum Hydrox 30 Ml Oral.Susp) 30 ml PO Q6H PRN PRN Reason: Heartburn/Nausea Divalproex Sodium (Divalproex Sodium Er 500 Mg Tab.Er.24h) 500 mg PO BEDTIME [facility] Last Admin: 08/14/23 20:55 Dose: 500 mg Fluphenazine HCl (Fluphenazine Hcl 5 Mg Tablet) 10 mg PO BID [facility] Last Admin: 08/15/23 08:37 Dose: 10 mg Hydroxyzine HCl (Hydroxyzine Hcl 25 Mg Tablet) 25 mg PO TID PRN PRN Reason: Anxiety Magnesium Hydroxide (Milk Of Magnesia 30 Ml Oral.Susp) 30 ml PO DAILY PRN PRN Reason: Constipation Melatonin (Melatonin 3 Mg Tablet) 3 mg PO BEDTIME [facility] Last Admin: 08/14/23 20:55 Dose: 3 mg Nicotine (Nicotine 21 Mg Patch.Td24) 21 mg TRANSDERMA DAILY PRN PRN Reason: smoking cessation Nicotine Polacrilex (Nicotine Polacrilex 2 Mg Gum) 4 mg BUCCAL Q2H PRN PRN Reason: Nicotine Cravings Olanzapine (Olanzapine 5 Mg Tablet) 5 mg PO TID PRN PRN Reason: agitation Olanzapine (Olanzapine Odt 10 Mg Tab.Rapdis) 15 mg TRANSLINGU BEDTIME [facility] Last Admin: 08/14/23 20:56 Dose: 15 mg Trazodone HCl (Trazodone Hcl 50 Mg Tablet) 50 mg PO BEDTIME MRX1 PRN PRN Reason: Insomnia Allergies Allergies Allergy/AdvReac Type Severity Reaction Status Date / Time No Known Allergies Allergy Verified 08/13/23 13:47 Assessment & Plan Assessment & Plan (1) Schizoaffective disorder: Status: Acute Code(s): F25.9 - Schizoaffective disorder, unspecified (2) PTSD (post-traumatic stress disorder): Status: Acute Code(s): F43.10 - Post-traumatic stress disorder, unspecified Plan Patient is a 33 year old male with hx of Schizoaffective d/o and PTSD who presented to ER d/t decompensating secondary to mediation noncompliance. Plan: CV/3 day notice 15 minute safety checks continue home medications obtain collateral encourage medication compliance labs (Valproic acid level, ammonia, liver panel) discharge planning 08/14: Keeping to self. guarded. pt reports feeling good today; pt stated, I take my medications everyday. They come to my place. I go outside, take the meds in front of them and I go back inside. I'm sick of having to come to the hospital . Valproic acid level 44.0 on 08/14/23. Patient denies SI/HI/VH/AH. 3 day notice up on 08/17/23. Continue current tx plan. Patient educated on: diagnosis and medication risk/benefits Informed Consent: understands Reason for continued inpatient stay Substantial Risk for: med/psych decompensation Time Spent With Patient Time: Total time managing care of this patient today _20___ minutes.
[2023-08-15] MEDS: Divalproex Sodium ER 500 MG TAB.ER.24H PO (21:31)
[2023-08-15] MEDS: OLANZapine ODT 10 MG TAB.RAPDIS 15 MG TRANSLINGU (21:32)
[2023-08-15] MEDS: Melatonin 3 MG TABLET PO (21:32)
[2023-08-16 07:30] VITALS: BP 106/67; PULSE 49; RESP 16; TEMP 36.4; O2SAT 99
[2023-08-16] MEDS: fluPHENAZine HCl 5 MG TABLET 10 MG PO ×2 (10:44→23:07)
--- NOTE | 2023-08-16 13:54 | HO.PSYCHPN ---
Subjective Subjective Date of Service: 08/16/23 Reason For Visit: Psychosis/Threatning Subjective Notes: 3 Day Interim History: Reviewed with Dr. Edgar. sort line worker, Kierra, and patient's [facility] PACT steamer tender met with patient. Pt continues to report he has been taking his medication prior to admission. Pt stated, I always take my medications because I don't want to end up in the hospital . Pt reports feeling good today and looking forward to returning to his room at the [facility]. Pt reports he plans on continuing taking his medications because he does not want to return to the hospital. pt denies SI/HI/VH/AH. 3 day up tomorrow on 08/16/23. Medication Compliance: Yes Side effects from medications: No Attending Groups: No Review of Systems Constitutional: Reports as per HPI Eyes: Reports as per HPI Reports as per HPI Cardiovascular: Reports as per HPI Respiratory: Reports as per HPI Gastrointestinal: Reports as per HPI Genitourinary: Reports as per HPI Musculoskeletal: Reports as per HPI Skin/Breast: Reports as per HPI Reports as per HPI Psychiatric: Reports as per HPI Endocrine: Reports as per HPI Hematologic/Lymphatic: Reports as per HPI Allergic/Immunologic: Reports as per HPI Mental Status Exam Mental Status Exam Narrative: Pt is alert and oriented; behavior is cooperative, calm; dressed in casual attire; mood is described as good ; eye contact appropriate; Speech is normal rate, volume and not pressured; thought process is organized; focused on discharge; denies SI/HI/VH/AH. Diagnostics Vital Signs (24Hr): Vital Signs - 24 hr 08/16/23 07:30 Temperature 97.5 F Pulse Rate 49 L Respiratory Rate 16 Blood Pressure 106/67 Pulse Oximetry 99 Oxygen Delivery Method Room Air BMI result Body Mass Index 16.8 Labs 08/13/23 15:37 08/13/23 15:37 Labs: Laboratory Results - last 48 hr 08/14/23 18:47 Estimat Average Glucose 97 Hemoglobin A1c % 5.0 Total Bilirubin 0.6 Direct Bilirubin 0.2 AST 16 ALT 10 Alkaline Phosphatase 72 Ammonia 48 Total Protein 8.2 H Albumin 4.8 Triglycerides 32 Cholesterol 146 LDL Cholesterol, Calc 87 HDL Cholesterol 53 Valproic Acid 44.0 L Medications Medications Current Medications Acetaminophen (Acetaminophen 325 Mg Tablet) 650 mg PO Q6H PRN PRN Reason: Headache/Pain Mild Scale (1-3) Al Hydroxide/Mg Hydroxide (Magnesium Hydrox/Alum Hydrox 30 Ml Oral.Susp) 30 ml PO Q6H PRN PRN Reason: Heartburn/Nausea Divalproex Sodium (Divalproex Sodium Er 500 Mg Tab.Er.24h) 500 mg PO BEDTIME [facility] Last Admin: 08/15/23 21:31 Dose: 500 mg Fluphenazine HCl (Fluphenazine Hcl 5 Mg Tablet) 10 mg PO BID [facility] Last Admin: 08/16/23 10:44 Dose: 10 mg Hydroxyzine HCl (Hydroxyzine Hcl 25 Mg Tablet) 25 mg PO TID PRN PRN Reason: Anxiety Magnesium Hydroxide (Milk Of Magnesia 30 Ml Oral.Susp) 30 ml PO DAILY PRN PRN Reason: Constipation Melatonin (Melatonin 3 Mg Tablet) 3 mg PO BEDTIME [facility] Last Admin: 08/15/23 21:32 Dose: 3 mg Nicotine (Nicotine 21 Mg Patch.Td24) 21 mg TRANSDERMA DAILY PRN PRN Reason: smoking cessation Nicotine Polacrilex (Nicotine Polacrilex 2 Mg Gum) 4 mg BUCCAL Q2H PRN PRN Reason: Nicotine Cravings Olanzapine (Olanzapine 5 Mg Tablet) 5 mg PO TID PRN PRN Reason: agitation Olanzapine (Olanzapine Odt 10 Mg Tab.Rapdis) 15 mg TRANSLINGU BEDTIME [facility] Last Admin: 08/15/23 21:32 Dose: 15 mg Trazodone HCl (Trazodone Hcl 50 Mg Tablet) 50 mg PO BEDTIME MRX1 PRN PRN Reason: Insomnia Allergies Allergies Allergy/AdvReac Type Severity Reaction Status Date / Time No Known Allergies Allergy Verified 08/13/23 13:47 Assessment & Plan Assessment & Plan (1) Schizoaffective disorder: Status: Acute Code(s): F25.9 - Schizoaffective disorder, unspecified (2) PTSD (post-traumatic stress disorder): Status: Acute Code(s): F43.10 - Post-traumatic stress disorder, unspecified Plan Patient is a 33 year old male with hx of Schizoaffective d/o and PTSD who presented to ER d/t decompensating secondary to mediation noncompliance. Plan: /3 day notice 15 minute safety checks continue home medications obtain collateral encourage medication compliance labs (Valproic acid level, ammonia, liver panel) discharge planning 08/14: Keeping to self. guarded. pt reports feeling good today; pt stated, I take my medications everyday. They come to my place. I go outside, take the meds in front of them and I go back inside. I'm sick of having to come to the hospital . Valproic acid level 44.0 on 08/14/23. Patient denies SI/HI/VH/AH. 3 day notice up on 08/17/23. Continue current tx plan. 08/15: sort line worker, Kierra, and patient's [facility] PACT steamer tender met with patient. Pt continues to report he has been taking his medication prior to admission. Pt stated, I always take my medications because I don't want to end up in the hospital . Pt reports feeling good today and looking forward to returning to his room at the [facility]. Pt reports he plans on continuing taking his medications because he does not want to return to the hospital. pt denies SI/HI/VH/AH. 3 day up tomorrow on 08/16/23. Patient educated on: diagnosis, medication risk/benefits and therapeutic strategies Informed Consent: understands Reason for continued inpatient stay Substantial Risk for: stable for discharge Time Spent With Patient Time: Total time managing care of this patient today _30___ minutes.
[2023-08-16 20:22] VITALS: BP 110/72; PULSE 56; RESP 16; TEMP 36.4; O2SAT 98
[2023-08-16] MEDS: Melatonin 3 MG TABLET PO (23:08)
[2023-08-16] MEDS: OLANZapine ODT 10 MG TAB.RAPDIS 15 MG TRANSLINGU (23:08)
[2023-08-16] MEDS: Divalproex Sodium ER 500 MG TAB.ER.24H PO (23:08)
[2023-08-17 08:00] VITALS: RESP 18
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
[2023-08-17] MEDS: fluPHENAZine HCl 5 MG TABLET 10 MG PO (09:16)
== END 2023-08-17 10:30 | disposition home or self-care (01) | DRG 885 ==
LOC: HO.ED 17:07 → HO.PADLT16 18:45
PROVIDERS: Admitting Provider Psychiatry & Neurology Psychiatry; Emergency Provider Emergency Medicine; Responsible Provider Registered Nurse; Visit Provider Psychiatry & Neurology Psychiatry
DX: F25.9 Schizoaffective disorder, unspecified (principal); F43.10 Post-traumatic stress disorder, unspecified; F17.210 Nicotine dependence, cigarettes, uncomplicated; Z71.6 Tobacco abuse counseling; Z79.899 Other long term (current) drug therapy
CPT/HCPCS: 36415; 80053; 80061; 80076; 80143; 80164; 80179; 82140; 83036; 85025; 99285

== ENCOUNTER → 2023-08-13 18:41 | Outpatient (BNV) | payer MEDICARE, SELFPAY | PROVIDERS: Admitting Provider Psychiatry & Neurology Psychiatry; Emergency Provider Emergency Medicine; Responsible Provider Registered Nurse; Visit Provider Registered Nurse | DX: F25.9 Schizoaffective disorder, unspecified (principal); F43.11 Post-traumatic stress disorder, acute | CPT/HCPCS: 90792; 99231; 99232; 99238 ==

== ENCOUNTER 2023-10-19 15:23 | Inpatient (IN) | payer OTHER, SELFPAY ==
--- NOTE | 2023-10-19 | ECG_ITS ---
Test Reason : MEDICAL CLEARANCE Blood Pressure : / mmHG Vent. Rate : 082 BPM Atrial Rate : 082 BPM P-R Int : 174 ms QRS Dur : 102 ms QT Int : 370 ms P-R-T Axes : 068 081 063 degrees QTc Int : 432 ms Normal sinus rhythm Incomplete right bundle branch block Borderline ECG When compared with ECG of 16-OCT-2022 10:58, No significant change was found Referred By: Generic ED Physician Electronically Signed By:SUMAYA MERCADO
[2023-10-19 15:29] VITALS: BMI 25.8
--- NOTE | 2023-10-19 15:34 | ED.PSYCH ---
HPI - Psych General Chief Complaint: Psychiatric Symptoms Stated Complaint: 4 point restraints, sec 12, bipolar, combative Time Seen by Provider: 10/19/23 15:27 Source: patient, EMS and old records reviewed Mode of arrival: EMS Limitations: other (Combative, agitated) History of Present Illness ED Provider: Jn Burdick PA-C HPI Narrative: 33-year-old male with history of schizoaffective disorder, bipolar disorder, PTSD who presents to the ER via EMS on a section 12, inpatient bed search from the community. He was picked up by EMS at a local motel. His mother had called PD because he was acting erratically, not answering the door, not taking his medications. She noted he had lost significant amount of weight and not been taking care of himself. He had been making homicidal and sexual statements. On EMS arrival patient was kicking, spitting and very combative requiring 4 point restraints. He is making homicidal statements. MD complaint: altered mental status and homicidal ideation Onset (ago): unknown Duration: constant History of same: Yes Context: not taking psychiatric medications Treatments prior to arrival: placed on mental health hold Related Data Home Medications ?Medication ?Instructions ?Recorded ?Confirmed fluphenazine HCl 10 mg tablet 10 mg PO BID 04/03/23 04/03/23 hydroxyzine pamoate 25 mg capsule 25 mg PO TID 04/03/23 04/03/23 olanzapine 15 mg disintegrating 30 mg PO BEDTIME 04/03/23 04/04/23 tablet divalproex 500 mg tablet,delayed 1,000 mg PO BID 04/04/23 04/04/23 release melatonin 3 mg tablet 6 mg PO BEDTIME 04/04/23 04/04/23 Allergies Allergy/AdvReac Type Severity Reaction Status Date / Time No Known Allergies Allergy Verified 10/19/23 15:38 Review of Systems Review of Systems: Yes Unobtainable due to mental condition and Unobtainable due to mental status PMFSH Past Medical History Medical History Asthma Bipolar 1 disorder Social History Social History Household Members: None Household Members Other:: Mom only Housing: Homeless Do you presently have visiting nurse or other home services: No Unable to assess alcohol history related to: Refusing to respond Comment: Staff aware of fall risk. Patient Tobacco Use Status: Current everyday Tobacco user Tobacco use type: Cigarette Years Smoked: 15 e-Cigarette/Vaping Use: Never Used Second Hand Smoke Exposure: No Substance Use Type: Marijuana Advance Directives: No Advance Directives Information Provided: No Do you have a plan to hurt others: No Plan service: No Sexual orientation: Straight/Heterosexual Physical Exam Vital Signs: Vital Signs: Last Vital Signs Temp 98.5 F 10/19/23 16:22 Pulse 80 10/19/23 16:22 Resp 16 10/19/23 16:22 BP 112/60 10/19/23 16:22 Pulse Ox 96 10/19/23 16:22 O2 Del Method Room Air 10/19/23 16:22 BMI result Body Mass Index 25.8 Appearance: Alert. Oriented X3. Agitated, laughing HEENT: normal external inspection Neck: Normal inspection. Neck supple. Respiratory: No respiratory distress. Abdomen: Normal to inspection Skin: Skin warm and dry. Normal skin color. Normal skin turgor. No rashes. Extremities: No lower extremity edema. No joint swelling. Neuro/psych: Awake, alert, agitated and yelling out, moving all extremities spontaneously although in restraints and fighting them. Unable to assess cranial nerves or localized strength/sensory Medications Administered Discontinued Medications Generic Name Dose Route Start Last Admin Trade Name Freq PRN Reason Stop Dose Admin Diphenhydramine HCl 50 mg 10/19/23 15:27 10/19/23 15:37 Diphenhydramine Hcl 50 Mg/Ml Vial IM 10/19/23 15:28 50 mg ONCE ONE Administration Haloperidol Lactate 5 mg 10/19/23 15:27 10/19/23 15:37 Haloperidol Lactate 5 Mg/Ml Vial IM 10/19/23 15:28 5 mg ONCE ONE Administration Lorazepam 2 mg 10/19/23 15:27 10/19/23 15:37 Lorazepam 2 Mg/Ml Vial IM 10/19/23 15:28 2 mg ONCE ONE Administration Medical Decision Making Medical Decision Making MDM Narrative: 33-year-old male with a history of bipolar, schizoaffective, PTSD, coming in via EMS on a section 12 as a inpatient bed search from the community for erratic behavior, homicidal thoughts, aggressive behavior Patient requiring 4 point tied restraints along with intramuscular medications for his safety and the safety of staff members. Will reassess and monitor closely Differential Diagnosis Differential Diagnoses: The differential diagnosis associated with the presentation includes substance induced mood disorder, acute psychosis, schizophrenia, schizoaffective disorder, PTSD, bipolar disorder, major depression with psychotic features Admission/Observation Consideration of admission/observation: Escalation of care including admission/observation considered Lab Data MDM Lab Attestation statement: I reviewed the patient's lab results. Mild anemia, mild elevation of CPK 10/19/23 16:07 10/19/23 16:07 Labs: Lab Results 10/19/23 Range/Units 16:07 WBC 6.3 (4.8-10.8) X10*3/uL RBC 4.29 L (4.60-5.80) X10*6/uL Hgb 13.1 L (14.0-18.0) g/dl Hct 37.3 L (42.0-52.0) % MCV 86.9 (80.0-98.0) fL MCH 30.5 (27.0-33.0) pg MCHC 35.1 (31.0-36.0) g/dl RDW 12.7 (11.0-16.0) % Plt Count 175 D (160-400) X10*3/uL MPV 10.7 (9.4-12.4) fL Immature Gran % (Auto) 0.3 (0.0-0.4) % Neut % (Auto) 45.7 (45-73) % Lymph % (Auto) 41.9 H (20-40) % Bledsoe % (Auto) 10.9 (2-11) % Eos % (Auto) 1.0 (0-4) % Baso % (Auto) 0.2 (0-2) % Lymph # (Auto) 2.6 (1.2-4.9) X10*3/uL Bledsoe # (Auto) 0.7 (0.1-1.2) X10*3/uL Eos # (Auto) 0.1 (0.0-0.4) X10*3/uL Baso # (Auto) 0.0 (0.0-0.2) X10*3/uL Abs Immat Gran (auto) 0.02 (0.00-0.03) X10*3/uL Absolute Neuts (auto) 2.9 (2.0-8.3) x10*3/uL Absolute Nucleated RBC 0.000 (0.0-0.012) X10*3/uL Nucleated RBC % (auto) 0.0 (0.0-0.2) /100WBC Sodium 141 (135-145) mmol/L Potassium 3.6 (3.3-5.1) mmol/L Chloride 106 (96-108) mmol/L Carbon Dioxide 25 (22-29) mmol/L Anion Gap 14 (12-20) BUN 9 (9-16) mg/dL Creatinine 0.91 (0.5-1.4) mg/dL Estim Creat Clear Calc 127.9 Estimated GFR > 60 Random Glucose 107 (60-115) mg/dL Calcium 9.5 D (8.4-10.2) mg/dL Magnesium 2.2 (1.6-2.6) mg/dL Total Bilirubin 0.5 (0.0-1.0) mg/dL Direct Bilirubin 0.2 (0.0-0.5) mg/dL AST 15 (5-37) U/L ALT 8 (0-40) U/L Alkaline Phosphatase 53 (39-117) U/L Total Creatine Kinase 265 H (38-174) U/L Total Protein 6.8 (6.5-8.0) g/dL Albumin 4.3 (3.5-5.0) g/dL Ethyl Alcohol < 10 mg/dL Independent Historian Clinical information obtained from an independent historian. History obtained from or confirmed by: EMS External Record Review External record reviewed: Outpatient record, Prior outpatient labs and Prior outpatient radiology Prescription Management I considered prescription management with: Other (Antipsychotic) Chronic Conditions Patient?s care impacted by: Other (Bipolar, schizoaffective, PTSD) Social Determinants Patient?s care significantly limited by Social Determinants of Health including: Inadequate housing, Problems related to primary support group and Other Social Determinant of Health Critical Care Time Critical Care Time Critical Care Time: Yes Total Critical Care Time: 33 Attestation: I have personally provided critical care time exclusive of time spent on separately billable procedures. Time includes review of chart, bedside re-evaluation of mental status and after administration of intramuscular medication, and monitoring for potential decompensation. Intervention performed as documented. Discharge Plan Discharge Clinical Impression: Schizoaffective disorder Patient Disposition: Still a Patient Prescriptions: No Action fluphenazine HCl 10 mg tablet 10 mg PO BID olanzapine 15 mg tablet,disintegrating 30 mg PO BEDTIME hydroxyzine pamoate 25 mg capsule 25 mg PO TID melatonin 3 mg tablet 6 mg PO BEDTIME divalproex 500 mg tablet,delayed release (DR/EC) 1,000 mg PO BID Print Language: Luxembourgish
[2023-10-19] MEDS: Haloperidol Lactate 5 MG/ML VIAL IM (15:37)
[2023-10-19] MEDS: LORazepam 2 MG/ML VIAL IM (15:37)
[2023-10-19] MEDS: diphenhydrAMINE HCL 50 MG/ML VIAL IM (15:37)
[2023-10-19 15:52] VITALS: RESP 20
[2023-10-19 16:07] VITALS: BP 107/59; PULSE 83; RESP 16; TEMP 36.6; O2SAT 96
[2023-10-19 16:14] LABS: MANUAL DIFF FLAG NO
[2023-10-19 16:21] LABS: Basophils Percent Auto 0.2 % (0-2); Eosinophils Absolute Auto 0.1 X10*3/uL (0.0-0.4); Hematocrit 37.3 % (42.0-52.0); Hemoglobin 13.1 g/dl (14.0-18.0); Imm Gran Abs Auto 0.02 X10*3/uL (0.00-0.03); Imm Gran Pct Auto 0.3 % (0.0-0.4); Lymphocytes Absolute Auto 2.6 X10*3/uL (1.2-4.9); Lymphocytes Percent Auto 41.9 % (20-40); Mean Corpuscular HGB Conc 35.1 g/dl (31.0-36.0); Mean Corpuscular Hemoglobin 30.5 pg (27.0-33.0); Mean Corpuscular Volume 86.9 fL (80.0-98.0); Mean Platelet Volume 10.7 fL (9.4-12.4); Monocytes Absolute Auto 0.7 X10*3/uL (0.1-1.2); Monocytes Percent Auto 10.9 % (2-11); Neutrophils Absolute Auto 2.9 x10*3/uL (2.0-8.3); Neutrophils Percent Auto 45.7 % (45-73); Platelet Count 175 X10*3/uL (160-400); Red Blood Count 4.29 X10*6/uL (4.60-5.80); Red Cell Distribution Width 12.7 % (11.0-16.0); White Blood Count 6.3 X10*3/uL (4.8-10.8)
[2023-10-19 16:22] VITALS: BP 112/60; PULSE 80; RESP 16; TEMP 36.9; O2SAT 96
[2023-10-19 16:37] VITALS: BP 108/64; PULSE 82; RESP 16; O2SAT 97
--- NOTE | 2023-10-19 16:37 | PC.NURSE ---
RE: restraint episode Reason for restraint: - Patient arrived to [facility] in restraints with EMS, pt was making homicidal threats towards staff, threatening to harm individuals Type of Restraint: - Physical (velcro restraints) - Chemical -Ativan 2mg IM -Haldol 5mg IM -Benadryl 50mg IM Restraint initiated at 1537 Restraint terminated 1622 Details Patient arrives to the ED from community via EMS. pt was violent and combative in the field, attempting to hit and spit at EMS and police. Pt was making verbal homicidal threats towards staff upon arrival. For staff safety, it was decided patient be moved immediately to room [facility] and restrained right from the EMS stretcher. Pt was placed in 4 point restraints by security, per request of security, patient stayed in street clothes for the time being but was patted down for contraband. Pt was given two IM injections in both the right and left vastus lateralis. Pt continued to yell and make threats towards staff for about 30 minutes after receiving injections. Pt did begin to calm down, THERON Miller spoke with patient who then agreed to have his blood drawn, vitals taken and EKG performed. To do this, the right arm restraint was removed. After all tasks were complete, the patient was removed from restraints by security. Security and ELIOT Miller completed cover cutter machine with patient. Patient now sleeping, respirations even and unlabored, no apparent distress noted
[2023-10-19 16:38] LABS: Alanine Aminotransferase 8 U/L (0-40); Albumin Level 4.3 g/dL (3.5-5.0); Alkaline Phosphatase 53 U/L (39-117); Anion Gap 14 (12-20); Aspartate Amino Transferase 15 U/L (5-37); Bilirubin Direct 0.2 mg/dL (0.0-0.5); Bilirubin Total 0.5 mg/dL (0.0-1.0); Blood Urea Nitrogen 9 mg/dL (9-16); Calcium 9.5 mg/dL (8.4-10.2); Carbon Dioxide 25 mmol/L (22-29); Chloride 106 mmol/L (96-108); Creatinine Clr Calc Pharmacy 127.9; Estimated Glomerular Filt Rate > 60; Ethanol < 10 mg/dL; Glucose Random 107 mg/dL (60-115); Magnesium 2.2 mg/dL (1.6-2.6); Potassium 3.6 mmol/L (3.3-5.1); Sodium 141 mmol/L (135-145); Total Protein 6.8 g/dL (6.5-8.0)
--- NOTE | 2023-10-19 16:48 | MHC.CARE ---
CARE team was contacted by [facility] Kody co-response clinician regarding the pt, whom they were in the process of sending to the hospital on a Section 12 for delusions and agitation secondary to noncompliance with medication. Pt arrived via ambulance approximately 30 minutes later. [facility] co-response clinician came in with EMS and reported that they will be completing an assessment with disposition for inpatient admission. There are no appropriate beds available on either adult psych unit this evening. Pt will be reassessed when he is clinically appropriate to determine whether he continues to meet criteria for inpatient level of care.
--- NOTE | 2023-10-19 17:11 | PC.NURSE ---
RE: belongings all belongings in locker 1
[2023-10-19 18:10] LABS: TSH reflex Free T4 0.93 uIU/mL (0.32-4.0)
[2023-10-19 18:52] VITALS: BP 93/48; PULSE 71; RESP 14; O2SAT 93
--- NOTE | 2023-10-19 19:05 | PC.NURSE ---
patient appears to remain asleep at present appears in no distress.
[2023-10-20 06:40] VITALS: RESP 16
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
--- NOTE | 2023-10-20 13:51 | MHC.CARE ---
Inpatient notification of admission form sent to [facility] via fax
[2023-10-20 14:00] VITALS: BP 125/76; PULSE 77; RESP 17; TEMP 36.3; O2SAT 98
[2023-10-20] MEDS: OLANZapine ODT 10 MG TAB.RAPDIS TRANSLINGU (14:25)
[2023-10-20] MEDS: LORazepam 1 MG TABLET 2 MG PO (14:25)
--- NOTE | 2023-10-20 19:24 | PC.NURSE ---
patient appears to remain asleep presently respirations are even and unlabored patient appears in no distress.
[2023-10-21 06:08] VITALS: BP 122/91; PULSE 80; RESP 16; TEMP 36.2; O2SAT 100
[2023-10-21] MEDS: Divalproex Sodium 500 MG TABLET.DR 1000 MG PO ×2 (08:07→21:56)
[2023-10-21] MEDS: fluPHENAZine HCl 5 MG TABLET 10 MG PO (08:07)
--- NOTE | 2023-10-21 15:45 | PHA.MEDREC ---
Addendum entered by Bryanna Giraldo RPh 10/21/23 15:46: reviewed by [facility]. Original Note: Pharmacy Consult ? Medication Reconciliation Pharmacy has completed the medication reconciliation. Reviewed med rec done by nursing.
[2023-10-21 16:00] VITALS: BP 123/90; PULSE 73; RESP 14; TEMP 36.9; O2SAT 98
[2023-10-21 21:56] VITALS: BP 109/74; PULSE 71; RESP 16; TEMP 36.3; O2SAT 100
--- NOTE | 2023-10-21 23:25 | PC.NURSE ---
Assumed care of pt. {t sleeping, easily rousable, no acute distress at this time.
--- NOTE | 2023-10-22 01:27 | PC.NURSE ---
[place] Scale deferred as pt sleeping
[2023-10-22 05:39] VITALS: BP 121/80; PULSE 83; RESP 16; TEMP 36.7; O2SAT 100
[2023-10-22] MEDS: Divalproex Sodium 500 MG TABLET.DR 1000 MG PO ×2 (09:01→21:26)
[2023-10-22] MEDS: fluPHENAZine HCl 5 MG TABLET 10 MG PO ×2 (09:02→21:27)
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
--- NOTE | 2023-10-22 16:43 | MHC.CLN ---
NUTRITION CONSULT FOR SIGNIFICANT WEIGHT LOSS. REVIEW OF WEIGHT HX SHOWS SIGNIFICANT WEIGHT GAIN: X 2 MONTHS, +13%, AND X 6 MONTHS +37%. PLEASE CONSULT RD IF POOR PO INTAKE.
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
[2023-10-22] MEDS: Melatonin 3 MG TABLET 6 MG PO (21:27)
[2023-10-22] MEDS: OLANZapine 10 MG TABLET 30 MG PO (21:28)
[2023-10-23 09:06] VITALS: BP 111/67; PULSE 82; RESP 16; TEMP 36.6; O2SAT 100
[2023-10-23] MEDS: Divalproex Sodium 500 MG TABLET.DR 1000 MG PO (09:11)
[2023-10-23] MEDS: fluPHENAZine HCl 5 MG TABLET 10 MG PO (09:11)
[2023-10-23 14:35] LABS: Estimated Average Glucose 97 mg/dL
[2023-10-23 14:46] LABS: Alanine Aminotransferase 13 U/L (0-40); Albumin Level 4.6 g/dL (3.5-5.0); Alkaline Phosphatase 63 U/L (39-117); Anion Gap 13 (12-20); Aspartate Amino Transferase 23 U/L (5-37); Bilirubin Total 0.4 mg/dL (0.0-1.0); Blood Urea Nitrogen 12 mg/dL (9-16); Carbon Dioxide 27 mmol/L (22-29); Chloride 107 mmol/L (96-108); Cholesterol 123 mg/dL (<200); Creatinine Clr Calc Pharmacy 130.7; Estimated Glomerular Filt Rate > 60; Glucose Fasting 128 mg/dL (60-99); HDL Cholesterol 48 mg/dL (>40); LDL Cholesterol Calculated 52 mg/dL (<100); Potassium 4.1 mmol/L (3.3-5.1); Sodium 143 mmol/L (135-145); Total Protein 7.8 g/dL (6.5-8.0); Triglycerides 117 mg/dL (<150)
[2023-10-23 14:56] LABS: Thyroid Stimulating Hormone 0.34 uIU/mL (0.32-4.0)
[2023-10-23 15:10] LABS: Folate 9.9 ng/mL (> or = 4.0); Vitamin B12 813 pg/mL (200-900)
[2023-10-23 22:20] VITALS: RESP 16
[2023-10-24 07:05] VITALS: BP 124/77; PULSE 68; RESP 14; TEMP 36.2; O2SAT 99
[2023-10-24 08:00] VITALS: BP 124/77; PULSE 68; RESP 16; TEMP 36.2; O2SAT 99
[2023-10-24] MEDS: fluPHENAZine HCl 5 MG TABLET 10 MG PO ×2 (08:27→14:42)
[2023-10-24] MEDS: Divalproex Sodium 500 MG TABLET.DR 1000 MG PO (08:27)
--- NOTE | 2023-10-24 10:21 | P.PNPSI_ITS ---
Subjective Subjective Date of Service: 10/23/23 Reason For Visit: paranoid Subjective Notes: Conditional Voluntary and 3 Day Interim History: Pt slept most of the night. He did take night time medications and again this morning. He is in sensory room due to increase agitation. He was calmer this morning. He has been sleeping most of the morning and declined to speak with this technical publications writer. Per nursing, this morning calmer, but last night continued to yell at staff thinking hospital brought him here. Mental Status Exam Mental Status Exam Narrative: Pt asleep. declined to speak with technical publications writer. Diagnostics Vital Signs (24Hr): Vital Signs - 24 hr 10/23/23 22:20 10/24/23 07:05 10/24/23 08:00 Temperature 97.2 F 97.2 F Pulse Rate 68 68 Respiratory Rate 16 14 16 Blood Pressure 124/77 124/77 Pulse Oximetry 99 99 Oxygen Delivery Method Room Air Room Air BMI result Body Mass Index 25.8 Labs 10/19/23 16:07 10/23/23 14:11 Labs: Laboratory Results - last 48 hr 10/23/23 14:11 Sodium 143 Potassium 4.1 Chloride 107 Carbon Dioxide 27 Anion Gap 13 BUN 12 Creatinine 0.89 Estim Creat Clear Calc 130.7 Estimated GFR > 60 Fasting Glucose 128 H Estimat Average Glucose 97 Hemoglobin A1c % 5.0 Calcium 10.0 Total Bilirubin 0.4 AST 23 ALT 13 Alkaline Phosphatase 63 Total Protein 7.8 Albumin 4.6 Triglycerides 117 Cholesterol 123 LDL Cholesterol, Calc 52 HDL Cholesterol 48 Vitamin B12 813 Folate 9.9 TSH 0.34 Medications Medications Current Medications Acetaminophen (Acetaminophen 325 Mg Tablet) 650 mg PO Q6H PRN PRN Reason: Headache/Pain Mild Scale (1-3) Al Hydroxide/Mg Hydroxide (Magnesium Hydrox/Alum Hydrox 30 Ml Oral.Susp) 30 ml PO Q6H PRN PRN Reason: Heartburn/Nausea Divalproex Sodium (Divalproex Sodium 500 Mg Tablet.) 1,000 mg PO BID [facility] Last Admin: 10/24/23 08:27 Dose: 1,000 mg Fluphenazine HCl (Fluphenazine Hcl 5 Mg Tablet) 10 mg PO BID [facility] Last Admin: 10/24/23 08:27 Dose: 10 mg Hydroxyzine HCl (Hydroxyzine Hcl 25 Mg Tablet) 25 mg PO Q6H PRN PRN Reason: Anxiety Magnesium Hydroxide (Milk Of Magnesia 30 Ml Oral.Susp) 30 ml PO DAILY PRN PRN Reason: Constipation Melatonin (Melatonin 3 Mg Tablet) 6 mg PO BEDTIME [facility] Last Admin: 10/23/23 23:48 Dose: Not Given Olanzapine (Olanzapine 10 Mg Tablet) 30 mg PO BEDTIME [facility] Last Admin: 10/23/23 23:48 Dose: Not Given Trazodone HCl (Trazodone Hcl 50 Mg Tablet) 50 mg PO BEDTIME MRX1 PRN PRN Reason: Insomnia Allergies Allergies Allergy/AdvReac Type Severity Reaction Status Date / Time No Known Allergies Allergy Verified 10/19/23 15:38 Assessment & Plan Assessment & Plan (1) Schizoaffective disorder: Status: Acute Code(s): F25.9 - Schizoaffective disorder, unspecified Plan Mr. Campbell is a 33 year-old male with hx of schizoaffective disorder, bipolar type who was brought via EMS after mother called 911 reporting pt presenting more suspicious, making vague HI threats. In the ED, pt presented as agitated, requiring IM haldol and ativan. On the unit, pt continued to present as agitated, suspicious about hospital staff reports hospital took [place] of [place] motel because staff is racist. Pt has been on combination of prolixin, depakote, olanzapine. Medications restarted while he was in the ED. He is taking morning meds, declined nighttime. PLAN 1. Admit to M3, CV, 5 minutes checks 2. continue prolixin 10mg po BID, olanzapine 30mg po qhs, depakote 1000mg po BID. 3. Obtain collateral information 4. aftercare planning. Reason for continued inpatient stay Substantial Risk for: harm to others and inability to function Time Spent With Patient Time: Total time managing care of this patient today ____ minutes.
--- NOTE | 2023-10-24 10:24 | P.PNPSI_ITS ---
Subjective Subjective Date of Service: 10/24/23 Reason For Visit: paranoid Subjective Notes: 3 Day Interim History: Pt refused some doses of depakote, has refused olanzapine and nighttime dose of prolixin. He asked for different tray of food because he reported staff put pubic hair on it. He has been yelling at staff profanities, accusing them of trying to hurt him. Peer asked him to use more different appropriate language with staff and others and pt quickly escalated, threatening to kill him. Security was called, he threatened to kill one of security guards and go to his and then kill all his family. He was irritable when this global technical writer attempted to meet with him, stating I'm leaving tomorrow, I don't need to talk with you. Medication Compliance: Intermittent Side effects from medications: No Attending Groups: No Mental Status Exam Mental Status Exam Narrative: Appearance: wearing hospital gown, fair hygiene, in NAD Behavior: hostile, yelling Psychomotor: agitated Speech: clear, normal rate/rhythm/volume, spontaneous TP: linear TC: feeling targeted by hospital, wanting to leave Mood: unable to report Affect: very guarded, paranoid and hostile SI: unable to assess HI: making threats to kill staff, peers. VH/AH: appears internally preoccupied Delusions: paranoid delusions of ppl putting pubic hair (which is his usal theme of delusions), suspicious about others trying to harm him. Insight/judgment: impaired x 2. memory/cog: alert, oriented x 3 not to situation. Diagnostics Vital Signs (24Hr): Vital Signs - 24 hr 10/23/23 22:20 10/24/23 07:05 10/24/23 08:00 Temperature 97.2 F 97.2 F Pulse Rate 68 68 Respiratory Rate 16 14 16 Blood Pressure 124/77 124/77 Pulse Oximetry 99 99 Oxygen Delivery Method Room Air Room Air BMI result Body Mass Index 25.8 Labs 10/19/23 16:07 10/23/23 14:11 Labs: Laboratory Results - last 48 hr 10/23/23 14:11 Sodium 143 Potassium 4.1 Chloride 107 Carbon Dioxide 27 Anion Gap 13 BUN 12 Creatinine 0.89 Estim Creat Clear Calc 130.7 Estimated GFR > 60 Fasting Glucose 128 H Estimat Average Glucose 97 Hemoglobin A1c % 5.0 Calcium 10.0 Total Bilirubin 0.4 AST 23 ALT 13 Alkaline Phosphatase 63 Total Protein 7.8 Albumin 4.6 Triglycerides 117 Cholesterol 123 LDL Cholesterol, Calc 52 HDL Cholesterol 48 Vitamin B12 813 Folate 9.9 TSH 0.34 Medications Medications Current Medications Acetaminophen (Acetaminophen 325 Mg Tablet) 650 mg PO Q6H PRN PRN Reason: Headache/Pain Mild Scale (1-3) Al Hydroxide/Mg Hydroxide (Magnesium Hydrox/Alum Hydrox 30 Ml Oral.Susp) 30 ml PO Q6H PRN PRN Reason: Heartburn/Nausea Divalproex Sodium (Divalproex Sodium 500 Mg Tablet.Dr) 1,000 mg PO BID [facility] Last Admin: 10/24/23 08:27 Dose: 1,000 mg Fluphenazine HCl (Fluphenazine Hcl 5 Mg Tablet) 10 mg PO BID [facility] Last Admin: 10/24/23 08:27 Dose: 10 mg Hydroxyzine HCl (Hydroxyzine Hcl 25 Mg Tablet) 25 mg PO Q6H PRN PRN Reason: Anxiety Magnesium Hydroxide (Milk Of Magnesia 30 Ml Oral.Susp) 30 ml PO DAILY PRN PRN Reason: Constipation Melatonin (Melatonin 3 Mg Tablet) 6 mg PO BEDTIME [facility] Last Admin: 10/23/23 23:48 Dose: Not Given Olanzapine (Olanzapine 10 Mg Tablet) 30 mg PO BEDTIME [facility] Last Admin: 10/23/23 23:48 Dose: Not Given Trazodone HCl (Trazodone Hcl 50 Mg Tablet) 50 mg PO BEDTIME MRX1 PRN PRN Reason: Insomnia Allergies Allergies Allergy/AdvReac Type Severity Reaction Status Date / Time No Known Allergies Allergy Verified 10/19/23 15:38 Assessment & Plan Assessment & Plan (1) Schizoaffective disorder: Status: Acute Code(s): F25.9 - Schizoaffective disorder, unspecified Plan Mr. Campbell is a 33 year-old male with hx of schizoaffective disorder, bipolar type who was brought via EMS after mother called 911 reporting pt presenting more suspicious, making vague HI threats. In the ED, pt presented as agitated, requiring IM haldol and ativan. On the unit, pt continued to present as agitated, suspicious about hospital staff reports hospital took [place] of [place] motel because staff is racist. Pt has been on combination of prolixin, depakote, olanzapine. Medications restarted while he was in the ED. He is taking morning meds, declined nighttime. PLAN 1. Admit to M3, CV, 5 minutes checks 2. continue prolixin 10mg po BID, olanzapine 30mg po qhs, depakote 1000mg po BID. 3. 3 day up tomorrow, pt continues to presents as very psychotic and paranoid affecting his judgment and insight as he makes intimidating verbal threats to kill others without insight into consequences or potential retaliation. Reason for continued inpatient stay Substantial Risk for: harm to others and inability to function Time Spent With Patient Time: Total time managing care of this patient today ____ minutes.
[2023-10-24] MEDS: LORazepam 1 MG TABLET PO (14:42)
[2023-10-24 20:00] VITALS: RESP 16
[2023-10-25 07:00] VITALS: BMI 16.3
[2023-10-25] MEDS: Divalproex Sodium 500 MG TABLET.DR 1000 MG PO ×2 (08:09→22:37)
[2023-10-25] MEDS: fluPHENAZine HCl 5 MG TABLET 10 MG PO ×2 (08:09→22:37)
--- NOTE | 2023-10-25 11:40 | PM.EVENT ---
Documented by User: Becki Pettit NP 10/25/23 16:06 Event Note Date of Service: 10/25/23 Event Note: T/W and social work, Radha, met with patient in unit office. Patient presented agitated and raising voice during assessment. Patient 3 day notice up today and was notified team had decided to file section 7 d/t mental status and presentation. After meeting, patient left office and made a phone call. Patient was observed yelling and swearing on phone. When phone call was over, patient ripped phone off of the wall and threw the phone. He proceeded to walk over to the wall and began kicking and punching various objects. Code assist was called, restraint was ordered at 11:40 a.m., IM medications were ordered and RN administered at 11:45 a.m. Patient was placed in physical hold and medications were given. Time Spent With Patient Time: Total time managing care of this patient today _30___ minutes. Documented by User: Vj Edgar MD 10/30/23 12:39 Event Note Date of Service: 10/25/23 Event Note: T/W and social work, Radha, met with patient in unit office. Patient presented agitated and raising voice during assessment. Patient 3 day notice up today and was notified team had decided to file section 7 d/t mental status and presentation. After meeting, patient left office and made a phone call. Patient was observed yelling and swearing on phone. When phone call was over, patient ripped phone off of the wall and threw the phone. He proceeded to walk over to the wall and began kicking and punching various objects. Code assist was called, restraint was ordered at 11:40 a.m., IM medications were ordered and RN administered at 11:45 a.m. Patient was placed in physical hold and medications were given. Pt seem 1150 was calmer much decrease in agitation refusing vital signs no physical distress
[2023-10-25] MEDS: Haloperidol Lactate 5 MG/ML VIAL IM (11:45)
[2023-10-25] MEDS: diphenhydrAMINE HCL 50 MG/ML VIAL IM (11:45)
[2023-10-25] MEDS: LORazepam 2 MG/ML VIAL IM (11:45)
--- NOTE | 2023-10-25 12:38 | PC.NURSE ---
Pt notified by his team that they would be filing for commitment. Pt went to phone , calling mother then began swearing loudly in a threatening tone. Pt verbally redirected for tone and language, also offered po medications. Pt completed the call and then pulled phone off of the wall , throwing it to the floor. Pt again redirected and began kicking and punching the trash cans, swinging arms and not taking redirection. Code assist called, DAM ATTENDANT ordered medication and physical hold. Pt brought to his room and given IM Ativan2 mg, Haldol 5mg, Benadryl 50 mg. Pt was held for 5 minutes prior too and during medication administration. Pt layed back on bed after medications. Pt refused VS.
--- NOTE | 2023-10-25 15:45 | P.PNPSI_ITS ---
Subjective Subjective Date of Service: 10/25/23 Reason For Visit: paranoid Subjective Notes: Section 7 Interim History: Reviewed with Dr. Edgar. T/W and social work, Radha, met with patient in unit office. Patient presented agitated and raising voice during assessment. Patient 3 day notice up today and was notified team had decided to file section 7 d/t mental status and presentation. Patient reports being medication compliant despite nursing documentation stating patient is intermittently compliant. Patient accusatory towards hospital staff stating, You guys are racists! You do this shit all the time. You're hating on black people. I take my meds every day. You guys are lying! After meeting, patient left office and made a phone call. Patient was observed yelling and swearing on phone. When phone call was over, patient ripped phone off of the wall and threw the phone. He proceeded to walk over to the wall and began kicking and punching various objects. Code assist was called. Commitment paperwork was filed by Daiana Seth NP. Medication Compliance: Intermittent Attending Groups: No Review of Systems Review of Systems Yes Unobtainable due to mental status Mental Status Exam Mental Status Exam Patient Appearance: Well Grooomed Patient Orientation: Person, Place, Time and Situation Level of Consciousness: Awake Patient Behavior: Swearing, Uncooperative and Pacing Mood Description: Angry Affect Description: Angry Ability to Follow Directions: Fair Speech Pattern: Clear, Loud and Includes Profanity Delusions: Paranoid Ideation Thought Process: Intact Thought Content: positive for Intact Judgement: Poor Diagnostics Vital Signs (24Hr): Vital Signs - 24 hr 10/24/23 20:00 Respiratory Rate 16 BMI result Body Mass Index 16.3 Labs 10/19/23 16:07 10/23/23 14:11 Medications Medications Current Medications Acetaminophen (Acetaminophen 325 Mg Tablet) 650 mg PO Q6H PRN PRN Reason: Headache/Pain Mild Scale (1-3) Al Hydroxide/Mg Hydroxide (Magnesium Hydrox/Alum Hydrox 30 Ml Oral.Susp) 30 ml PO Q6H PRN PRN Reason: Heartburn/Nausea Divalproex Sodium (Divalproex Sodium 500 Mg Tablet.) 1,000 mg PO BID [facility] Last Admin: 10/25/23 08:09 Dose: 1,000 mg Fluphenazine HCl (Fluphenazine Hcl 5 Mg Tablet) 10 mg PO BID [facility] Last Admin: 10/25/23 08:09 Dose: 10 mg Fluphenazine HCl (Fluphenazine Hcl 5 Mg Tablet) 5 mg PO Q6H PRN PRN Reason: agitation Hydroxyzine HCl (Hydroxyzine Hcl 25 Mg Tablet) 25 mg PO Q6H PRN PRN Reason: Anxiety Lorazepam (Lorazepam 1 Mg Tablet) 1 mg PO Q6H PRN PRN Reason: severe anxiety/sleep/agitation Magnesium Hydroxide (Milk Of Magnesia 30 Ml Oral.Susp) 30 ml PO DAILY PRN PRN Reason: Constipation Melatonin (Melatonin 3 Mg Tablet) 6 mg PO BEDTIME [facility] Last Admin: 10/24/23 22:18 Dose: Not Given Olanzapine (Olanzapine 10 Mg Tablet) 30 mg PO BEDTIME [facility] Last Admin: 10/24/23 22:18 Dose: Not Given Trazodone HCl (Trazodone Hcl 50 Mg Tablet) 50 mg PO BEDTIME MRX1 PRN PRN Reason: Insomnia Allergies Allergies Allergy/AdvReac Type Severity Reaction Status Date / Time No Known Allergies Allergy Verified 10/19/23 15:38 Assessment & Plan Assessment & Plan (1) Schizoaffective disorder: Status: Acute Code(s): F25.9 - Schizoaffective disorder, unspecified Plan Mr. Campbell is a 33 year-old male with hx of schizoaffective disorder, bipolar type who was brought via EMS after mother called 911 reporting pt presenting more suspicious, making vague HI threats. In the ED, pt presented as agitated, requiring IM haldol and ativan. On the unit, pt continued to present as agitated, suspicious about hospital staff reports hospital took him [place] of [place] motel because staff is racist. Pt has been on combination of prolixin, depakote, olanzapine. Medications restarted while he was in the ED. He is taking morning meds, declined nighttime. PLAN 1. Admit to M3, CV, 5 minutes checks 2. continue prolixin 10mg po BID, olanzapine 30mg po qhs, depakote 1000mg po BID. 3. 3 day up tomorrow, pt continues to presents as very psychotic and paranoid affecting his judgment and insight as he makes intimidating verbal threats to kill others without insight into consequences or potential retaliation. 10/24: T/W and social work, Radha, met with patient in unit office. Patient presented agitated and raising voice during assessment. Patient 3 day notice up today and was notified team had decided to file section 7 d/t mental status and presentation. Patient reports being medication compliant despite nursing documentation stating patient is intermittently compliant. Patient accusatory towards hospital staff stating, You guys are racists! You do this shit all the time. You're hating on black people. I take my meds every day. You guys are lying! After meeting, patient left office and made a phone call. Patient was observed yelling and swearing on phone. When phone call was over, patient ripped phone off of the wall and threw the phone. He proceeded to walk over to the wall and began kicking and punching various objects. Code assist was called. Commitment paperwork was filed by Daiana Seth NP. Patient educated on: diagnosis and medication risk/benefits Reason for continued inpatient stay Substantial Risk for: med/psych decompensation Time Spent With Patient Time: Total time managing care of this patient today _30___ minutes.
[2023-10-25 20:00] VITALS: RESP 16
[2023-10-25] MEDS: Melatonin 3 MG TABLET 6 MG PO (22:36)
[2023-10-25] MEDS: OLANZapine 10 MG TABLET 30 MG PO (22:37)
[2023-10-26 08:00] VITALS: RESP 18
[2023-10-26] MEDS: fluPHENAZine HCl 5 MG TABLET 10 MG PO (08:42)
[2023-10-26] MEDS: Divalproex Sodium 500 MG TABLET.DR 1000 MG PO (08:42)
[2023-10-26 08:45] LABS: Ammonia 33 umol/L (13-55)
[2023-10-26 08:50] LABS: Valproate 70.6 mcg/mL (50.0-100.0)
[2023-10-26 08:53] LABS: Alanine Aminotransferase 19 U/L (0-40); Albumin Level 3.9 g/dL (3.5-5.0); Alkaline Phosphatase 57 U/L (39-117); Aspartate Amino Transferase 37 U/L (5-37); Bilirubin Direct < 0.2 mg/dL (0.0-0.5); Bilirubin Total 0.2 mg/dL (0.0-1.0); Total Protein 6.5 g/dL (6.5-8.0)
--- NOTE | 2023-10-26 09:05 | HO.PSYCHPN ---
Subjective Subjective Date of Service: 10/26/23 Reason For Visit: paranoid Subjective Notes: Section 7 Interim History: Reviewed with Dr. Edgar. Patient continues to present agitated and raising voice during assessment. Patient was informed about court hearing on 11/01/2023; patient became upset, stood up and stormed out of room while stating, I am not fucking staying here till . Patient paranoid regarding food; reporting that peers are putting hair in his food. Patient was medication compliant last night and this morning. Valproic acid level- 70.6 on 10/26/23. T/W spoke to patient's mother, Shannon Campbell, with patient's consent. Shannon reports she spoke to her son today and was unable to have a conversation due to him yelling at her about various topics. Shannon stated, he was talking over me. I hung up on him multiple times and he kept calling me back. He is not hearing me. I told him to just take his meds . Ms. Campbell reports that she is willing to testify about her concerns regarding her son's current mental status and safety. Medication Compliance: Intermittent Side effects from medications: No Attending Groups: No Review of Systems Review of Systems Yes Unobtainable due to mental status Mental Status Exam Mental Status Exam Patient Appearance: Well Grooomed Patient Orientation: Person, Place, Time and Situation Level of Consciousness: Awake Patient Behavior: Guarded, Swearing, Uncooperative, Pacing and Poor Eye Contact Mood Description: Angry Affect Description: Angry Ability to Follow Directions: Fair Speech Pattern: Clear, Loud and Includes Profanity Delusions: Paranoid Ideation Diagnostics Vital Signs (24Hr): Vital Signs - 24 hr 10/25/23 20:00 10/26/23 08:00 Respiratory Rate 16 18 BMI result Body Mass Index 16.3 Labs 10/19/23 16:07 10/23/23 14:11 Labs: Laboratory Results - last 48 hr 10/26/23 08:30 Total Bilirubin 0.2 Direct Bilirubin < 0.2 AST 37 ALT 19 Alkaline Phosphatase 57 Ammonia 33 Total Protein 6.5 Albumin 3.9 Valproic Acid 70.6 Medications Medications Current Medications Acetaminophen (Acetaminophen 325 Mg Tablet) 650 mg PO Q6H PRN PRN Reason: Headache/Pain Mild Scale (1-3) Al Hydroxide/Mg Hydroxide (Magnesium Hydrox/Alum Hydrox 30 Ml Oral.Susp) 30 ml PO Q6H PRN PRN Reason: Heartburn/Nausea Divalproex Sodium (Divalproex Sodium 500 Mg Tablet.Dr) 1,000 mg PO BID [facility] Last Admin: 10/26/23 08:42 Dose: 1,000 mg Fluphenazine HCl (Fluphenazine Hcl 5 Mg Tablet) 10 mg PO BID [facility] Last Admin: 10/26/23 08:42 Dose: 10 mg Fluphenazine HCl (Fluphenazine Hcl 5 Mg Tablet) 5 mg PO Q6H PRN PRN Reason: agitation Hydroxyzine HCl (Hydroxyzine Hcl 25 Mg Tablet) 25 mg PO Q6H PRN PRN Reason: Anxiety Lorazepam (Lorazepam 1 Mg Tablet) 1 mg PO Q6H PRN PRN Reason: severe anxiety/sleep/agitation Magnesium Hydroxide (Milk Of Magnesia 30 Ml Oral.Susp) 30 ml PO DAILY PRN PRN Reason: Constipation Melatonin (Melatonin 3 Mg Tablet) 6 mg PO BEDTIME [facility] Last Admin: 10/25/23 22:36 Dose: 6 mg Olanzapine (Olanzapine 10 Mg Tablet) 30 mg PO BEDTIME [facility] Last Admin: 10/25/23 22:37 Dose: 30 mg Trazodone HCl (Trazodone Hcl 50 Mg Tablet) 50 mg PO BEDTIME MRX1 PRN PRN Reason: Insomnia Allergies Allergies Allergy/AdvReac Type Severity Reaction Status Date / Time No Known Allergies Allergy Verified 10/19/23 15:38 Assessment & Plan Assessment & Plan (1) Schizoaffective disorder: Status: Acute Code(s): F25.9 - Schizoaffective disorder, unspecified Plan Mr. Campbell is a 33 year-old male with hx of schizoaffective disorder, bipolar type who was brought via EMS after mother called 911 reporting pt presenting more suspicious, making vague HI threats. In the ED, pt presented as agitated, requiring IM haldol and ativan. On the unit, pt continued to present as agitated, suspicious about hospital staff reports hospital took him [place] of his motel because staff is racist. Pt has been on combination of prolixin, depakote, olanzapine. Medications restarted while he was in the ED. He is taking morning meds, declined nighttime. PLAN 1. Admit to M3, CV, 5 minutes checks 2. continue prolixin 10mg po BID, olanzapine 30mg po qhs, depakote 1000mg po BID. 3. 3 day up tomorrow, pt continues to presents as very psychotic and paranoid affecting his judgment and insight as he makes intimidating verbal threats to kill others without insight into consequences or potential retaliation. 10/24: T/W and social work, Radha, met with patient in unit office. Patient presented agitated and raising voice during assessment. Patient 3 day notice up today and was notified team had decided to file section 7 d/t mental status and presentation. Patient reports being medication compliant despite nursing documentation stating patient is intermittently compliant. Patient accusatory towards hospital staff stating, You guys are racists! You do this shit all the time. You're hating on black people. I take my meds every day. You guys are lying! After meeting, patient left office and made a phone call. Patient was observed yelling and swearing on phone. When phone call was over, patient ripped phone off of the wall and threw the phone. He proceeded to walk over to the wall and began kicking and punching various objects. Code assist was called. Commitment paperwork was filed by Daiana Seth NP. 10/25: Patient continues to present agitated and raising voice during assessment. Patient was informed about court hearing on 11/01/2023; patient became upset, stood up and stormed out of room while stating, I am not fucking staying here till . Patient paranoid regarding food; reporting that peers are putting hair in his food. Patient was medication compliant last night and this morning. Valproic acid level- 70.6 on 10/26/23. Continue current tx plan. Encourage medication compliance. T/W spoke to patient's mother, Shannon Campbell, with patient's consent. Shannon reports she spoke to her son today and was unable to have a conversation due to him yelling at her about various topics. Shannon stated, he was talking over me. I hung up on him multiple times and he kept calling me back. He is not hearing me. I told him to just take his meds . Ms. Campbell reports that she is willing to testify about her concerns regarding her son's current mental status and safety. Guardian/Caregiver educated on: medication risk/benefits Reason for continued inpatient stay Substantial Risk for: med/psych decompensation Time Spent With Patient Time: Total time managing care of this patient today _20___ minutes.
[2023-10-26] MEDS: fluPHENAZine HCl 5 MG TABLET PO (13:12)
[2023-10-26 19:58] VITALS: RESP 16
[2023-10-27] MEDS: Divalproex Sodium 500 MG TABLET.DR 1000 MG PO ×2 (07:42→22:59)
[2023-10-27] MEDS: fluPHENAZine HCl 5 MG TABLET 10 MG PO ×2 (07:43→22:59)
[2023-10-27 08:00] VITALS: BP 141/74; PULSE 97; RESP 18; TEMP 36.3; O2SAT 100
--- NOTE | 2023-10-27 09:24 | HO.PSYCHPN ---
Subjective Subjective Date of Service: 10/27/23 Reason For Visit: paranoid Subjective Notes: Section 7 Interim History: Patient was seen and discussed in rounds today. He continues to be irritable, paranoid. He declined his HS meds and did not want to talk about it. He had an incident of agitation, tearing off the phone from the wall yesterday. So far he has been manageable with no incidents. Review of Systems Review of Systems Yes Unobtainable due to mental status Mental Status Exam Mental Status Exam Narrative: In today's visit he is alert, irritable and answered questions briefly or not at all. No eye contact. Affect is irritable. No overt signs of psychosis but appears to be guarded and paranoid. No active SI/HI. Could not be assessed cognitively. Judgment is impaired Diagnostics Vital Signs (24Hr): Vital Signs - 24 hr 10/26/23 19:58 10/27/23 08:00 Temperature 97.3 F Pulse Rate 97 Respiratory Rate 16 18 Blood Pressure 141/74 H Pulse Oximetry 100 Oxygen Delivery Method Room Air BMI result Body Mass Index 16.3 Labs 10/19/23 16:07 10/23/23 14:11 Labs: Laboratory Results - last 48 hr 10/26/23 08:30 Total Bilirubin 0.2 Direct Bilirubin < 0.2 AST 37 ALT 19 Alkaline Phosphatase 57 Ammonia 33 Total Protein 6.5 Albumin 3.9 Valproic Acid 70.6 Medications Medications Current Medications Acetaminophen (Acetaminophen 325 Mg Tablet) 650 mg PO Q6H PRN PRN Reason: Headache/Pain Mild Scale (1-3) Al Hydroxide/Mg Hydroxide (Magnesium Hydrox/Alum Hydrox 30 Ml Oral.Susp) 30 ml PO Q6H PRN PRN Reason: Heartburn/Nausea Divalproex Sodium (Divalproex Sodium 500 Mg Tablet.Dr) 1,000 mg PO BID [facility] Last Admin: 10/27/23 07:42 Dose: 1,000 mg Fluphenazine HCl (Fluphenazine Hcl 5 Mg Tablet) 10 mg PO BID [facility] Last Admin: 10/27/23 07:43 Dose: 10 mg Fluphenazine HCl (Fluphenazine Hcl 5 Mg Tablet) 5 mg PO Q6H PRN PRN Reason: agitation Last Admin: 10/26/23 13:12 Dose: 5 mg Hydroxyzine HCl (Hydroxyzine Hcl 25 Mg Tablet) 25 mg PO Q6H PRN PRN Reason: Anxiety Lorazepam (Lorazepam 1 Mg Tablet) 1 mg PO Q6H PRN PRN Reason: severe anxiety/sleep/agitation Magnesium Hydroxide (Milk Of Magnesia 30 Ml Oral.Susp) 30 ml PO DAILY PRN PRN Reason: Constipation Melatonin (Melatonin 3 Mg Tablet) 6 mg PO BEDTIME [facility] Last Admin: 10/27/23 00:32 Dose: Not Given Olanzapine (Olanzapine 10 Mg Tablet) 30 mg PO BEDTIME [facility] Last Admin: 10/27/23 00:33 Dose: Not Given Trazodone HCl (Trazodone Hcl 50 Mg Tablet) 50 mg PO BEDTIME MRX1 PRN PRN Reason: Insomnia Allergies Allergies Allergy/AdvReac Type Severity Reaction Status Date / Time No Known Allergies Allergy Verified 10/19/23 15:38 Assessment & Plan Assessment & Plan (1) Schizoaffective disorder: Status: Acute Code(s): F25.9 - Schizoaffective disorder, unspecified Plan Mr. Campbell is a 33 year-old male with hx of schizoaffective disorder, bipolar type who was brought via EMS after mother called 911 reporting pt presenting more suspicious, making vague HI threats. In the ED, pt presented as agitated, requiring IM haldol and ativan. On the unit, pt continued to present as agitated, suspicious about hospital staff reports hospital [place] motel because staff is racist. Pt has been on combination of prolixin, depakote, olanzapine. Medications restarted while he was in the ED. He is taking morning meds, declined nighttime. PLAN 1. Admit to M3, CV, 5 minutes checks 2. continue prolixin 10mg po BID, olanzapine 30mg po qhs, depakote 1000mg po BID. 3. 3 day up tomorrow, pt continues to presents as very psychotic and paranoid affecting his judgment and insight as he makes intimidating verbal threats to kill others without insight into consequences or potential retaliation. 10/24: T/W and social work, Radha, met with patient in unit office. Patient presented agitated and raising voice during assessment. Patient 3 day notice up today and was notified team had decided to file section 7 d/t mental status and presentation. Patient reports being medication compliant despite nursing documentation stating patient is intermittently compliant. Patient accusatory towards hospital staff stating, You guys are racists! You do this shit all the time. You're hating on black people. I take my meds every day. You guys are lying! After meeting, patient left office and made a phone call. Patient was observed yelling and swearing on phone. When phone call was over, patient ripped phone off of the wall and threw the phone. He proceeded to walk over to the wall and began kicking and punching various objects. Code assist was called. Commitment paperwork was filed by Daiana Seth NP. 10/25: Patient continues to present agitated and raising voice during assessment. Patient was informed about court hearing on 11/01/2023; patient became upset, stood up and stormed out of room while stating, I am not fucking staying here till . Patient paranoid regarding food; reporting that peers are putting hair in his food. Patient was medication compliant last night and this morning. Valproic acid level- 70.6 on 10/26/23. Continue current tx plan. Encourage medication compliance. T/W spoke to patient's mother, Shannon Campbell, with patient's consent. Shannon reports she spoke to her son today and was unable to have a conversation due to him yelling at her about various topics. Shannon stated, he was talking over me. I hung up on him multiple times and he kept calling me back. He is not hearing me. I told him to just take his meds . Ms. Campbell reports that she is willing to testify about her concerns regarding her son's current mental status and safety. 10/26: Continue current regimen and plans Reason for continued inpatient stay Substantial Risk for: med/psych decompensation Time Spent With Patient Time: Total time managing care of this patient today ____ minutes.
[2023-10-27 20:00] VITALS: RESP 16
[2023-10-27] MEDS: Melatonin 3 MG TABLET 6 MG PO (22:58)
[2023-10-27] MEDS: OLANZapine 10 MG TABLET 30 MG PO (22:59)
[2023-10-28] MEDS: Divalproex Sodium 500 MG TABLET.DR 1000 MG PO ×2 (07:52→20:21)
[2023-10-28] MEDS: fluPHENAZine HCl 5 MG TABLET 10 MG PO ×2 (07:52→20:21)
[2023-10-28 08:00] VITALS: BP 117/75; PULSE 98; RESP 16; TEMP 36.7; O2SAT 100
--- NOTE | 2023-10-28 09:57 | HO.PSYCHPN ---
Subjective Subjective Date of Service: 10/28/23 Reason For Visit: paranoid Subjective Notes: Section 7 Interim History: Patient was seen and discussed in rounds today. He has been doing better with no incidents over the weekend. Still some irritability and anger. Refusing meds. No behavioral issues. No changes were made today Review of Systems Review of Systems Yes all other systems are reviewed and are negative Mental Status Exam Mental Status Exam Narrative: In today's visit he is alert, irritable and answered questions briefly or not at all. No eye contact. Affect is irritable. No overt signs of psychosis but appears to be guarded and paranoid. No active SI/HI. Could not be assessed cognitively. Judgment is impaired Diagnostics Vital Signs (24Hr): Vital Signs - 24 hr 10/27/23 20:00 10/28/23 08:00 Temperature 98.1 F Pulse Rate 98 Respiratory Rate 16 16 Blood Pressure 117/75 Pulse Oximetry 100 Oxygen Delivery Method Room Air BMI result Body Mass Index 16.3 Labs 10/19/23 16:07 10/23/23 14:11 Medications Medications Current Medications Acetaminophen (Acetaminophen 325 Mg Tablet) 650 mg PO Q6H PRN PRN Reason: Headache/Pain Mild Scale (1-3) Al Hydroxide/Mg Hydroxide (Magnesium Hydrox/Alum Hydrox 30 Ml Oral.Susp) 30 ml PO Q6H PRN PRN Reason: Heartburn/Nausea Divalproex Sodium (Divalproex Sodium 500 Mg Tablet.) 1,000 mg PO BID [facility] Last Admin: 10/28/23 07:52 Dose: 1,000 mg Fluphenazine HCl (Fluphenazine Hcl 5 Mg Tablet) 10 mg PO BID [facility] Last Admin: 10/28/23 07:52 Dose: 10 mg Fluphenazine HCl (Fluphenazine Hcl 5 Mg Tablet) 5 mg PO Q6H PRN PRN Reason: agitation Last Admin: 10/26/23 13:12 Dose: 5 mg Hydroxyzine HCl (Hydroxyzine Hcl 25 Mg Tablet) 25 mg PO Q6H PRN PRN Reason: Anxiety Lorazepam (Lorazepam 1 Mg Tablet) 1 mg PO Q6H PRN PRN Reason: severe anxiety/sleep/agitation Magnesium Hydroxide (Milk Of Magnesia 30 Ml Oral.Susp) 30 ml PO DAILY PRN PRN Reason: Constipation Melatonin (Melatonin 3 Mg Tablet) 6 mg PO BEDTIME [facility] Last Admin: 10/27/23 22:58 Dose: 6 mg Olanzapine (Olanzapine 10 Mg Tablet) 30 mg PO BEDTIME [facility] Last Admin: 10/27/23 22:59 Dose: 30 mg Trazodone HCl (Trazodone Hcl 50 Mg Tablet) 50 mg PO BEDTIME MRX1 PRN PRN Reason: Insomnia Allergies Allergies Allergy/AdvReac Type Severity Reaction Status Date / Time No Known Allergies Allergy Verified 10/19/23 15:38 Assessment & Plan Assessment & Plan (1) Schizoaffective disorder: Status: Acute Code(s): F25.9 - Schizoaffective disorder, unspecified Plan Mr. Campbell is a 33 year-old male with hx of schizoaffective disorder, bipolar type who was brought via EMS after mother called 911 reporting pt presenting more suspicious, making vague HI threats. In the ED, pt presented as agitated, requiring IM haldol and ativan. On the unit, pt continued to present as agitated, suspicious about hospital staff reports hospital took [place] of [place] motel because staff is racist. Pt has been on combination of prolixin, depakote, olanzapine. Medications restarted while he was in the ED. He is taking morning meds, declined nighttime. PLAN 1. Admit to M3, CV, 5 minutes checks 2. continue prolixin 10mg po BID, olanzapine 30mg po qhs, depakote 1000mg po BID. 3. 3 day up tomorrow, pt continues to presents as very psychotic and paranoid affecting his judgment and insight as he makes intimidating verbal threats to kill others without insight into consequences or potential retaliation. 10/24: T/W and social work, Radha, met with patient in unit office. Patient presented agitated and raising voice during assessment. Patient 3 day notice up today and was notified team had decided to file section 7 d/t mental status and presentation. Patient reports being medication compliant despite nursing documentation stating patient is intermittently compliant. Patient accusatory towards hospital staff stating, You guys are racists! You do this shit all the time. You're hating on black people. I take my meds every day. You guys are lying! After meeting, patient left office and made a phone call. Patient was observed yelling and swearing on phone. When phone call was over, patient ripped phone off of the wall and threw the phone. He proceeded to walk over to the wall and began kicking and punching various objects. Code assist was called. Commitment paperwork was filed by Daiana Seth NP. 10/25: Patient continues to present agitated and raising voice during assessment. Patient was informed about court hearing on 11/01/2023; patient became upset, stood up and stormed out of room while stating, I am not fucking staying here till . Patient paranoid regarding food; reporting that peers are putting hair in his food. Patient was medication compliant last night and this morning. Valproic acid level- 70.6 on 10/26/23. Continue current tx plan. Encourage medication compliance. T/W spoke to patient's mother, Shannon Campbell, with patient's consent. Shannon reports she spoke to her son today and was unable to have a conversation due to him yelling at her about various topics. Shannon stated, he was talking over me. I hung up on him multiple times and he kept calling me back. He is not hearing me. I told him to just take his meds . Ms. Campbell reports that she is willing to testify about her concerns regarding her son's current mental status and safety. 10/26: Continue current regimen and plans 10/27: Continue current regimen and plans Reason for continued inpatient stay Substantial Risk for: med/psych decompensation Time Spent With Patient Time: Total time managing care of this patient today ____ minutes.
[2023-10-28 19:32] VITALS: BP 135/82; PULSE 85; TEMP 36.7; O2SAT 100
[2023-10-28] MEDS: Melatonin 3 MG TABLET 6 MG PO (20:21)
[2023-10-28] MEDS: OLANZapine 10 MG TABLET 30 MG PO (20:22)
[2023-10-29 07:40] VITALS: BP 111/78; PULSE 79; RESP 16; TEMP 36.5; O2SAT 99
[2023-10-29 08:00] VITALS: BP 111/78; PULSE 79; RESP 18; TEMP 36.5; O2SAT 99
--- NOTE | 2023-10-29 08:52 | HO.PSYCHPN ---
Subjective Subjective Date of Service: 10/29/23 Reason For Visit: paranoid Subjective Notes: Section 7 Interim History: Reviewed with Dr. Edgar. Per nursing, pt has been social with peers and attending groups. Pt has been medication compliant. He presents calm and polite today. Pt stated, I'm feeling alright. I'm going to try to go to a group today and I'll keep taking my meds . Pt reports sleeping well. denies SI/HI/VH/AH. If pt continues to maintain medication compliance and mental status continues to improve; will not need to continue with court hearing; pt aware. Continue current tx plan. Medication Compliance: Yes Side effects from medications: No Attending Groups: Intermittent Review of Systems Constitutional: Reports as per HPI Eyes: Reports as per HPI Reports as per HPI Cardiovascular: Reports as per HPI Respiratory: Reports as per HPI Gastrointestinal: Reports as per HPI Genitourinary: Reports as per HPI Musculoskeletal: Reports as per HPI Skin/Breast: Reports as per HPI Reports as per HPI Psychiatric: Reports as per HPI Endocrine: Reports as per HPI Hematologic/Lymphatic: Reports as per HPI Allergic/Immunologic: Reports as per HPI Mental Status Exam Mental Status Exam Narrative: Pt is alert and oriented; behavior is cooperative and calm; dressed in casual attire; mood is described as good ; eye contact appropriate; Speech is normal rate, volume and not pressured; thought process is organized; Thought content is on discharge; denies SI/HI/VH/AH. Diagnostics Vital Signs (24Hr): Vital Signs - 24 hr 10/28/23 19:32 10/29/23 07:40 Temperature 98.1 F 97.7 F Pulse Rate 85 79 Respiratory Rate 16 Blood Pressure 135/82 111/78 Pulse Oximetry 100 99 Oxygen Delivery Method Room Air Room Air BMI result Body Mass Index 16.3 Labs 10/19/23 16:07 10/23/23 14:11 Medications Medications Current Medications Acetaminophen (Acetaminophen 325 Mg Tablet) 650 mg PO Q6H PRN PRN Reason: Headache/Pain Mild Scale (1-3) Al Hydroxide/Mg Hydroxide (Magnesium Hydrox/Alum Hydrox 30 Ml Oral.Susp) 30 ml PO Q6H PRN PRN Reason: Heartburn/Nausea Divalproex Sodium (Divalproex Sodium 500 Mg Tablet.) 1,000 mg PO BID [facility] Last Admin: 10/28/23 20:21 Dose: 1,000 mg Fluphenazine HCl (Fluphenazine Hcl 5 Mg Tablet) 10 mg PO BID [facility] Last Admin: 10/28/23 20:21 Dose: 10 mg Fluphenazine HCl (Fluphenazine Hcl 5 Mg Tablet) 5 mg PO Q6H PRN PRN Reason: agitation Last Admin: 10/26/23 13:12 Dose: 5 mg Hydroxyzine HCl (Hydroxyzine Hcl 25 Mg Tablet) 25 mg PO Q6H PRN PRN Reason: Anxiety Lorazepam (Lorazepam 1 Mg Tablet) 1 mg PO Q6H PRN PRN Reason: severe anxiety/sleep/agitation Magnesium Hydroxide (Milk Of Magnesia 30 Ml Oral.Susp) 30 ml PO DAILY PRN PRN Reason: Constipation Melatonin (Melatonin 3 Mg Tablet) 6 mg PO BEDTIME [facility] Last Admin: 10/28/23 20:21 Dose: 6 mg Olanzapine (Olanzapine 10 Mg Tablet) 30 mg PO BEDTIME [facility] Last Admin: 10/28/23 20:22 Dose: 30 mg Trazodone HCl (Trazodone Hcl 50 Mg Tablet) 50 mg PO BEDTIME MRX1 PRN PRN Reason: Insomnia Allergies Allergies Allergy/AdvReac Type Severity Reaction Status Date / Time No Known Allergies Allergy Verified 10/19/23 15:38 Assessment & Plan Assessment & Plan (1) Schizoaffective disorder: Status: Acute Code(s): F25.9 - Schizoaffective disorder, unspecified Plan Mr. Campbell is a 33 year-old male with hx of schizoaffective disorder, bipolar type who was brought via EMS after mother called 911 reporting pt presenting more suspicious, making vague HI threats. In the ED, pt presented as agitated, requiring IM haldol and ativan. On the unit, pt continued to present as agitated, suspicious about hospital staff reports hospital took him [place] of his motel because staff is racist. Pt has been on combination of prolixin, depakote, olanzapine. Medications restarted while he was in the ED. He is taking morning meds, declined nighttime. PLAN 1. Admit to M3, CV, 5 minutes checks 2. continue prolixin 10mg po BID, olanzapine 30mg po qhs, depakote 1000mg po BID. 3. 3 day up tomorrow, pt continues to presents as very psychotic and paranoid affecting his judgment and insight as he makes intimidating verbal threats to kill others without insight into consequences or potential retaliation. 10/24: T/W and social work, Radha, met with patient in unit office. Patient presented agitated and raising voice during assessment. Patient 3 day notice up today and was notified team had decided to file section 7 d/t mental status and presentation. Patient reports being medication compliant despite nursing documentation stating patient is intermittently compliant. Patient accusatory towards hospital staff stating, You guys are racists! You do this shit all the time. You're hating on black people. I take my meds every day. You guys are lying! After meeting, patient left office and made a phone call. Patient was observed yelling and swearing on phone. When phone call was over, patient ripped phone off of the wall and threw the phone. He proceeded to walk over to the wall and began kicking and punching various objects. Code assist was called. Commitment paperwork was filed by Daiana Seth NP. 10/25: Patient continues to present agitated and raising voice during assessment. Patient was informed about court hearing on 11/01/2023; patient became upset, stood up and stormed out of room while stating, I am not fucking staying here till . Patient paranoid regarding food; reporting that peers are putting hair in his food. Patient was medication compliant last night and this morning. Valproic acid level- 70.6 on 10/26/23. Continue current tx plan. Encourage medication compliance. T/W spoke to patient's mother, Shannon Campbell, with patient's consent. Shannon reports she spoke to her son today and was unable to have a conversation due to him yelling at her about various topics. Shannon stated, he was talking over me. I hung up on him multiple times and he kept calling me back. He is not hearing me. I told him to just take his meds . Ms. Campbell reports that she is willing to testify about her concerns regarding her son's current mental status and safety. 10/26: Continue current regimen and plans 10/27: Continue current regimen and plans 10/28: Per nursing, pt has been social with peers and attending groups. Pt has been medication compliant. He presents calm and polite today. Pt stated, I'm feeling alright. I'm going to try to go to a group today and I'll keep taking my meds . Pt reports sleeping well. denies SI/HI/VH/AH. If pt continues to maintain medication compliance and mental status continues to improve; will not need to continue with court hearing; pt aware. Continue current tx plan. Patient educated on: medication risk/benefits Reason for continued inpatient stay Substantial Risk for: med/psych decompensation Time Spent With Patient Time: Total time managing care of this patient today _20___ minutes.
[2023-10-29] MEDS: fluPHENAZine HCl 5 MG TABLET 10 MG PO ×2 (08:55→21:49)
[2023-10-29] MEDS: Divalproex Sodium 500 MG TABLET.DR 1000 MG PO ×2 (08:57→21:49)
[2023-10-29] MEDS: OLANZapine 10 MG TABLET 30 MG PO (21:49)
[2023-10-29] MEDS: Melatonin 3 MG TABLET 6 MG PO (21:49)
[2023-10-29 22:14] VITALS: RESP 16
[2023-10-30 07:56] VITALS: BP 131/75; PULSE 80; RESP 16; TEMP 36.9; O2SAT 100
[2023-10-30] MEDS: fluPHENAZine HCl 5 MG TABLET 10 MG PO ×2 (08:12→21:16)
[2023-10-30] MEDS: Divalproex Sodium 500 MG TABLET.DR 1000 MG PO ×2 (08:12→21:15)
--- NOTE | 2023-10-30 08:56 | P.PNPSI_ITS ---
Subjective Subjective Date of Service: 10/30/23 Reason For Visit: paranoid Subjective Notes: Section 7 Interim History: Reviewed with Dr. Edgar. social with peers, attending groups. medication compliant. pt laughing and joking during assessment. Pt reports feeling good today. Pt reports sleeping well. denies SI/HI/VH/AH. Continue current tx plan. Medication Compliance: Yes Side effects from medications: No Attending Groups: Yes Review of Systems Constitutional: Reports as per HPI Eyes: Reports as per HPI Reports as per HPI Cardiovascular: Reports as per HPI Respiratory: Reports as per HPI Gastrointestinal: Reports as per HPI Genitourinary: Reports as per HPI Musculoskeletal: Reports as per HPI Skin/Breast: Reports as per HPI Reports as per HPI Psychiatric: Reports as per HPI Endocrine: Reports as per HPI Hematologic/Lymphatic: Reports as per HPI Allergic/Immunologic: Reports as per HPI Mental Status Exam Mental Status Exam Narrative: Pt is alert and oriented; behavior is cooperative and calm; dressed in casual attire; mood is described as good ; eye contact appropriate; Speech is normal rate, volume and not pressured; thought process is organized; Thought content is on discharge; denies SI/HI/VH/AH. Diagnostics Vital Signs (24Hr): Vital Signs - 24 hr 10/29/23 22:14 10/30/23 07:56 Temperature 98.4 F Pulse Rate 80 Respiratory Rate 16 16 Blood Pressure 131/75 Pulse Oximetry 100 Oxygen Delivery Method Room Air BMI result Body Mass Index 16.3 Labs 10/19/23 16:07 10/23/23 14:11 Medications Medications Current Medications Acetaminophen (Acetaminophen 325 Mg Tablet) 650 mg PO Q6H PRN PRN Reason: Headache/Pain Mild Scale (1-3) Al Hydroxide/Mg Hydroxide (Magnesium Hydrox/Alum Hydrox 30 Ml Oral.Susp) 30 ml PO Q6H PRN PRN Reason: Heartburn/Nausea Divalproex Sodium (Divalproex Sodium 500 Mg Tablet.) 1,000 mg PO BID [facility] Last Admin: 10/30/23 08:12 Dose: 1,000 mg Fluphenazine HCl (Fluphenazine Hcl 5 Mg Tablet) 10 mg PO BID [facility] Last Admin: 10/30/23 08:12 Dose: 10 mg Fluphenazine HCl (Fluphenazine Hcl 5 Mg Tablet) 5 mg PO Q6H PRN PRN Reason: agitation Last Admin: 10/26/23 13:12 Dose: 5 mg Hydroxyzine HCl (Hydroxyzine Hcl 25 Mg Tablet) 25 mg PO Q6H PRN PRN Reason: Anxiety Lorazepam (Lorazepam 1 Mg Tablet) 1 mg PO Q6H PRN PRN Reason: severe anxiety/sleep/agitation Magnesium Hydroxide (Milk Of Magnesia 30 Ml Oral.Susp) 30 ml PO DAILY PRN PRN Reason: Constipation Melatonin (Melatonin 3 Mg Tablet) 6 mg PO BEDTIME [facility] Last Admin: 10/29/23 21:49 Dose: 6 mg Olanzapine (Olanzapine 10 Mg Tablet) 30 mg PO BEDTIME [facility] Last Admin: 10/29/23 21:49 Dose: 30 mg Trazodone HCl (Trazodone Hcl 50 Mg Tablet) 50 mg PO BEDTIME [id number] PRN PRN Reason: Insomnia Allergies Allergies Allergy/AdvReac Type Severity Reaction Status Date / Time No Known Allergies Allergy Verified 10/19/23 15:38 Assessment & Plan Assessment & Plan (1) Schizoaffective disorder: Status: Acute Code(s): F25.9 - Schizoaffective disorder, unspecified Plan Mr. Campbell is a 33 year-old male with hx of schizoaffective disorder, bipolar type who was brought via EMS after mother called 911 reporting pt presenting more suspicious, making vague HI threats. In the ED, pt presented as agitated, requiring IM haldol and ativan. On the unit, pt continued to present as agitated, suspicious about hospital staff reports hospital [place] motel because staff is racist. Pt has been on combination of prolixin, depakote, olanzapine. Medications restarted while he was in the ED. He is taking morning meds, declined nighttime. PLAN 1. Admit to M3, CV, 5 minutes checks 2. continue prolixin 10mg po BID, olanzapine 30mg po qhs, depakote 1000mg po BID. 3. 3 day up tomorrow, pt continues to presents as very psychotic and paranoid affecting his judgment and insight as he makes intimidating verbal threats to kill others without insight into consequences or potential retaliation. 10/24: T/W and social work, Radha, met with patient in unit office. Patient presented agitated and raising voice during assessment. Patient 3 day notice up today and was notified team had decided to file section 7 d/t mental status and presentation. Patient reports being medication compliant despite nursing documentation stating patient is intermittently compliant. Patient accusatory towards hospital staff stating, You guys are racists! You do this shit all the time. You're hating on black people. I take my meds every day. You guys are lying! After meeting, patient left office and made a phone call. Patient was observed yelling and swearing on phone. When phone call was over, patient ripped phone off of the wall and threw the phone. He proceeded to walk over to the wall and began kicking and punching various objects. Code assist was called. Commitment paperwork was filed by Daiana Seth NP. 10/25: Patient continues to present agitated and raising voice during assessment. Patient was informed about court hearing on 11/01/2023; patient became upset, stood up and stormed out of room while stating, I am not fucking staying here till . Patient paranoid regarding food; reporting that peers are putting hair in his food. Patient was medication compliant last night and this morning. Valproic acid level- 70.6 on 10/26/23. Continue current tx plan. Encourage medication compliance. T/W spoke to patient's mother, Shannon Campbell, with patient's consent. Shannon reports she spoke to her son today and was unable to have a conversation due to him yelling at her about various topics. Shannon stated, he was talking over me. I hung up on him multiple times and he kept calling me back. He is not hearing me. I told him to just take his meds . Ms. Campbell reports that she is willing to testify about her concerns regarding her son's current mental status and safety. 10/26: Continue current regimen and plans 10/27: Continue current regimen and plans 10/28: Per nursing, pt has been social with peers and attending groups. Pt has been medication compliant. He presents calm and polite today. Pt stated, I'm feeling alright. I'm going to try to go to a group today and I'll keep taking my meds . Pt reports sleeping well. denies SI/HI/VH/AH. If pt continues to maintain medication compliance and mental status continues to improve; will not need to continue with court hearing; pt aware. Continue current tx plan. 10/29: social with peers, attending groups. medication compliant. pt laughing and joking during assessment. Pt reports feeling good today. Pt reports sleeping well. denies SI/HI/VH/AH. Continue current tx plan. Patient educated on: diagnosis and medication risk/benefits Reason for continued inpatient stay Substantial Risk for: med/psych decompensation Time Spent With Patient Time: Total time managing care of this patient today _20___ minutes.
[2023-10-30 20:00] VITALS: BP 139/87; PULSE 86; RESP 16; TEMP 36.8; O2SAT 98
[2023-10-30] MEDS: OLANZapine 10 MG TABLET 30 MG PO (21:16)
[2023-10-30] MEDS: Melatonin 3 MG TABLET 6 MG PO (21:17)
[2023-10-31 08:00] VITALS: RESP 18
--- NOTE | 2023-10-31 09:02 | P.PNPSI_ITS ---
Subjective Subjective Date of Service: 10/31/23 Reason For Visit: paranoid Subjective Notes: Conditional Voluntary Interim History: Reviewed with Dr. Edgar. social with peers, attending groups. medication compliant. pt laughing and joking during assessment. Pt reports feeling good today. Pt reports sleeping well. denies SI/HI/VH/AH. Pt reports he plans on continuing to take his medications and follow up with outpatient providers. pt to discharge home tomorrow. Medication Compliance: Yes Side effects from medications: No Attending Groups: Yes Review of Systems Constitutional: Reports as per HPI Eyes: Reports as per HPI Reports as per HPI Cardiovascular: Reports as per HPI Respiratory: Reports as per HPI Gastrointestinal: Reports as per HPI Genitourinary: Reports as per HPI Musculoskeletal: Reports as per HPI Skin/Breast: Reports as per HPI Reports as per HPI Psychiatric: Reports as per HPI Endocrine: Reports as per HPI Hematologic/Lymphatic: Reports as per HPI Allergic/Immunologic: Reports as per HPI Mental Status Exam Mental Status Exam Narrative: Pt is alert and oriented; behavior is cooperative and calm; dressed in casual attire; mood is described as good ; eye contact appropriate; Speech is normal rate, volume and not pressured; thought process is organized; Thought content is on discharge; denies SI/HI/VH/AH. Diagnostics Vital Signs (24Hr): Vital Signs - 24 hr 10/30/23 20:00 Temperature 98.2 F Pulse Rate 86 Respiratory Rate 16 Blood Pressure 139/87 Pulse Oximetry 98 Oxygen Delivery Method Room Air BMI result Body Mass Index 16.3 Labs 10/19/23 16:07 10/23/23 14:11 Medications Medications Current Medications Acetaminophen (Acetaminophen 325 Mg Tablet) 650 mg PO Q6H PRN PRN Reason: Headache/Pain Mild Scale (1-3) Al Hydroxide/Mg Hydroxide (Magnesium Hydrox/Alum Hydrox 30 Ml Oral.Susp) 30 ml PO Q6H PRN PRN Reason: Heartburn/Nausea Divalproex Sodium (Divalproex Sodium 500 Mg Tablet.) 1,000 mg PO BID [facility] Last Admin: 10/30/23 21:15 Dose: 1,000 mg Fluphenazine HCl (Fluphenazine Hcl 5 Mg Tablet) 10 mg PO BID [facility] Last Admin: 10/30/23 21:16 Dose: 10 mg Fluphenazine HCl (Fluphenazine Hcl 5 Mg Tablet) 5 mg PO Q6H PRN PRN Reason: agitation Last Admin: 10/26/23 13:12 Dose: 5 mg Hydroxyzine HCl (Hydroxyzine Hcl 25 Mg Tablet) 25 mg PO Q6H PRN PRN Reason: Anxiety Lorazepam (Lorazepam 1 Mg Tablet) 1 mg PO Q6H PRN PRN Reason: severe anxiety/sleep/agitation Magnesium Hydroxide (Milk Of Magnesia 30 Ml Oral.Susp) 30 ml PO DAILY PRN PRN Reason: Constipation Melatonin (Melatonin 3 Mg Tablet) 6 mg PO BEDTIME [facility] Last Admin: 10/30/23 21:17 Dose: 6 mg Olanzapine (Olanzapine 10 Mg Tablet) 30 mg PO BEDTIME [facility] Last Admin: 10/30/23 21:16 Dose: 30 mg Trazodone HCl (Trazodone Hcl 50 Mg Tablet) 50 mg PO BEDTIME MRX1 PRN PRN Reason: Insomnia Allergies Allergies Allergy/AdvReac Type Severity Reaction Status Date / Time No Known Allergies Allergy Verified 10/19/23 15:38 Assessment & Plan Assessment & Plan (1) Schizoaffective disorder: Status: Acute Code(s): F25.9 - Schizoaffective disorder, unspecified Plan Mr. Campbell is a 33 year-old male with hx of schizoaffective disorder, bipolar type who was brought via EMS after mother called 911 reporting pt presenting more suspicious, making vague HI threats. In the ED, pt presented as agitated, requiring IM haldol and ativan. On the unit, pt continued to present as agitated, suspicious about hospital staff reports hospital took [place] of [place] motel because staff is racist. Pt has been on combination of prolixin, depakote, olanzapine. Medications restarted while he was in the ED. He is taking morning meds, declined nighttime. PLAN 1. Admit to M3, CV, 5 minutes checks 2. continue prolixin 10mg po BID, olanzapine 30mg po qhs, depakote 1000mg po BID. 3. 3 day up tomorrow, pt continues to presents as very psychotic and paranoid affecting his judgment and insight as he makes intimidating verbal threats to kill others without insight into consequences or potential retaliation. 10/24: T/W and social work, Radha, met with patient in unit office. Patient presented agitated and raising voice during assessment. Patient 3 day notice up today and was notified team had decided to file section 7 d/t mental status and presentation. Patient reports being medication compliant despite nursing documentation stating patient is intermittently compliant. Patient accusatory towards hospital staff stating, You guys are racists! You do this shit all the time. You're hating on black people. I take my meds every day. You guys are lying! After meeting, patient left office and made a phone call. Patient was observed yelling and swearing on phone. When phone call was over, patient ripped phone off of the wall and threw the phone. He proceeded to walk over to the wall and began kicking and punching various objects. Code assist was called. Commitment paperwork was filed by Daiana Seth NP. 10/25: Patient continues to present agitated and raising voice during assessment. Patient was informed about court hearing on 11/01/2023; patient became upset, stood up and stormed out of room while stating, I am not fucking staying here till . Patient paranoid regarding food; reporting that peers are putting hair in his food. Patient was medication compliant last night and this morning. Valproic acid level- 70.6 on 10/26/23. Continue current tx plan. Encourage medication compliance. T/W spoke to patient's mother, Shannon Campbell, with patient's consent. Shannon reports she spoke to her son today and was unable to have a conversation due to him yelling at her about various topics. Shannon stated, he was talking over me. I hung up on him multiple times and he kept calling me back. He is not hearing me. I told him to just take his meds . Ms. Campbell reports that she is willing to testify about her concerns regarding her son's current mental status and safety. 10/26: Continue current regimen and plans 10/27: Continue current regimen and plans 10/28: Per nursing, pt has been social with peers and attending groups. Pt has been medication compliant. He presents calm and polite today. Pt stated, I'm feeling alright. I'm going to try to go to a group today and I'll keep taking my meds . Pt reports sleeping well. denies SI/HI/VH/AH. If pt continues to maintain medication compliance and mental status continues to improve; will not need to continue with court hearing; pt aware. Continue current tx plan. 10/29: social with peers, attending groups. medication compliant. pt laughing and joking during assessment. Pt reports feeling good today. Pt reports sleeping well. denies SI/HI/VH/AH. Continue current tx plan. 10/30: social with peers, attending groups. medication compliant. pt laughing and joking during assessment. Pt reports feeling good today. Pt reports sleeping well. denies SI/HI/VH/AH. Pt reports he plans on continuing to take his medications and follow up with outpatient providers. pt to discharge home tomorrow. Patient educated on: diagnosis and medication risk/benefits Reason for continued inpatient stay Substantial Risk for: stable for discharge Time Spent With Patient Time: Total time managing care of this patient today _20___ minutes.
[2023-10-31] MEDS: fluPHENAZine HCl 5 MG TABLET 10 MG PO ×2 (09:12→20:03)
[2023-10-31] MEDS: Divalproex Sodium 500 MG TABLET.DR 1000 MG PO ×2 (09:13→20:02)
[2023-10-31 19:05] LABS: Ammonia 32 umol/L (13-55)
[2023-10-31 19:13] LABS: Alanine Aminotransferase 12 U/L (0-40); Albumin Level 4.5 g/dL (3.5-5.0); Alkaline Phosphatase 58 U/L (39-117); Aspartate Amino Transferase 14 U/L (5-37); Bilirubin Direct < 0.2 mg/dL (0.0-0.5); Bilirubin Total 0.2 mg/dL (0.0-1.0); Total Protein 7.5 g/dL (6.5-8.0)
[2023-10-31 20:00] VITALS: BP 137/76; PULSE 90; RESP 16; TEMP 36.7; O2SAT 100
[2023-10-31] MEDS: Melatonin 3 MG TABLET 6 MG PO (20:03)
[2023-10-31] MEDS: OLANZapine 10 MG TABLET 30 MG PO (20:03)
[2023-11-01 07:00] VITALS: BMI 19.2
[2023-11-01 07:43] VITALS: BP 139/74; PULSE 97; RESP 16; TEMP 36.4; O2SAT 100
[2023-11-01] MEDS: fluPHENAZine HCl 5 MG TABLET 10 MG PO (08:29)
[2023-11-01] MEDS: Divalproex Sodium 500 MG TABLET.DR 1000 MG PO (08:29)
--- NOTE | 2023-11-01 09:18 | PM.PSYDC ---
DS: Providers Provider Date of Service: 11/01/23 Date of admission: 10/22/23 13:52 Date of discharge: 11/01/23 Primary care physician: Unknown Physician Admitting clinician: Daiana Seth Attending physician on admission: Vj Edgar Attending physician on discharge: Vj Edgar Discharging clinician: Becki Pettit DS: Diagnosis Discharge Diagnosis (1) Schizoaffective disorder: Status: Acute DS: Medications Discharge Medications Home Medications: Home Medications ?Medication ?Instructions ?Recorded ?Confirmed fluphenazine HCl 10 mg tablet 10 mg PO BID 04/03/23 10/19/23 hydroxyzine pamoate 25 mg capsule 25 mg PO TID PRN Agitation 04/03/23 10/19/23 olanzapine 15 mg disintegrating 30 mg PO BEDTIME 04/03/23 10/19/23 tablet divalproex 500 mg tablet,delayed 1,000 mg PO BID 04/04/23 10/19/23 release melatonin 3 mg tablet 6 mg PO BEDTIME 04/04/23 10/19/23 Mental Status Exam Mental Status Exam Narrative: Pt is alert and oriented; behavior is cooperative and calm; dressed in casual attire; mood is described as good ; eye contact appropriate; Speech is normal rate, volume and not pressured; thought process is organized; Thought content is on discharge; denies SI/HI/VH/AH. Data Data Completed and Pending Completed studies during hospitalization [Text1]: 10/26/23 10/31/23 08:30 18:52 Total Bilirubin 0.2 0.2 Direct Bilirubin < 0.2 < 0.2 AST 37 14 ALT 19 12 Alkaline Phosphatase 57 58 Ammonia 33 32 Total Protein 6.5 7.5 Albumin 3.9 4.5 Valproic Acid 70.6 78.0 DS: Summary Hospital Course Hospital Course: Mr. Campbell is a 33 year-old male with hx of schizoaffective disorder who was brought on sect 12a. He was assessed in the community after his mother called 911 reporting pt has been calling her thinking someone is with her and she is denying it, making HI threats although no specific person identified. In the ED, pt presented as agitated required haldol IM and ativan IM. He continues to talk about murder, murder, murder. Utox not completed. No known hx of substance use. On the unit, pt presented as very agitated, yelling at staff and peers, reporting hospital was racist and proof of this is because the hospital took him out of the motel and brought me here. He is sweating and threatening to continue escalating if not discharged immediately. He was throwing papers that were on the table, other peers had to be asked to move out of the common area as pt was intimidating yelling and demanding immediate discharge, accusing the hospital of being responsible from him being here. Further assessment was limited as pt extremely agitated and unable to engage in any therapeutic manner. On the unit, pt continued to present as agitated, suspicious about hospital staff reports hospital took him [place] of his motel because staff is racist. Pt has been on combination of prolixin, depakote, olanzapine. Medications restarted while he was in the ED. He is taking morning meds, declined nighttime. PLAN 1. Admit to M3, CV, 5 minutes checks 2. continue prolixin 10mg po BID, olanzapine 30mg po qhs, depakote 1000mg po BID. 3. Obtain collateral information 4. aftercare planning. T/W and social work, Radha, met with patient in unit office. Patient presented agitated and raising voice during assessment. Patient 3 day notice up today and was notified team had decided to file section 7 d/t mental status and presentation. Patient reports being medication compliant despite nursing documentation stating patient is intermittently compliant. Patient accusatory towards hospital staff stating, You guys are racists! You do this shit all the time. You're hating on black people. I take my meds every day. You guys are lying! After meeting, patient left office and made a phone call. Patient was observed yelling and swearing on phone. When phone call was over, patient ripped phone off of the wall and threw the phone. He proceeded to walk over to the wall and began kicking and punching various objects. Code assist was called. Commitment paperwork was filed by Daiana Seth NP. Patient continues to present agitated and raising voice during assessment. Patient was informed about court hearing on 11/01/2023; patient became upset, stood up and stormed out of room while stating, I am not fucking staying here till . Patient paranoid regarding food; reporting that peers are putting hair in his food. Patient was medication compliant last night and this morning. Valproic acid level- 70.6 on 10/26/23. Continue current tx plan. Encourage medication compliance. T/W spoke to patient's mother, Shannon Campbell, with patient's consent. Shannon reports she spoke to her son today and was unable to have a conversation due to him yelling at her about various topics. Shannon stated, he was talking over me. I hung up on him multiple times and he kept calling me back. He is not hearing me. I told him to just take his meds . Ms. Campbell reports that she is willing to testify about her concerns regarding her son's current mental status and safety. Per nursing, pt has been social with peers and attending groups. Pt has been medication compliant. He presents calm and polite today. Pt stated, I'm feeling alright. I'm going to try to go to a group today and I'll keep taking my meds . Pt reports sleeping well. denies SI/HI/VH/AH. If pt continues to maintain medication compliance and mental status continues to improve; will not need to continue with court hearing; pt aware. Continue current tx plan. social with peers, attending groups. medication compliant. pt laughing and joking during assessment. Pt reports feeling good today. Pt reports sleeping well. denies SI/HI/VH/AH. Continue current tx plan. social with peers, attending groups. medication compliant. pt laughing and joking during assessment. Pt reports feeling good today. Pt reports sleeping well. denies SI/HI/VH/AH. Pt reports he plans on continuing to take his medications and follow up with outpatient providers. pt to discharge home tomorrow. Patient reports feeling good today. Valproic acid level 78.0 on 10/31/23. Patient reports he plans on following up with outpatient providers and continuing to take his medications. Patient denies SI/HI/VH/AH. Time spent discussing smoking cessation with patient: 3 to 10 minutes Status at Discharge Cognitive/behavioral status at discharge: Patient was interviewed prior to discharge and found to be fully oriented and without SI or HI. Patient has insight and demonstrates good judgment in terms of wanting to pursue treatment. Patient has a safety plan that includes presenting to the closest ER or calling 911 if feeling unsafe. Functional status at discharge: independent ambulation Overall status at discharge: patient is back to baseline Time Spent with Patient Time attestation: Total time managing care of this patient today _20___ minutes. Time spent: Less than 30 minutes Discharge Plan Discharge Anticipated Discharge Date/Time: 11/01/23 11:00 Patient Disposition: Home, Self-Care Discharge Diagnosis: Schizoaffective d/o, PTSD Referrals: Obdulia Connor (PACT provider) [Other] - 11/02/23 11:30 am (in person appointment) [facility] [Provider Group] - 1 Week ([facility] has been added to patients chart. Please call [phone] for a follow up appt.) Discharge Medications: Continued fluphenazine HCl 10 mg tablet 10 mg PO BID olanzapine 15 mg tablet,disintegrating 30 mg PO BEDTIME hydroxyzine pamoate 25 mg capsule 25 mg PO TID PRN (Reason: Agitation) melatonin 3 mg tablet 6 mg PO BEDTIME divalproex 500 mg tablet,delayed release (DR/EC) 1,000 mg PO BID Discontinued ammonium lactate 12 % lotion 1 appl topical BID Discharge Orders: Discharge Order (Routine); Ordered 11/01/23 Ordered By: Becki Pettit Diet: Regular diet Activity on Discharge: As tolerated Stand Alone Forms: Patient Portal Discharge page, Community Support Print Language: [place] Care Plan Goals: Maintain mood and safe behaviors Take medications as prescribed Practice coping skills Continue with outpatient providers and reach out to them as needed Health Concerns: Mood stability and behaviors Plan of Treatment: Follow up with your PCP, psychiatric provider and other outpatient providers regarding above concerns Take medications as prescribed Assessment: Patient was interviewed prior to discharge and found to be fully oriented and without SI or HI. Patient has insight and demonstrates good judgment in terms of wanting to pursue treatment. Patient has a safety plan that includes presenting to the closest ER or calling 911 if feeling unsafe. Discharge Date/Time: 11/01/23 11:00
== END 2023-11-01 11:00 | disposition home or self-care (01) | DRG 885 ==
LOC: HO.ED 10-21 06:51 → HO.PADLT16 10-22 13:52
PROVIDERS: Emergency Medicine; Physician Assistant; Admitting Provider Social Worker; Emergency Provider Emergency Medicine; Responsible Provider Registered Nurse; Visit Provider Psychiatry & Neurology Psychiatry
DX: F25.9 Schizoaffective disorder, unspecified (principal); F43.10 Post-traumatic stress disorder, unspecified; R45.850 Homicidal ideations; Z78.1 Physical restraint status; Z91.148 Patient's other noncompliance with medication regimen for other reason
CPT/HCPCS: 36415; 80053; 80061; 80076; 80164; 80307; 82140; 82248; 82550; 82607; 82746; 83036; 83735; 84443; 85025; 93005; 99285; J1200; J1630; J2060; S9485

== ENCOUNTER → 2023-10-22 13:52 | Outpatient (BNV) | payer OTHER, SELFPAY | PROVIDERS: Admitting Provider Social Worker; Emergency Provider Emergency Medicine; Visit Provider Social Worker | DX: F25.0 Schizoaffective disorder, bipolar type (principal) | CPT/HCPCS: 90792; 99231; 99232; 99238; 99499 ==

== ENCOUNTER 2023-12-06 18:59 | Inpatient (IN) | payer OTHER, SELFPAY ==
[2023-12-06] MEDS: diphenhydrAMINE HCL 50 MG/ML VIAL IM (19:04)
[2023-12-06] MEDS: Haloperidol Lactate 5 MG/ML VIAL IM (19:04)
[2023-12-06] MEDS: LORazepam 2 MG/ML VIAL IM (19:04)
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
[2023-12-06 19:22] VITALS: BP 122/70; PULSE 80; RESP 18; TEMP 37; O2SAT 100; BMI 24.5
--- NOTE | 2023-12-07 08:18 | ECG_ITS ---
Test Reason : PRE-ADMISSION Blood Pressure : / mmHG Vent. Rate : 089 BPM Atrial Rate : 089 BPM P-R Int : 150 ms QRS Dur : 092 ms QT Int : 368 ms P-R-T Axes : 082 088 057 degrees QTc Int : 447 ms Normal sinus rhythm Biatrial enlargement Incomplete right bundle branch block Abnormal ECG When compared with ECG of 19-OCT-2023 16:04, No significant change was found Referred By: Shruthi Guzman Electronically Signed By:WILL LE
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
[2023-12-07 09:03] LABS: Hematocrit 50.3 % (42.0-52.0); Hemoglobin 17.5 g/dl (14.0-18.0); Mean Corpuscular HGB Conc 34.8 g/dl (31.0-36.0); Mean Corpuscular Hemoglobin 30.7 pg (27.0-33.0); Mean Corpuscular Volume 88.2 fL (80.0-98.0); Mean Platelet Volume 10.2 fL (9.4-12.4); Platelet Count 232 X10*3/uL (160-400); Red Cell Distribution Width 12.6 % (11.0-16.0); WBC ABN SCTR FOR CBC 1
[2023-12-07] MEDS: LORazepam 1 MG TABLET PO ×2 (09:12→20:15)
[2023-12-07 09:13] LABS: Amphetamine Screen Urine Not Detected (Not Detect); Barbiturates, Urine Not Detected (Not Detect); Benzodiazepines Screen Urine Not Detected (Not Detect); Buprenorphine Scr Not Detected (Not Detect); Cannabinoid Screen Urine POSITIVE (Not Detect); Cocaine Screen Urine Not Detected (Not Detect); Fentanyl, urine Not Detected (Not Detect); Methadone Screen, Urine Not Detected (Not Detect); Opiate Screen Urine Not Detected (Not Detect); Oxycodone Screen Urine Not Detected (Not Detect); Phencyclidine Screen Urine Not Detected (Not Detect)
[2023-12-07 09:16] LABS: Valproate < 12.5 mcg/mL (50.0-100.0)
[2023-12-07 09:22] LABS: Alanine Aminotransferase 24 U/L (0-40); Albumin Level 5.2 g/dL (3.5-5.0); Alkaline Phosphatase 72 U/L (39-117); Anion Gap 16 (12-20); Aspartate Amino Transferase 49 U/L (5-37); Bilirubin Direct 0.4 mg/dL (0.0-0.5); Bilirubin Total 1.3 mg/dL (0.0-1.0); Blood Urea Nitrogen 11 mg/dL (9-16); Calcium 10.7 mg/dL (8.4-10.2); Carbon Dioxide 26 mmol/L (22-29); Chloride 102 mmol/L (96-108); Eosinophils Percent Manual 2 % (0-4); Estimated Glomerular Filt Rate > 60; Ethanol < 10 mg/dL; Glucose Random 109 mg/dL (60-115); Lymphocytes Percent Manual 48 % (20-40); Monocytes Percent Manual 6 % (2-11); Neutrophils Percent Manual 44 % (45-73); Potassium 4.4 mmol/L (3.3-5.1); Sodium 140 mmol/L (135-145); Total Protein 8.9 g/dL (6.5-8.0)
[2023-12-07 09:23] LABS: Band Neutrophils Percent 0 % (3-5)
[2023-12-07 09:24] LABS: Burr Cells 1+ (0-2) /OIF; Platelet Estimate NORMAL (NORMAL); Platelet Morphology Comment NORMAL; RBC Morphology NOTED
[2023-12-07 09:25] LABS: Eosinophils Absolute Manual 0.1 X10*3/uL (0.0-0.4); Lymphocytes Absolute Manual 3.3 X10*3/uL (1.2-4.9); Monocytes Absolute Manual 0.4 X10*3/uL (0.1-1.2); White Blood Count 6.8 X10*3/uL (4.8-10.8)
[2023-12-07 09:27] VITALS: BP 130/94; PULSE 86; RESP 18; TEMP 36.8; O2SAT 100
--- NOTE | 2023-12-07 10:19 | PC.NURSE ---
hAS BEEN ON phone. needs redirection to remain calm and use appropriate language.
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
--- NOTE | 2023-12-07 11:21 | PC.NURSE ---
Assumed care of patient at 1045, patient appears to be in no apparent distress, sitting in room in 1, offers no complaints to this RN at this time. Continue plan of care for inpatient bedsearch
[2023-12-07 11:29] LABS: Appearance Urine Cloudy; Color Urine Dark Yellow; Glucose Urine UA Negative (Negative); Leukocyte Esterase Urine Small (1+) (Negative); Nitrite Urine Negative (Negative); PH 5.5 (5.0-9.0); Specific Gravity - Urine >= 1.030 (1.005-1.025); UMIC TRIGGER UA YES; Urine Blood Negative (Negative); Urine Ketones Trace mg/dL (Negative); Urine Protein 100 (2+) mg/dL (Neg-Trace)
[2023-12-07 11:31] LABS: Bacteria Urine None Seen (None Seen); Hyaline Casts Urine 0-2 /LPF (0-2); RBC Urine 0-2 /HPF (0-2)
--- NOTE | 2023-12-07 11:39 | PHA.MEDREC ---
Addendum entered by Bryanna Giraldo RPh 12/07/23 11:50: reviewed by [facility]. Original Note: Pharmacy Consult ? Medication Reconciliation Pharmacy reviewed med rec done by nursing. Called [facility] and confirmed the Ammonium Lactate 12% lotion was last filled 11/14 for 30 days, the Divalproex 500mg tab was filled 10/24 for 30 days, the Fluphenazine HCL 10mg tab was last filled 11/04 for 30 days, the Hydroxyzine Pamoate 25mg cap was last filled 10/24 for 30 days, the Melatonin 3mg tab was last filled 10/24 for 30 days and Olanzapine 15mg tab filled 11/04 for 30 days. They state the patient has not put in for refills for their medications.
--- NOTE | 2023-12-07 18:14 | PC.NURSE ---
Rn to RN complete with Agustin.
[2023-12-07 19:38] VITALS: BP 143/98; PULSE 85; RESP 14; TEMP 36.7; O2SAT 99
[2023-12-07] MEDS: OLANZapine 10 MG TABLET 30 MG PO (20:14)
[2023-12-07] MEDS: Melatonin 3 MG TABLET 6 MG PO (20:15)
[2023-12-07] MEDS: fluPHENAZine HCl 5 MG TABLET 10 MG PO (20:15)
[2023-12-07] MEDS: Divalproex Sodium 500 MG TABLET.DR 1000 MG PO (20:16)
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
--- NOTE | 2023-12-08 00:01 | PC.NURSE ---
Pt refused v/s and weight. [facility] notify per Pt request.
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
[2023-12-08] MEDS: Divalproex Sodium 500 MG TABLET.DR 1000 MG PO ×2 (09:00→20:14)
[2023-12-08] MEDS: fluPHENAZine HCl 5 MG TABLET 10 MG PO ×2 (09:00→20:15)
[2023-12-08] MEDS: Nicotine 21 MG PATCH.TD24 TRANSDERMA (09:01)
[2023-12-08 20:00] VITALS: BP 125/70; PULSE 65; RESP 16; TEMP 37; O2SAT 97
[2023-12-08] MEDS: OLANZapine 10 MG TABLET 30 MG PO (20:13)
[2023-12-08] MEDS: Melatonin 3 MG TABLET 6 MG PO (20:14)
[2023-12-08] MEDS: LORazepam 1 MG TABLET PO (20:16)
[2023-12-09 07:57] VITALS: BP 127/77; PULSE 58; RESP 16; TEMP 37; O2SAT 99
[2023-12-09] MEDS: Nicotine 21 MG PATCH.TD24 TRANSDERMA (08:20)
[2023-12-09] MEDS: fluPHENAZine HCl 5 MG TABLET 10 MG PO ×2 (08:21→20:03)
[2023-12-09] MEDS: Divalproex Sodium 500 MG TABLET.DR 1000 MG PO ×2 (08:21→20:03)
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
[2023-12-09 20:00] VITALS: RESP 14
[2023-12-09] MEDS: OLANZapine 10 MG TABLET 30 MG PO (20:03)
[2023-12-10 07:45] VITALS: BP 116/65; PULSE 56; RESP 16; TEMP 36.7; O2SAT 100
[2023-12-10] MEDS: Nicotine 21 MG PATCH.TD24 TRANSDERMA (08:58)
[2023-12-10] MEDS: Divalproex Sodium 500 MG TABLET.DR 1000 MG PO ×2 (08:58→19:49)
[2023-12-10] MEDS: fluPHENAZine HCl 5 MG TABLET 10 MG PO ×2 (08:58→19:50)
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
[2023-12-10 19:47] VITALS: BP 135/80; PULSE 86; RESP 16; TEMP 37.2; O2SAT 99
[2023-12-10] MEDS: Melatonin 3 MG TABLET 6 MG PO (19:50)
[2023-12-10] MEDS: OLANZapine 10 MG TABLET 30 MG PO (19:50)
--- NOTE | 2023-12-10 19:52 | PC.NURSE ---
HS medications given at this time per patient request.
[2023-12-10] MEDS: LORazepam 1 MG TABLET PO (19:56)
[2023-12-10 20:00] VITALS: BP 135/80; PULSE 86; RESP 16; TEMP 37.2; O2SAT 99
[2023-12-10] MEDS: Acetaminophen 325 MG TABLET 650 MG PO (20:17)
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
[2023-12-11] MEDS: Nicotine 21 MG PATCH.TD24 TRANSDERMA (09:13)
[2023-12-11] MEDS: fluPHENAZine HCl 5 MG TABLET 10 MG PO ×2 (09:13→20:18)
[2023-12-11] MEDS: Divalproex Sodium 500 MG TABLET.DR 1000 MG PO ×2 (09:14→20:18)
[2023-12-11] MEDS: Acetaminophen 325 MG TABLET 650 MG PO (09:19)
[2023-12-11] MEDS: Ibuprofen 800 MG TABLET PO (10:32)
[2023-12-11 17:23] LABS: Ammonia 47 umol/L (13-55)
[2023-12-11 17:29] LABS: Alanine Aminotransferase 20 U/L (0-40); Albumin Level 4.4 g/dL (3.5-5.0); Alkaline Phosphatase 61 U/L (39-117); Aspartate Amino Transferase 24 U/L (5-37); Bilirubin Direct < 0.2 mg/dL (0.0-0.5); Bilirubin Total 0.2 mg/dL (0.0-1.0); Total Protein 7.4 g/dL (6.5-8.0)
[2023-12-11 17:38] LABS: Valproate 51.8 mcg/mL (50.0-100.0)
[2023-12-11 20:00] VITALS: BP 126/82; PULSE 74; RESP 16; TEMP 36.7; O2SAT 100
[2023-12-11] MEDS: Melatonin 3 MG TABLET 6 MG PO (20:18)
[2023-12-11] MEDS: OLANZapine 10 MG TABLET 30 MG PO (20:18)
[2023-12-12 08:00] VITALS: BP 132/85; PULSE 82; RESP 16; TEMP 36.4; O2SAT 100
[2023-12-12] MEDS: fluPHENAZine HCl 5 MG TABLET 10 MG PO (08:31)
[2023-12-12] MEDS: Divalproex Sodium 500 MG TABLET.DR 1000 MG PO (08:31)
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
== END 2023-12-12 11:40 | disposition home or self-care (01) | DRG 885 ==
LOC: HO.ED 12-07 08:59 → HO.PADLT16 12-07 17:09
PROVIDERS: Emergency Medicine; Admitting Provider Registered Nurse; Emergency Provider Emergency Medicine Emergency Medical Services; Responsible Provider Registered Nurse; Visit Provider Psychiatry & Neurology Psychiatry
DX: F25.9 Schizoaffective disorder, unspecified (principal); Z59.01 Sheltered homelessness; R45.850 Homicidal ideations; Z79.899 Other long term (current) drug therapy
CPT/HCPCS: 36415; 80048; 80076; 80164; 80307; 81001; 82140; 85007; 85027; 93005; 99285; J1200; J1630; J2060

== ENCOUNTER → 2023-12-07 08:18 | Outpatient (BNV) | payer OTHER, SELFPAY | PROVIDERS: Admitting Provider Registered Nurse; Emergency Provider Emergency Medicine Emergency Medical Services; Visit Provider Internal Medicine | DX: R94.31 Abnormal electrocardiogram [ECG] [EKG] (principal) | CPT/HCPCS: 93010 ==

== ENCOUNTER → 2023-12-07 17:06 | Outpatient (BNV) | payer OTHER, SELFPAY | PROVIDERS: Admitting Provider Registered Nurse; Emergency Provider Emergency Medicine Emergency Medical Services; Visit Provider Psychiatry & Neurology Psychiatry | DX: F25.0 Schizoaffective disorder, bipolar type (principal) | CPT/HCPCS: 90792; 99231; 99238 ==

== ENCOUNTER → 2023-12-07 17:06 | Outpatient (BNV) | payer OTHER, SELFPAY | PROVIDERS: Admitting Provider Registered Nurse; Emergency Provider Emergency Medicine Emergency Medical Services; Visit Provider Psychiatry & Neurology Psychiatry | DX: F25.0 Schizoaffective disorder, bipolar type (principal) | CPT/HCPCS: 99231 ==